=== PATIENT | male | born 1950 | race Caucasian/White ===

== ENCOUNTER → 2018-11-12 | Outpatient (CLI) | payer MEDICARE ==
--- NOTE | 2018-11-12 18:51 | CONS ---
CONSULTATION DATE OF SERVICE: 11/12/2018 This patient is a 68-year-old gentleman who has been evaluated in the sleep center for possible obstructive sleep apnea-hypopnea syndrome. HISTORY OF PRESENT ILLNESS/SLEEP-WAKE EVALUATION: Patient usually goes to bed around 2 a.m. and gets up in the morning around 11:30 a.m. 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 Sometimes he has problem with falling asleep. He has a TV set in the bedroom. He sleeps on his back and side position by himself, with snoring and awakenings from sleep up to 4 times, with sweating and restless legs. In the morning the patient wakes up tired, has difficulties paying attention, has problems with memory, concentration, depression, anxiety, claustrophobia. [place] Sleepiness Scale is 1. PAST MEDICAL HISTORY: Positive for: 1. Hypertension. 2. Diabetes mellitus. 3. Depression. 4. Acid reflux. 5. Peptic ulcer disease. PAST SURGICAL HISTORY: 1. Gastric bypass surgery. 2. Resection of the stomach for peptic ulcer disease. MEDICATIONS: 1. Omeprazole. 2. Strattera. 3. Lotrel. 4. Metformin. 5. Metoprolol. 6. Robaxin. 7. Lopid. 8. Vicodin. 9. Seroquel. 10.Meloxicam. SOCIAL HISTORY: Negative for smoking cigarettes. Occasionally uses marijuana. Alcohol consumption: none at the present time. REVIEW OF SYSTEMS: Multiple awakenings from sleep, sometimes difficulties to initiate sleep, tiredness and sleepiness during the day. PHYSICAL EXAMINATION: GENERAL: A pleasant gentleman without distress. VITAL SIGNS: BP 169/89, HR 78, RR 17, height 5 feet 7-1/2 inches, weight 194.2 pounds, body mass index 29.9, temperature 98.7, oxygen saturation at room air 96%. HEENT: PERRLA, EOMI. Evaluation of oropharynx showed tongue protrudes midline. Moderately low position of soft palate. Mallampati III. NECK: Supple. No JVD. Thyroid is not palpable. Circumference of neck is 16-1/2 inches. LUNGS: Clear to percussion and to auscultation. Good air exchange. No wheezing or rhonchi. HEART: S1, S2 regular. No murmurs, gallops or rubs. ABDOMEN: Soft and nontender. Bowel sounds are present. No organomegaly. EXTREMITIES: No clubbing or cyanosis. Difficulties walking related to some weakness in the left leg. INSTRUCTIONAL TECHNOLOGY DIRECTOR: Awake, alert, and oriented X3. Cranial nerves 2 to 7 intact. There is no fasciculation or atrophy. noted. No focal deficits observed. IMPRESSION: 1. Snoring, multiple awakenings from sleep, low position of soft palate, feeling tiredness in the morning after awakening; obstructive sleep apnea-hypopnea syndrome. 2. Hypertension. 3. History of depression. 4. Diabetes mellitus. 5. History of acid reflux. 6. History of peptic ulcer disease, status post surgical treatment. 7. Status post gastric bypass surgery. 8. Some weakness in left leg after a fall. PLAN: 1. Polysomnography for evaluation of patient's breathing during sleep. 2. CPAP/BiPAP titration if sleep study confirms obstructive sleep apnea-hypopnea syndrome. 3. Preferable position during sleep on the side. 4. No driving if patient feels any sleepiness. 5. I will see patient for follow up visit to explain results of testing and following plan. Thank you very much for referring this patient for consultation. Sincerely, Vetnura Messina MD, PhD, FAASM Diplomat of [employer] [facility] [place] [facility] / KARLYN: [id number] /
== END ==
LOC: SLEEP 13:44
PROVIDERS: ATTEND Internal Medicine
DX: G47.33 Obstructive sleep apnea (adult) (pediatric) (principal); I10 Essential (primary) hypertension; E11.9 Type 2 diabetes mellitus without complications; F32.9 Major depressive disorder, single episode, unspecified; K21.9 Gastro-esophageal reflux disease without esophagitis; K30 Functional dyspepsia; M62.81 Muscle weakness (generalized); Z98.890 Other specified postprocedural states; Z99.89 Dependence on other enabling machines and devices; Z98.84 Bariatric surgery status; Z79.899 Other long term (current) drug therapy; Z79.891 Long term (current) use of opiate analgesic; Z79.1 Long term (current) use of non-steroidal anti-inflammatories (NSAID)
CPT/HCPCS: 99211

== ENCOUNTER → 2018-12-24 | Outpatient (CLI) | payer MEDICARE ==
--- NOTE | 2018-12-24 16:12 | PN ---
PROGRESS NOTE DATE OF SERVICE: 12/24/2018 This patient is a 68-year-old gentleman who has been followed in Sleep Center. He is here to discuss results of his sleep study and following plan. Recently the patient had a sleep study. There were no significant respiratory abnormalities documented during the test. Apnea-hypopnea index was only 1.7, with lowest oxygen level 89.1%, which is within normal range. A significant amount of leg movements was documented: 57.5 times per hour with 2.8 microarousals per hour. [place] Sleepiness Scale today is 0. MEDICATIONS: 1. Omeprazole. 2. Strattera. 3. Lotrel. 4. Metformin. 5. Metoprolol. 6. Robaxin. 7. Lopid. 8. Vicodin. 9. Seroquel. 10.Meloxicam. PHYSICAL EXAMINATION: GENERAL: A pleasant patient in no distress. VITAL SIGNS: BP 176/86, HR 74, RR 16, height 5 feet 7-1/2 inches, weight 198 pounds. Body mass index 30.3, temperature 98.6, oxygen saturation at room air 97%. HEENT: PERRLA, EOMI. Evaluation of oropharynx showed tongue protrudes midline. Moderately low position of soft palate. NECK: Supple. No JVD. Thyroid is not palpable. LUNGS: Clear to percussion and to auscultation. Good air exchange. No wheezing or rhonchi. HEART: S1, S2 regular. No murmurs, gallops or rubs. ABDOMEN: Soft and nontender. Bowel sounds are present. No organomegaly. EXTREMITIES: No clubbing or cyanosis. CUTTER AND PRESSER: Awake, alert, and oriented X3. Cranial nerves 2 to 7 intact. There is no fasciculation or atrophy. noted. No focal deficits observed. IMPRESSION: 1. No significant respiratory abnormalities during the sleep study. 2. Hypertension. 3. Periodic limb movements have been documented during the sleep study in severe range. 4. History of depression. 5. Diabetes mellitus. 6. Acid reflux. 7. History of peptic ulcer disease, status post surgical treatment. 8. Status post gastric bypass surgery. 9. History of weakness of legs. PLAN: 1. Sleep hygiene with regular time bed for at least 8 hours. 2. Please check iron profile, including ferritin level. Low level of iron may be related to the developing of periodic limb movements. 3. Patient could be a candidate for small doses of dopamine antagonists to prevent periodic limb movements, but he does not have significant excessive daytime sleepiness, so probably it is not necessary. 4. No driving if feeling any sleepiness. Thank you very much for allowing me to participate in the management of your patient. Sincerely, Ventura Messina MD, PhD, FAASM Diplomat of [place] [employer] [place] [employer] [facility] [place] [facility] / KARLYN: [id number] /
== END ==
LOC: SLEEP 14:52
PROVIDERS: ATTEND Internal Medicine
DX: G47.61 Periodic limb movement disorder (principal); I10 Essential (primary) hypertension; F32.9 Major depressive disorder, single episode, unspecified; E11.9 Type 2 diabetes mellitus without complications; K21.9 Gastro-esophageal reflux disease without esophagitis; Z87.11 Personal history of peptic ulcer disease; Z98.890 Other specified postprocedural states; Z98.84 Bariatric surgery status; R53.1 Weakness; Z79.899 Other long term (current) drug therapy; Z79.84 Long term (current) use of oral hypoglycemic drugs; Z79.1 Long term (current) use of non-steroidal anti-inflammatories (NSAID)

== ENCOUNTER 2022-04-22 04:46 | Inpatient (IN) | payer MEDICARE ==
[2022-04-22] MEDS ORDERED: ASPIRIN 81 MG PO STA (04:51)
[2022-04-22] MEDS: MORPHINE SULFATE 4 MG/ML SYRINGE IV STA ×2 (04:59→05:07)
[2022-04-22 05:03] LABS: Anisocytosis Moderate; Basophils % (A) 0 %; Eosinophils % (A) 0 %; HCT 27.9 % (39.0-53.0); HGB 8.7 gm/dL (13.0-17.5); Hypochromasia Marked; Lymphocytes % (A) 8 %; MCH 30.4 pg (25.0-35.0); MCHC 31.2 g/dL (31.0-37.0); MCV 97.2 fL (80.0-100.0); Macrocytosis Moderate; Mean Platelet Volume 9.6; Monocytes # (A) 0.7 k/uL (0-1.0); Monocytes % (A) 6 %; Neutrophils # (A) 10.6 k/uL (1.3-7.7); Neutrophils % (A) 85 %; Platelet Count 232 k/uL (150-450); RBC 2.87 m/uL (4.30-5.90); RDW 20.6 % (11.5-15.5); WBC 12.5 k/uL (3.8-10.6)
[2022-04-22 05:12] LABS: ALT 23 U/L (4-49); AST 68 U/L (17-59); African American GFR (CKD) >90 (>60 ml/min/1.73 sqM); Albumin 2.8 g/dL (3.5-5.0); Alkaline Phosphatase 127 U/L (38-126); Anion Gap 4 mmol/L; Blood Urea Nitrogen 19 mg/dL (9-20); Calcium 8.4 mg/dL (8.4-10.2); Carbon Dioxide 21 mmol/L (22-30); Chloride 108 mmol/L (98-107); Glucose 57 mg/dL (74-99); Non-African American GFR(CKD) 89 (>60 ml/min/1.73 sqM); Potassium 3.9 mmol/L (3.5-5.1); Sodium 133 mmol/L (137-145); Total Bilirubin 0.2 mg/dL (0.2-1.3); Total Protein 5.4 g/dL (6.3-8.2)
--- NOTE | 2022-04-22 05:12 | ED ---
Chest Pain HPI - General Chief Complaint: Chest Pain Stated Complaint: Chest Pain Time Seen by Provider: 04/22/22 04:51 Source: EMS Mode of arrival: EMS Limitations: no limitations - History of Present Illness Initial Comments: Patient 72-year-old man with history of gastric cancer, also recent history of DVT (now taking eliquis) who presents with onset of left chest pain proximally 4-5 hours ago. The patient was at rest. MD Complaint: chest pain -: hour(s) Onset: during rest Pain Location: left chest Pain Radiation: LUE Severity: moderate Quality: aching Consistency: constant Improves With: nothing Worsens With: nothing Anginal Symptoms: nausea, dyspnea Treatments Prior to Arrival: none - Related Data Home Medications Medication Instructions Recorded Confirmed Metoprolol Tartrate [Lopressor] 25 mg PO BID 04/22/22 04/22/22 Pantoprazole [Protonix] 40 mg PO BID 04/22/22 04/22/22 QUEtiapine [SEROquel] 150 mg PO HS 04/22/22 04/22/22 amLODIPine BESYLATE/BENAZEPRIL 1 cap PO DAILY 04/22/22 04/22/22 [Lotrel 10-40 mg Capsule] gemfibroziL [Lopid] 600 mg PO BID 04/22/22 04/22/22 glipiZIDE [Glucotrol] 5 mg PO AC-BID 04/22/22 04/22/22 hydrALAZINE HCL [Apresoline] 100 mg PO TID 04/22/22 04/22/22 metFORMIN HCL 1,000 mg PO BID 04/22/22 04/22/22 Allergies Allergy/AdvReac Type Severity Reaction Status Date / Time No Known Allergies Allergy Verified 04/22/22 10:17 Review of Systems ROS Statement: Those systems with pertinent positive or pertinent negative responses have been documented in the HPI. ROS Other: All systems not noted in ROS Statement are negative. Constitutional: Denies: fever, chills Respiratory: Reports: dyspnea. Denies: cough Cardiovascular: Reports: chest pain. Denies: palpitations, orthopnea Gastrointestinal: Reports: nausea. Denies: abdominal pain, vomiting Genitourinary: Denies: dysuria, hematuria Musculoskeletal: Denies: back pain Skin: Denies: rash Neurological: Denies: headache, weakness EKG Findings - EKG Results: EKG: interpreted by STEPH, sinus rhythm, normal axis EKG shows: tachycardia (Rate 114 bpm) - PR, Pacemaker, Normal: Myocardial infarction: anterior PR (acute or recent) Past Medical History Past Medical History: Cancer, Diabetes Mellitus, Deep Vein Thrombosis (DVT), Hypertension, Myocardial Infarction (PR) History of Any Multi-Drug Resistant Organisms: None Reported, MRSA Past Surgical History: No Surgical Hx Reported Past Psychological History: Depression Smoking Status: Never smoker Past Drug Use History: Marijuana - Past Family History Father Family Medical History: Cancer, Diabetes Mellitus, Myocardial Infarction (PR) Additional Family Medical History / Comment(s): lung cancer, from [place] General Exam Limitations: no limitations General appearance: alert, in no apparent distress Head exam: Present: atraumatic, normocephalic Eye exam: Present: normal appearance. Absent: scleral icterus, conjunctival injection Neck exam: Present: normal inspection Respiratory exam: Present: normal lung sounds bilaterally. Absent: respiratory distress, wheezes, rales, rhonchi, stridor Cardiovascular Exam: Present: regular rate, normal rhythm, normal heart sounds. Absent: systolic murmur, diastolic murmur, rubs, gallop GI/Abdominal exam: Present: soft. Absent: distended, tenderness, guarding Extremities exam: Present: normal inspection, normal capillary refill. Absent: pedal edema, calf tenderness Back exam: Present: normal inspection. Absent: CVA tenderness (R), CVA tenderness (L) Neurological exam: Present: alert, oriented X3, CN II-XII intact Skin exam: Present: warm, dry, intact, normal color. Absent: rash Course Vital Signs 04/22/22 04/22/22 04/22/22 04:48 05:00 05:05 Temperature 98.1 F Pulse Rate 114 H 115 H 114 H Respiratory 20 20 20 Rate Blood Pressure 94/60 84/58 89/59 O2 Sat by Pulse 100 98 100 Oximetry 04/22/22 05:10 Temperature Pulse Rate 112 H Respiratory 18 Rate Blood Pressure 90/53 O2 Sat by Pulse 100 Oximetry Chest Pain MDM - [facility] Patient 72-year-old man presenting with chest pain whose ECG has ST elevations anterior laterally. Case is discussed with business analyst consultant and Care Nurse Rn activated. Patient has received aspirin by EMS. The patient states he did take his eliquis and therefore heparin not initially started. Critical Care Time Critical Care Time: Yes (30 minutes) Disposition Clinical Impression: ST elevation myocardial infarction (STEMI) Disposition: ADMITTED IP TO THIS HOSP Condition: Critical Is patient prescribed a controlled substance at d/c from ED?: No
[2022-04-22] MEDS ORDERED: IV FLUID CONTINUATION 1,000 ML IV ONE (05:18)
[2022-04-22] MEDS ORDERED: HEPARIN SODIUM 1,000 UN/ML (10ML VL) ONE (05:24)
[2022-04-22] MEDS ORDERED: VERAPAMIL 2.5 MG/ML 2 ML AMP ONE (05:24)
[2022-04-22] MEDS ORDERED: fentaNYL (PF) 50 MCG/ML 2 ML AMP ONE (05:25)
[2022-04-22] MEDS ORDERED: fentaNYL (PF) 50 MCG/ML 2 ML AMP IV ONE (05:34)
[2022-04-22] MEDS ORDERED: LIDOCAINE 1% INJ 10MG/ML (5 ML VIAL-PF) SQ ONE (05:34)
[2022-04-22] MEDS ORDERED: VERAPAMIL SYRINGE (5 MG/10 ML) INTRAARTER ONE (05:37)
[2022-04-22] MEDS ORDERED: PRASUGREL 10 MG TAB ONE ×2 (05:44)
[2022-04-22] MEDS: HEPARIN SODIUM 1,000 UN/ML (10ML VL) IV ONE ×2 (05:45→06:40)
[2022-04-22] MEDS ORDERED: PRASUGREL 10 MG TAB PO ONE (05:49)
[2022-04-22] MEDS ORDERED: NOREPINEPHRINE 4 MG in SODIUM CHLORIDE 0.9% 250 ML IV ONE (05:54)
[2022-04-22 05:57] LABS: INR 1.2 (<1.2); Partial Thromboplastin Time 25.7 sec (22.0-30.0); Prothrombin Time 12.3 sec (9.0-12.0)
[2022-04-22] MEDS ORDERED: IOPAMIDOL-370 125ML BTL INJ ONE (06:00)
[2022-04-22] MEDS ORDERED: niCARdipine 25 MG/10 ML VIAL ONE (06:07)
[2022-04-22] MEDS ORDERED: niCARdipine Syringe (1,000 mcg/10 mL) INTRACORON ONE (06:08)
[2022-04-22] MEDS ORDERED: MIDAZOLAM 2 MG/2 ML VIAL IV ONE (06:11)
[2022-04-22] MEDS ORDERED: IOPAMIDOL-370 100ML BTL INJ ONE ×2 (06:28→06:40)
[2022-04-22] MEDS ORDERED: ZOLPIDEM 5 MG TAB PO PRN (07:00)
[2022-04-22] MEDS ORDERED: RX INFO: IV CONTRAST WAS GIVEN 1 EACH MISC MISCELLANE PRN (07:00)
[2022-04-22] MEDS ORDERED: SODIUM CHLORIDE 0.9% 1,000 ML in EMPTY BAG 1 BAG IV SCH (07:00)
[2022-04-22] MEDS ORDERED: ATROPINE SULFATE 0.1 MG/ML 10ML SYRINGE IV PRN (07:00)
--- NOTE | 2022-04-22 07:00 | XR ---
EXAMINATION TYPE: XR chest 1V portable DATE OF EXAM: 04/22/2022 5:00 AM COMPARISON: None TECHNIQUE: XR chest 1V portable Portable AP radiograph of the chest.. CLINICAL INDICATION:Male, 72 years old with history of chest pain; FINDINGS: Lungs/Pleura: Low lung volumes are present. There is no evidence of pleural effusion, focal consolida tion, or pneumothorax. Pulmonary vascularity: Pulmonary vascular congestion. Heart/mediastinum: Cardiomediastinal silhouette is enlarged and stable. Musculoskeletal: No acute osseous pathology. IMPRESSION: Cardiomegaly and mild pulmonary vascular congestion. Correlate with BNP for congestive heart failure.
--- NOTE | 2022-04-22 07:16 | P.CRDCN ---
History of Present Illness Consult date: 04/22/22 History of present illness: History of Present Illness: The patient is a 72-year-old male with a history of CAD status post myocardial infarction in 1995 with angioplasty according to him, history of smoking who presented with symptoms of chest discomfort, had ST segment elevation anteriorly was evaluated by the emergency room and seen in the cardiac catheterization l aboratory. According to the patient the symptoms started around midnight and he presented to the emergency room. He denies any dyspnea he denies any dizziness or palpitations. The patient had a history of DVT recently and has been on anticoagulation. He had an episode of GI bleeding, details unclear he had workup at [facility]. Patient denies any syncope. One of his main complaint shoulder discomfort related to a new injury. His troponin was elevated on presentation. He had no nausea or vomiting. He did not mention that he had any recent GI bleeding. After the procedure and after talking to the family wanted arrived apparently the patient 2 days ago was seen [facility] and was told that he had a STEMI but he signed AMA. He had episode of GI bleeding and upper endoscopy prior to that at [facility] and was told that he has gastric cancer. Full detail of his prior workup is not available, the patient and his son are not sure. Medications: He just is not available Review of Systems: Respiratory: No history of asthma, bronchitis or recent cough. GI: No nausea or vomiting . No history of peptic ulcer disease. recent GI bleed according to the son. : No hematuria or dysuria. Nervous System: No stroke or seizure. Physical Examination: 72-year-old male alert and oriented complaining of chest and back discomfort evaluated in the cardiac catheterization laboratory,Blood pressure 85/70, Heart rate on the 5 Head: Normocephalic. Eyes: Sclerae nonicteric. Neck: Good carotid upstroke, no bruit, no jugular venous distention. Lungs: Clear to auscultation anteriorly. Heart: Regular rate and rhythm, S1-S2, no S3, no rub. No murmur. Abdomen: Soft nontender, positive bowel sounds no organomegaly. Extremities: 2-3+ edema, intact distal pulses. Labs: Hemoglobin 8.7, BUN 19, creatinine 0.81, potassium 3.9, troponin 24.9, chest x- ray suggestive of CHF EKG: Sinus mechanism with ST segment elevation anteriorly and QS pattern Impression: 1. Anterior wall myocardial infarction, initially the patient did not mention that he was diagnosed with STEMI 48 hours ago and after the angioplasty the son said that that was the diagnosis but the patient signed the AMA. We will try to obtain the records 2. Anemia and recent gastric cancer diagnosis 3. History of DVT 4. Evidence to suggest severe cardiomyopathy with early cardiogenic shock 5. Prior history of myocardial infarction 6. History of anticoagulation 7. Back discomfort Plan: 1. Patient underwent cardiac catheterization because of his presentation and the fact that history of STEMI was not mentioned by him, he underwent stenting of the LAD was large amount of clots. 2. Obtain an echocardiogram with Doppler 3. Obtain consultation from oncology 4. Probably need to put a filter catheter because of recent DVT and GI bleed 5. Prognosis is guarded. I discussed the findings with the patient and his son. We will try to obtain old records from [facility] and [facility]. 6. Thank you for this consult we will follow with you. Past Medical History Past Medical History: Cancer, Diabetes Mellitus, Deep Vein Thrombosis (DVT), Hypertension, Myocardial Infarction ([place]) History of Any Multi-Drug Resistant Organisms: None Reported, MRSA Past Surgical History: No Surgical Hx Reported Past Psychological History: Depression Smoking Status: Never smoker Past Drug Use History: Marijuana Medications and Allergies Allergies Allergy/AdvReac Type Severity Reaction Status Date / Time No Known Allergies Allergy Verified 04/22/22 04:53 Physical Exam Vitals: Vital Signs Temp Pulse Resp BP Pulse Ox 04/22/22 05:10 112 H 18 90/53 100 04/22/22 05:05 114 H 20 89/59 100 04/22/22 05:00 115 H 20 84/58 98 04/22/22 04:48 98.1 F 114 H 20 94/60 100 Intake and Output 04/21/22 04/22/22 04/22/22 22:59 06:59 14:59 Other: Weight 87.4 kg Results 04/22/22 04:54 04/22/22 04:54 Cardiac Enzymes 04/22/22 04/22/22 Range/Units 04:54 04:54 AST 68 H (17-59) U/L Troponin I 24.900 H* (0.000-0.034) ng/mL Coagulation 04/22/22 Range/Units 04:54 PT 12.3 H (9.0-12.0) sec APTT 25.7 (22.0-30.0) sec CBC 04/22/22 Range/Units 04:54 WBC 12.5 H (3.8-10.6) k/uL RBC 2.87 L (4.30-5.90) m/uL Hgb 8.7 L (13.0-17.5) gm/dL Hct 27.9 L (39.0-53.0) % Plt Count 232 (150-450) k/uL Comprehensive Metabolic Panel 04/22/22 Range/Units 04:54 Sodium 133 L (137-145) mmol/L Potassium 3.9 (3.5-5.1) mmol/L Chloride 108 H (98-107) mmol/L Carbon Dioxide 21 L (22-30) mmol/L BUN 19 (9-20) mg/dL Creatinine 0.81 (0.66-1.25) mg/dL Glucose 57 L (74-99) mg/dL Calcium 8.4 (8.4-10.2) mg/dL AST 68 H (17-59) U/L ALT 23 (4-49) U/L Alkaline Phosphatase 127 H (38-126) U/L Total Protein 5.4 L (6.3-8.2) g/dL Albumin 2.8 L (3.5-5.0) g/dL Current Medications Generic Name Dose Route Start Last Admin Trade Name Freq PRN Reason Stop Dose Admin Al Hydroxide/Mg Hydroxide 30 ml 04/22/22 07:00 Mag Hydrox/Al Hydrox/Simeth 30 Ml Cup PO Q4HR PRN Heartburn Aspirin 81 mg 04/22/22 09:00 Aspirin 81 Mg PO DAILY CEDRIC Atorvastatin Calcium 80 mg 04/22/22 21:00 Atorvastatin 80 Mg Tab PO HS CEDRIC Atropine Sulfate 0.5 mg 04/22/22 07:00 Atropine Sulfate 0.1 Mg/Ml 10ml Syringe IV ONCE PRN Symptomatic Bradycardia Sodium Chloride 1,000 ml/ IV 1,000 mls @ 87.4 mls/hr 04/22/22 07:00 Solution IV 04/22/22 10:01 .[id number] CEDRIC 1 ML/KG/HR Metoprolol Tartrate 12.5 mg 04/22/22 09:00 Metoprolol Tartrate 25 Mg Tab PO BID [facility] Miscellaneous Information 1 each 04/22/22 07:00 Rx Info: Iv Contrast Was Given 1 Each Mis MISCELLANE 04/24/22 07:00 DAILY PRN Per Protocol Nitroglycerin 0.4 mg 04/22/22 07:00 Nitroglycerin Sl Tabs 0.4 Mg Tab SUBLINGUAL Q5M PRN Chest Pain Prasugrel 10 mg 04/23/22 09:00 Prasugrel 10 Mg Tab PO DAILY [facility] Protocol Spironolactone 25 mg 04/22/22 09:00 Spironolactone 25 Mg Tab PO DAILY [facility] Zolpidem Tartrate 5 mg 04/22/22 07:00 Zolpidem 5 Mg Tab PO HS PRN Insomnia Intake and Output 04/21/22 04/22/22 04/22/22 22:59 06:59 14:59 Other: Weight 87.4 kg 04/22/22 04:54 04/22/22 04:54
--- NOTE | 2022-04-22 07:29 | P.CARDCATH ---
Date of Procedure: 04/22/22 Description of Procedure: Cardiac Catheterization: The patient is a 72-year-old male who presented to the emergency room with acute chest discomfort according to him started 5 hours prior to presentation is ST segment elevation anteriorly and QS pattern. The patient was evaluated in the cardiac catheterization laboratory. According to him this is the first time he had that discomfort. Recommendations were made regarding cardiac catheterization, the risks and the complications were discussed with the patient who is in full understanding and agreement. Procedure Description: Patient was brought to labor relations officer in fasting semi-sedated state after receiving Fentanyl and Benadryl achieiving moderate conscious sedated state. Using Xylocaine Anesthesia and Seldinger technique, a 6-Turkish sheath was introduced in the right radial artery . Subsequently, selective coronary angiography was performed using a 6-Turkish CLS 3.5 for the left coronary system and 3.5 bend right Kathi 5-Turkish catheter. Multiple views of the coronary artery including hemiaxial views were obtained. After performing angioplasty and stenting a 5-Turkish pigtail catheter was used to cross the aortic valve and LVEDP was calculated. Following that, catheter and sheath were removed. Hemostasis was obtained with deployment of TR band . There was no immediate complication. Patient was returned to room in stable condition. Of note, the patient received a total of 8000 units of intravenous heparin as well as intra-arterial verapamil. There was no immediate complications. His ACT was monitored, his chest discomfort improved at the end of the procedure. Findings: Fluoroscopy significant calcification of the LAD was noted. Left main: This is a size vessel, bifurcating into LAD and left circumflex, left main has no high-grade stenosis LAD: This is a calcified vessel giving rise to 2 diagonal branch, the proximal LAD has 60% stenosis at the takeoff of the second diagonal branch there was 100% stenosis with large amount of clots involving the diagonal and the LAD. No significant antegrade flow was noted Left circumflex: This is a size vessel, giving rise to 2 obtuse marginal branch and the second obtuse marginal branch as chronically occluded with retrograde flow RCA: This is a size vessel, bifurcating into PDA and PLV the right coronary artery has mild disease in the midsegment of 20-30% Left Ventriculogram: Not performed Hemodynamics: There was no gradient across the aortic valve, LVEDP 25-30 mmHg Angioplasty: Using the CLS 3.5 guiding catheter and after stenting the left main a 0.014 BMW wire was introduced into the LAD and positioned distally subsequently 2.5 x 12 mm Treck balloon was advanced and inflation up to 8 bacilio were done, subsequently a second 0.014 BMW wire was introduced and the diagonal branch and the balloon was advanced and inflations were done at 8 bacilio, an ESTRELLA catheter was advanced in the LAD and one drawn was done without with throwing significant thrombotic material. After removing the catheter a 2.75 x 18 mm Xience julio point stent was advanced in the LAD and deployed at 16 bacilio. A 3.0 x 12 mm NC Treck balloon was advanced and inflation at 12 bacilio were done and the stent. There was slow flow in the distal segment and nicardipine was given. Following that an export cath eter was introduced and 2 runs were done. The 2.5 x 12 mm balloon was introduced to the distal segment with multiple passes, not inflated with some improvement in the flow. Following that a 3.0 x 18 mm Xience julio point was deployed proximal to the first one and dilated at 16 bacilio. Following that the balloon and the wire was withdrawn back in the guiding catheter images were obtained and repeated subsequently images of the right coronary artery and LVEDP were calculated. The patient chest discomfort improved but he persisted having ST segment elevation. He received Effient. He was returned to his room in stable condition and was started on levophed. Conclusion: 1. Calcified LAD 2. Total occlusion of the LAD and diagonal branch were large amount of clots status post stenting with reduction of the stenosis from 100% to 0% with slow flow at the apex 3. Chronic occlusion of OM 2 4. Mild disease in the RCA 5. Elevated LVEDP Recommendations: The findings and recommendations were discussed with the patient and his son. After the procedure the son mentioned that he was diagnosed with STEMI 2 days ago [facility] but the patient signed AMA. The patient did not get that information on presentation. He will be continued on aspirin and Effient for now awaiting further information about the gastric cancer. The prognosis is guarded. The findings were discussed with the son in detail. Duration of sedation is 68 minutes.
[2022-04-22] MEDS ORDERED: PANTOPRAZOLE 40 MG/10 ML VIAL IVP SCH (10:00)
--- NOTE | 2022-04-22 10:23 | P.PN ---
Progress Note - Text Progress Note Date: 04/22/22 Full consult will be completed in morning. Chart reviewed. Pt is not established with us. Unknown treatment and stage at this time. Will need to obtain records from his treating physician. Here for STEMI. Treatment for STEMI as per cardiology team, and will obtain records for further recom mendations. Monitor CBC and recommend supportive transfusion to maintain Hgb >7. Will complete anemia work up to rule out hemolysis or vitamin deficiencies as well.
[2022-04-22] MEDS: METOPROLOL TARTRATE 12.5 MG TAB PO SCH ×2 (10:36→20:39)
[2022-04-22] MEDS: SPIRONOLACTONE 25 MG TAB PO SCH (10:37)
[2022-04-22] MEDS: FUROSEMIDE 10 MG/ML 2 ML VIAL IV SCH ×2 (10:37→20:40)
[2022-04-22 11:15] LABS: Chol/HDL Ratio 1.77 Ratio
--- NOTE | 2022-04-22 11:20 | US ---
EXAMINATION TYPE: US venous doppler duplex LE DATE OF EXAM: 04/22/2022 11:02 AM COMPARISON: NONE CLINICAL HISTORY: history of DVT. Leg swelling SIDE PERFORMED: Bilateral TECHNIQUE: The lower extremity deep venous system is examined utilizing real time linear array sonog chelly with graded compression, doppler sonography and color-flow sonography. VESSELS IMAGED: Common Femoral Vein Deep Femoral Vein Greater Saphenous Vein * Femoral Vein Popliteal Vein Small Saphenous Vein * Proximal Calf Veins (* superficial vessels) Right Leg: Positive for DVT, entire right leg with hypoechoic clot. Left Leg: Positive for DVT, distal popliteal vein and proximal calf veins with hyperechoic clot iden tified. Bilateral Olivas's Cysts Right= 6.0 x 1.8 x 4.1 cm / Left= 5.1 x 2.1 x 2.9 cm There is subcutaneous edema throughout the lower extremities, right greater than left. IMPRESSION: 1. Bilateral deep vein thrombosis. On the right, extending from the common femoral to the posterior t ibial veins. On the left, extending from the popliteal vein into the posterior tibial veins. 2. Bilateral subcutaneous edema, right greater than left. 3. Bilateral popliteal fossa cysts.
[2022-04-22 11:48] LABS: Glucose,Whole Blood 208 mg/dL (70-110)
[2022-04-22 12:18] LABS: Bilirubin, Delta 0.2 mg/dL (0.0-0.2); LDH 1327 U/L (313-618); Total Bilirubin 0.2 mg/dL (0.2-1.3)
[2022-04-22 12:22] LABS: Reticulocyte % 11.9 % (0.5-2.0)
[2022-04-22] MEDS: INSULIN ASPART (NovoLOG) 100 UNIT/ML VIAL SQ SCH ×3 (12:38→20:40)
--- NOTE | 2022-04-22 12:42 | P.CNPUL ---
History of Present Illness Consult date: 04/22/22 Reason for consult: chest pain History of present illness: This is a 72-year-old male patient who came in to the emergency department complaining of chest pain and the patient was diagnosed having an acute ST segment elevation myocardial infarction. In fact the patient seems to have been having the symptoms for more than 48 hours and we came to find out this information at the later stage after the patient completed his cardiac catheteri zation. Noted the patient is known to have coronary artery disease and the patient was admitted taken to the cardiac catheterization left for further investigation. He is a very poor historian and his extremity and unreliable. During cardiac catheterization, the patient was found to have Calcified LAD, Total occlusion of the LAD and diagonal branch were large amount of clots status post stenting with reduction of the stenosis from 100% to 0% with slow flow at the apex, Chronic occlusion of OM 2, Mild disease in the RCA, Elevated LVEDP. Based on that, the patient was given diagnosis of anterior wall myocardial infarction. The patient underwent stenting of a totally occluded LAD and the diagonal branch on both of these arteries were filled with large amount of clots and there was reduction of the stenosis from 100% on 0%. The patient was given stents LAD and the diagonal branch. Following that, the patient was brought into the intensive care unit. I came to find out that the patient is a more complicated history. He was diagnosed having adenocarcinoma of the stomach at [facility]. Following that, the patient got admitted to [facility] where he was found to have a DVT of the right lower extremity. He was given Eliquis. He subsequently had GI bleeding and the recommendation was to insert an IVC filter stop and to coagulation. Nevertheless, the patient apparently signed himself AMA also the hospital and he has not receiving any form of treatment at this point in time. In fact, he has also stopped his Eliquis intake. He is a chronic marijuana smoking. History of marijuana smoking. He is currently on a low-dose norepinephrine infusion which is running at 0.08 Ming respiratory abnormalities on 2 L about 2 by nasal cannula. He is on a normal saline running at the rate of 75 mL an hour. Review of Systems Constitutional: Reports fatigue, Reports weakness Eyes: denies as per HPI, denies blurred vision, denies bulging eye, denies decreased vision, denies diplopia, denies discharge, denies dry eye, denies irritation, denies itching, denies pain, denies photophobia, denies loss of peripheral vision, denies loss of vision, denies tunnel vision/blind spots Ears: deny: decreased hearing, ear discharge, earache, tinnitus Breasts: absent: as per HPI, gynecomastia Cardiovascular: Reports chest pain, Reports decreased exercise tolerance, Reports dyspnea on exertion Respiratory: Reports cough, Reports dyspnea Genitourinary: Reports as per HPI Musculoskeletal: Reports as per HPI Musculoskeletal: absent: ankle pain, ankle stiffness, ankle swelling Integumentary: Reports as per HPI Neurological: Reports as per HPI Psychiatric: Reports as per HPI Endocrine: Reports as per HPI Hematologic/Lymphatic: Reports as per HPI Allergic/Immunologic: Reports as per HPI Past Medical History Past Medical History: Cancer, Diabetes Mellitus, Deep Vein Thrombosis (DVT), Hypertension, Myocardial Infarction ([place]) Additional Past Medical History / Comment(s): daily marijuana smoker, CAD, COPD, DVT of the RLE April 03, 2022, gastric cancer (adenocarcinoma) , DM2, PUD, UGI bleed and the patinet taken off the Eliquis on 04/17/2022 anad the patient was supposed to have an IVC filter History of Any Multi-Drug Resistant Organisms: None Reported, MRSA Past Surgical History: No Surgical Hx Reported, Heart Catheterization, Tonsillectomy Additional Past Surgical History / Comment(s): surgery for PUD Past Psychological History: Depression Smoking Status: Never smoker Past Drug Use History: Marijuana Medications and Allergies Home Medications Medication Instructions Recorded Confirmed Type Metoprolol Tartrate [Lopressor] 25 mg PO BID 04/22/22 04/22/22 History Pantoprazole [Protonix] 40 mg PO BID 04/22/22 04/22/22 History QUEtiapine [SEROquel] 150 mg PO HS 04/22/22 04/22/22 History amLODIPine BESYLATE/BENAZEPRIL 1 cap PO DAILY 04/22/22 04/22/22 History [Lotrel 10-40 mg Capsule] gemfibroziL [Lopid] 600 mg PO BID 04/22/22 04/22/22 History glipiZIDE [Glucotrol] 5 mg PO AC-BID 04/22/22 04/22/22 History hydrALAZINE HCL [Apresoline] 100 mg PO TID 04/22/22 04/22/22 History metFORMIN HCL 1,000 mg PO BID 04/22/22 04/22/22 History Allergies Allergy/AdvReac Type Severity Reaction Status Date / Time No Known Allergies Allergy Verified 04/22/22 10:17 Physical Exam Vitals: Vital Signs Temp Pulse Resp BP Pulse Ox 04/22/22 09:00 128 H 14 96/83 98 04/22/22 08:30 131 H 19 113/70 96 04/22/22 08:00 98.4 F 117 H 16 112/74 98 04/22/22 07:30 113 H 14 113/80 100 04/22/22 07:10 98.4 F 118 H 16 99/66 95 04/22/22 05:10 112 H 18 90/53 100 04/22/22 05:05 114 H 20 89/59 100 04/22/22 05:00 115 H 20 84/58 98 04/22/22 04:48 98.1 F 114 H 20 94/60 100 Intake and Output 04/21/22 04/22/22 04/22/22 22:59 06:59 14:59 Intake Total 390 150 Output Total 0 Balance 390 150 Intake: IV 390 Intake, IV Titration 150 Amount Sodium Chloride 0.9% 1, 150 000 ml In Empty Bag 1 bag @ 1 ML/KG/HR 87.4 mls/hr IV .[id number] [facility] Rx#: [id number] Output: Urine 0 Other: Weight 87.4 kg Gen. appearance, comfortable on 2 L of nasal cannula Head exam was generally normal. There was no scleral icterus or corneal arcus. Mucous membranes were moist. Neck was supple and without jugular venous distension, thyromegaly, or carotid bruits. Carotids were easily palpable bilaterally. There was no adenopathy. Lungs sounds are diminished otherwise clear Cardiac exam revealed the PMI to be normally situated and sized. The rhythm was regular and no extrasystoles were noted during several minutes of auscultation. The first and second heart sounds were normal and physiologic splitting of the second heart sound was noted. There were no murmurs, rubs, clicks, or gallops. Abdominal exam revealed normal bowel sounds. The abdomen was soft, non-tender, and without masses, organomegaly, or appreciable enlargement of the abdominal aorta. Extremities show +1 edema and there is no cyanosis or clubbing Examination of the skin revealed no evidence of significant rashes, suspicious appearing nevi or other concerning lesions. Neurologically, the patient is awake and alert and the patient does not have any focal neurological deficit. Cranial nerves are essentially intact. Results - Laboratory Findings CBC and BMP: 04/22/22 04:54 04/22/22 04:54 PT/INR, D-dimer PT 12.3 sec (9.0-12.0) H 04/22/22 04:54 INR 1.2 (<1.2) H 04/22/22 04:54 Abnormal lab findings: Abnormal Labs 04/22/22 04/22/22 04/22/22 04:54 04:54 04:54 WBC 12.5 H RBC 2.87 L Hgb 8.7 L Hct 27.9 L RDW 20.6 H Neutrophils # 10.6 H PT 12.3 H INR 1.2 H Sodium 133 L Chloride 108 H Carbon Dioxide 21 L Glucose 57 L AST 68 H Alkaline Phosphatase 127 H Troponin I Total Protein 5.4 L Albumin 2.8 L 04/22/22 04/22/22 04:54 07:30 WBC RBC Hgb Hct RDW Neutrophils # PT INR Sodium Chloride Carbon Dioxide Glucose AST Alkaline Phosphatase Troponin I 24.900 H* 27.500 H* Total Protein Albumin - Diagnostic Findings Chest x-ray: image reviewed Assessment and Plan Plan: Acute/subacute anterior wall ST segment elevation myocardial infarction, post cardiac catheterization and the patient was found to have total occlusion of the LAD and diagonal branch with successful stenting and stent deployment in the diagonal and LAD. Currently free of any chest pain Hypotension, likely cardiogenic in nature and the patient is currently on low- dose norepinephrine infusion Chest pain secondary to above, improved History of gastric adenocarcinoma, exact diagnostic and therapeutic circumstances are not known. History of DVT of the right lower extremity, currently off anticoagulants. The patient was taken off and the granulation due to concerns of GI bleed as the patient was hospitalized for GI bleeding and he was supposed to undergo an IVC filter placement of mechanical [facility] which she declined and the patient walked out AMA History of GI bleed Known history of coronary artery disease with chronic occlusion of the OM 2, moderate disease of the RCA Possible congestion heart failure with elevation of the left ventricle end- diastolic pressure Peptic ulcer disease with previous history of gastric surgery many years back History of daily marijuana smoking Plan We'll give the patient intensive care unit. we'll continue the combination of aspirin and Effient for now and watch the patient closely for any form of GI bleeding. We'll put the patient IV Protonix We'll hold Eliquis for now and we'll repeat a Doppler of the lower extremity. If clots are present, the patient may need IVC filter placement Patient will have an echocardiogram Chest x-ray was noted Present medications include low-dose Lasix 20 mg IV every 12 hours. We will gradually wean off the pressors. Without the patient also metoprolol 25 mg by mouth twice a day. Smoking cessation counseling Obtain records from other hospitals regarding his gastric adenocarcinoma and DVT history We'll continue to follow. Is an unreliable historian. We'll continue to follow
[2022-04-22] MEDS: NITROGLYCERIN SL TABS 0.4 MG TAB SUBLINGUAL PRN (14:34)
--- NOTE | 2022-04-22 14:58 | P.HPIM ---
History of Present Illness H&P Date: 04/22/22 Chief Complaint: Dizzy This is a 72-year-old patient who follows with Dr. Ming Naylor. Patient on April 03 was admitted to [facility] and were diagnosed with that clot in the right lower extremity. Patient also had some bloody stools. Patient underwent endoscopy was found to have gastric cancer biopsy showing adenocarcinoma. Following a biopsy. Subsequently patient was discharged on eliquis. Patient with then became hypotensive and was admitted to [facility]. Seen by an oncologist there. It was felt that patient's bleeding from his biopsy site of the gastric cancer. Patient left from the AMA 2 days ago. Came home. Patient now presented to our facility feeling dizzy lightheaded diet. Ultrasound in the ER did confirm blood clots in both lower extremity. Also patient's Axel ST elevation MT. During the cardiac labor relations manager and got 2 stents to the LAD. Patient is due to get a IVC filter. Postprocedure patient ICU. On about 6 g of Levothroid. No chest pain. Tired. Up in a chair. Daughter the bedside. Review of systems: GEN.: Tired EYES: None HEENT: None NECK: None RESPIRATORY: None CARDIOVASCULAR: None GASTROINTESTINAL: None GENITOURINARY: None MUSCULOSKELETAL: Chronic low back pain LYMPHATICS: None HEMATOLOGICAL: None PSYCHIATRY: None NEUROLOGICAL: None Past medical history to include: Diabetes mellitus type 2, acute DVT both lower extremity diagnosed 2 weeks ago, gastric tumor showing adenocarcinoma recently diagnosed. Depression Social history: Does not smoke. Does marijuana occasionally. 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 Lives alone. Family history: Diabetes, MT, lung cancer Physical examination: VITAL SIGNS: 98.4, 110, 19, 130 minutes 70, 96% on 2 L GENERAL: BMI 30.2, declining in a chair awake not in distress. EYES: Pupils equal. Conjunctiva normal. HEENT: External appearance of nose and ears normal, oral cavity grossly normal. NECK: JVD not raised; masses not palpable. HEART: First and second heart sounds are normal; no edema. LUNGS: Respiratory rate normal; decreased breath sounds. ABDOMEN: Soft, nontender, liver spleen not palpable, no masses palpable. PSYCH: Alert and oriented x3; mood and affect normal. MUSCULOSKELETAL:No Clubbing/cyanosis;muscles-grossly intact NEUROLOGICAL: Cranial nerves grossly intact; no facial asymmetry, power and sensation grossly intact. LYMPHATICS: No lymph nodes palpable in the axilla and neck INVESTIGATIONS, reviewed in the clinical context: White count 12.5 hemoglobin 8.7 platelets 232 sodium 133 potassium 3.9 BUN 19 creatinine 0.81 Troponin I 24.9, 27.5, 23.2 LDL 46 EKG tracing personally reviewed by me-ST elevation V2 to V6, but ST segment depression in inferior leads Chest x-ray film personally reviewed by me-jennie/Fanny. Venous polyposis Doppler ultrasound lower extremity: Positive for DVT and tired right leg with hypoechoic clot, DVT in the left leg is still popliteal vein and proximal calf veins. Bilateral Olivas's cyst. Assessment and plan: -Acute ST elevation myocardial infarction of the anterior wall. 2 stents to the LAD. -CAD with intervention to LAD Aspirin 81 mg, Lipitor 80 mg, Lopressor 12.5 mg by mouth twice a day, passive prasugrel 10 mg daily -Adenocarcinoma of gastric cancer. Diagnosed recently with biopsy following EGD for GI bleed. Consult oncology -Diabetes mellitus type 2, oral hypoglycemic Hold Glucotrol. Follow Accu-Cheks with sliding scale. -Essential hypertension. Currently blood pressure running low. Patient on a very small dose of Lopressor. -Hyperlipidemia Lipitor 80 mg daily at bedtime -Depression Continue Seroquel -Acute congestive heart failure from acute MT. EF not known. Lasix -Cardiogenic shock Currently on levo fed at 6 g. -Recreational marijuana use. Patient uses as needed -Acute bilateral DVT on lower extremity diagnosed on April 03. Patient's eliquis was held because of GI bleed. Last dose taken was on April 17. Bilateral Noah wrap Prognosis guarded. Discussed with the patient and daughter the bedside. Of obvious concern is patient being on antiplatelet agents in the setting of ST elevation MT and stenting. Patient's had a very recent bleed that was significant felt to be from gastric tumor biopsy site. Consultation has been made to vascular for IVC filter. Past Medical History Past Medical History: Cancer, Diabetes Mellitus, Deep Vein Thrombosis (DVT), Hypertension, Myocardial Infarction ([place]) Additional Past Medical History / Comment(s): daily marijuana smoker, CAD, COPD, DVT of the RLE April 03, 2022, gastric cancer (adenocarcinoma) , DM2, PUD, UGI bleed and the patinet taken off the Eliquis on 04/17/2022 anad the patient was supposed to have an IVC filter History of Any Multi-Drug Resistant Organisms: None Reported, MRSA Past Surgical History: No Surgical Hx Reported, Heart Catheterization, Tonsillectomy Additional Past Surgical History / Comment(s): surgery for PUD Past Psychological History: Depression Smoking Status: Never smoker Past Drug Use History: Marijuana - Past Family History Father Family Medical History: Cancer, Diabetes Mellitus, Myocardial Infarction ([place]) Additional Family Medical History / Comment(s): lung cancer, from MT Medications and Allergies Home Medications Medication Instructions Recorded Confirmed Type Metoprolol Tartrate [Lopressor] 25 mg PO BID 04/22/22 04/22/22 History Pantoprazole [Protonix] 40 mg PO BID 04/22/22 04/22/22 History QUEtiapine [SEROquel] 150 mg PO HS 04/22/22 04/22/22 History amLODIPine BESYLATE/BENAZEPRIL 1 cap PO DAILY 04/22/22 04/22/22 History [Lotrel 10-40 mg Capsule] gemfibroziL [Lopid] 600 mg PO BID 04/22/22 04/22/22 History glipiZIDE [Glucotrol] 5 mg PO AC-BID 04/22/22 04/22/22 History hydrALAZINE HCL [Apresoline] 100 mg PO TID 04/22/22 04/22/22 History metFORMIN HCL 1,000 mg PO BID 04/22/22 04/22/22 History Allergies Allergy/AdvReac Type Severity Reaction Status Date / Time No Known Allergies Allergy Verified 04/22/22 10:17 Physical Exam Vitals: Vital Signs Temp Pulse Resp BP Pulse Ox 04/22/22 12:00 99.5 F 114 H 16 96/67 99 04/22/22 11:30 118 H 18 112/74 99 04/22/22 11:00 128 H 13 107/71 99 04/22/22 10:30 126 H 16 103/71 99 04/22/22 10:00 125 H 16 114/80 100 04/22/22 09:30 131 H 16 123/75 85 L 04/22/22 09:00 128 H 14 96/83 98 04/22/22 08:30 131 H 19 113/70 96 04/22/22 08:00 98.4 F 117 H 16 112/74 98 04/22/22 07:30 113 H 14 113/80 100 04/22/22 07:10 98.4 F 118 H 16 99/66 95 04/22/22 05:10 112 H 18 90/53 100 04/22/22 05:05 114 H 20 89/59 100 04/22/22 05:00 115 H 20 84/58 98 04/22/22 04:48 98.1 F 114 H 20 94/60 100 Intake and Output 04/21/22 04/22/22 04/22/22 22:59 06:59 14:59 Intake Total 390 150 Output Total 0 Balance 390 150 Intake: IV 390 Intake, IV Titration 150 Amount Sodium Chloride 0.9% 1, 150 000 ml In Empty Bag 1 bag @ 1 ML/KG/HR 87.4 mls/hr IV .[id number] [facility] Rx#: [id number] Output: Urine 0 Other: Weight 87.4 kg Results CBC & Chem 7: 04/22/22 04:54 04/22/22 04:54 Labs: Abnormal Lab Results - Last 24 Hours (Table) 04/22/22 04/22/22 04/22/22 Range/Units 04:54 04:54 04:54 WBC 12.5 H (3.8-10.6) k/uL RBC 2.87 L (4.30-5.90) m/uL Hgb 8.7 L (13.0-17.5) gm/dL Hct 27.9 L (39.0-53.0) % RDW 20.6 H (11.5-15.5) % Neutrophils # 10.6 H (1.3-7.7) k/uL Retic Count (0.5-2.0) % PT 12.3 H (9.0-12.0) sec INR 1.2 H (<1.2) Sodium 133 L (137-145) mmol/L Chloride 108 H (98-107) mmol/L Carbon Dioxide 21 L (22-30) mmol/L Glucose 57 L (74-99) mg/dL POC Glucose (mg/dL) (70-110) mg/dL AST 68 H (17-59) U/L Alkaline Phosphatase 127 H (38-126) U/L Lactate Dehydrogenase (313-618) U/L Troponin I (0.000-0.034) ng/mL Total Protein 5.4 L (6.3-8.2) g/dL Albumin 2.8 L (3.5-5.0) g/dL HDL Cholesterol (40.00-60.00) mg/dL 04/22/22 04/22/22 04/22/22 Range/Units 04:54 07:30 07:30 WBC (3.8-10.6) k/uL RBC (4.30-5.90) m/uL Hgb (13.0-17.5) gm/dL Hct (39.0-53.0) % RDW (11.5-15.5) % Neutrophils # (1.3-7.7) k/uL Retic Count (0.5-2.0) % PT (9.0-12.0) sec INR (<1.2) Sodium (137-145) mmol/L Chloride (98-107) mmol/L Carbon Dioxide (22-30) mmol/L Glucose (74-99) mg/dL POC Glucose (mg/dL) (70-110) mg/dL AST (17-59) U/L Alkaline Phosphatase (38-126) U/L Lactate Dehydrogenase (313-618) U/L Troponin I 24.900 H* 27.500 H* (0.000-0.034) ng/mL Total Protein (6.3-8.2) g/dL Albumin (3.5-5.0) g/dL HDL Cholesterol 86.80 H (40.00-60.00) mg/dL 04/22/22 04/22/22 04/22/22 Range/Units 11:23 11:23 11:46 WBC (3.8-10.6) k/uL RBC (4.30-5.90) m/uL Hgb (13.0-17.5) gm/dL Hct (39.0-53.0) % RDW (11.5-15.5) % Neutrophils # (1.3-7.7) k/uL Retic Count 11.9 H (0.5-2.0) % PT (9.0-12.0) sec INR (<1.2) Sodium (137-145) mmol/L Chloride (98-107) mmol/L Carbon Dioxide (22-30) mmol/L Glucose (74-99) mg/dL POC Glucose (mg/dL) 208 H (70-110) mg/dL AST (17-59) U/L Alkaline Phosphatase (38-126) U/L Lactate Dehydrogenase 1327 H (313-618) U/L Troponin I (0.000-0.034) ng/mL Total Protein (6.3-8.2) g/dL Albumin (3.5-5.0) g/dL HDL Cholesterol (40.00-60.00) mg/dL
[2022-04-22 15:05] LABS: Glucose,Whole Blood 194 mg/dL (70-110)
[2022-04-22] MEDS ORDERED: HYDROmorphone 0.5 MG/0.5 ML SYRINGE IVP PRN (15:57)
[2022-04-22] MEDS ORDERED: HEPARIN SODIUM 1,000 UN/ML (10ML VL) IV PRN (16:05)
[2022-04-22] MEDS ORDERED: HEPARIN SOD,PORK IN 0.45% NACL 25,000 UNIT in 0.45% NACL 1 250ML.BAG IV SCH (16:15)
[2022-04-22] MEDS: NOREPINEPHRINE 4 MG in SODIUM CHLORIDE 0.9% 250 ML IV SCH (16:16)
[2022-04-22 20:22] LABS: Glucose,Whole Blood 181 mg/dL (70-110)
[2022-04-22] MEDS: ATORVASTATIN 80 MG TAB PO SCH (20:39)
[2022-04-22] MEDS: PANTOPRAZOLE 40 MG/10 ML VIAL IVP SCH (20:41)
[2022-04-22 21:52] LABS: % Iron Saturation 6.67 (15.00-50.00); Iron 11 ug/dL (65-175); Total Iron Binding Capacity 169 ug/dL (228-460); Vitamin B12 >2000.0 pg/mL (200.0-944.0)
[2022-04-23 05:31] LABS: Anisocytosis Moderate; Basophils % (A) 0 %; Eosinophils # (A) 0.1 k/uL (0-0.7); Eosinophils % (A) 0 %; HCT 30.8 % (39.0-53.0); HGB 9.6 gm/dL (13.0-17.5); Hypochromasia Marked; Lymphocytes % (A) 8 %; MCH 31.6 pg (25.0-35.0); MCHC 31.1 g/dL (31.0-37.0); MCV 101.4 fL (80.0-100.0); Macrocytosis Marked; Mean Platelet Volume 8.1; Monocytes # (A) 0.6 k/uL (0-1.0); Monocytes % (A) 5 %; Neutrophils # (A) 10.7 k/uL (1.3-7.7); Neutrophils % (A) 85 %; Platelet Count 333 k/uL (150-450); Poikilocytosis Slight; RBC 3.03 m/uL (4.30-5.90); RDW 20.9 % (11.5-15.5); WBC 12.5 k/uL (3.8-10.6)
[2022-04-23 05:40] LABS: INR 1.1 (<1.2); Partial Thromboplastin Time 45.2 sec (22.0-30.0); Prothrombin Time 11.7 sec (9.0-12.0)
[2022-04-23 06:00] LABS: Polychromasia Present
[2022-04-23 06:30] LABS: Glucose,Whole Blood 173 mg/dL (70-110)
[2022-04-23] MEDS: INSULIN ASPART (NovoLOG) 100 UNIT/ML VIAL SQ SCH ×4 (06:48→21:18)
[2022-04-23] MEDS ORDERED: LIDOCAINE 1% INJ 10MG/ML (30 ML VIAL-PF) SQ ONE (08:04)
--- NOTE | 2022-04-23 08:24 | P.OP ---
Date of Procedure: 04/23/22 Description of Procedure: Preoperative diagnosis: Extensive lower extremity DVT, GI bleed, recent DE, inability to anticoagulate Postoperative diagnosis: Same Procedure: #1 ultrasound guided left common femoral vein access #2 left iliofemoral venogram #3 left venacavogram #4 placement of IVC filter Surgeon: Della Carnes D.O. EBL: Less than 5 mL IV fluids: See records Urine output: Not measured Drains: None Complications: None immediately apparent Condition: stable Operative indication and findings: Patient is a 72-year-old male recently diagnosed with GI cancer, extensive DVT and recent DE who was found to have a GI bleed and inability to tolerate anticoagulation therefore was requested to place a IVC filter. Risks and benefits were discussed with the family singly understands and is willing to proceed. Procedure in detail: Patient was taken to the special suite and placed in supine position. Bilateral groins are prepped and draped in usual sterile fashion. Procedure timeout performed, all parties in agreement. Using ultrasound, the left common femoral vein was identified. It was patent and compressible without evidence visualized thrombus The skin overlying was anesthetized with 1% lidocaine plain. Using a multipurpose needle and Seldinger technique, a 6- Macedonian sheath was placed. A left iliofemoral venogram was performed showing no evidence of thrombus. Catheters and wires were used access the inferior vena cava. A venacavogram was performed to identify the location of the renal vessels. There in standard fashion, a Cook tulip filter was placed. Confirmation venogram was performed showing good positioning with minor tilting seemingly going with the flow of venogram. Catheters wires were then removed. The sheath was removed and pressure was held until hemostasis was adequate.
[2022-04-23] MEDS: NOREPINEPHRINE 4 MG in SODIUM CHLORIDE 0.9% 250 ML IV SCH (08:38)
--- NOTE | 2022-04-23 08:58 | P.PN ---
Subjective History of Present Illness: The patient is a 72-year-old male with a history of CAD status post myocardial infarction in 1995 with angioplasty according to him, history of smoking who presented with symptoms of chest discomfort, had ST segment elevation anteriorly was evaluated by the emergency room and seen in the cardiac catheterization laboratory. According to the patient the symptoms started around midnight and he presented to the emergency room. He denies any dyspnea he denies any dizziness or palpitations. The patient had a history of DVT recently and has been on anticoagulation. He had an episode of GI bleeding, details unclear he had workup at [facility]. Patient denies any syncope. One of his main complaint shoulder discomfort related to a new injury. His troponin was elevated on presentation. He had no nausea or vomiting. He did not mention that he had any recent GI bleeding. After the procedure and after talking to the family wanted arrived apparently the patient 2 days ago was seen [facility] and was told that he had a STEMI but he signed AMA. He had episode of GI bleeding and upper endoscopy prior to that at [facility] and was told that he has gastric cancer. Full detail of his prior workup is not available, the patient and his son are not sure. Medications: He just is not available 04/23 Patient seen and examined. Patient appears confused and talking himself continuously. He is answering some questions appropriately however and states he came in because of projectile diarrhea as well as chest pain. Unable to elaborate more on his prior hospitalization at [facility]. Records are pending. Patient was seen previously at [facility] for DVT and prior r ecommendations for IVC filter and therefore IVC filter was placed this morning. Remains on a heparin drip as well as aspirin and Effient. Blood pressure somewhat borderline. He does admit to lower extremity edema over the last few days. Lying flat on his back however without any significant dyspnea. Remains tachycardic with sinus tachycardia heart rates 120s up to 140s. Troponins have been fairly flat in the 20s. Physical Examination: Vital reviewed Head: Normocephalic. Eyes: Sclerae nonicteric. Neck: Good carotid upstroke, no bruit, no jugular venous distention. Lungs: Clear to auscultation anteriorly. Heart: Regular rate and rhythm, S1-S2, no S3, no rub. No murmur. Abdomen: Soft nontender, positive bowel sounds no organomegaly. Extremities: 2+ edema, intact distal pulses. Impression: 1. Anterior wall myocardial infarction, likely late presenting with fairly flat troponins and prior hospitalization with STEMI and left AMA 2. Anemia and recent gastric cancer diagnosis, history GIB 3. History of DVT 4. Acute on chronic systolic heart failure 5. Prior history of myocardial infarction 6. History of anticoagulation 7. Back discomfort 8. Sinus tachycardia Plan: Await 2-D echo. Likely late presenting SC. Monitor response of diuretics with some lower extremity edema however lying fairly comfortably on his back currently. He is having sinus tachycardia which is likely compensatory for likely cardiomyopathy and heart failure. Add low-dose of metoprolol and monitor result. Continue with diuretics however monitor closely. Continue with aspirin and Effient for now and further recommendations from vascular regarding any long-term anticoagulation. Currently hemoglobin appears stable however patient will be at much increased risk on triple therapy. Prognosis guarded. Obtain records from [facility]. Objective - Vital Signs Vital signs: Vital Signs Temp 98.6 F 04/23/22 00:00 Pulse 137 H 04/23/22 07:00 Resp 17 04/23/22 07:00 BP 108/76 04/23/22 07:00 Pulse Ox 96 04/23/22 07:00 FiO2 Intake & Output 04/22/22 04/23/22 04/23/22 18:59 06:59 18:59 Intake Total 917.094 342.032 Output Total 1350 625 0 Balance -432.906 -282.968 0 Weight 87.4 kg 84.1 kg Intake: IV 75 127.45 Heparin Sod,Pork in 0.45% 52.45 NaCl 25,000 unit In 0.45 % NaCl 1 250ml.bag @ 12 UNITS/KG/HR 10.488 mls/hr IV .[id number] [facility] Rx#: [id number] Sodium Chloride 0.9% 1, 75 75 000 ml In Empty Bag 1 bag @ 1 ML/KG/HR 87.4 mls/hr IV .[id number] [facility] Rx#: [id number] Intake, IV Titration 842.094 214.582 Amount Heparin Sod,Pork in 0.45% 83.38 NaCl 25,000 unit In 0.45 % NaCl 1 250ml.bag @ 12 UNITS/KG/HR 10.488 mls/hr IV .[id number] [facility] Rx#: [id number] Norepinephrine 4 mg In 17.094 131.202 Sodium Chloride 0.9% 250 ml @ 0.05 MCG/KG/MIN 16. 65 mls/hr IV .[id number] [facility] Rx#:[id number] Sodium Chloride 0.9% 1, 825 000 ml In Empty Bag 1 bag @ 1 ML/KG/HR 87.4 mls/hr IV .[id number] [facility] Rx#: [id number] Output: Urine 1350 625 0 Other: Voiding Method Urinal Urinal Urinal # Voids 0 1 # Bowel Movements 1 1 - Labs CBC & Chem 7: 04/23/22 05:14 04/22/22 04:54 Labs: Abnormal Lab Results - Last 24 Hours (Table) 04/22/22 04/22/22 04/22/22 Range/Units 07:30 11:23 11:23 WBC (3.8-10.6) k/uL RBC (4.30-5.90) m/uL Hgb (13.0-17.5) gm/dL Hct (39.0-53.0) % MCV (80.0-100.0) fL RDW (11.5-15.5) % Neutrophils # (1.3-7.7) k/uL Macrocytosis Retic Count 11.9 H (0.5-2.0) % Haptoglobin (31.2-198.0) mg/dL APTT (22.0-30.0) sec POC Glucose (mg/dL) (70-110) mg/dL Iron (65-175) ug/dL TIBC (228-460) ug/dL % Saturation (15.00-50.00) Transferrin (204.0-354.0) mg/dL Ferritin (22.0-322.0) ng/mL Lactate Dehydrogenase (313-618) U/L Troponin I 23.200 H* (0.000-0.034) ng/mL HDL Cholesterol 86.80 H (40.00-60.00) mg/dL Vitamin B12 (200.0-944.0) pg/mL 04/22/22 04/22/22 04/22/22 Range/Units 11:23 11:23 11:46 WBC (3.8-10.6) k/uL RBC (4.30-5.90) m/uL Hgb (13.0-17.5) gm/dL Hct (39.0-53.0) % MCV (80.0-100.0) fL RDW (11.5-15.5) % Neutrophils # (1.3-7.7) k/uL Macrocytosis Retic Count (0.5-2.0) % Haptoglobin 323.0 H (31.2-198.0) mg/dL APTT (22.0-30.0) sec POC Glucose (mg/dL) 208 H (70-110) mg/dL Iron 11 L (65-175) ug/dL TIBC 169 L (228-460) ug/dL % Saturation 6.67 L (15.00-50.00) Transferrin 121.0 L (204.0-354.0) mg/dL Ferritin 446.0 H (22.0-322.0) ng/mL Lactate Dehydrogenase 1327 H (313-618) U/L Troponin I (0.000-0.034) ng/mL HDL Cholesterol (40.00-60.00) mg/dL Vitamin B12 >2000.0 H (200.0-944.0) pg/mL 04/22/22 04/22/22 04/23/22 Range/Units 15:04 20:20 05:14 WBC 12.5 H (3.8-10.6) k/uL RBC 3.03 L (4.30-5.90) m/uL Hgb 9.6 L (13.0-17.5) gm/dL Hct 30.8 L (39.0-53.0) % MCV 101.4 H (80.0-100.0) fL RDW 20.9 H (11.5-15.5) % Neutrophils # 10.7 H (1.3-7.7) k/uL Macrocytosis Marked A Retic Count (0.5-2.0) % Haptoglobin (31.2-198.0) mg/dL APTT (22.0-30.0) sec POC Glucose (mg/dL) 194 H 181 H (70-110) mg/dL Iron (65-175) ug/dL TIBC (228-460) ug/dL % Saturation (15.00-50.00) Transferrin (204.0-354.0) mg/dL Ferritin (22.0-322.0) ng/mL Lactate Dehydrogenase (313-618) U/L Troponin I (0.000-0.034) ng/mL HDL Cholesterol (40.00-60.00) mg/dL Vitamin B12 (200.0-944.0) pg/mL 04/23/22 04/23/22 Range/Units 05:14 06:28 WBC (3.8-10.6) k/uL RBC (4.30-5.90) m/uL Hgb (13.0-17.5) gm/dL Hct (39.0-53.0) % MCV (80.0-100.0) fL RDW (11.5-15.5) % Neutrophils # (1.3-7.7) k/uL Macrocytosis Retic Count (0.5-2.0) % Haptoglobin (31.2-198.0) mg/dL APTT 45.2 H (22.0-30.0) sec POC Glucose (mg/dL) 173 H (70-110) mg/dL Iron (65-175) ug/dL TIBC (228-460) ug/dL % Saturation (15.00-50.00) Transferrin (204.0-354.0) mg/dL Ferritin (22.0-322.0) ng/mL Lactate Dehydrogenase (313-618) U/L Troponin I (0.000-0.034) ng/mL HDL Cholesterol (40.00-60.00) mg/dL Vitamin B12 (200.0-944.0) pg/mL
[2022-04-23] MEDS: METOPROLOL TARTRATE 12.5 MG TAB PO SCH ×2 (09:11→21:18)
[2022-04-23] MEDS: ASPIRIN 81 MG PO SCH (09:12)
[2022-04-23] MEDS: SPIRONOLACTONE 25 MG TAB PO SCH (09:12)
[2022-04-23] MEDS: FUROSEMIDE 10 MG/ML 2 ML VIAL IV SCH (09:12)
[2022-04-23] MEDS: PRASUGREL 10 MG TAB PO SCH (09:12)
[2022-04-23] MEDS: PANTOPRAZOLE 40 MG/10 ML VIAL IVP SCH (09:12)
[2022-04-23] MEDS: ENOXAPARIN 60 MG/0.6 ML SYRINGE SQ SCH ×2 (09:53→21:19)
--- NOTE | 2022-04-23 10:11 | P.CON ---
Consult Note - . Consult date: 04/23/22 Assessment/Plan:: This is a 72-year-old gentleman with a recent acute MS and history of chronic lower back pain. The patient was was consulted for back pain control. The patient has been using Dilaudid IV in the ICU 0.5 mg every 4 hours as needed. He used to be on tramadol already at home for his chronic lower back pain. He also used to get interventional pain procedures on his lumbar spine as he stated. The patient at some point was scheduled for back surgery as he states but that never happened. The patient denies any numbness or tingling in his legs however he feels some weakness in the lower extremities. He denies any bowel or bladder dysfunction. By physical exam he is alert oriented 3 in no apparent distress Muscle strength exam in the lower extremities is symmetrical with markedly decreased muscle strength to 4 out of 5 for knee flexion and ankle flexion and extension. There is edema in the left foot. Recommendations: Given the patient's critical condition at this point he is not a good candidate for interventional pain procedures on the spine however we can resume his home analgesic medication; tramadol 50 mg every 4-6 hours when necessary pain. The patient can be seen in the pain clinic after discharge for further management. I thank you for the consultation
--- NOTE | 2022-04-23 10:18 | IR ---
Fluoroscopy HISTORY:. Vena cava filter placement 1.6 minutes fluoroscopy time supplied to the referring clinician. 53 intraoperative C-arm images doc ument the procedure. See dictated report from vascular surgery.
[2022-04-23 12:15] LABS: Glucose,Whole Blood 145 mg/dL (70-110)
--- NOTE | 2022-04-23 12:47 | CA ---
Transthoracic Echo Report Name: Lavon Pa Age: 72 Gender: M : 1950 Exam Date: 04/23/2022 08:59 Exam Location: [facility] Ht (in): 67 Wt (lb): 185 Ordering Physician: Caro Garcia MD ([id number]) Attending/Referring Phys: Desktop Operator Flavia Roberts RDCS Procedure CPT: Indications: CO Cardiac Hx: Technical Quality: Contrast 1: Total Dose (mL): Contrast 2: Total Dose (mL): MEASUREMENTS (Male / Female) Normal Values 2D ECHO LV Diastolic Diameter PLAX 4.7 cm 4.2 - 5.9 / 3.9 - 5.3 cm LV Systolic Diameter PLAX 4.1 cm IVS Diastolic Thickness 1.2 cm 0.6 - 1.0 / 0.6 - 0.9 cm LVPW Diastolic Thickness 1.7 cm 0.6 - 1.0 / 0.6 - 0.9 cm LV Relative Wall Thickness 0.6 RV Internal Dim ED PLAX 3.7 cm LA Systolic Diameter LX 4.8 cm 3.0 - 4.0 / 2.7 - 3.8 cm LA Volume 101.2 cm??? 18 - 58 / 22 - 52 cm??? M-MODE Aortic Root Diameter MM 3.8 cm MV E Point Septal Separation 0.7 cm AV Cusp Separation MM 2.0 cm DOPPLER TR Peak Velocity 325.5 cm/s TR Peak Gradient 42.4 mmHg Right Ventricular Systolic Press 47.4 mmHg FINDINGS Left Ventricle Severely reduced global left ventricular systolic function. Left ventricular ejection fraction is estimated at 20-25%. Right Ventricle Normal right ventricular size and function. Moderate pulmonary hypertension. Right Atrium Normal right atrial size. Left Atrium Moderately increased left atrial diameter. Severely increased left atrial volume. Mildly increased left atrial area. Mitral Valve Structurally normal mitral valve. Mild mitral regurgitation. Aortic Valve Trileaflet aortic valve. Tricuspid Valve Structurally normal tricuspid valve. Mild tricuspid regurgitation. Pulmonic Valve Structurally normal pulmonic valve. Pericardium Normal pericardium. Aorta Normal size aortic root and proximal ascending aorta. CONCLUSIONS Severe LV dysfunction with EF of 20-25%, dilated left ventricle, and anterior, anteroapical, apical, inferoapical hypokinesia No evidence of LV thrombus identified Previewed by: Dr. Prateek Solorzano MD (Electronically Signed) Final Date: 23 April 2022 12:46
--- NOTE | 2022-04-23 12:59 | P.PN ---
Progress Note - Text Progress Note Date: 04/23/22 Chief Complaint: Dizzy This is a 72-year-old patient who follows with Dr. Ming Naylor. Patient on April 03 was admitted to [facility] and were diagnosed with that clot in the right lower extremity. Patient also had some bloody stools. Patient underwent endoscopy was found to have gastric cancer biopsy showing adenocarcinoma. Following a biopsy. Subsequently patient was discharged on eliquis. Patient with then became hypotensive and was admitted to [facility]. Seen by an oncologist there. It was felt that patient's bleeding from his biopsy site of the gastric cancer. Patient left from the [facility] 2 days ago. Came home. Patient now presented to our facility feeling dizzy lightheaded diet. Ultrasound in the ER did confirm blood clots in both lower extremity. Also patient's Axel ST elevation NE. During the cardiac analytical lab technician and got 2 stents to the LAD. Patient is due to get a IVC filter. Postprocedure patient ICU. On about 6 g of Levothroid. No chest pain. Tired. Up in a chair. Daughter the bedside. 04/23/2022: ICU: IVC filter placed this morning by Dr. Carnes. Patient on PPI antiplatelet agents. Sinus tachycardia. Seen by pain management team. Use Ultram when necessary. Eating lunch Active Medications Al Hydroxide/Mg Hydroxide (Mag Hydrox/Al Hydrox/Simeth 30 Ml Cup) 30 ml PO Q4HR PRN PRN Reason: Heartburn Aspirin (Aspirin 81 Mg) 81 mg PO DAILY [facility] Last Admin: 04/23/22 09:12 Dose: 81 mg Atorvastatin Calcium (Atorvastatin 80 Mg Tab) 80 mg PO HS [facility] Last Admin: 04/22/22 20:39 Dose: 80 mg Atropine Sulfate (Atropine Sulfate 0.1 Mg/Ml 10ml Syringe) 0.5 mg IV ONCE PRN PRN Reason: Symptomatic Bradycardia Enoxaparin Sodium (Enoxaparin 60 Mg/0.6 Ml Syringe) 60 mg SQ Q12HR [facility] Last Admin: 04/23/22 09:53 Dose: 60 mg Furosemide (Furosemide 10 Mg/Ml 2 Ml Vial) 20 mg IV DAILY [facility] Last Admin: 04/23/22 09:12 Dose: 20 mg Hydromorphone HCl (Hydromorphone 0.5 Mg/0.5 Ml Syringe) 0.5 mg IVP Q4HR PRN PRN Reason: Pain Last Admin: 04/22/22 16:10 Dose: 0.5 mg Norepinephrine Bitartrate 4 mg (/ Sodium Chloride) 254 mls @ 16.65 mls/hr IV .[id number] [facility]; Protocol Last Admin: 04/23/22 08:38 Dose: Not Given Insulin Aspart (Insulin Aspart (Novolog) 100 Unit/Ml Vial) 0 unit SQ ACHS [facility]; Protocol Last Admin: 04/23/22 11:58 Dose: 1 unit Metoprolol Tartrate (Metoprolol Tartrate 12.5 Mg Tab) 12.5 mg PO BID [facility] Last Admin: 04/23/22 09:11 Dose: 12.5 mg Miscellaneous Information (Rx Info: Iv Contrast Was Given 1 Each Misc) 1 each MISCELLANE DAILY PRN PRN Reason: Per Protocol Stop: 04/24/22 07:00 Nitroglycerin (Nitroglycerin Sl Tabs 0.4 Mg Tab) 0.4 mg SUBLINGUAL Q5M PRN PRN Reason: Chest Pain Last Admin: 04/22/22 14:34 Dose: 0.4 mg Pantoprazole Sodium (Pantoprazole 40 Mg Tablet) 40 mg PO AC-BID [facility] Prasugrel (Prasugrel 10 Mg Tab) 10 mg PO DAILY [facility]; Protocol Last Admin: 04/23/22 09:12 Dose: 10 mg Spironolactone (Spironolactone 25 Mg Tab) 25 mg PO DAILY [facility] Last Admin: 04/23/22 09:12 Dose: 25 mg Tramadol HCl (Tramadol 50 Mg Tab) 50 mg PO Q6H PRN PRN Reason: Pain Zolpidem Tartrate (Zolpidem 5 Mg Tab) 5 mg PO HS PRN PRN Reason: Insomnia Past medical history to include: Diabetes mellitus type 2, acute DVT both lower extremity diagnosed 2 weeks ago, gastric tumor showing adenocarcinoma recently diagnosed. Depression Social history: Does not smoke. Does marijuana occasionally. 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 Lives alone. Family history: Diabetes, NE, lung cancer Physical examination: VITAL SIGNS: At 7.8, 120, 15, 111 was 67, 97% room air GENERAL: Sitting up in bed, eating lunch EYES: Pupils equal. Conjunctiva normal. HEENT: External appearance of nose and ears normal, oral cavity grossly normal. NECK: JVD not raised; masses not palpable. HEART: First and second heart sounds are normal; no edema. LUNGS: Respiratory rate normal; decreased breath sounds. ABDOMEN: Soft, nontender, liver spleen not palpable, no masses palpable. PSYCH: Alert and oriented x3; mood and affect normal. MUSCULOSKELETAL:No Clubbing/cyanosis;muscles-grossly intact INVESTIGATIONS, reviewed in the clinical context: April 23: White count 12.5 hemoglobin 9.6 platelets 333 2-D echocardiogram: EF 20-25%. Moderate pulmonary hypertension. White count 12.5 hemoglobin 8.7 platelets 232 sodium 133 potassium 3.9 BUN 19 creatinine 0.81 Troponin I 24.9, 27.5, 23.2 LDL 46 EKG tracing personally reviewed by me-ST elevation V2 to V6, but ST segment depression in inferior leads Chest x-ray film personally reviewed by me-jennie/Fanny. Venous polyposis Doppler ultrasound lower extremity: Positive for DVT and tired right leg with hypoechoic clot, DVT in the left leg is still popliteal vein and proximal calf veins. Bilateral Olivas's cyst. Assessment and plan: -Acute ST elevation myocardial infarction of the anterior wall. 2 stents to the LAD. -CAD with stent to LAD Aspirin 81 mg, Lipitor 80 mg, Lopressor 12.5 mg by mouth twice a day, passive prasugrel 10 mg daily -Adenocarcinoma of gastric cancer. Diagnosed recently with biopsy following EGD for GI bleed. Consult oncology -Diabetes mellitus type 2, oral hypoglycemic Hold Glucotrol. Follow Accu-Cheks with sliding scale. -Hypotension from low EF: Uncontrolled Follow blood pressure closely -Hyperlipidemia Lipitor 80 mg daily at bedtime -Depression Continue Seroquel - chronic low back pain. Patient seen by pain services. Continue home dose of Ultram. K pad. -Acute congestive heart failure from acute NE. From systolic dysfunction. EF 20-25%. Lasix 20 mg. Aldactone 25 mg. Beta cora. -Cardiogenic shock: Better Received levo fed -Recreational marijuana use. uses as needed -Acute bilateral DVT on lower extremity diagnosed on April 03. Patient's eliquis was held because of GI bleed. Last dose taken was on April 17. Bilateral Noah wrap. IVC filter placement by Dr. Stubbs on April 23 Head IVC filter placed today. On antiplatelet agents. PPI. Follow H&H. Sinus tachycardia. Follow closely. Follow hemodynamics closely. Discussed with patient.
--- NOTE | 2022-04-23 13:25 | P.PN ---
Subjective Progress Note Date: 04/23/22 Principal diagnosis: Acute anterior wall, ST segment elevation myocardial infarction This is a 72-year-old male patient who came in to the emergency department complaining of chest pain and the patient was diagnosed having an acute ST segment elevation myocardial infarction. In fact the patient seems to have been having the symptoms for more than 48 hours and we came to find out this information at the later stage after the patient completed his cardiac catheterization. Noted the patient is known to have coronary artery disease and the patient was admitted taken to the cardiac catheterization left for further investigation. He is a very poor historian and his extremity and unreliable. During cardiac catheterization, the patient was found to have Calcified LAD, Total occlusion of the LAD and diagonal branch were large amount of clots status post stenting with reduction of the stenosis from 100% to 0% with slow flow at the apex, Chronic occlusion of OM 2, Mild disease in the RCA, Elevated LVEDP. Based on that, the patient was given diagnosis of anterior wall myocardial infarction. The patient underwent stenting of a totally occluded LAD and the diagonal branch on both of these arteries were filled with large amount of clots and there was reduction of the stenosis from 100% on 0%. The patient was given stents LAD and the diagonal branch. Following that, the patient was brought into the intensive care unit. I came to find out that the patient is a more complicated history. He was diagnosed having adenocarcinoma of the stomach at [facility]. Following that, the patient got admitted to [place] where he was found to have a DVT of the right lower extremity. He was given Eliquis. He subsequently had GI bleeding and the recommendation was to insert an IVC filter stop and to coagulation. Nevertheless, the patient apparently signed himself AMA also the hospital and he has not receiving any form of treatment at this point in time. In fact, he has also stopped his Eliquis intake. He is a chronic marijuana smoking. History of marijuana smoking. He is currently on a low-dose norepinephrine infusion which is running at 0.08 Ming respiratory abnormalities on 2 L about 2 by nasal cannula. He is on a normal saline running at the rate of 75 mL an hour. Reevaluated today on 04/23/2022, patient remains in the ICU, on 2 L nasal cannula, does not seem to be in any distress. Patient had IVC filter placement today. Patient has been on heparin, and the biggest concern about this patient is the fact that he may develop GI bleeding with heparin and that is the reason he had IVC filter placement today. Today I switched his heparin to Lovenox at 60 mg subcu twice a day patient had stent done to diagonal and the LAD. At present he seems to be comfortable, he is known to have recent history of adenocarcinoma of the stomach which was recently diagnosed according to the patient, and diagnoses was done in [place], I think the patient is at very high risk of clotting and developing DVT and pulmonary embolism, hence in spite of having a filter placement, I believe the patient needs more anticoagulation treatment, but I'm reluctant to give him a high dose of Lovenox at this point. Hemoglobin today is 9.6 WBC count is 12.5 PTT is 45.2 and he had positive Hemoccult stool. Echocardiogram on 04/23 showed severe LV dysfunction and ejection fraction of 20- 25%. Objective - Vital Signs Vital signs: Vital Signs Temp 97.8 F 04/23/22 12:00 Pulse 123 H 04/23/22 12:00 Resp 15 04/23/22 12:00 BP 111/67 04/23/22 12:00 Pulse Ox 97 04/23/22 12:00 FiO2 Intake & Output 04/22/22 04/23/22 04/23/22 18:59 06:59 18:59 Intake Total 917.094 342.032 250 Output Total 1350 625 650 Balance -432.906 -282.968 -400 Weight 87.4 kg 84.1 kg 84.1 kg Intake: IV 75 127.45 Heparin Sod,Pork in 0.45% 52.45 NaCl 25,000 unit In 0.45 % NaCl 1 250ml.bag @ 12 UNITS/KG/HR 10.488 mls/hr IV .[id number] [facility] Rx#: [id number] Sodium Chloride 0.9% 1, 75 75 000 ml In Empty Bag 1 bag @ 1 ML/KG/HR 87.4 mls/hr IV .[id number] [facility] Rx#: [id number] Intake, IV Titration 842.094 214.582 Amount Heparin Sod,Pork in 0.45% 83.38 NaCl 25,000 unit In 0.45 % NaCl 1 250ml.bag @ 12 UNITS/KG/HR 10.488 mls/hr IV .[id number] [facility] Rx#: [id number] Norepinephrine 4 mg In 17.094 131.202 Sodium Chloride 0.9% 250 ml @ 0.05 MCG/KG/MIN 16. 65 mls/hr IV .[id number] [facility] Rx#:[id number] Sodium Chloride 0.9% 1, 825 000 ml In Empty Bag 1 bag @ 1 ML/KG/HR 87.4 mls/hr IV .[id number] [facility] Rx#: [id number] Oral 250 Output: Urine 1350 625 650 Other: Voiding Method Urinal Urinal Urinal # Voids 0 1 # Bowel Movements 1 1 - Exam Physical Exam: Revealed a 72-year-old white male in no distress, on room air. Head: Atraumatic, normocephalic. HEENT:[Neck is supple.] [No neck masses.] [No thyromegaly.] [No JVD.] Chest: [Clear throughout, no crackles, no rhonchi, no wheezes.] Cardiac Exam: [Normal S1 and S2, no S3 gallop, no murmur.] Abdomen: [Soft, nontender, no megaly, no rebound, no guarding, normal bowel sounds.] Extremities: [No clubbing, no edema, no cyanosis.] Neurological Exam: [No focal neurologic deficit.] Alert oriented 3 Psychiatric: Normal mood, affect and normal mental status examination. Skin: No rashes. - Labs CBC & Chem 7: 04/23/22 05:14 04/22/22 04:54 Labs: Abnormal Lab Results - Last 24 Hours (Table) 04/22/22 04/22/22 04/22/22 Range/Units 11:23 11:23 15:04 WBC (3.8-10.6) k/uL RBC (4.30-5.90) m/uL Hgb (13.0-17.5) gm/dL Hct (39.0-53.0) % MCV (80.0-100.0) fL RDW (11.5-15.5) % Neutrophils # (1.3-7.7) k/uL Macrocytosis Haptoglobin 323.0 H (31.2-198.0) mg/dL APTT (22.0-30.0) sec POC Glucose (mg/dL) 194 H (70-110) mg/dL Iron 11 L (65-175) ug/dL TIBC 169 L (228-460) ug/dL % Saturation 6.67 L (15.00-50.00) Transferrin 121.0 L (204.0-354.0) mg/dL Ferritin 446.0 H (22.0-322.0) ng/mL Vitamin B12 >2000.0 H (200.0-944.0) pg/mL 04/22/22 04/23/22 04/23/22 Range/Units 20:20 05:14 05:14 WBC 12.5 H (3.8-10.6) k/uL RBC 3.03 L (4.30-5.90) m/uL Hgb 9.6 L (13.0-17.5) gm/dL Hct 30.8 L (39.0-53.0) % MCV 101.4 H (80.0-100.0) fL RDW 20.9 H (11.5-15.5) % Neutrophils # 10.7 H (1.3-7.7) k/uL Macrocytosis Marked A Haptoglobin (31.2-198.0) mg/dL APTT 45.2 H (22.0-30.0) sec POC Glucose (mg/dL) 181 H (70-110) mg/dL Iron (65-175) ug/dL TIBC (228-460) ug/dL % Saturation (15.00-50.00) Transferrin (204.0-354.0) mg/dL Ferritin (22.0-322.0) ng/mL Vitamin B12 (200.0-944.0) pg/mL 04/23/22 04/23/22 Range/Units 06:28 11:55 WBC (3.8-10.6) k/uL RBC (4.30-5.90) m/uL Hgb (13.0-17.5) gm/dL Hct (39.0-53.0) % MCV (80.0-100.0) fL RDW (11.5-15.5) % Neutrophils # (1.3-7.7) k/uL Macrocytosis Haptoglobin (31.2-198.0) mg/dL APTT (22.0-30.0) sec POC Glucose (mg/dL) 173 H 145 H (70-110) mg/dL Iron (65-175) ug/dL TIBC (228-460) ug/dL % Saturation (15.00-50.00) Transferrin (204.0-354.0) mg/dL Ferritin (22.0-322.0) ng/mL Vitamin B12 (200.0-944.0) pg/mL Assessment and Plan Assessment: Impression: Acute ST elevation myocardial infarction, status post stenting. Patient is on aspirin Lipitor Lopressor and prasugrel Adenocarcinoma of the stomach/gastric cancer. And GI bleeding, patient is yet to be seen by oncology on consultation Acute DVT most likely provoked by his underlying adenocarcinoma of the stomach. Upper GI bleeding, patient had IVC filter placement today because of fear of bleeding again from his GI tract however I will go ahead and recommend Lovenox at 60 mg subcu twice a day. And monitor the patient closely for any worsening GI bleeding Type 2 diabetes. Dyslipidemia. History of depression. Chronic low back pain. Ischemic cardiomyopathy and LV dysfunction Acute systolic congestive heart failure secondary to ischemic cardiomyopathy Recommendation: Continue to monitor in the ICU for the next 24 hours Continue IV Protonix Start patient on modified dose of Lovenox Continue cardiac meds as per cardiology. Continue Lasix/diuretics. Counseled regarding smoking cessation. Oncology to see on consultation for his gastric adenocarcinoma and We will continue to follow. Long-term prognosis is poor and guarded Time with Patient: Less than 30
[2022-04-23 17:36] LABS: Glucose,Whole Blood 208 mg/dL (70-110)
[2022-04-23] MEDS: PANTOPRAZOLE 40 MG TABLET PO SCH (17:37)
[2022-04-23] MEDS ORDERED: IOPAMIDOL CONTRAST (ORAL USE) VIAL PO PRN (19:22)
--- NOTE | 2022-04-23 19:30 | P.CONS ---
History of Present Illness - Reason for Consult Consult date: 04/23/22 Stomach ca Requesting physician: Caro Garcia - History of Present Illness Patient is a poor historian, seen in ICU. He was apparently admitted on April 03 to [facility] and were diagnosed with that clot in the right lower extremity. Patient also had some bloody stools. SO was apparently transferred to [facility] where a scope was performed . Per the record diagnosed with gastric cancer, however when reviewing records from outside hospital I only found a lymph node biopsy from 04/11/22 that was positive for adenocarconoma, unclear where this was taken. After [place] he was seen at [facility] and admitted for hypotension. He per record left their AMA, now presenting to [facility] with dizzyness and weakness. Ultrasound in the ER did confirm blood clots in both lower extremity. ST elevation [place] also was identified on admission. He underwent a cardiac cath and status post 2 stents to the LAD. He is status post IVC filter today. No family at bedside, patient and famiily member "Tasha" unsure what hospitals they were at and what they had performed. Review of Systems All systems: negative Constitutional: Reports as per HPI Past Medical History Past Medical History: Cancer, Diabetes Mellitus, Deep Vein Thrombosis (DVT), Hypertension, Myocardial Infarction ([place]) Additional Past Medical History / Comment(s): daily marijuana smoker, CAD, COPD, DVT of the RLE April 03, 2022, gastric cancer (adenocarcinoma) , DM2, PUD, UGI bleed and the patinet taken off the Eliquis on 04/17/2022 anad the patient was supposed to have an IVC filter Last Myocardial Infarction Date:: 04/22/22 History of Any Multi-Drug Resistant Organisms: None Reported, MRSA Past Surgical History: No Surgical Hx Reported Additional Past Surgical History / Comment(s): surgery for PUD Past Anesthesia/Blood Transfusion Reactions: No Reported Reaction Past Psychological History: Depression Smoking Status: Never smoker Past Drug Use History: Marijuana - Past Family History Father Family Medical History: Cancer, Diabetes Mellitus, Myocardial Infarction ([place]) Additional Family Medical History / Comment(s): lung cancer, from [place] Medications and Allergies Home Medications Medication Instructions Recorded Confirmed Type Metoprolol Tartrate [Lopressor] 25 mg PO BID 04/22/22 04/22/22 History Pantoprazole [Protonix] 40 mg PO BID 04/22/22 04/22/22 History QUEtiapine [SEROquel] 150 mg PO HS 04/22/22 04/22/22 History amLODIPine BESYLATE/BENAZEPRIL 1 cap PO DAILY 04/22/22 04/22/22 History [Lotrel 10-40 mg Capsule] gemfibroziL [Lopid] 600 mg PO BID 04/22/22 04/22/22 History glipiZIDE [Glucotrol] 5 mg PO AC-BID 04/22/22 04/22/22 History hydrALAZINE HCL [Apresoline] 100 mg PO TID 04/22/22 04/22/22 History metFORMIN HCL 1,000 mg PO BID 04/22/22 04/22/22 History Allergies Allergy/AdvReac Type Severity Reaction Status Date / Time No Known Allergies Allergy Verified 04/22/22 10:17 Physical Exam Vitals: Vital Signs Temp Pulse Resp BP Pulse Ox 04/23/22 09:00 98.2 F 129 H 25 H 99/76 97 04/23/22 08:30 108/73 04/23/22 07:00 137 H 17 108/76 96 04/23/22 06:30 144 H 17 110/78 95 04/23/22 06:00 147 H 22 108/75 94 L 04/23/22 05:30 144 H 9 L 109/78 96 04/23/22 05:00 138 H 21 94/65 91 L 04/23/22 04:30 133 H 15 99/71 95 04/23/22 04:00 131 H 19 102/50 97 04/23/22 03:30 123 H 8 L 83/63 74 L 04/23/22 03:00 128 H 20 100/67 98 04/23/22 02:30 128 H 17 104/73 97 04/23/22 02:00 129 H 12 107/74 95 04/23/22 01:30 131 H 14 100/64 97 04/23/22 01:00 129 H 10 L 117/81 04/23/22 00:30 140 H 21 118/84 97 04/23/22 00:00 98.6 F 138 H 10 L 111/77 96 04/22/22 23:30 133 H 19 108/75 96 04/22/22 23:09 128 H 7 L 108/75 97 04/22/22 23:00 126 H 16 100/72 98 04/22/22 22:30 122 H 24 107/70 96 04/22/22 22:00 125 H 10 L 117/94 96 04/22/22 21:30 152 H 20 114/81 04/22/22 21:00 134 H 11 L 104/71 99 04/22/22 20:30 135 H 9 L 116/73 99 04/22/22 20:00 98.2 F 137 H 10 L 117/81 97 04/22/22 19:30 133 H 9 L 121/79 99 04/22/22 19:00 135 H 12 115/84 98 04/22/22 18:30 131 H 10 L 117/83 99 04/22/22 18:00 133 H 10 L 116/79 98 04/22/22 17:30 131 H 18 110/72 97 04/22/22 17:00 126 H 20 107/76 97 04/22/22 16:30 130 H 17 102/74 97 04/22/22 16:00 120 H 16 97/67 98 04/22/22 15:30 121 H 16 97/63 99 04/22/22 15:00 120 H 19 95/68 98 04/22/22 14:30 121 H 16 92/72 99 04/22/22 14:00 124 H 18 101/72 98 04/22/22 13:30 129 H 16 100/64 98 04/22/22 13:00 118 H 13 105/73 99 04/22/22 12:30 113 H 16 101/76 04/22/22 12:00 99.5 F 114 H 16 96/67 99 04/22/22 11:30 118 H 18 112/74 99 04/22/22 11:00 128 H 13 107/71 99 04/22/22 10:30 126 H 16 103/71 99 Intake and Output 04/22/22 04/23/22 04/23/22 22:59 06:59 14:59 Intake Total 474.513 184.613 Output Total 775 0 0 Balance -300.487 184.613 0 Intake: IV 181.47 20.98 Heparin Sod,Pork in 0.45% 31.47 20.98 NaCl 25,000 unit In 0.45 % NaCl 1 250ml.bag @ 12 UNITS/KG/HR 10.488 mls/hr IV .[id number] [facility] Rx#: [id number] Sodium Chloride 0.9% 1, 150 000 ml In Empty Bag 1 bag @ 1 ML/KG/HR 87.4 mls/hr IV .[id number] [facility] Rx#: [id number] Intake, IV Titration 293.043 163.633 Amount Heparin Sod,Pork in 0.45% 83.38 NaCl 25,000 unit In 0.45 % NaCl 1 250ml.bag @ 12 UNITS/KG/HR 10.488 mls/hr IV .[id number] [facility] Rx#: [id number] Norepinephrine 4 mg In 68.043 80.253 Sodium Chloride 0.9% 250 ml @ 0.05 MCG/KG/MIN 16. 65 mls/hr IV .[id number] [facility] Rx#:[id number] Sodium Chloride 0.9% 1, 225 000 ml In Empty Bag 1 bag @ 1 ML/KG/HR 87.4 mls/hr IV .[id number] [facility] Rx#: [id number] Output: Urine 775 0 0 Other: Voiding Method Urinal Urinal Urinal # Voids 1 1 # Bowel Movements 1 1 Weight 87.4 kg 84.1 kg Poor Historian NAD Irr Lungs; Diminished BLE Edema - Constitutional General appearance: cooperative Results CBC & Chem 7: 04/23/22 05:14 04/22/22 04:54 Labs: Abnormal Lab Results - Last 24 Hours (Table) 04/22/22 04/22/22 04/22/22 Range/Units 07:30 11:23 11:23 WBC (3.8-10.6) k/uL RBC (4.30-5.90) m/uL Hgb (13.0-17.5) gm/dL Hct (39.0-53.0) % MCV (80.0-100.0) fL RDW (11.5-15.5) % Neutrophils # (1.3-7.7) k/uL Macrocytosis Retic Count 11.9 H (0.5-2.0) % Haptoglobin (31.2-198.0) mg/dL APTT (22.0-30.0) sec POC Glucose (mg/dL) (70-110) mg/dL Iron (65-175) ug/dL TIBC (228-460) ug/dL % Saturation (15.00-50.00) Transferrin (204.0-354.0) mg/dL Ferritin (22.0-322.0) ng/mL Lactate Dehydrogenase (313-618) U/L Troponin I 23.200 H* (0.000-0.034) ng/mL HDL Cholesterol 86.80 H (40.00-60.00) mg/dL Vitamin B12 (200.0-944.0) pg/mL 04/22/22 04/22/22 04/22/22 Range/Units 11:23 11:23 11:46 WBC (3.8-10.6) k/uL RBC (4.30-5.90) m/uL Hgb (13.0-17.5) gm/dL Hct (39.0-53.0) % MCV (80.0-100.0) fL RDW (11.5-15.5) % Neutrophils # (1.3-7.7) k/uL Macrocytosis Retic Count (0.5-2.0) % Haptoglobin 323.0 H (31.2-198.0) mg/dL APTT (22.0-30.0) sec POC Glucose (mg/dL) 208 H (70-110) mg/dL Iron 11 L (65-175) ug/dL TIBC 169 L (228-460) ug/dL % Saturation 6.67 L (15.00-50.00) Transferrin 121.0 L (204.0-354.0) mg/dL Ferritin 446.0 H (22.0-322.0) ng/mL Lactate Dehydrogenase 1327 H (313-618) U/L Troponin I (0.000-0.034) ng/mL HDL Cholesterol (40.00-60.00) mg/dL Vitamin B12 >2000.0 H (200.0-944.0) pg/mL 04/22/22 04/22/22 04/23/22 Range/Units 15:04 20:20 05:14 WBC 12.5 H (3.8-10.6) k/uL RBC 3.03 L (4.30-5.90) m/uL Hgb 9.6 L (13.0-17.5) gm/dL Hct 30.8 L (39.0-53.0) % MCV 101.4 H (80.0-100.0) fL RDW 20.9 H (11.5-15.5) % Neutrophils # 10.7 H (1.3-7.7) k/uL Macrocytosis Marked A Retic Count (0.5-2.0) % Haptoglobin (31.2-198.0) mg/dL APTT (22.0-30.0) sec POC Glucose (mg/dL) 194 H 181 H (70-110) mg/dL Iron (65-175) ug/dL TIBC (228-460) ug/dL % Saturation (15.00-50.00) Transferrin (204.0-354.0) mg/dL Ferritin (22.0-322.0) ng/mL Lactate Dehydrogenase (313-618) U/L Troponin I (0.000-0.034) ng/mL HDL Cholesterol (40.00-60.00) mg/dL Vitamin B12 (200.0-944.0) pg/mL 04/23/22 04/23/22 Range/Units 05:14 06:28 WBC (3.8-10.6) k/uL RBC (4.30-5.90) m/uL Hgb (13.0-17.5) gm/dL Hct (39.0-53.0) % MCV (80.0-100.0) fL RDW (11.5-15.5) % Neutrophils # (1.3-7.7) k/uL Macrocytosis Retic Count (0.5-2.0) % Haptoglobin (31.2-198.0) mg/dL APTT 45.2 H (22.0-30.0) sec POC Glucose (mg/dL) 173 H (70-110) mg/dL Iron (65-175) ug/dL TIBC (228-460) ug/dL % Saturation (15.00-50.00) Transferrin (204.0-354.0) mg/dL Ferritin (22.0-322.0) ng/mL Lactate Dehydrogenase (313-618) U/L Troponin I (0.000-0.034) ng/mL HDL Cholesterol (40.00-60.00) mg/dL Vitamin B12 (200.0-944.0) pg/mL Assessment and Plan (1) Adenocarcinoma Narrative/Plan: Lymph Node Biopsy for Adenocarcinoma was found in [facility] records, I have spoken to nursing as well and have not seen the "gastric identifying" pathology yet, I will continue to search and if not available we will requiest further records. In the interim it does not appear he has had staging performed. He is not fully engaged in conversation and his responses do not make sense so an MRI of the brain was also ordered (possible psychiatric history but with a picture of malignancy, likely metastatic should rule out involvement in brain) Will review outside records further in am and staging exams int he interim anemia work-up. Discussed with patient;s advocate, and RN Current Visit: Yes Status: Acute Code(s): C80.1 - MALIGNANT (PRIMARY) NEOPLASM, UNSPECIFIED SNOMED Code(s): 956890143
[2022-04-23 20:21] LABS: Glucose,Whole Blood 216 mg/dL (70-110)
[2022-04-23 21:05] LABS: Glucose,Whole Blood 223 mg/dL (70-110)
[2022-04-23] MEDS: ATORVASTATIN 80 MG TAB PO SCH (21:18)
[2022-04-23] MEDS ORDERED: LORazepam 2 MG/ML INJ IV PRN ×2 (22:02→22:06)
[2022-04-23] MEDS: LORazepam 1 MG/0.5 ML VIAL IV PRN ×2 (22:28→22:59)
[2022-04-24] MEDS ORDERED: LORazepam 1 MG/0.5 ML VIAL IV PRN (02:57)
[2022-04-24] MEDS ORDERED: HALOPERIDOL LACTATE 5 MG/ML 1 ML VIAL IVP PRN (02:57)
[2022-04-24] MEDS: NOREPINEPHRINE 4 MG in SODIUM CHLORIDE 0.9% 250 ML IV SCH ×2 (03:00→13:11)
[2022-04-24 06:08] LABS: Glucose,Whole Blood 173 mg/dL (70-110)
--- NOTE | 2022-04-24 06:59 | P.PN ---
Subjective History of Present Illness: The patient is a 72-year-old male with a history of CAD status post myocardial infarction in 1995 with angioplasty according to him, history of smoking who presented with symptoms of chest discomfort, had ST segment elevation anteriorly was evaluated by the emergency room and seen in the cardiac catheterization laboratory. According to the patient the symptoms started around midnight and he presented to the emergency room. He denies any dyspnea he denies any dizziness or palpitations. The patient had a history of DVT recently and has been on anticoagulation. He had an episode of GI bleeding, details unclear he had workup at [facility]. Patient denies any syncope. One of his main complaint shoulder discomfort related to a new injury. His troponin was elevated on presentation. He had no nausea or vomiting. He did not mention that he had any recent GI bleeding. After the procedure and after talking to the family wanted arrived apparently the patient 2 days ago was seen [facility] and was told that he had a STEMI but he signed AMA. He had episode of GI bleeding and upper endoscopy prior to that at [facility] and was told that he has gastric cancer. Full detail of his prior workup is not available, the patient and his son are not sure. Medications: He just is not available 04/23 Patient seen and examined. Patient appears confused and talking himself continuously. He is answering some questions appropriately however and states he came in because of projectile diarrhea as well as chest pain. Unable to elaborate more on his prior hospitalization at [facility]. Records are pending. Patient was seen previously at [facility] for DVT and prior r ecommendations for IVC filter and therefore IVC filter was placed this morning. Remains on a heparin drip as well as aspirin and Effient. Blood pressure somewhat borderline. He does admit to lower extremity edema over the last few days. Lying flat on his back however without any significant dyspnea. Remains tachycardic with sinus tachycardia heart rates 120s up to 140s. Troponins have been fairly flat in the 20s. 04/24 Patient seen and examined. Echocardiogram reviewed with ejection fraction 20- 25%. Remains mildly tachycardic heart rates 110s to 120s, sinus rhythm. Borderline low blood pressures however able to tolerate low-dose metoprolol. Has been receiving IV Lasix however incontinent in bed and and affect. Ins and outs. He did undergo IVC filter placement yesterday. No hematochezia or melena per nursing. Hemoglobin appears stable. Apparently patient refusing to eat medications and more psychiatric issues requiring Haldol. Recommendations by oncology for CT to further assess and stage possible gastric cancer. Physical Examination: Vital reviewed Head: Normocephalic. Eyes: Sclerae nonicteric. Neck: Good carotid upstroke, no bruit, no jugular venous distention. Lungs: Clear to auscultation anteriorly. Heart: Regular rate and rhythm, S1-S2, no S3, no rub. No murmur. Abdomen: Soft nontender, positive bowel sounds no organomegaly. Extremities: 1+ edema, R>L, intact distal pulses. Impression: 1. Anterior wall myocardial infarction, likely late presenting with fairly flat troponins and prior hospitalization with STEMI and left AMA 2. Anemia and recent questionable gastric cancer diagnosis, history GIB 3. History of DVT 4. Acute on chronic systolic heart failure 5. Prior history of myocardial infarction/ CAD 6. History of anticoagulation 7. Back discomfort 8. Sinus tachycardia 9. Ischemic cardiomyopathy EF 20-25% Plan: Echo reviewed with ejection fraction 20-25%. He appears to be somewhat stable however blood pressure is borderline low. We will increase metoprolol to 25 twice a day and monitor response. Continue with current dose of Lasix however monitor given patient apparently refusing to eat or drink. Further monitoring of psychiatric status. Monitor QTC with Haldol. Continue supportive care. Prognosis guarded. Ideally KARYNA inhibitor/ Aldactone however unclear if patient will be able to tolerate given low blood pressures. Objective - Vital Signs Vital signs: Vital Signs Temp 98.0 F 04/24/22 04:00 Pulse 115 H 04/24/22 06:00 Resp 16 04/24/22 06:00 BP 92/65 04/24/22 06:00 Pulse Ox 90 L 04/24/22 06:00 FiO2 Intake & Output 04/23/22 04/23/22 04/24/22 06:59 18:59 06:59 Intake Total 342.032 400 Output Total 625 1050 0 Balance -282.968 -650 0 Weight 84.1 kg 84.1 kg 84 kg Intake: IV 127.45 Heparin Sod,Pork in 0.45% 52.45 NaCl 25,000 unit In 0.45 % NaCl 1 250ml.bag @ 12 UNITS/KG/HR 10.488 mls/hr IV .[id number] [facility] Rx#: [id number] Sodium Chloride 0.9% 1, 75 000 ml In Empty Bag 1 bag @ 1 ML/KG/HR 87.4 mls/hr IV .[id number] [facility] Rx#: [id number] Intake, IV Titration 214.582 Amount Heparin Sod,Pork in 0.45% 83.38 NaCl 25,000 unit In 0.45 % NaCl 1 250ml.bag @ 12 UNITS/KG/HR 10.488 mls/hr IV .[id number] [facility] Rx#: [id number] Norepinephrine 4 mg In 131.202 Sodium Chloride 0.9% 250 ml @ 0.05 MCG/KG/MIN 16. 65 mls/hr IV .[id number] [facility] Rx#:[id number] Oral 400 Output: Urine 625 1050 0 Other: Voiding Method Urinal Urinal Urinal # Voids 1 1 # Bowel Movements 1 1 - Labs CBC & Chem 7: 04/23/22 05:14 04/22/22 04:54 Labs: Abnormal Lab Results - Last 24 Hours (Table) 04/23/22 04/23/22 04/23/22 Range/Units 11:55 17:24 20:19 POC Glucose (mg/dL) 145 H 208 H 216 H (70-110) mg/dL 04/23/22 04/24/22 Range/Units 21:04 06:05 POC Glucose (mg/dL) 223 H 173 H (70-110) mg/dL
[2022-04-24 07:00] LABS: Glucose,Whole Blood 170 mg/dL (70-110)
[2022-04-24] MEDS: INSULIN ASPART (NovoLOG) 100 UNIT/ML VIAL SQ SCH ×4 (07:05→20:46)
[2022-04-24] MEDS: PANTOPRAZOLE 40 MG TABLET PO SCH ×2 (07:06→16:43)
[2022-04-24] MEDS: traMADol 50 MG TAB PO PRN (08:01)
[2022-04-24] MEDS: ASPIRIN 81 MG PO SCH (08:01)
[2022-04-24] MEDS: SPIRONOLACTONE 25 MG TAB PO SCH (08:01)
[2022-04-24] MEDS: PRASUGREL 10 MG TAB PO SCH (08:01)
[2022-04-24] MEDS: FUROSEMIDE 10 MG/ML 2 ML VIAL IV SCH (08:02)
[2022-04-24] MEDS: ENOXAPARIN 60 MG/0.6 ML SYRINGE SQ SCH ×2 (08:04→20:46)
[2022-04-24] MEDS: METOPROLOL TARTRATE 25 MG TAB PO SCH ×2 (08:04→20:47)
[2022-04-24] MEDS ORDERED: LORazepam 1 MG TAB PO PRN (08:30)
[2022-04-24 08:54] LABS: Anisocytosis Moderate; HCT 26.6 % (39.0-53.0); HGB 8.2 gm/dL (13.0-17.5); Hypochromasia Marked; MCH 30.6 pg (25.0-35.0); MCHC 30.8 g/dL (31.0-37.0); MCV 99.5 fL (80.0-100.0); Macrocytosis Moderate; Mean Platelet Volume 8.2; Platelet Count 397 k/uL (150-450); Poikilocytosis Slight; RBC 2.67 m/uL (4.30-5.90); RDW 20.5 % (11.5-15.5); WBC 8.9 k/uL (3.8-10.6)
[2022-04-24 09:09] LABS: African American GFR (CKD) >90 (>60 ml/min/1.73 sqM); Anion Gap 10 mmol/L; Blood Urea Nitrogen 16 mg/dL (9-20); Calcium 8.3 mg/dL (8.4-10.2); Carbon Dioxide 20 mmol/L (22-30); Chloride 108 mmol/L (98-107); Glucose 152 mg/dL (74-99); Non-African American GFR(CKD) >90 (>60 ml/min/1.73 sqM); Potassium 4.1 mmol/L (3.5-5.1); Sodium 138 mmol/L (137-145)
[2022-04-24] MEDS ORDERED: QUEtiapine 50 MG TAB PO SCH (09:30)
[2022-04-24 12:08] LABS: Glucose,Whole Blood 329 mg/dL (70-110)
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
--- NOTE | 2022-04-24 12:41 | P.PN ---
Progress Note - Text Progress Note Date: 04/24/22 Chief Complaint: Dizzy This is a 72-year-old patient who follows with Dr. Ming Naylor. Patient on April 03 was admitted to [facility] and were diagnosed with that clot in the right lower extremity. Patient also had some bloody stools. Patient underwent endoscopy was found to have gastric cancer biopsy showing adenocarcinoma. Following a biopsy. Subsequently patient was discharged on eliquis. Patient with then became hypotensive and was admitted to [facility]. Seen by an oncologist there. It was felt that patient's bleeding from his biopsy site of the gastric cancer. Patient left from the AMA 2 days ago. Came home. Patient now presented to our facility feeling dizzy lightheaded diet. Ultrasound in the ER did confirm blood clots in both lower extremity. Also patient's Axel ST elevation SD. During the cardiac bottle label inspector and got 2 stents to the LAD. Patient is due to get a IVC filter. Postprocedure patient ICU. On about 6 g of Levothroid. No chest pain. Tired. Up in a chair. Daughter the bedside. 04/23/2022: ICU: IVC filter placed this morning by Dr. Carnes. Patient on PPI antiplatelet agents. Sinus tachycardia. Seen by pain management team. Use Ultram when necessary. Eating lunch 04/24/2022: ICU: Tolerating diet. Sinus tachycardia. Reported by nurse to be suspicious of people. Psychiatry consulted. Seroquel was added yesterday. Did sleep some. Will DC Dilaudid. Active Medications Al Hydroxide/Mg Hydroxide (Mag Hydrox/Al Hydrox/Simeth 30 Ml Cup) 30 ml PO Q4HR PRN PRN Reason: Heartburn Aspirin (Aspirin 81 Mg) 81 mg PO DAILY [facility] Last Admin: 04/24/22 08:01 Dose: 81 mg Atorvastatin Calcium (Atorvastatin 80 Mg Tab) 80 mg PO HS [facility] Last Admin: 04/23/22 21:18 Dose: 80 mg Atropine Sulfate (Atropine Sulfate 0.1 Mg/Ml 10ml Syringe) 0.5 mg IV ONCE PRN PRN Reason: Symptomatic Bradycardia Enoxaparin Sodium (Enoxaparin 60 Mg/0.6 Ml Syringe) 60 mg SQ Q12HR [facility] Last Admin: 04/24/22 08:04 Dose: 60 mg Furosemide (Furosemide 10 Mg/Ml 2 Ml Vial) 20 mg IV DAILY [facility] Last Admin: 04/24/22 08:02 Dose: 20 mg Haloperidol Lactate (Haloperidol Lactate 5 Mg/Ml 1 Ml Vial) 4 mg IVP Q4H PRN PRN Reason: Agitation or Acute Psychosis Last Admin: 04/24/22 03:56 Dose: 4 mg Norepinephrine Bitartrate 4 mg (/ Sodium Chloride) 254 mls @ 16.65 mls/hr IV .[id number] [facility]; Protocol Last Admin: 04/24/22 03:00 Dose: Not Given Insulin Aspart (Insulin Aspart (Novolog) 100 Unit/Ml Vial) 0 unit SQ ACHS [facility]; Protocol Last Admin: 04/24/22 12:12 Dose: 6 unit Iopamidol (Iopamidol Contrast (Oral Use) Vial) 30 ml PO Q60M PRN PRN Reason: CT Scan Stop: 04/24/22 19:24 Last Admin: 04/23/22 21:32 Dose: 30 ml Lorazepam (Lorazepam 1 Mg/0.5 Ml Vial) 1 mg IV Q4HR PRN PRN Reason: Anxiety Lorazepam (Lorazepam 1 Mg Tab) 1 mg PO Q4HR PRN PRN Reason: Anxiety Metoprolol Tartrate (Metoprolol Tartrate 25 Mg Tab) 25 mg PO BID [facility] Last Admin: 04/24/22 08:04 Dose: 25 mg Nitroglycerin (Nitroglycerin Sl Tabs 0.4 Mg Tab) 0.4 mg SUBLINGUAL Q5M PRN PRN Reason: Chest Pain Last Admin: 04/22/22 14:34 Dose: 0.4 mg Pantoprazole Sodium (Pantoprazole 40 Mg Tablet) 40 mg PO AC-BID [facility] Last Admin: 04/24/22 07:06 Dose: Not Given Prasugrel (Prasugrel 10 Mg Tab) 10 mg PO DAILY [facility]; Protocol Last Admin: 04/24/22 08:01 Dose: 10 mg Quetiapine Fumarate (Quetiapine 50 Mg Tab) 50 mg PO BID [facility] Spironolactone (Spironolactone 25 Mg Tab) 25 mg PO DAILY [facility] Last Admin: 04/24/22 08:01 Dose: 25 mg Tramadol HCl (Tramadol 50 Mg Tab) 50 mg PO Q6H PRN PRN Reason: Pain Last Admin: 04/24/22 08:01 Dose: 50 mg Zolpidem Tartrate (Zolpidem 5 Mg Tab) 5 mg PO HS PRN PRN Reason: Insomnia Last Admin: 04/24/22 02:15 Dose: 5 mg Past medical history to include: Diabetes mellitus type 2, acute DVT both lower extremity diagnosed 2 weeks ago, gastric tumor showing adenocarcinoma recently diagnosed. Depression Social history: Does not smoke. Does marijuana occasionally. 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 Lives alone. Family history: Diabetes, SD, lung cancer Physical examination: VITAL SIGNS: 98.2, 113, 20, 87 with 59, 97% room air GENERAL: Sitting up in bed, eating EYES: Pupils equal. Conjunctiva normal. HEENT: External appearance of nose and ears normal, oral cavity grossly normal. NECK: JVD not raised; masses not palpable. HEART: First and second heart sounds are normal; no edema. LUNGS: Respiratory rate normal; decreased breath sounds. ABDOMEN: Soft, nontender, liver spleen not palpable, no masses palpable. PSYCH: Answering questions. See above. MUSCULOSKELETAL:No Clubbing/cyanosis;muscles-grossly intact INVESTIGATIONS, reviewed in the clinical context: April 24: White count 8.9 hemoglobin 8.2 potassium 4.1 creatinine 0.69 April 23: White count 12.5 hemoglobin 9.6 platelets 333 2-D echocardiogram: EF 20-25%. Moderate pulmonary hypertension. White count 12.5 hemoglobin 8.7 platelets 232 sodium 133 potassium 3.9 BUN 19 creatinine 0.81 Troponin I 24.9, 27.5, 23.2 LDL 46 EKG tracing personally reviewed by me-ST elevation V2 to V6, but ST segment depression in inferior leads Chest x-ray film personally reviewed by me-jennie/Fanny. Venous polyposis Doppler ultrasound lower extremity: Positive for DVT and tired right leg with hypoechoic clot, DVT in the left leg is still popliteal vein and proximal calf veins. Bilateral Olivas's cyst. Assessment and plan: -Acute ST elevation myocardial infarction of the anterior wall. 2 stents to the LAD. -CAD with stent to LAD Aspirin 81 mg, Lipitor 80 mg, Lopressor 12.5 mg by mouth twice a day, prasugrel 10 mg daily -Adenocarcinoma of gastric cancer. Diagnosed recently with biopsy following EGD for GI bleed. Being followed by oncology -Diabetes mellitus type 2, oral hypoglycemic Resume Glucotrol. Follow Accu-Cheks with sliding scale -Possible psychotic symptoms:new Diagnosis. Consults psychiatry. -Hypotension from low EF: Uncontrolled Follow blood pressure closely -Hyperlipidemia Lipitor 80 mg daily at bedtime -Depression Continue Seroquel - chronic low back pain. Patient seen by pain services. Continue home dose of Ultram. K pad. -Acute congestive heart failure from acute SD. From systolic dysfunction. EF 20-25%. Lasix 20 mg. Aldactone 25 mg. Beta cora. -Cardiogenic shock: Better Received levo fed -Recreational marijuana use. uses as needed -Acute bilateral DVT on lower extremity diagnosed on April 03. Patient's eliquis was held because of GI bleed. Last dose taken was on April 17. Bilateral MARLENE stockings. IVC filter placement by Dr. Stubbs on April 23 Accu-Cheks running high. Resume Glucotrol. SIMÓN Dilaudid. Consult psychiatry. Subcu Lovenox started by pulmonary yesterday
[2022-04-24] MEDS: glipiZIDE 5 MG TAB PO SCH ×2 (13:11→16:42)
[2022-04-24] MEDS: QUEtiapine 25 MG TAB PO SCH ×2 (14:42→20:48)
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
[2022-04-24 16:41] LABS: Glucose,Whole Blood 217 mg/dL (70-110)
--- NOTE | 2022-04-24 19:01 | P.PN ---
Subjective Progress Note Date: 04/24/22 Principal diagnosis: New adenocarcinoma diagnosis at outside hospital Patient was set for staging scans, he was premedicated and despite this was unable to perform CTs or MRI. DIscussed with RN last night and psych consult also placed. 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 Objective - Vital Signs Vital signs: Vital Signs Temp 98.2 F 04/24/22 08:00 Pulse 113 H 04/24/22 10:00 Resp 19 04/24/22 10:00 BP 87/58 04/24/22 10:00 Pulse Ox 97 04/24/22 08:00 FiO2 Intake & Output 04/23/22 04/24/22 04/24/22 18:59 06:59 18:59 Intake Total 400 Output Total 1050 0 0 Balance -650 0 0 Weight 84.1 kg 84 kg Intake: Oral 400 Output: Urine 1050 0 0 Other: Voiding Method Urinal Urinal # Voids 1 # Bowel Movements 1 - Exam Poor Historian NAD Irr Lungs; Diminished BLE Edema No rash Psych: inapprpropriate - Labs CBC & Chem 7: 04/24/22 07:59 04/24/22 07:59 Labs: Abnormal Lab Results - Last 24 Hours (Table) 04/23/22 04/23/22 04/23/22 Range/Units 11:55 17:24 20:19 RBC (4.30-5.90) m/uL Hgb (13.0-17.5) gm/dL Hct (39.0-53.0) % MCHC (31.0-37.0) g/dL RDW (11.5-15.5) % Chloride (98-107) mmol/L Carbon Dioxide (22-30) mmol/L Glucose (74-99) mg/dL POC Glucose (mg/dL) 145 H 208 H 216 H (70-110) mg/dL Calcium (8.4-10.2) mg/dL 04/23/22 04/24/22 04/24/22 Range/Units 21:04 06:05 06:58 RBC (4.30-5.90) m/uL Hgb (13.0-17.5) gm/dL Hct (39.0-53.0) % MCHC (31.0-37.0) g/dL RDW (11.5-15.5) % Chloride (98-107) mmol/L Carbon Dioxide (22-30) mmol/L Glucose (74-99) mg/dL POC Glucose (mg/dL) 223 H 173 H 170 H (70-110) mg/dL Calcium (8.4-10.2) mg/dL 04/24/22 04/24/22 Range/Units 07:59 07:59 RBC 2.67 L (4.30-5.90) m/uL Hgb 8.2 L (13.0-17.5) gm/dL Hct 26.6 L (39.0-53.0) % MCHC 30.8 L (31.0-37.0) g/dL RDW 20.5 H (11.5-15.5) % Chloride 108 H (98-107) mmol/L Carbon Dioxide 20 L (22-30) mmol/L Glucose 152 H (74-99) mg/dL POC Glucose (mg/dL) (70-110) mg/dL Calcium 8.3 L (8.4-10.2) mg/dL Assessment and Plan (1) 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 Baseline CEA Current Visit: Yes Status: Acute Code(s): C18.9 - MALIGNANT NEOPLASM OF COLON, UNSPECIFIED; C77.2 - SECONDARY AND UNSP MALIGNANT NEOPLASM OF INTRA-ABD NODES SNOMED Code(s): 850251635 (2) Adenocarcinoma Narrative/Plan: Lymph Node Biopsy for Adenocarcinoma was found in [facility] records, I have spoken to nursing as well and have not seen the "gastric identifying" pathology yet, I will continue to search and if not available we will requiest further records. In the interim it does not appear he has had staging performed. He is not fully engaged in conversation and his responses do not make sense so an MRI of the brain was also ordered (possible psychiatric history but with a picture of malignancy, likely metastatic should rule out involvement in brain) Will review outside records further in am and staging exams int he interim anemia work-up. Discussed with patient;s advocate, and RN CTs and MRI have been attempted and patient has not been compliant, despite premedication with lorazepam. will attempt again. Current Visit: Yes Status: Acute Code(s): C80.1 - MALIGNANT (PRIMARY) NEOPLASM, UNSPECIFIED SNOMED Code(s): 590216187 Plan: Mental health barriers have been interfering with care, evidenced with multiple hospitals, poor historian without knowing where records reside, leave of AMA, unable to perform needed work-up to treat. Psych has been consulted to assist
[2022-04-24 20:23] LABS: Glucose,Whole Blood 142 mg/dL (70-110)
[2022-04-24] MEDS: ATORVASTATIN 80 MG TAB PO SCH (20:46)
[2022-04-25] MEDS: traMADol 50 MG TAB PO PRN (00:32)
[2022-04-25] MEDS: QUEtiapine 25 MG TAB PO PRN ×2 (02:52→23:37)
[2022-04-25] MEDS: NOREPINEPHRINE 4 MG in SODIUM CHLORIDE 0.9% 250 ML IV SCH (05:10)
[2022-04-25] MEDS: OLANZapine 10 MG VIAL IM PRN (06:59)
[2022-04-25 07:30] LABS: Glucose,Whole Blood 183 mg/dL (70-110)
--- NOTE | 2022-04-25 08:08 | P.PN ---
Subjective History of Present Illness: The patient is a 72-year-old male with a history of CAD status post myocardial infarction in 1995 with angioplasty according to him, history of smoking who presented with symptoms of chest discomfort, had ST segment elevation anteriorly was evaluated by the emergency room and seen in the cardiac catheterization laboratory. According to the patient the symptoms started around midnight and he presented to the emergency room. He denies any dyspnea he denies any dizziness or palpitations. The patient had a history of DVT recently and has been on anticoagulation. He had an episode of GI bleeding, details unclear he had workup at [facility]. Patient denies any syncope. One of his main complaint shoulder discomfort related to a new injury. His troponin was elevated on presentation. He had no nausea or vomiting. He did not mention that he had any recent GI bleeding. After the procedure and after talking to the family wanted arrived apparently the patient 2 days ago was seen [facility] and was told that he had a STEMI but he signed AMA. He had episode of GI bleeding and upper endoscopy prior to that at [facility] and was told that he has gastric cancer. Full detail of his prior workup is not available, the patient and his son are not sure. Medications: He just is not available 04/23 Patient seen and examined. Patient appears confused and talking himself continuously. He is answering some questions appropriately however and states he came in because of projectile diarrhea as well as chest pain. Unable to elaborate more on his prior hospitalization at [facility]. Records are pending. Patient was seen previously at [facility] for DVT and prior r ecommendations for IVC filter and therefore IVC filter was placed this morning. Remains on a heparin drip as well as aspirin and Effient. Blood pressure somewhat borderline. He does admit to lower extremity edema over the last few days. Lying flat on his back however without any significant dyspnea. Remains tachycardic with sinus tachycardia heart rates 120s up to 140s. Troponins have been fairly flat in the 20s. 04/24 Patient seen and examined. Echocardiogram reviewed with ejection fraction 20- 25%. Remains mildly tachycardic heart rates 110s to 120s, sinus rhythm. Borderline low blood pressures however able to tolerate low-dose metoprolol. Has been receiving IV Lasix however incontinent in bed and and affect. Ins and outs. He did undergo IVC filter placement yesterday. No hematochezia or melena per nursing. Hemoglobin appears stable. Apparently patient refusing to eat medications and more psychiatric issues requiring Haldol. Recommendations by oncology for CT to further assess and stage possible gastric cancer. 04/25 Patient seen and examined. Patient states he has not been eating because we have been taking advantage of him and sedating him without his consent. Patient remains very confused and not able to answer questions appropriately. States he is having chest pain however unable to elaborate. Denies any shortness breath. Asking for his daughter. Continues to have 1+ right greater than left lower extremity edema however able lay flat on his back. He is not on any pressors, blood pressures in the 90s over 60s. Remains sinus tachycardia likely exace rbated by his anxiety. He was seen by psychiatry and currently in wrist restraints. Physical Examination: Vital reviewed Head: Normocephalic. Eyes: Sclerae nonicteric. Neck: Good carotid upstroke, no bruit, no jugular venous distention. Lungs: Clear to auscultation anteriorly. Heart: Regular rate and rhythm, S1-S2, no S3, no rub. No murmur. Abdomen: Soft nontender, positive bowel sounds no organomegaly. Extremities: 1+ edema, R>L, intact distal pulses. Impression: 1. Anterior wall myocardial infarction, likely late presenting with fairly flat troponins and prior hospitalization with STEMI and left AMA 2. Anemia and recent questionable gastric cancer diagnosis, history GIB 3. History of DVT s/p DVT filter 4. Acute on chronic systolic heart failure 5. Prior history of myocardial infarction/ CAD 6. History of anticoagulation 7. Back discomfort 8. Sinus tachycardia 9. Ischemic cardiomyopathy EF 20-25% Plan: Patient appears somewhat stable currently and able tolerate low-dose of metoprolol as well as Aldactone. He is off of vasopressors currently. High risk for heart failure decompensation however currently appears stable on the Lasix. We will change to oral Lasix. Monitor ins and outs however not eating much currently. Continue with total antiplatelets. Care is complicated by his psychiatric issues. Prognosis guarded. Objective - Vital Signs Vital signs: Vital Signs Temp 98.3 F 04/25/22 04:00 Pulse 124 H 04/25/22 07:00 Resp 21 04/25/22 07:00 BP 95/69 04/25/22 07:00 Pulse Ox 95 04/25/22 07:00 FiO2 Intake & Output 04/24/22 04/25/22 04/25/22 18:59 06:59 18:59 Intake Total 325 250 Output Total 650 500 Balance -325 -250 Weight 89.6 kg Intake: Oral 325 250 Output: Urine 650 500 Straight 250 Other: # Voids 0 0 - Labs CBC & Chem 7: 04/24/22 07:59 04/24/22 07:59 Labs: Abnormal Lab Results - Last 24 Hours (Table) 04/24/22 04/24/22 04/24/22 Range/Units 07:59 07:59 12:07 RBC 2.67 L (4.30-5.90) m/uL Hgb 8.2 L (13.0-17.5) gm/dL Hct 26.6 L (39.0-53.0) % MCHC 30.8 L (31.0-37.0) g/dL RDW 20.5 H (11.5-15.5) % Chloride 108 H (98-107) mmol/L Carbon Dioxide 20 L (22-30) mmol/L Glucose 152 H (74-99) mg/dL POC Glucose (mg/dL) 329 H (70-110) mg/dL Calcium 8.3 L (8.4-10.2) mg/dL 04/24/22 04/24/22 04/25/22 Range/Units 16:40 20:22 07:28 RBC (4.30-5.90) m/uL Hgb (13.0-17.5) gm/dL Hct (39.0-53.0) % MCHC (31.0-37.0) g/dL RDW (11.5-15.5) % Chloride (98-107) mmol/L Carbon Dioxide (22-30) mmol/L Glucose (74-99) mg/dL POC Glucose (mg/dL) 217 H 142 H 183 H (70-110) mg/dL Calcium (8.4-10.2) mg/dL
[2022-04-25 09:21] LABS: ALT 21 U/L (4-49); AST 33 U/L (17-59); African American GFR (CKD) >90 (>60 ml/min/1.73 sqM); Albumin 2.5 g/dL (3.5-5.0); Alkaline Phosphatase 134 U/L (38-126); Anion Gap 4 mmol/L; Blood Urea Nitrogen 17 mg/dL (9-20); Calcium 8.1 mg/dL (8.4-10.2); Carbon Dioxide 22 mmol/L (22-30); Chloride 108 mmol/L (98-107); Glucose 166 mg/dL (74-99); Magnesium 1.4 mg/dL (1.6-2.3); Non-African American GFR(CKD) >90 (>60 ml/min/1.73 sqM); Potassium 4.3 mmol/L (3.5-5.1); Sodium 134 mmol/L (137-145); Total Bilirubin 0.1 mg/dL (0.2-1.3); Total Protein 4.9 g/dL (6.3-8.2)
[2022-04-25 09:51] LABS: Anisocytosis Slight; Basophils % (A) 0 %; Eosinophils % (A) 0 %; HCT 23.9 % (39.0-53.0); HGB 7.5 gm/dL (13.0-17.5); Hypochromasia Marked; Lymphocytes # (A) 0.8 k/uL (1.0-4.8); Lymphocytes % (A) 10 %; MCH 30.8 pg (25.0-35.0); MCHC 31.3 g/dL (31.0-37.0); MCV 98.5 fL (80.0-100.0); Macrocytosis Moderate; Mean Platelet Volume 8.3; Monocytes # (A) 0.5 k/uL (0-1.0); Monocytes % (A) 6 %; Neutrophils # (A) 6.5 k/uL (1.3-7.7); Neutrophils % (A) 82 %; Platelet Count 368 k/uL (150-450); RBC 2.43 m/uL (4.30-5.90); RDW 19.9 % (11.5-15.5); WBC 7.9 k/uL (3.8-10.6)
--- NOTE | 2022-04-25 10:55 | P.GSCN ---
History of Present Illness Consult date: 04/25/22 History of present illness: CHIEF COMPLAINT: Dizziness HISTORY OF PRESENT ILLNESS: This is a 72-year-old male who presented to the hospital with complaints of dizziness. He was found to have an ST elevated [place]. He is status post stent to the LAD. He also has a DVT in the right lower extremity. Required IVC filter placement. He is currently in the ICU. Patient remains confused. He is a poor historian. Patient is followed by oncology. He has a new diagnosis of colon cancer and concerns of metastatic disease. 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 Surgical consult requested for MediPort placement. PAST MEDICAL HISTORY: See list. PAST SURGICAL HISTORY: See list. MEDICATIONS: See list. ALLERGIES: See list. SOCIAL HISTORY: No illicit drug use. REVIEW OF SYSTEMS: CONSTITUTIONAL: Denies fever or chills. HEENT: Denies blurred vision, vision changes, or eye pain. Denies hemoptysis CARDIOVASCULAR: Denies chest pain or pressure. RESPIRATORY: No shortness of breath. GASTROINTESTINAL: See HPI for pertinent findings HEMATOLOGIC: Denies bleeding disorders. GENITOURINARY: Denies any blood in urine or increased urinary frequency. SKIN: Denies pruitis. Denies rash. PHYSICAL EXAM: VITAL SIGNS: Reviewed GENERAL: Well-developed in no acute distress. HEENT: No sclera icterus. Extraocular movements grossly intact. Moist buccal mucosa. Head is atraumatic, normocephalic. No nasal drainage. ABDOMEN: Soft. Nondistended. Nondistended NEUROLOGIC: confused LABORATORY DATA: WBC 12.5 down to 7.9 Hgb 7.5 platelets 368 Sodium 134 potassium 4.3 creatinine 0.72 Magnesium 1.4 IMAGING: ASSESSMENT: 1. Colon cancer 2. Hypomagnesemia PLAN: -Patient scheduled for MediPort placement today with Dr. mcclelland -Keep patient nothing by mouth -Replace magnesium Thank you for this consultation Physician Golf Superintendent note has been reviewed by physician. Signing provider agrees with the documented findings, assessment, and plan of care. Past Medical History Past Medical History: Cancer, Diabetes Mellitus, Deep Vein Thrombosis (DVT), Hypertension, Myocardial Infarction ([place]) Additional Past Medical History / Comment(s): daily marijuana smoker, CAD, COPD, DVT of the RLE April 03, 2022, gastric cancer (adenocarcinoma) , DM2, PUD, UGI bleed and the patinet taken off the Eliquis on 04/17/2022 anad the patient was supposed to have an IVC filter Last Myocardial Infarction Date:: 04/22/22 History of Any Multi-Drug Resistant Organisms: None Reported, MRSA Past Surgical History: No Surgical Hx Reported Additional Past Surgical History / Comment(s): surgery for PUD Past Anesthesia/Blood Transfusion Reactions: No Reported Reaction Past Psychological History: Depression Smoking Status: Never smoker Past Drug Use History: Marijuana - Past Family History Father Family Medical History: Cancer, Diabetes Mellitus, Myocardial Infarction ([place]) Additional Family Medical History / Comment(s): lung cancer, from [place] Medications and Allergies Home Medications Medication Instructions Recorded Confirmed Type Metoprolol Tartrate [Lopressor] 25 mg PO BID 04/22/22 04/22/22 History Pantoprazole [Protonix] 40 mg PO BID 04/22/22 04/22/22 History QUEtiapine [SEROquel] 150 mg PO HS 04/22/22 04/22/22 History amLODIPine BESYLATE/BENAZEPRIL 1 cap PO DAILY 04/22/22 04/22/22 History [Lotrel 10-40 mg Capsule] gemfibroziL [Lopid] 600 mg PO BID 04/22/22 04/22/22 History glipiZIDE [Glucotrol] 5 mg PO AC-BID 04/22/22 04/22/22 History hydrALAZINE HCL [Apresoline] 100 mg PO TID 04/22/22 04/22/22 History metFORMIN HCL 1,000 mg PO BID 04/22/22 04/22/22 History Allergies Allergy/AdvReac Type Severity Reaction Status Date / Time No Known Allergies Allergy Verified 04/22/22 10:17 Surgical - Exam Vital Signs Temp Pulse Resp BP Pulse Ox 98.1 F 114 H 20 94/60 100 04/22/22 04:48 04/22/22 04:48 04/22/22 04:48 04/22/22 04:48 04/22/22 04:48 Results - Labs 04/25/22 08:42 04/25/22 08:42 Abnormal Lab Results - Last 24 Hours (Table) 04/24/22 04/24/22 04/24/22 Range/Units 12:07 16:40 20:22 Sodium (137-145) mmol/L Chloride (98-107) mmol/L Glucose (74-99) mg/dL POC Glucose (mg/dL) 329 H 217 H 142 H (70-110) mg/dL Calcium (8.4-10.2) mg/dL Magnesium (1.6-2.3) mg/dL Total Bilirubin (0.2-1.3) mg/dL Alkaline Phosphatase (38-126) U/L Total Protein (6.3-8.2) g/dL Albumin (3.5-5.0) g/dL 04/25/22 04/25/22 Range/Units 07:28 08:42 Sodium 134 L (137-145) mmol/L Chloride 108 H (98-107) mmol/L Glucose 166 H (74-99) mg/dL POC Glucose (mg/dL) 183 H (70-110) mg/dL Calcium 8.1 L (8.4-10.2) mg/dL Magnesium 1.4 L (1.6-2.3) mg/dL Total Bilirubin 0.1 L (0.2-1.3) mg/dL Alkaline Phosphatase 134 H (38-126) U/L Total Protein 4.9 L (6.3-8.2) g/dL Albumin 2.5 L (3.5-5.0) g/dL Diabetes panel 04/25/22 Range/Units 08:42 Sodium 134 L (137-145) mmol/L Potassium 4.3 (3.5-5.1) mmol/L Chloride 108 H (98-107) mmol/L Carbon Dioxide 22 (22-30) mmol/L BUN 17 (9-20) mg/dL Creatinine 0.72 (0.66-1.25) mg/dL Glucose 166 H (74-99) mg/dL Calcium 8.1 L (8.4-10.2) mg/dL AST 33 (17-59) U/L ALT 21 (4-49) U/L Alkaline Phosphatase 134 H (38-126) U/L Total Protein 4.9 L (6.3-8.2) g/dL Albumin 2.5 L (3.5-5.0) g/dL Calcium panel 04/25/22 Range/Units 08:42 Calcium 8.1 L (8.4-10.2) mg/dL Albumin 2.5 L (3.5-5.0) g/dL Pituitary panel 04/25/22 Range/Units 08:42 Sodium 134 L (137-145) mmol/L Potassium 4.3 (3.5-5.1) mmol/L Chloride 108 H (98-107) mmol/L Carbon Dioxide 22 (22-30) mmol/L BUN 17 (9-20) mg/dL Creatinine 0.72 (0.66-1.25) mg/dL Glucose 166 H (74-99) mg/dL Calcium 8.1 L (8.4-10.2) mg/dL Adrenal panel 04/25/22 Range/Units 08:42 Sodium 134 L (137-145) mmol/L Potassium 4.3 (3.5-5.1) mmol/L Chloride 108 H (98-107) mmol/L Carbon Dioxide 22 (22-30) mmol/L BUN 17 (9-20) mg/dL Creatinine 0.72 (0.66-1.25) mg/dL Glucose 166 H (74-99) mg/dL Calcium 8.1 L (8.4-10.2) mg/dL Total Bilirubin 0.1 L (0.2-1.3) mg/dL AST 33 (17-59) U/L ALT 21 (4-49) U/L Alkaline Phosphatase 134 H (38-126) U/L Total Protein 4.9 L (6.3-8.2) g/dL Albumin 2.5 L (3.5-5.0) g/dL
[2022-04-25] MEDS: INSULIN ASPART (NovoLOG) 100 UNIT/ML VIAL SQ SCH ×4 (11:00→20:59)
[2022-04-25] MEDS: ASPIRIN 81 MG PO SCH (11:01)
[2022-04-25] MEDS: ENOXAPARIN 60 MG/0.6 ML SYRINGE SQ SCH ×2 (11:01→20:59)
[2022-04-25] MEDS: glipiZIDE 5 MG TAB PO SCH ×2 (11:01→18:36)
[2022-04-25] MEDS: PRASUGREL 10 MG TAB PO SCH (11:01)
[2022-04-25] MEDS: PANTOPRAZOLE 40 MG TABLET PO SCH ×2 (11:01→18:36)
[2022-04-25 11:26] LABS: Glucose,Whole Blood 216 mg/dL (70-110)
--- NOTE | 2022-04-25 11:47 | P.PN ---
Subjective Progress Note Date: 04/25/22 Principal diagnosis: Acute anterior wall, ST segment elevation myocardial infarction This is a 72-year-old male patient who came in to the emergency department complaining of chest pain and the patient was diagnosed having an acute ST segment elevation myocardial infarction. In fact the patient seems to have been having the symptoms for more than 48 hours and we came to find out this information at the later stage after the patient completed his cardiac catheterization. Noted the patient is known to have coronary artery disease and the patient was admitted taken to the cardiac catheterization left for further investigation. He is a very poor historian and his extremity and unreliable. During cardiac catheterization, the patient was found to have Calcified LAD, Total occlusion of the LAD and diagonal branch were large amount of clots status post stenting with reduction of the stenosis from 100% to 0% with slow flow at the apex, Chronic occlusion of OM 2, Mild disease in the RCA, Elevated LVEDP. Based on that, the patient was given diagnosis of anterior wall myocardial infarction. The patient underwent stenting of a totally occluded LAD and the diagonal branch on both of these arteries were filled with large amount of clots and there was reduction of the stenosis from 100% on 0%. The patient was given stents LAD and the diagonal branch. Following that, the patient was brought into the intensive care unit. I came to find out that the patient is a more complicated history. He was diagnosed having adenocarcinoma of the stomach at [facility]. Following that, the patient got admitted to [place] where he was found to have a DVT of the right lower extremity. He was given Eliquis. He subsequently had GI bleeding and the recommendation was to insert an IVC filter stop and to coagulation. Nevertheless, the patient apparently signed himself AMA also the hospital and he has not receiving any form of treatment at this point in time. In fact, he has also stopped his Eliquis intake. He is a chronic marijuana smoking. History of marijuana smoking. He is currently on a low-dose norepinephrine infusion which is running at 0.08 Ming respiratory abnormalities on 2 L about 2 by nasal cannula. He is on a normal saline running at the rate of 75 mL an hour. Reevaluated today on 04/23/2022, patient remains in the ICU, on 2 L nasal cannula, does not seem to be in any distress. Patient had IVC filter placement today. Patient has been on heparin, and the biggest concern about this patient is the fact that he may develop GI bleeding with heparin and that is the reason he had IVC filter placement today. Today I switched his heparin to Lovenox at 60 mg subcu twice a day patient had stent done to diagonal and the LAD. At present he seems to be comfortable, he is known to have recent history of adenocarcinoma of the stomach which was recently diagnosed according to the patient, and diagnoses was done in [place], I think the patient is at very high risk of clotting and developing DVT and pulmonary embolism, hence in spite of having a filter placement, I believe the patient needs more anticoagulation treatment, but I'm reluctant to give him a high dose of Lovenox at this point. Hemoglobin today is 9.6 WBC count is 12.5 PTT is 45.2 and he had positive Hemoccult stool. Echocardiogram on 04/23 showed severe LV dysfunction and ejection fraction of 20- 25%. Reevaluated today on 04/24/2022, patient is doing well this morning, however last night he was extremely agitated and physically abusive to the staff, patient received Ativan and received Haldol that seemed to calm him down. Echocardiogram did show evidence of severe LV dysfunction with ejection fraction of 20-25%. Patient is tachycardic, and his blood pressure is marginal nonetheless, his metoprolol was increased by cardiology. Remains on diuretics/Lasix. Tolerating Lovenox while for his deep vein thrombosis patient had uneventful placement of IVC filter. This was done yesterday. Patient was seen by oncology on consultation, awaiting outside records regarding his adenocarcinoma/stomach adenocarcinoma. Labs today showed WBC of 8.9 hemoglobin 8.2 electrolytes are normal renal profile is normal Patient was reevaluated today on 04/25/2022, he is basically about the same, continues to have intermittent episodes of vegetations requiring sedation and sometimes restraints. He does improve with Ativan and with Haldol. And during my evaluation the patient was extremely calm, and not in any distress. Patient is being considered for Mediport placement because of his recent diagnosis of duodenal adenocarcinoma. Name patient will require chemotherapy. Labs today showed hemoglobin of 7.5 WBC 7.9. Electrodes are normal renal profile is normal. Bicarb is 22 Objective - Vital Signs Vital signs: Vital Signs Temp 98.3 F 04/25/22 04:00 Pulse 113 H 04/25/22 11:00 Resp 17 04/25/22 11:00 BP 95/71 04/25/22 10:00 Pulse Ox 94 L 04/25/22 11:00 FiO2 Intake & Output 04/24/22 04/25/22 04/25/22 18:59 06:59 18:59 Intake Total 325 250 Output Total 650 500 0 Balance -325 -250 0 Weight 89.6 kg Intake: Oral 325 250 Output: Urine 650 500 0 Straight 250 Other: # Voids 0 0 - Exam Physical Exam: Revealed a 72-year-old white male in no distress, on room air. Head: Atraumatic, normocephalic. HEENT:[Neck is supple.] [No neck masses.] [No thyromegaly.] [No JVD.] Chest: [Clear throughout, no crackles, no rhonchi, no wheezes.] Cardiac Exam: [Normal S1 and S2, no S3 gallop, no murmur.] Abdomen: [Soft, nontender, no megaly, no rebound, no guarding, normal bowel sounds.] Extremities: [No clubbing, no edema, no cyanosis.] Neurological Exam: [No focal neurologic deficit.] Alert oriented 3 Psychiatric: Normal mood, affect and normal mental status examination. Skin: No rashes. - Labs CBC & Chem 7: 04/25/22 08:42 04/25/22 08:42 Labs: Abnormal Lab Results - Last 24 Hours (Table) 04/24/22 04/24/22 04/24/22 Range/Units 12:07 16:40 20:22 RBC (4.30-5.90) m/uL Hgb (13.0-17.5) gm/dL Hct (39.0-53.0) % RDW (11.5-15.5) % Lymphocytes # (1.0-4.8) k/uL Sodium (137-145) mmol/L Chloride (98-107) mmol/L Glucose (74-99) mg/dL POC Glucose (mg/dL) 329 H 217 H 142 H (70-110) mg/dL Calcium (8.4-10.2) mg/dL Magnesium (1.6-2.3) mg/dL Total Bilirubin (0.2-1.3) mg/dL Alkaline Phosphatase (38-126) U/L Total Protein (6.3-8.2) g/dL Albumin (3.5-5.0) g/dL 04/25/22 04/25/22 04/25/22 Range/Units 07:28 08:42 08:42 RBC 2.43 L (4.30-5.90) m/uL Hgb 7.5 L (13.0-17.5) gm/dL Hct 23.9 L (39.0-53.0) % RDW 19.9 H (11.5-15.5) % Lymphocytes # 0.8 L (1.0-4.8) k/uL Sodium 134 L (137-145) mmol/L Chloride 108 H (98-107) mmol/L Glucose 166 H (74-99) mg/dL POC Glucose (mg/dL) 183 H (70-110) mg/dL Calcium 8.1 L (8.4-10.2) mg/dL Magnesium 1.4 L (1.6-2.3) mg/dL Total Bilirubin 0.1 L (0.2-1.3) mg/dL Alkaline Phosphatase 134 H (38-126) U/L Total Protein 4.9 L (6.3-8.2) g/dL Albumin 2.5 L (3.5-5.0) g/dL 04/25/22 Range/Units 11:25 RBC (4.30-5.90) m/uL Hgb (13.0-17.5) gm/dL Hct (39.0-53.0) % RDW (11.5-15.5) % Lymphocytes # (1.0-4.8) k/uL Sodium (137-145) mmol/L Chloride (98-107) mmol/L Glucose (74-99) mg/dL POC Glucose (mg/dL) 216 H (70-110) mg/dL Calcium (8.4-10.2) mg/dL Magnesium (1.6-2.3) mg/dL Total Bilirubin (0.2-1.3) mg/dL Alkaline Phosphatase (38-126) U/L Total Protein (6.3-8.2) g/dL Albumin (3.5-5.0) g/dL Assessment and Plan Assessment: Impression: Acute ST elevation myocardial infarction, status post stenting. 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 Acute DVT most likely provoked by his underlying adenocarcinoma Upper GI bleeding, patient had IVC filter placement yesterday, nonetheless the patient will need at least a modified dose of anticoagulation therapy, and a r ecommending Lovenox 60 mg subcu twice a day Type 2 diabetes. Dyslipidemia. History of depression. Chronic low back pain. Ischemic cardiomyopathy and LV dysfunction Acute systolic congestive heart failure secondary to ischemic cardiomyopathy Recommendation: Consider transferring the patient out of the ICU to a cardiac floor Patient will definitely need a sitter at bedside. Continue IV Protonix Continue Haldol and Ativan for extreme agitation Continue Lovenox Continue metoprolol Continue Lasix We'll continue to follow. Surgeons to proceed with Mediport placement Long-term prognosis is relatively poor and guarded Time with Patient: Less than 30
[2022-04-25] MEDS: QUEtiapine 25 MG TAB PO SCH ×2 (11:48→20:58)
[2022-04-25] MEDS: METOPROLOL TARTRATE 25 MG TAB PO SCH ×2 (11:48→20:59)
[2022-04-25] MEDS: MAGNESIUM SULFATE-D5W PMX 1 GM in DEXTROSE/WATER 1 100ML.BAG IVPB SCH ×2 (11:48→14:02)
[2022-04-25] MEDS: FUROSEMIDE 20 MG TAB PO SCH (11:48)
[2022-04-25] MEDS: SPIRONOLACTONE 25 MG TAB PO SCH (12:05)
--- NOTE | 2022-04-25 12:11 | P.PN ---
Progress Note - Text Progress Note Date: 04/25/22 Chief Complaint: Dizzy This is a 72-year-old patient who follows with Dr. Ming Naylor. Patient on April 03 was admitted to [facility] and were diagnosed with that clot in the right lower extremity. Patient also had some bloody stools. Patient underwent endoscopy was found to have gastric cancer biopsy showing adenocarcinoma. Following a biopsy. Subsequently patient was discharged on eliquis. Patient with then became hypotensive and was admitted to [facility]. Seen by an oncologist there. It was felt that patient's bleeding from his biopsy site of the gastric cancer. Patient left from the AMA 2 days ago. Came home. Patient now presented to our facility feeling dizzy lightheaded diet. Ultrasound in the ER did confirm blood clots in both lower extremity. Also patient's Axel ST elevation [place]. During the cardiac biological lab technician and got 2 stents to the LAD. Patient is due to get a IVC filter. Postprocedure patient ICU. On about 6 g of Levothroid. No chest pain. Tired. Up in a chair. Daughter the bedside. 04/23/2022: ICU: IVC filter placed this morning by Dr. Carnes. Patient on PPI antiplatelet agents. Sinus tachycardia. Seen by pain management team. Use Ultram when necessary. Eating lunch 04/24/2022: ICU: Tolerating diet. Sinus tachycardia. Reported by nurse to be suspicious of people. Psychiatry consulted. Seroquel was added yesterday. Did sleep some. Will DC Dilaudid. 04/25/2022: ICU: ENGLISH INSTRUCTOR today for a MediPort placement. Daughter the bedside. Seen by psychiatry. Put on Seroquel. Was rather combative confused last night. Answering questions better today. Active Medications Al Hydroxide/Mg Hydroxide (Mag Hydrox/Al Hydrox/Simeth 30 Ml Cup) 30 ml PO Q4HR PRN PRN Reason: Heartburn Aspirin (Aspirin 81 Mg) 81 mg PO DAILY [facility] Last Admin: 04/25/22 11:01 Dose: Not Given Atorvastatin Calcium (Atorvastatin 80 Mg Tab) 80 mg PO HS [facility] Last Admin: 04/24/22 20:46 Dose: 80 mg Enoxaparin Sodium (Enoxaparin 60 Mg/0.6 Ml Syringe) 60 mg SQ Q12HR [facility] Last Admin: 04/25/22 11:01 Dose: Not Given Furosemide (Furosemide 20 Mg Tab) 20 mg PO DAILY [facility] Last Admin: 04/25/22 11:48 Dose: 20 mg Glipizide (Glipizide 5 Mg Tab) 5 mg PO AC-BID [facility] Last Admin: 04/25/22 11:01 Dose: Not Given Magnesium Sulfate/Dextrose 1 (gm/ IV Solution) 100 mls @ 100 mls/hr IVPB Q1H [facility] Stop: 04/25/22 12:59 Last Admin: 04/25/22 11:48 Dose: 100 mls/hr Insulin Aspart (Insulin Aspart (Novolog) 100 Unit/Ml Vial) 0 unit SQ ACHS [facility]; Protocol Last Admin: 04/25/22 11:48 Dose: 3 unit Metoprolol Tartrate (Metoprolol Tartrate 25 Mg Tab) 25 mg PO BID [facility] Last Admin: 04/25/22 11:48 Dose: 25 mg Nitroglycerin (Nitroglycerin Sl Tabs 0.4 Mg Tab) 0.4 mg SUBLINGUAL Q5M PRN PRN Reason: Chest Pain Last Admin: 04/22/22 14:34 Dose: 0.4 mg Olanzapine (Olanzapine 10 Mg Vial) 5 mg IM TID PRN PRN Reason: Severe Agitation Last Admin: 04/25/22 06:59 Dose: 5 mg Pantoprazole Sodium (Pantoprazole 40 Mg Tablet) 40 mg PO AC-BID [facility] Last Admin: 04/25/22 11:01 Dose: Not Given Prasugrel (Prasugrel 10 Mg Tab) 10 mg PO DAILY [facility]; Protocol Last Admin: 04/25/22 11:01 Dose: Not Given Quetiapine Fumarate (Quetiapine 25 Mg Tab) 25 mg PO DAILY [facility] Last Admin: 04/25/22 11:48 Dose: 25 mg Quetiapine Fumarate (Quetiapine 25 Mg Tab) 75 mg PO HS [facility] Last Admin: 04/24/22 20:48 Dose: 75 mg Quetiapine Fumarate (Quetiapine 25 Mg Tab) 25 mg PO TID PRN PRN Reason: Agitation Last Admin: 04/25/22 02:52 Dose: 25 mg Spironolactone (Spironolactone 25 Mg Tab) 25 mg PO DAILY [facility] Last Admin: 04/25/22 12:05 Dose: Not Given Tramadol HCl (Tramadol 50 Mg Tab) 50 mg PO Q6H PRN PRN Reason: Pain Last Admin: 04/25/22 00:32 Dose: 50 mg Past medical history to include: Diabetes mellitus type 2, acute DVT both lower extremity diagnosed 2 weeks ago, gastric tumor showing adenocarcinoma recently diagnosed. Depression Social history: Does not smoke. Does marijuana occasionally. 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 Lives alone. Family history: Diabetes, [place], lung cancer Physical examination: VITAL SIGNS: 98.3, 124, 21, 95-69, 95% room air GENERAL: Laying in bed, awake, tired EYES: Pupils equal. Conjunctiva normal. HEENT: External appearance of nose and ears normal, oral cavity grossly normal. NECK: JVD not raised; masses not palpable. HEART: First and second heart sounds are normal; no edema. LUNGS: Respiratory rate normal; decreased breath sounds. ABDOMEN: Soft, nontender, liver spleen not palpable, no masses palpable. PSYCH: Answering some questions, some delirium MUSCULOSKELETAL:No Clubbing/cyanosis;muscles-grossly intact INVESTIGATIONS, reviewed in the clinical context: April 25: WBC 7.9 hemoglobin 7.5 platelets 368 potassium 4.3 creatinine 0.7 to April 24: White count 8.9 hemoglobin 8.2 potassium 4.1 creatinine 0.69 April 23: White count 12.5 hemoglobin 9.6 platelets 333 echocardiogram: EF 20-25%. Moderate pulmonary hypertension. White count 12.5 hemoglobin 8.7 platelets 232 sodium 133 potassium 3.9 BUN 19 creatinine 0.81 Troponin I 24.9, 27.5, 23.2 LDL 46 EKG tracing personally reviewed by mi-ST elevation V2 to V6, but ST segment depression in inferior leads Chest x-ray film personally reviewed by mi-jennie/Fanny. Venous polyposis Doppler ultrasound lower extremity: Positive for DVT and tired right leg with hypoechoic clot, DVT in the left leg is still popliteal vein and proximal calf veins. Bilateral Olivas's cyst. Assessment and plan: -Acute ST elevation myocardial infarction of the anterior wall. 2 stents to the LAD. -CAD with stent to LAD Aspirin 81 mg, Lipitor 80 mg, Lopressor 12.5 mg by mouth twice a day, prasugrel 10 mg daily -Adenocarcinoma of gastric cancer. Diagnosed recently with biopsy following EGD for GI bleed. Being followed by oncology -Diabetes mellitus type 2, oral hypoglycemic Resume Glucotrol. Follow Accu-Cheks with sliding scale -Psychosis unspecified, with delirium: Slow to respond Seroquel 25 at the morning and 75 mg at night. Zyprexa when necessary -Hypotension from low EF: Uncontrolled Follow blood pressure closely -Hyperlipidemia Lipitor 80 mg daily at bedtime -Depression Continue Seroquel - chronic low back pain. Patient seen by pain services. Continue home dose of Ultram. K pad. -Acute congestive heart failure from acute [place]. From systolic dysfunction. EF 20-25%. Lasix 20 mg. Aldactone 25 mg. Beta cora. -Cardiogenic shock: Better Received levo fed -Recreational marijuana use. uses as needed -Acute bilateral DVT on lower extremity diagnosed on April 03. Patient's eliquis was held because of GI bleed. Last dose taken was on April 17. Bilateral MARLENE stockings. IVC filter placement by Dr. Carnes on April 23 Care was discussed with the daughter the bedside. Patient nothing by mouth for MediPort placement. Other medications to continue. Seroquel and Zyprexa when necessary.
--- NOTE | 2022-04-25 13:56 | CT ---
EXAMINATION TYPE: CT ChestAbdPelvis w con DATE OF EXAM: 04/25/2022 INDICATION: ca staging COMPARISON: None CT DLP: 1360.6 mGycm CONTRAST: Performed without Oral Contrast and with IV Contrast, patient injected with 65cc mL of Isovue 300. TECHNIQUE: Axial images at 5 mm thick sections. Reconstructed images in the coronal plane. Delayed images through the kidneys. FINDINGS: CT CHEST: Portion of the thyroid visualized is normal. Small bilateral pleural effusions are present. No enlarged mediastinal or hilar adenopathy is evident. The ascending aorta diameter at the level of the main pulmonary artery is 4.3 cm. The main pulmonary artery diameter at the bifurcation is 3.9 cm. Coronary artery calcification is present. CT ABDOMEN: Small amount of ascites is present. Liver: Biliary air is present. Spleen: Normal Pancreas: The pancreas is poorly visualized. Body and tail of the pancreas appears somewhat atrophic. Adrenal glands: The adrenal glands are normal. Gallbladder: Decompressed with some pericholecystic fluid Kidneys: There is patchy opacification of the bilateral kidneys. Correlate with renal function. Pyelo nephritis is not excluded. No masses are evident. No hydronephrosis is present. No cysts are presen t. Aorta: Vascular calcification is within the aorta. Inferior vena cava: Altered is within the inferior vena cava. CT PELVIS: Some mild wall thickening of the distal sigmoid and rectum may be present previously related to nondi stention. There are loops of bowel which are incompletely distended or lack oral contrast limiting th eir evaluation. Appendix: Not Identified. No dilated tumor structure or inflammatory change is evident. Urinary bladder: Normal. Genitourinary structures: Prostate appears slightly prominent. Osseous structures: No suspicious lytic or sclerotic lesions. Lymphadenopathy: No enlarged mediastinal or hilar adenopathy is evident. No axillary adenopathy is ev ident. IMPRESSIONS: 1. Biliary air. 2. Abnormal perfusion through the bilateral kidneys. Correlate with the patient's renal function. 3. Mild ascites. 4. Small bilateral pleural effusions.
[2022-04-25 16:21] LABS: Glucose,Whole Blood 139 mg/dL (70-110)
[2022-04-25] MEDS ORDERED: HEPARIN SODIUM,PORCINE 100 UNIT/ML 5 ML VIAL IV ONE ×2 (16:23)
[2022-04-25] MEDS ORDERED: IOPAMIDOL-370 50ML BTL IRRIGATION ONE (16:24)
[2022-04-25] MEDS ORDERED: LIDOCAINE 1%-EPI 1:100,000 20 ML VIAL SQ ONE (16:30)
[2022-04-25] MEDS ORDERED: PROPOFOL 10 MG/ML 20 ML VIAL IV ONE (17:13)
[2022-04-25] MEDS ORDERED: ONDANSETRON 4 MG/2 ML VIAL ONE (17:13)
[2022-04-25] MEDS ORDERED: KETAMINE 10 MG/ML 20 ML VIAL ONE (17:13)
[2022-04-25] MEDS ORDERED: LACTATED RINGERS 1,000 ML IV ONE (17:13)
[2022-04-25] MEDS ORDERED: MIDAZOLAM 2 MG/2 ML VIAL ONE (17:13)
[2022-04-25] MEDS ORDERED: PHENYLEPHRINE-0.9% NACL SYG 1,000 MCG/10 ML SYRINGE ONE (17:13)
[2022-04-25] MEDS ORDERED: SODIUM CHLORIDE 0.9% 100 ML with ceFAZolin 2,000 MG IV ONE ×2 (17:35)
--- NOTE | 2022-04-25 18:50 | XR ---
EXAMINATION TYPE: XR chest 1V portable DATE OF EXAM: 04/25/2022 HISTORY: Shortness of breath. COMPARISON: None. TECHNIQUE: Single view of the chest is submitted. FINDINGS: Demonstrated are scattered senescent parenchymal change. There is no evidence for focal infiltrate. The heart is stable. Right subclavian central venous line with its distal tip overlying the SVC. No e vidence for pneumothorax. Hilar and mediastinal structures are within normal limits. Degenerative changes are seen of the dorsal spine. IMPRESSION: 1. Chronic changes without evidence for acute pulmonary disease.
[2022-04-25 20:55] LABS: Glucose,Whole Blood 182 mg/dL (70-110)
[2022-04-25] MEDS: ATORVASTATIN 80 MG TAB PO SCH (20:58)
--- NOTE | 2022-04-25 22:31 | FL ---
EXAMINATION TYPE: FL guided central line placemt DATE OF EXAM: 04/25/2022 CLINICAL HISTORY: Newly diagnosed cancer. TECHNIQUE: Fluoroscopy. COMPARISON: None. FINDINGS: Fluoroscopic guidance was provided during Mediport catheter insertion procedure performed by surgeon. A total of 32 seconds of fluoroscopic time was utilized during the procedure and 2 spot images was acquired. Images acquired right subclavian Mediport catheter terminating in SVC. IMPRESSION: As Above.
[2022-04-26 06:23] LABS: Glucose,Whole Blood 163 mg/dL (70-110)
[2022-04-26] MEDS: glipiZIDE 5 MG TAB PO SCH ×2 (06:40→17:46)
[2022-04-26] MEDS: traMADol 50 MG TAB PO PRN ×2 (06:40→13:28)
[2022-04-26] MEDS: PANTOPRAZOLE 40 MG TABLET PO SCH ×2 (06:41→17:46)
[2022-04-26] MEDS: INSULIN ASPART (NovoLOG) 100 UNIT/ML VIAL SQ SCH ×4 (06:41→20:44)
[2022-04-26] MEDS: PRASUGREL 10 MG TAB PO SCH (08:56)
[2022-04-26] MEDS: SPIRONOLACTONE 25 MG TAB PO SCH (08:56)
[2022-04-26] MEDS: FUROSEMIDE 20 MG TAB PO SCH (08:56)
[2022-04-26] MEDS: ENOXAPARIN 60 MG/0.6 ML SYRINGE SQ SCH ×2 (08:56→20:57)
[2022-04-26] MEDS: METOPROLOL TARTRATE 25 MG TAB PO SCH ×2 (08:56→20:43)
[2022-04-26] MEDS: ASPIRIN 81 MG PO SCH (08:56)
[2022-04-26] MEDS: QUEtiapine 25 MG TAB PO SCH (08:56)
[2022-04-26] MEDS: OLANZapine 10 MG VIAL IM PRN (09:10)
--- NOTE | 2022-04-26 09:39 | P.OP ---
Date of Procedure: 04/25/22 Preoperative Diagnosis: Colon cancer Postoperative Diagnosis: Colon cancer Procedure(s) Performed: Right subclavian Port-A-Cath Anesthesia: MAC Surgeon: Ramu Acosta Pathology: none sent Condition: stable Disposition: PACU Description of Procedure: MThe patient was placed on the operating table in the supine position. The patient received IV sedation. The patient's chest was prepped and draped in the usual sterile fashion. A roll had been placed between the shoulder blades in a longitudinal fashion. After prepping and draping the skin was anesthetized 1% local Xylocaine. And then using the Seldinger technique the subclavian vein was cannulated. A wire was placed into the vein and fluoroscopy position the wire at the atrial caval junction. Next the dilator sheath was placed over top the wire and the wire was withdrawn. The catheter was positioned at the atriocaval position. The catheter was placed through the sheath after the dilator was withdrawn. The sheath was then withdrawn. Position of the catheter was confirmed with fluoroscopy. The Port-A-Cath was connected to the catheter. The Port-A-Cath was flushed with saline and then heparinized saline. The skin was closed interrupted 3-0 Monocryl suture. Dermabond was applied. Patient tolerated procedure well and was sent to recovery room stable condition.
--- NOTE | 2022-04-26 11:38 | P.PN ---
Subjective Progress Note Date: 04/25/22 Principal diagnosis: New adeno of colon Plan for Mediport today, continue to await for staging scans Objective - Vital Signs Vital signs: Vital Signs Temp 98.3 F 04/25/22 04:00 Pulse 113 H 04/25/22 11:00 Resp 17 04/25/22 11:00 BP 95/71 04/25/22 10:00 Pulse Ox 94 L 04/25/22 11:00 FiO2 Intake & Output 04/24/22 04/25/22 04/25/22 18:59 06:59 18:59 Intake Total 325 250 Output Total 650 500 0 Balance -325 -250 0 Weight 89.6 kg Intake: Oral 325 250 Output: Urine 650 500 0 Straight 250 Other: # Voids 0 0 - Exam Poor Historian NAD Irr Lungs; Diminished BLE Edema No rash Psych: inapprpropriate - Labs CBC & Chem 7: 04/25/22 08:42 04/25/22 08:42 Labs: Abnormal Lab Results - Last 24 Hours (Table) 04/24/22 04/24/22 04/25/22 Range/Units 16:40 20:22 07:28 RBC (4.30-5.90) m/uL Hgb (13.0-17.5) gm/dL Hct (39.0-53.0) % RDW (11.5-15.5) % Lymphocytes # (1.0-4.8) k/uL Sodium (137-145) mmol/L Chloride (98-107) mmol/L Glucose (74-99) mg/dL POC Glucose (mg/dL) 217 H 142 H 183 H (70-110) mg/dL Calcium (8.4-10.2) mg/dL Magnesium (1.6-2.3) mg/dL Total Bilirubin (0.2-1.3) mg/dL Alkaline Phosphatase (38-126) U/L Total Protein (6.3-8.2) g/dL Albumin (3.5-5.0) g/dL 04/25/22 04/25/22 04/25/22 Range/Units 08:42 08:42 11:25 RBC 2.43 L (4.30-5.90) m/uL Hgb 7.5 L (13.0-17.5) gm/dL Hct 23.9 L (39.0-53.0) % RDW 19.9 H (11.5-15.5) % Lymphocytes # 0.8 L (1.0-4.8) k/uL Sodium 134 L (137-145) mmol/L Chloride 108 H (98-107) mmol/L Glucose 166 H (74-99) mg/dL POC Glucose (mg/dL) 216 H (70-110) mg/dL Calcium 8.1 L (8.4-10.2) mg/dL Magnesium 1.4 L (1.6-2.3) mg/dL Total Bilirubin 0.1 L (0.2-1.3) mg/dL Alkaline Phosphatase 134 H (38-126) U/L Total Protein 4.9 L (6.3-8.2) g/dL Albumin 2.5 L (3.5-5.0) g/dL Assessment and Plan (1) 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 Baseline CEA Current Visit: Yes Status: Acute Code(s): C18.9 - MALIGNANT NEOPLASM OF COLON, UNSPECIFIED; C77.2 - SECONDARY AND UNSP MALIGNANT NEOPLASM OF INTRA-ABD NODES SNOMED Code(s): 900988800 (2) Adenocarcinoma Narrative/Plan: Lymph Node Biopsy for Adenocarcinoma was found in papaer records, I have spoken to nursing as well and have not seen the "gastric identifying" pathology yet, I will continue to search and if not available we will requiest further records. In the interim it does not appear he has had staging performed. He is not fully engaged in conversation and his responses do not make sense so an MRI of the brain was also ordered (possible psychiatric history but with a picture of malignancy, likely metastatic should rule out involvement in brain) Will review outside records further in am and staging exams int he interim anemia work-up. Discussed with patient;s advocate, and RN CTs and MRI have been attempted and patient has not been compliant, despite premedication with lorazepam. will attempt again. Current Visit: Yes Status: Acute Code(s): C80.1 - MALIGNANT (PRIMARY) NEOPLASM, UNSPECIFIED SNOMED Code(s): 825524036 Plan: Mental health barriers have been interfering with care, evidenced with multiple hospitals, poor historian without knowing where records reside, leave of AMA, unable to perform needed work-up to treat. Psych has been consulted to assist Await staging , stabilization, and mediport Will order NGS through office
[2022-04-26 11:58] LABS: Anisocytosis Slight; Basophils % (A) 0 %; Eosinophils % (A) 0 %; HCT 23.3 % (39.0-53.0); HGB 7.3 gm/dL (13.0-17.5); Hypochromasia Marked; Lymphocytes # (A) 0.8 k/uL (1.0-4.8); Lymphocytes % (A) 8 %; MCH 30.4 pg (25.0-35.0); MCHC 31.1 g/dL (31.0-37.0); MCV 97.8 fL (80.0-100.0); Macrocytosis Moderate; Mean Platelet Volume 8.2; Monocytes # (A) 0.7 k/uL (0-1.0); Monocytes % (A) 8 %; Neutrophils % (A) 83 %; Platelet Count 364 k/uL (150-450); RBC 2.38 m/uL (4.30-5.90); RDW 19.4 % (11.5-15.5); WBC 9.7 k/uL (3.8-10.6)
[2022-04-26 12:03] LABS: Glucose,Whole Blood 150 mg/dL (70-110)
[2022-04-26 12:15] LABS: African American GFR (CKD) >90 (>60 ml/min/1.73 sqM); Anion Gap 6 mmol/L; Blood Urea Nitrogen 16 mg/dL (9-20); Carbon Dioxide 21 mmol/L (22-30); Chloride 108 mmol/L (98-107); Glucose 136 mg/dL (74-99); Magnesium 1.7 mg/dL (1.6-2.3); Non-African American GFR(CKD) >90 (>60 ml/min/1.73 sqM); Potassium 4.6 mmol/L (3.5-5.1); Sodium 135 mmol/L (137-145)
--- NOTE | 2022-04-26 12:59 | P.PN ---
Subjective Progress Note Date: 04/26/22 CHIEF COMPLAINT: Cancer of the duodenum HISTORY OF PRESENT ILLNESS: Patient is status post Mediport placement. Pain controlled. Denies any nausea or vomiting. Afebrile. Tachycardic. Patient seen and examined with Dr. mcclelland PHYSICAL EXAM: VITAL SIGNS: Reviewed. GENERAL: Well-developed in no acute distress. HEENT: No sclera icterus. Extraocular movements grossly intact. Moist buccal mucosa. Head is atraumatic, normocephalic. Chest: MediPort placed on the right side. Incision site clean dry and intact ABDOMEN: Soft. Nondistended. Nontender. NEUROLOGIC: Alert and oriented. Cranial nerves II through XII grossly intact. ASSESSMENT: 1. Cancer of the duodenum status post Mediport placement PLAN: -Continue supportive care -Continue oncology workup Physician Banquet Manager note has been reviewed by physician. Signing provider agrees with the documented findings, assessment, and plan of care. Objective - Vital Signs Vital signs: Vital Signs Temp 99.4 F 04/26/22 08:55 Pulse 118 H 04/26/22 08:55 Resp 16 04/26/22 08:55 BP 96/63 04/26/22 08:55 Pulse Ox 94 L 04/26/22 08:55 FiO2 Intake & Output 04/25/22 04/26/22 04/26/22 18:59 06:59 18:59 Intake Total 900 200 240 Output Total 255 360 Balance 645 -160 240 Weight 89.6 kg 86.5 kg Intake: IV 900 Magnesium Sulfate-D5w Pmx 200 1 gm In Dextrose/Water 1 100ml.bag @ 100 mls/hr IVPB Q1H [facility] Rx#: [id number] Oral 200 240 Output: Urine 250 360 Estimated Blood Loss 5 Other: Voiding Method Urinal Urinal Urinal # Voids 0 - Labs CBC & Chem 7: 04/26/22 11:47 04/26/22 11:47 Labs: Abnormal Lab Results - Last 24 Hours (Table) 04/25/22 04/25/22 04/25/22 Range/Units 08:42 16:19 20:53 RBC (4.30-5.90) m/uL Hgb (13.0-17.5) gm/dL Hct (39.0-53.0) % RDW (11.5-15.5) % Neutrophils # (1.3-7.7) k/uL Lymphocytes # (1.0-4.8) k/uL Sodium (137-145) mmol/L Chloride (98-107) mmol/L Carbon Dioxide (22-30) mmol/L Glucose (74-99) mg/dL POC Glucose (mg/dL) 139 H 182 H (70-110) mg/dL Calcium (8.4-10.2) mg/dL Carcinoembryonic Ag 44.6 H (0.0-4.9) ng/mL 04/26/22 04/26/22 04/26/22 Range/Units 06:22 11:47 11:47 RBC 2.38 L (4.30-5.90) m/uL Hgb 7.3 L (13.0-17.5) gm/dL Hct 23.3 L (39.0-53.0) % RDW 19.4 H (11.5-15.5) % Neutrophils # 8.0 H (1.3-7.7) k/uL Lymphocytes # 0.8 L (1.0-4.8) k/uL Sodium 135 L (137-145) mmol/L Chloride 108 H (98-107) mmol/L Carbon Dioxide 21 L (22-30) mmol/L Glucose 136 H (74-99) mg/dL POC Glucose (mg/dL) 163 H (70-110) mg/dL Calcium 8.0 L (8.4-10.2) mg/dL Carcinoembryonic Ag (0.0-4.9) ng/mL 04/26/22 Range/Units 12:01 RBC (4.30-5.90) m/uL Hgb (13.0-17.5) gm/dL Hct (39.0-53.0) % RDW (11.5-15.5) % Neutrophils # (1.3-7.7) k/uL Lymphocytes # (1.0-4.8) k/uL Sodium (137-145) mmol/L Chloride (98-107) mmol/L Carbon Dioxide (22-30) mmol/L Glucose (74-99) mg/dL POC Glucose (mg/dL) 150 H (70-110) mg/dL Calcium (8.4-10.2) mg/dL Carcinoembryonic Ag (0.0-4.9) ng/mL
--- NOTE | 2022-04-26 13:40 | P.PN ---
Subjective The patient is a 72-year-old male with a history of Coronary artery disease status post myocardial infarction in 1995 with angioplasty according to him, history of smoking who presented with symptoms of chest discomfort, had ST segment elevation anteriorly was evaluated by the emergency room and seen in the cardiac catheterization laboratory. According to the patient the symptoms started around midnight and he presented to the emergency room. He denies any dyspnea he denies any dizziness or palpitations. The patient had a history of DVT recently and has been on anticoagulation. He had an episode of GI bleeding, details unclear he had workup at [facility]. Patient denies any syncope. One of his main complaint shoulder discomfort related to a new injury. His troponin was elevated on presentation. He had no nausea or vomiting. He did not mention that he had any recent GI bleeding. After the procedure and after talking to the family wanted arrived apparently the patient 2 days ago was seen [facility] and was told that he had a STEMI but he signed AMA. He had episode of GI bleeding and upper endoscopy prior to that at [facility] and was told that he has gastric cancer. Full detail of his sandra or workup is not available, the patient and his son are not sure. 04/23 Patient appears confused and talking himself continuously. He is answering some questions appropriately however and states he came in because of projectile diarrhea as well as chest pain. Unable to elaborate more on his prior h ospitalization at [facility]. Patient was seen previously at [facility] for DVT and prior recommendations for IVC filter and therefore IVC filter was placed this morning. Remains on a heparin drip as well as aspirin and Effient. Blood pressure somewhat borderline. He does admit to lower extremity edema over the last few days. Lying flat on his back however without any significant dyspnea. Remains tachycardic with sinus tachycardia heart rates 120s up to 140s. Troponins have been fairly flat in the 20s. 04/24 Echocardiogram reviewed with ejection fraction 20-25%. Remains mildly tachycardic heart rates 110s to 120s, sinus rhythm. Borderline low blood pressures however able to tolerate low-dose metoprolol. Has been receiving IV Lasix however incontinent in bed and and affect. Ins and outs. He did undergo IVC filter placement on 04/23/2022. No hematochezia or melena per nursing. Hemoglobin appears stable. Apparently patient refusing to eat medications and more psychiatric issues requiring Haldol. Recommendations by oncology for CT to further assess and stage possible gastric cancer. 04/25 Patient states he has not been eating because we have been taking advantage of him and sedating him without his consent. Patient remains very confused and not able to answer questions appropriately. States he is having chest pain however unable to elaborate. Denies any shortness breath. Asking for his daughter. Continues to have 1+ right greater than left lower extremity edema however able lay flat on his back. He is not on any pressors, blood pressures in the 90s o griffin 60s. Remains sinus tachycardia likely exacerbated by his anxiety. He was seen by psychiatry and currently in wrist restraints. 04/26 Patient seen and examined at bedside, mentation has improved. He denies any complaints. His heart rates have slightly improved continues to be sinus tachycardia. Blood pressure 96/63. Denies any chest pain or shortness of breath. PHYSICAL EXAMINATION Vital reviewed Head: Normocephalic. Eyes: Sclerae nonicteric. Neck: Good carotid upstroke, no bruit, no jugular venous distention. Lungs: Clear to auscultation anteriorly. Heart: Regular rate and rhythm, S1-S2, no S3, no rub. No murmur. Abdomen: Soft nontender, positive bowel sounds no organomegaly. Extremities: 1+ edema, R>L, intact distal pulses. ASSESSMENT 1. Anterior wall myocardial infarction, likely late presenting with fairly flat troponins and prior hospitalization with STEMI and left AMA 2. Anemia and recent questionable gastric cancer diagnosis, history GIB 3. History of DVT s/p DVT filter 4. Acute on chronic systolic heart failure 5. Prior history of myocardial infarction/ CAD 6. History of anticoagulation 7. Back discomfort 8. Sinus tachycardia 9. Ischemic cardiomyopathy EF 20-25% PLAN: Recommend continuing current medical therapy. Currently appears stable. Patient appears somewhat stable currently and able tolerate low-dose of metoprolol as well as Aldactone. Monitor I/Ox Continue with aspirin, statin, Effient Care is complicated by his psychiatric issues Prognosis guarded. Further recommendations based on clinical course Nurse practitioner note has been reviewed by physician. Signing provider agrees with the documented findings, assessment, and plan of care. Objective - Vital Signs Vital signs: Vital Signs Temp 99.4 F 04/26/22 08:55 Pulse 118 H 04/26/22 08:55 Resp 16 04/26/22 08:55 BP 96/63 04/26/22 08:55 Pulse Ox 94 L 04/26/22 08:55 FiO2 Intake & Output 04/25/22 04/26/22 04/26/22 18:59 06:59 18:59 Intake Total 900 200 240 Output Total 255 360 Balance 645 -160 240 Weight 89.6 kg 86.5 kg Intake: IV 900 Magnesium Sulfate-D5w Pmx 200 1 gm In Dextrose/Water 1 100ml.bag @ 100 mls/hr IVPB Q1H [facility] Rx#: [id number] Oral 200 240 Output: Urine 250 360 Estimated Blood Loss 5 Other: Voiding Method Urinal Urinal Urinal # Voids 0 - Labs CBC & Chem 7: 04/26/22 11:47 04/26/22 11:47 Labs: Abnormal Lab Results - Last 24 Hours (Table) 04/25/22 04/25/22 04/25/22 Range/Units 08:42 16:19 20:53 RBC (4.30-5.90) m/uL Hgb (13.0-17.5) gm/dL Hct (39.0-53.0) % RDW (11.5-15.5) % Neutrophils # (1.3-7.7) k/uL Lymphocytes # (1.0-4.8) k/uL Sodium (137-145) mmol/L Chloride (98-107) mmol/L Carbon Dioxide (22-30) mmol/L Glucose (74-99) mg/dL POC Glucose (mg/dL) 139 H 182 H (70-110) mg/dL Calcium (8.4-10.2) mg/dL Carcinoembryonic Ag 44.6 H (0.0-4.9) ng/mL 04/26/22 04/26/22 04/26/22 Range/Units 06:22 11:47 11:47 RBC 2.38 L (4.30-5.90) m/uL Hgb 7.3 L (13.0-17.5) gm/dL Hct 23.3 L (39.0-53.0) % RDW 19.4 H (11.5-15.5) % Neutrophils # 8.0 H (1.3-7.7) k/uL Lymphocytes # 0.8 L (1.0-4.8) k/uL Sodium 135 L (137-145) mmol/L Chloride 108 H (98-107) mmol/L Carbon Dioxide 21 L (22-30) mmol/L Glucose 136 H (74-99) mg/dL POC Glucose (mg/dL) 163 H (70-110) mg/dL Calcium 8.0 L (8.4-10.2) mg/dL Carcinoembryonic Ag (0.0-4.9) ng/mL 04/26/22 Range/Units 12:01 RBC (4.30-5.90) m/uL Hgb (13.0-17.5) gm/dL Hct (39.0-53.0) % RDW (11.5-15.5) % Neutrophils # (1.3-7.7) k/uL Lymphocytes # (1.0-4.8) k/uL Sodium (137-145) mmol/L Chloride (98-107) mmol/L Carbon Dioxide (22-30) mmol/L Glucose (74-99) mg/dL POC Glucose (mg/dL) 150 H (70-110) mg/dL Calcium (8.4-10.2) mg/dL Carcinoembryonic Ag (0.0-4.9) ng/mL
--- NOTE | 2022-04-26 14:50 | MR ---
EXAMINATION TYPE: MR brain wo/w con DATE OF EXAM: 04/26/2022 COMPARISON: NONE HISTORY: Acute coronary syndrome. Abnormal CT. Staging study. TECHNIQUE: Multiplanar, multisequence images of the brain and brainstem is performed without and with IV contras t, utilizing 8.5 mL intravenous Gadavist . FINDINGS: Suboptimal as patient is confused, fast protocol performed. Diffusion weighted images demon strate wedge-shaped area of increased signal on diffusion-weighted images with diminished signal on A DC mapping showing T1 hypointensity and T2 hyperintensity with sulcal effacement and heterogeneous po stcontrast enhancement measuring proximally 6.5 cm craniocaudal dimension. Findings are consistent wi th large evolving acute infarct in the posterior watershed region greatest component in the right par ietal lobe with some occipital lobe extension. Additional punctate areas of increased signal on diffusion-weighted imaging and diminished signal on ADC mapping scattered throughout the bilateral brain parenchyma is present worrisome for evolving acu te lacunar infarcts. There is background mild ventricular and sulcal prominence. There are multifocal areas of T2 hyperint ensity throughout the white matter bilaterally. Approximately 40-50 scattered lesions are seen. Midline structures demonstrate normal morphology. Horizontal area of diminished T1 and increased T2 s ignal could reflect old infarct involving the dorsal aspect of the midbrain axial image 11. No abnorm al enhancement noted. The craniocervical junction appears within normal limits. Post contrast images demonstrate no abnormal enhancement. The dural venous sinuses appear patent. The visualized sinuses are clear and the globes are intact. IMPRESSION: 1. Suspect evolving moderate to large size acute/subacute infarct posterior watershed region centered right parietal lobe as detailed above. Additional bilateral evolving acute lacunar infarcts are felt present. Correlate clinically. 2. Background mild diffuse cerebral atrophy and moderate chronic small vessel ischemic change. Old br ainstem infarct in the david is suspected. Correlation with old outside CT and/or MRI would be beneficial. A Yellow level critical message alert has been initiated for Jony Wen MD via the [facility] Critical Results System on 04/26/2022 2:47 PM. This message alert has been sent to Jony Wen MD via the preferences provided by the clinician for the receipt of Radiology Critical Findings. Mess age ID [id number].
--- NOTE | 2022-04-26 15:17 | P.PN ---
Progress Note - Text Progress Note Date: 04/26/22 Interval History: Patient was seen today for psychiatric follow-up regarding patient's psychosis. Patient has been receiving Zyprexa IM and also Seroquel when necessary's for agitation and combativeness. Patient was seen at bedside today with his daughter and son at the bedside. Patient was agreeable to speak to functional tester typewriters and appeared to be more directable today. Patient continues to ramble at times appears to be mildly more logical in his answers. He is more directable. He is denying any paranoia or any agitation towards staff. He continues to have superficial insight into his illness and need for treatment. He was asking about going home. He was alert and oriented 3 today. He claims that he is sleeping fairly at night. Speech And Drama Teacher spoke with patient's daughter outside the room who states that patient is a bit better today and yesterday he claims that the Seroquel has been helping. She states that she was called into the [facility] patient to help calm him down to do the imaging studies which were completed today. At this time patient denies any suicidal or homical ideations, intent or plan. Patient denies any auditory, visual hallucinations and denies any paranoia or delusions. Patient denies any side effects from the medications and has been compliant with meds. Mental Status Exam: General Appearance: Patient appears to have long hair, stated age is alert, less guarded. Patient appears to have improving hygiene and grooming wearing hospital gown with improving eye contact. Behavior: Suspicious. Not paranoid today. No agitation. Speech: Patient's speech is fluent and nonpressured. Rambles. Mood/Affect: Patient reports their mood is "fine", affect is congruent Suicidality/Homicidality: Patient denies having any suicidal or homicidal ideation intent or plan. Perceptions: Patient denies any visual hallucinations and denies any auditory hallucinations Though content/process: Tangential/circumstantial. Loose associations, improving mildly. Not endorsing paranoia. Memory and concentration: AOX3, attention span improving. Judgment and insight: poor, improving mildly IMPRESSIONS: Psychosis unspecified PLAN: -At this time patient DOES NOT meet criteria for inpatient psychiatric admission. -Delirium precautions recommended with patient including - avoiding use of narcotics and PARACHUTE SUPERVISOR sedatives, limit anticholinergic medications when possible, frequent re-orientation, minimize use of restraints, open window shades during the day and close them at night -Would recommend the following medication changes/additions: Discontinued benzodiazepines, these will make patient likely delirious and more confused or aggressive. Increase Seroquel 100 mg daily at bedtime +25 mg daily for psychosis/mood stabilization. Seroquel when necessary twice a day. Zyprexa IM when necessary for agitation severe. -bottom worker to provide patient with outpatient mental health/psychiatry resources for appropriate follow up upon discharge -Communicated plan to patient's nurse -Will continue to follow along if needed/prn otherwise will sign off. -Please contact with any questions.
--- NOTE | 2022-04-26 16:23 | P.CNNES ---
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 neurology is consulted for recent stroke on MRI. Some of the history is obtained from medical record. His MRI of the brain with and without contrast was ordered by oncology team and is reported as suspected evolving moderate to large sized acute/subacute infarct in the posterior watershed region central right parietal lobe. Additional bilateral evolving acute lacunar infarct are felt present. Correlate clinically. Old brainstem infarct in the david suspected. Patient was performed for staging for his cancer. Patient two children were at bedside. And it seems patient does not have history of stroke in past. Currently patient is on aspirin 81 mg daily, Effient 10mg daily. Lipitor 80 mg daily at bedtime. It seems that the patient had anterior wall myocardial infarction and had a recent hospitalization was STEMI and left AMA. Our facility the patient underwent cardiac cath on 04/22/2022 and the seems that he had total occlusion of LAD diagonal branch with were large amount of clot status post stenting with reduction of stenosis from 100% to 0%. He had calcified LAD, chronic occlusion of om2. He had IVC filter placed in our facility for DVT (right lower extremity DVT). It seems that the patient was found to have a DVT over the right lower extremity and had IVC filter placed in our facility. Of note is seems the patient has [facility] was found to have DVT of right lower extremity and [facility] and was given Eliquis but he then had GI bleed and recommended insert of IVC are stop anticoagulation nevertheless the patient apparently signed himself AMA. He also stopped Eliquis and did not receive IVC. I personally reviewed the MRI and I felt the patient has right temporal parietal and close to the borderline up occipital blood predominantly is a acute to subacute right temporal parietal ischemic stroke as well as small foci over the bilateral frontal parietal region left more than right. There is some enhancement over the posterior region. I do suspect this is a acute to subacute ischemic stroke. Patient did not get IV TPA since unknown last normal and the risk outweighed the benefit. Some of other work-up in our facility: Patient's hemoglobin most recent is 7.3 slightly trending down from the day prior Lipid panel is triglyceride 106, cholesterol 154, LDLs 46 and HDL of 86. Vitamin B12 is Stewart 2000 Serum folate is 8.60 Stool occult blood is positive. Troponin in our facility was as high as 27 most current one is 23.20 Review of Systems Review of system: The 12 point system was reviewed and apparent positive and negative per HPI. Past Medical History Past Medical History: Cancer, Diabetes Mellitus, Deep Vein Thrombosis (DVT), Hypertension, Myocardial Infarction ([place]) Additional Past Medical History / Comment(s): daily marijuana smoker, CAD, COPD, DVT of the RLE April 03, 2022, gastric cancer (adenocarcinoma) , DM2, PUD, UGI bleed and the patinet taken off the Eliquis on 04/17/2022 anad the patient was supposed to have an IVC filter Last Myocardial Infarction Date:: 04/22/22 History of Any Multi-Drug Resistant Organisms: None Reported, MRSA Past Surgical History: No Surgical Hx Reported Additional Past Surgical History / Comment(s): surgery for PUD Past Anesthesia/Blood Transfusion Reactions: No Reported Reaction Past Psychological History: Depression Smoking Status: Never smoker Past Drug Use History: Marijuana - Past Family History Father Family Medical History: Cancer, Diabetes Mellitus, Myocardial Infarction ([place]) Additional Family Medical History / Comment(s): lung cancer, from [place] Medications and Allergies Home Medications Medication Instructions Recorded Confirmed Type Metoprolol Tartrate [Lopressor] 25 mg PO BID 04/22/22 04/22/22 History Pantoprazole [Protonix] 40 mg PO BID 04/22/22 04/22/22 History QUEtiapine [SEROquel] 150 mg PO HS 04/22/22 04/22/22 History amLODIPine BESYLATE/BENAZEPRIL 1 cap PO DAILY 04/22/22 04/22/22 History [Lotrel 10-40 mg Capsule] gemfibroziL [Lopid] 600 mg PO BID 04/22/22 04/22/22 History glipiZIDE [Glucotrol] 5 mg PO AC-BID 04/22/22 04/22/22 History hydrALAZINE HCL [Apresoline] 100 mg PO TID 04/22/22 04/22/22 History metFORMIN HCL 1,000 mg PO BID 04/22/22 04/22/22 History Allergies Allergy/AdvReac Type Severity Reaction Status Date / Time No Known Allergies Allergy Verified 04/22/22 10:17 Physical Examination - Vital Signs Vital Signs: Vital Signs Temp Pulse Resp BP Pulse Ox 04/26/22 13:25 98.2 F 118 H 16 102/67 98 04/26/22 08:55 99.4 F 118 H 16 96/63 94 L 04/26/22 04:00 98.6 F 122 H 18 127/79 95 04/26/22 02:10 98.7 F 122 H 17 127/79 95 04/25/22 23:51 98.4 F 112 H 17 98/70 95 04/25/22 20:00 97.5 F L 113 H 17 97/68 96 04/25/22 16:00 98.3 F 112 H 17 107/73 98 Intake and Output 04/26/22 04/26/22 04/26/22 06:59 14:59 22:59 Intake Total 240 Output Total 100 Balance -100 240 Intake: Oral 240 Output: Urine 100 Other: Voiding Method Urinal Urinal Weight 86.5 kg GENERAL: The patient is lying in bed and is not acute distress. CHEST: The heart rate is regular rate rhythm. No murmurs to auscultation. LUNG: Clear to auscultation bilaterally no wheezing noted throughout. Not labored breathing. ABDOMEN/GI: Bowel sounds present in all 4 quadrants. No tenderness to palpation throughout. NEUROLOGICAL: Higher mental function: The patient is drowsy but is awakeable to voice. Is oriented to self, place and time. Patient is following commands. No aphasia and no neglect. Cranial nerves: The pupils are round, equal and reactive to light and acco mmodation. Visual pastrana: [place] left hemonomymous hemianposia but at times difficult to assess because of cooperation. Extraocular movement is intact no nystagmus is noted. Facial sensation is normal to touch throughout. The facial strength is normal throughout. Hearing is normal bilaterally to hand rub. Tongue is midline and moved [id number] without any difficulty. No dysarthria is noted. Shoulder shrug is normal bilaterally. Motor: The strength is right forearm extension is 4+. Otherwise uppers are 5/5. Right lower is limited because of DVT. Is lifting left lower above gravity without difficulty. Normal tone and bulk. Cerebellum: Normal finger to nose bilaterally. Sensation: Sensation is normal to touch throughout. Reflexes (right/left):1+ throughout. Plantars are mute bilaterally. Results - Laboratory Findings CBC and BMP: 04/26/22 11:47 04/26/22 11:47 Abnormal Lab Findings: Abnormal Labs 04/22/22 04/22/22 04/22/22 04:54 04:54 04:54 WBC 12.5 H RBC 2.87 L Hgb 8.7 L Hct 27.9 L MCV MCHC RDW 20.6 H Neutrophils # 10.6 H Lymphocytes # Macrocytosis Retic Count Haptoglobin PT 12.3 H INR 1.2 H APTT Sodium 133 L Chloride 108 H Carbon Dioxide 21 L Glucose 57 L POC Glucose (mg/dL) Calcium Magnesium Iron TIBC % Saturation Transferrin Ferritin Total Bilirubin AST 68 H Alkaline Phosphatase 127 H Lactate Dehydrogenase Troponin I Total Protein 5.4 L Albumin 2.8 L HDL Cholesterol Carcinoembryonic Ag Vitamin B12 04/22/22 04/22/22 04/22/22 04:54 07:30 07:30 WBC RBC Hgb Hct MCV MCHC RDW Neutrophils # Lymphocytes # Macrocytosis Retic Count Haptoglobin PT INR APTT Sodium Chloride Carbon Dioxide Glucose POC Glucose (mg/dL) Calcium Magnesium Iron TIBC % Saturation Transferrin Ferritin Total Bilirubin AST Alkaline Phosphatase Lactate Dehydrogenase Troponin I 24.900 H* 27.500 H* Total Protein Albumin HDL Cholesterol 86.80 H Carcinoembryonic Ag Vitamin B12 04/22/22 04/22/22 04/22/22 11:23 11:23 11:23 WBC RBC Hgb Hct MCV MCHC RDW Neutrophils # Lymphocytes # Macrocytosis Retic Count 11.9 H Haptoglobin PT INR APTT Sodium Chloride Carbon Dioxide Glucose POC Glucose (mg/dL) Calcium Magnesium Iron 11 L TIBC 169 L % Saturation 6.67 L Transferrin 121.0 L Ferritin 446.0 H Total Bilirubin AST Alkaline Phosphatase Lactate Dehydrogenase 1327 H Troponin I 23.200 H* Total Protein Albumin HDL Cholesterol Carcinoembryonic Ag Vitamin B12 >2000.0 H 04/22/22 04/22/22 04/22/22 11:23 11:46 15:04 WBC RBC Hgb Hct MCV MCHC RDW Neutrophils # Lymphocytes # Macrocytosis Retic Count Haptoglobin 323.0 H PT INR APTT Sodium Chloride Carbon Dioxide Glucose POC Glucose (mg/dL) 208 H 194 H Calcium Magnesium Iron TIBC % Saturation Transferrin Ferritin Total Bilirubin AST Alkaline Phosphatase Lactate Dehydrogenase Troponin I Total Protein Albumin HDL Cholesterol Carcinoembryonic Ag Vitamin B12 04/22/22 04/23/22 04/23/22 20:20 05:14 05:14 WBC 12.5 H RBC 3.03 L Hgb 9.6 L Hct 30.8 L MCV 101.4 H MCHC RDW 20.9 H Neutrophils # 10.7 H Lymphocytes # Macrocytosis Marked A Retic Count Haptoglobin PT INR APTT 45.2 H Sodium Chloride Carbon Dioxide Glucose POC Glucose (mg/dL) 181 H Calcium Magnesium Iron TIBC % Saturation Transferrin Ferritin Total Bilirubin AST Alkaline Phosphatase Lactate Dehydrogenase Troponin I Total Protein Albumin HDL Cholesterol Carcinoembryonic Ag Vitamin B12 04/23/22 04/23/22 04/23/22 06:28 11:55 17:24 WBC RBC Hgb Hct MCV MCHC RDW Neutrophils # Lymphocytes # Macrocytosis Retic Count Haptoglobin PT INR APTT Sodium Chloride Carbon Dioxide Glucose POC Glucose (mg/dL) 173 H 145 H 208 H Calcium Magnesium Iron TIBC % Saturation Transferrin Ferritin Total Bilirubin AST Alkaline Phosphatase Lactate Dehydrogenase Troponin I Total Protein Albumin HDL Cholesterol Carcinoembryonic Ag Vitamin B12 04/23/22 04/23/22 04/24/22 20:19 21:04 06:05 WBC RBC Hgb Hct MCV MCHC RDW Neutrophils # Lymphocytes # Macrocytosis Retic Count Haptoglobin PT INR APTT Sodium Chloride Carbon Dioxide Glucose POC Glucose (mg/dL) 216 H 223 H 173 H Calcium Magnesium Iron TIBC % Saturation Transferrin Ferritin Total Bilirubin AST Alkaline Phosphatase Lactate Dehydrogenase Troponin I Total Protein Albumin HDL Cholesterol Carcinoembryonic Ag Vitamin B12 04/24/22 04/24/22 04/24/22 06:58 07:59 07:59 WBC RBC 2.67 L Hgb 8.2 L Hct 26.6 L MCV MCHC 30.8 L RDW 20.5 H Neutrophils # Lymphocytes # Macrocytosis Retic Count Haptoglobin PT INR APTT Sodium Chloride 108 H Carbon Dioxide 20 L Glucose 152 H POC Glucose (mg/dL) 170 H Calcium 8.3 L Magnesium Iron TIBC % Saturation Transferrin Ferritin Total Bilirubin AST Alkaline Phosphatase Lactate Dehydrogenase Troponin I Total Protein Albumin HDL Cholesterol Carcinoembryonic Ag Vitamin B12 04/24/22 04/24/22 04/24/22 12:07 16:40 20:22 WBC RBC Hgb Hct MCV MCHC RDW Neutrophils # Lymphocytes # Macrocytosis Retic Count Haptoglobin PT INR APTT Sodium Chloride Carbon Dioxide Glucose POC Glucose (mg/dL) 329 H 217 H 142 H Calcium Magnesium Iron TIBC % Saturation Transferrin Ferritin Total Bilirubin AST Alkaline Phosphatase Lactate Dehydrogenase Troponin I Total Protein Albumin HDL Cholesterol Carcinoembryonic Ag Vitamin B12 04/25/22 04/25/22 04/25/22 07:28 08:42 08:42 WBC RBC 2.43 L Hgb 7.5 L Hct 23.9 L MCV MCHC RDW 19.9 H Neutrophils # Lymphocytes # 0.8 L Macrocytosis Retic Count Haptoglobin PT INR APTT Sodium Chloride Carbon Dioxide Glucose POC Glucose (mg/dL) 183 H Calcium Magnesium Iron TIBC % Saturation Transferrin Ferritin Total Bilirubin AST Alkaline Phosphatase Lactate Dehydrogenase Troponin I Total Protein Albumin HDL Cholesterol Carcinoembryonic Ag 44.6 H Vitamin B12 04/25/22 04/25/22 04/25/22 08:42 11:25 16:19 WBC RBC Hgb Hct MCV MCHC RDW Neutrophils # Lymphocytes # Macrocytosis Retic Count Haptoglobin PT INR APTT Sodium 134 L Chloride 108 H Carbon Dioxide Glucose 166 H POC Glucose (mg/dL) 216 H 139 H Calcium 8.1 L Magnesium 1.4 L Iron TIBC % Saturation Transferrin Ferritin Total Bilirubin 0.1 L AST Alkaline Phosphatase 134 H Lactate Dehydrogenase Troponin I Total Protein 4.9 L Albumin 2.5 L HDL Cholesterol Carcinoembryonic Ag Vitamin B12 04/25/22 04/26/22 04/26/22 20:53 06:22 11:47 WBC RBC 2.38 L Hgb 7.3 L Hct 23.3 L MCV MCHC RDW 19.4 H Neutrophils # 8.0 H Lymphocytes # 0.8 L Macrocytosis Retic Count Haptoglobin PT INR APTT Sodium Chloride Carbon Dioxide Glucose POC Glucose (mg/dL) 182 H 163 H Calcium Magnesium Iron TIBC % Saturation Transferrin Ferritin Total Bilirubin AST Alkaline Phosphatase Lactate Dehydrogenase Troponin I Total Protein Albumin HDL Cholesterol Carcinoembryonic Ag Vitamin B12 04/26/22 04/26/22 11:47 12:01 WBC RBC Hgb Hct MCV MCHC RDW Neutrophils # Lymphocytes # Macrocytosis Retic Count Haptoglobin PT INR APTT Sodium 135 L Chloride 108 H Carbon Dioxide 21 L Glucose 136 H POC Glucose (mg/dL) 150 H Calcium 8.0 L Magnesium Iron TIBC % Saturation Transferrin Ferritin Total Bilirubin AST Alkaline Phosphatase Lactate Dehydrogenase Troponin I Total Protein Albumin HDL Cholesterol Carcinoembryonic Ag Vitamin B12 Assessment and Plan Assessment: Acute to subacute ischemic stroke (on MRI felt more right parietal and temporal/occipital region. Also had small foci over bilateral fronto/parietal): Seems embolic in nature. 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 Continue Lipitor 80 mg daily at bedtime for secondary stroke prophylaxis Re: Transesophageal echocardiogram, the primary had a discussion with sausage cooker (Christ), and it was felt to hold off for now since the patient cannot use anticoagulation even if the thrombus is found on the CANDELARIA because of his recent bleed and hx of cancer which can increase risk of bleed. Consider CANDELARIA as outpatient. Every 4 hours neuro checks Continue cardiac monitoring PT OT are consulted Cardiology is on board Psychiatry is on board Oncology team is on board We'll defer the rest of the medical management to the primary team For DVT prophylaxis currently the patient is on Enoxaparin 60 mg every 12 hours The plan is discussed with the patient, his children who are at beside and primary team. Thank you for the consultation. Alphonso Boggs M.D. Neuro-hospitalist Time with Patient: Greater than 30
[2022-04-26 16:48] LABS: Glucose,Whole Blood 148 mg/dL (70-110)
--- NOTE | 2022-04-26 16:57 | P.PN ---
Subjective Progress Note Date: 04/26/22 Principal diagnosis: New adeno of colon Awaiting CBC today Objective - Vital Signs Vital signs: Vital Signs Temp 99.4 F 04/26/22 08:55 Pulse 118 H 04/26/22 08:55 Resp 16 04/26/22 08:55 BP 96/63 04/26/22 08:55 Pulse Ox 94 L 04/26/22 08:55 FiO2 Intake & Output 04/25/22 04/26/22 04/26/22 18:59 06:59 18:59 Intake Total 900 200 240 Output Total 255 360 Balance 645 -160 240 Weight 89.6 kg 86.5 kg Intake: IV 900 Magnesium Sulfate-D5w Pmx 200 1 gm In Dextrose/Water 1 100ml.bag @ 100 mls/hr IVPB Q1H CEDRIC Rx#: [id number] Oral 200 240 Output: Urine 250 360 Estimated Blood Loss 5 Other: Voiding Method Urinal Urinal Urinal # Voids 0 - Exam Poor Historian NAD Irr Lungs; Diminished BLE Edema No rash Psych: inapprpropriate - Labs CBC & Chem 7: 04/25/22 08:42 04/25/22 08:42 Labs: Abnormal Lab Results - Last 24 Hours (Table) 04/25/22 04/25/22 04/25/22 Range/Units 08:42 16:19 20:53 POC Glucose (mg/dL) 139 H 182 H (70-110) mg/dL Carcinoembryonic Ag 44.6 H (0.0-4.9) ng/mL 04/26/22 Range/Units 06:22 POC Glucose (mg/dL) 163 H (70-110) mg/dL Carcinoembryonic Ag (0.0-4.9) ng/mL Assessment and Plan (1) 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 Baseline CEA Current Visit: Yes Status: Acute Code(s): C18.9 - MALIGNANT NEOPLASM OF COLON, UNSPECIFIED; C77.2 - SECONDARY AND UNSP MALIGNANT NEOPLASM OF INTRA-ABD NODES SNOMED Code(s): 055507320 (2) Adenocarcinoma Narrative/Plan: Lymph Node Biopsy for Adenocarcinoma was found in [facility] records, I have spoken to nursing as well and have not seen the "gastric identifying" pathology yet, I will continue to search and if not available we will requiest further records. In the interim it does not appear he has had staging performed. He is not fully engaged in conversation and his responses do not make sense so an MRI of the brain was also ordered (possible psychiatric history but with a picture of malignancy, likely metastatic should rule out involvement in brain) Will review outside records further in am and staging exams int he interim anemia work-up. Discussed with patient;s advocate, and RN CTs and MRI have been attempted and patient has not been compliant, despite anthony edication with lorazepam. will attempt again. Current Visit: Yes Status: Acute Code(s): C80.1 - MALIGNANT (PRIMARY) NEOP LASM, UNSPECIFIED SNOMED Code(s): 289241483 Plan: CT scans do not reveal metastatic adenopathy or distant mets as in outside hospital labs. Will ask for re-evaluation from surgery for colectomy and removal off duodenal tumor.
--- NOTE | 2022-04-26 17:34 | P.PN ---
Progress Note - Text Progress Note Date: 04/26/22 Chief Complaint: Dizzy This is a 72-year-old patient who follows with Dr. Ming Naylor. Patient on April 03 was admitted to [facility] and were diagnosed with that clot in the right lower extremity. Patient also had some bloody stools. Patient underwent endoscopy was found to have gastric cancer biopsy showing adenocarcinoma. Following a biopsy. Subsequently patient was discharged on eliquis. Patient with then became hypotensive and was admitted to [facility]. Seen by an oncologist there. It was felt that patient's bleeding from his biopsy site of the gastric cancer. Patient left from the AMA 2 days ago. Came home. Patient now presented to our facility feeling dizzy lightheaded diet. Ultrasound in the ER did confirm blood clots in both lower extremity. Also patient's Axel ST elevation PR. 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 Patient is due to get a IVC filter. Postprocedure patient ICU. On about 6 g of Levothroid. No chest pain. Tired. Up in a chair. Daughter the bedside. 04/23/2022: ICU: IVC filter placed this morning by Dr. Carnes. Patient on PPI antiplatelet agents. Sinus tachycardia. Seen by pain management team. Use Ultram when necessary. Eating lunch 04/24/2022: ICU: Tolerating diet. Sinus tachycardia. Reported by nurse to be suspicious of people. Psychiatry consulted. Seroquel was added yesterday. Did sleep some. Will DC Dilaudid. 04/25/2022: ICU: [employer] today for a MediPort placement. Daughter the bedside. Seen by psychiatry. Put on Seroquel. Was rather combative confused last night. Answering questions better today. 04/26/2022: Wound to the medical floor. Patient doing better. Answering questions more appropriately. No focal weakness. MRA of the brain revealed fair size involving right parietal temporal infarct with other areas of infarct. [place] to be embolic. Care was discussed with Dr. Boggs from neurology and Dr. Polo from cardiology. Given that patient is a very high risk of bleeding and is already on dual antiplatelet because of coronary stents, doing a CANDELARIA, but has not had any further benefit. Patient will be followed clinically over the weekend. This was discussed with that is patient's daughter at length with the presence of nurse Farley. Oral prognosis guarded. Also discussed that we'll wait 6 weeks from the time of coronary stent for the localize GI tumor surgery to be done. Active Medications Al Hydroxide/Mg Hydroxide (Mag Hydrox/Al Hydrox/Simeth 30 Ml Cup) 30 ml PO Q4HR PRN PRN Reason: Heartburn Aspirin (Aspirin 81 Mg) 81 mg PO DAILY [facility] Last Admin: 04/26/22 08:56 Dose: 81 mg Atorvastatin Calcium (Atorvastatin 80 Mg Tab) 80 mg PO HS [facility] Last Admin: 04/25/22 20:58 Dose: 80 mg Enoxaparin Sodium (Enoxaparin 60 Mg/0.6 Ml Syringe) 60 mg SQ Q12HR [facility] Last Admin: 04/26/22 08:56 Dose: 60 mg Furosemide (Furosemide 20 Mg Tab) 20 mg PO DAILY [facility] Last Admin: 04/26/22 08:56 Dose: 20 mg Glipizide (Glipizide 5 Mg Tab) 5 mg PO AC-BID [facility] Last Admin: 04/26/22 06:40 Dose: 5 mg Insulin Aspart (Insulin Aspart (Novolog) 100 Unit/Ml Vial) 0 unit SQ ACHS [facility]; Protocol Last Admin: 04/26/22 13:36 Dose: Not Given Melatonin (Melatonin 1 Mg Tab) 2 mg PO [facility] Metoprolol Tartrate (Metoprolol Tartrate 25 Mg Tab) 25 mg PO BID [facility] Last Admin: 04/26/22 08:56 Dose: 25 mg Nitroglycerin (Nitroglycerin Sl Tabs 0.4 Mg Tab) 0.4 mg SUBLINGUAL Q5M PRN PRN Reason: Chest Pain Last Admin: 04/22/22 14:34 Dose: 0.4 mg Olanzapine (Olanzapine 10 Mg Vial) 5 mg IM TID PRN PRN Reason: Severe Agitation Last Admin: 04/26/22 09:10 Dose: 5 mg Pantoprazole Sodium (Pantoprazole 40 Mg Tablet) 40 mg PO AC-BID [facility] Last Admin: 04/26/22 06:41 Dose: 40 mg Prasugrel (Prasugrel 10 Mg Tab) 10 mg PO DAILY [facility]; Protocol Last Admin: 04/26/22 08:56 Dose: 10 mg Quetiapine Fumarate (Quetiapine 25 Mg Tab) 25 mg PO DAILY [facility] Last Admin: 04/26/22 08:56 Dose: 25 mg Quetiapine Fumarate (Quetiapine 25 Mg Tab) 25 mg PO TID PRN PRN Reason: Agitation Last Admin: 04/25/22 23:37 Dose: 25 mg Quetiapine Fumarate (Quetiapine 50 Mg Tab) 100 mg PO HS [facility] Spironolactone (Spironolactone 25 Mg Tab) 25 mg PO DAILY [facility] Last Admin: 04/26/22 08:56 Dose: 25 mg Tramadol HCl (Tramadol 50 Mg Tab) 50 mg PO Q6H PRN PRN Reason: Pain Last Admin: 04/26/22 13:28 Dose: 50 mg Past medical history to include: Diabetes mellitus type 2, acute DVT both lower extremity diagnosed 2 weeks ago, gastric tumor showing adenocarcinoma recently diagnosed. Depression Social history: Does not smoke. Does marijuana occasionally. 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 Lives alone. Family history: Diabetes, PR, lung cancer Physical examination: VITAL SIGNS: At 8.2, 118, 16, 102/67, 98% room air GENERAL: Laying in bed, awake, tired EYES: Pupils equal. Conjunctiva normal. HEENT: External appearance of nose and ears normal, oral cavity grossly normal. NECK: JVD not raised; masses not palpable. HEART: First and second heart sounds are normal; no edema. LUNGS: Respiratory rate normal; decreased breath sounds. ABDOMEN: Soft, nontender, liver spleen not palpable, no masses palpable. PSYCH: Answering simple questions. MUSCULOSKELETAL:No Clubbing/cyanosis;muscles-grossly intact Neurological: No focal weakness INVESTIGATIONS, reviewed in the clinical context: MRI brain: Moderate to large size acute/subacute infarct posterior watershed region. Additional bilateral involving acute infarcts the corner felt to be present. April 26: WBC 9.7 hemoglobin 7.3 potassium 4.6 creatinine 0.73 April 25: WBC 7.9 hemoglobin 7.5 platelets 368 potassium 4.3 creatinine 0.7 to April 24: White count 8.9 hemoglobin 8.2 potassium 4.1 creatinine 0.69 April 23: White count 12.5 hemoglobin 9.6 platelets 333 echocardiogram: EF 20-25%. Moderate pulmonary hypertension. White count 12.5 hemoglobin 8.7 platelets 232 sodium 133 potassium 3.9 BUN 19 creatinine 0.81 Troponin I 24.9, 27.5, 23.2 LDL 46 EKG tracing personally reviewed by me-ST elevation V2 to V6, but ST segment depression in inferior leads Chest x-ray film personally reviewed by me[facility]. Venous polyposis Doppler ultrasound lower extremity: Positive for DVT and tired right leg with hypoechoic clot, DVT in the left leg is still popliteal vein and proximal calf veins. Bilateral Olivas's cyst. Assessment and plan: -Acute ST elevation myocardial infarction of the anterior wall. 2 stents to the LAD. -Acute/subacute infarct posterior watershed region, with other areas of infarct felt to be embolic. Patient is already high risk of bleeding because of his GI tumor with recent bleeding. Hence CANDELARIA will not be done at this point. -CAD with stent to LAD Aspirin 81 mg, Lipitor 80 mg, Lopressor 12.5 mg by mouth twice a day, prasugrel 10 mg daily -Adenocarcinoma of gastric cancer. Diagnosed recently with biopsy following EGD for GI bleed. Being followed by oncology -Diabetes mellitus type 2, oral hypoglycemic Resume Glucotrol. Follow Accu-Cheks with sliding scale -Psychosis unspecified, with delirium: Slow to respond Seroquel 25 at the morning and 75 mg at night. Zyprexa when necessary -Hypotension from low EF: Uncontrolled Follow blood pressure closely -Hyperlipidemia Lipitor 80 mg daily at bedtime -Depression Continue Seroquel - chronic low back pain. Patient seen by pain services. Continue home dose of Ultram. K pad. -Acute congestive heart failure from acute PR. From systolic dysfunction. EF 20-25%. Lasix 20 mg. Aldactone 25 mg. Beta cora. -Cardiogenic shock: Better Received levo fed -Recreational marijuana use. uses as needed -Acute bilateral DVT on lower extremity diagnosed on April 03. Patient's eliquis was held because of GI bleed. Last dose taken was on April 17. Bilateral MARLENE stockings. IVC filter placement by Dr. Carnes on April 23 Continue current medication treatment plan. Care discussed with cardiology, neurology, patient daughter. Repeat computed tomography scan on Friday depending on clinical course. Go to rehab on Friday. Also spoke to the daughter she will contact the oncologist at [facility] and will follow-up accordingly. Total time spent today 1 hour with over the over 40 minutes of discussion.
[2022-04-26 19:56] LABS: Glucose,Whole Blood 167 mg/dL (70-110)
--- NOTE | 2022-04-26 20:35 | US ---
EXAMINATION TYPE: US carotid duplex BILAT DATE OF EXAM: 04/26/2022 COMPARISON: NONE CLINICAL HISTORY: stroke. stroke, confused EXAM MEASUREMENTS: RIGHT: Peak Systolic Velocity (PSV) cm/sec ----- Right CCA: 72.1 ----- Right ICA: 155.0 ----- Right ECA: 75.0 ICA/CCA ratio: 2.1 RIGHT: End Diastole cm/sec ----- Right CCA: 23.0 ----- Right ICA: 52.5 ----- Right ECA: 13.4 LEFT: Peak Systolic Velocity (PSV) cm/sec ----- Left CCA: 105.0 ----- Left ICA: 145.0 ----- Left ECA: 98.2 ICA/CCA ratio: 1.4 LEFT: End Diastole cm/sec ----- Left CCA: 33.0 ----- Left ICA: 57.4 ----- Left ECA: 7.1 VERTEBRALS (direction of flow): Right Vertebral: Antegrade Left Vertebral: Antegrade Rhythm: Normal Heterogeneous plaque seen with tortuous ICA's bilaterally IMPRESSION: Bilateral plaque formation and elevated velocity and estimated 50-70% stenosis in both internal carot id arteries. Tortuous internal carotid arteries. There is antegrade flow in the vertebral arteries. Criteria for Assigning % of Stenosis / Diameter reduction (Estimation based on the indirect measurements of the internal carotid artery velocities (ICA PSV). 1. Normal (no stenosis)=ICA PSV < 125 cm/s: ratio < 2.0: ICA EDV<40 cm/s. 2. Less than 50% stenosis=ICA PSV < 125 cm/s: ratio < 2.0: ICA EDV<40 cm/s. 3. 50 to 69% stenosis=ICA PSV of 125 to 230 cm/s: ration 2.0 ? 4.0: ICA EDV 40-100 cm/s. 4. Greater than 70% stenosis to near occlusion= ICA PSV > 230 cm/s: ratio > 4.0: ICA EDV > 100 cm/s. 5. Near occlusion= ICA PSV velocities may be low or undetectable: variable ratio and ICA EDV. 6. Total occlusion=unable to detect flow.
[2022-04-26] MEDS: QUEtiapine 50 MG TAB PO SCH (20:43)
[2022-04-26] MEDS: ATORVASTATIN 80 MG TAB PO SCH (20:43)
[2022-04-26] MEDS: MELATONIN 1 MG TAB PO SCH (20:44)
--- NOTE | 2022-04-27 05:15 | P.PN ---
Subjective The patient is a 72-year-old male with a history of Coronary artery disease status post myocardial infarction in 1995 with angioplasty according to him, history of smoking who presented with symptoms of chest discomfort, had ST segment elevation anteriorly was evaluated by the emergency room and seen in the cardiac catheterization laboratory. According to the patient the symptoms started around midnight and he presented to the emergency room. He denies any dyspnea he denies any dizziness or palpitations. The patient had a history of DVT recently and has been on anticoagulation. He had an episode of GI bleeding, details unclear he had workup at [facility]. Patient denies any syncope. One of his main complaint shoulder discomfort related to a new injury. His troponin was elevated on presentation. He had no nausea or vomiting. He did not mention that he had any recent GI bleeding. After the procedure and after talking to the family wanted arrived apparently the patient 2 days ago was seen [facility] and was told that he had a STEMI but he signed AMA. He had episode of GI bleeding and upper endoscopy prior to that at [facility] and was told that he has gastric cancer. Full detail of his pr ior workup is not available, the patient and his son are not sure. 04/23 Patient appears confused and talking himself continuously. He is answering some questions appropriately however and states he came in because of projectile diarrhea as well as chest pain. Unable to elaborate more on his prior hospitalization at [facility]. Patient was seen previously at [facility] for DVT and prior recommendations for IVC filter and therefore IVC filter was placed this morning. Remains on a heparin drip as well as aspirin and Effient. Blood pressure somewhat borderline. He does admit to lower extremity edema over the last few days. Lying flat on his back however without any significant dyspnea. Remains tachycardic with sinus tachycardia heart rates 120s up to 140s. Troponins have been fairly flat in the 20s. 04/24 Echocardiogram reviewed with ejection fraction 20-25%. Remains mildly tachycardic heart rates 110s to 120s, sinus rhythm. Borderline low blood pressures however able to tolerate low-dose metoprolol. Has been receiving IV Lasix however incontinent in bed and and affect. Ins and outs. He did undergo IVC filter placement on 04/23/2022. No hematochezia or melena per nursing. Hemoglobin appears stable. Apparently patient refusing to eat medications and more psychiatric issues requiring Haldol. Recommendations by oncology for CT to further assess and stage possible gastric cancer. 04/25 Patient states he has not been eating because we have been taking advantage of him and sedating him without his consent. Patient remains very confused and not able to answer questions appropriately. States he is having chest pain however unable to elaborate. Denies any shortness breath. Asking for his daughter. Continues to have 1+ right greater than left lower extremity edema however able lay flat on his back. He is not on any pressors, blood pressures in the 90s over 60s. Remains sinus tachycardia likely exacerbated by his anxiety. He was seen by psychiatry and currently in wrist restraints. 04/26 Patient seen and examined at bedside, mentation has improved. He denies any complaints. His heart rates have slightly improved continues to be sinus tachycardia. Blood pressure 96/63. Denies any chest pain or shortness of breath. 04/27 Patient seen and examined. MRI performed yesterday shows concern of Moderate to large acute/subacute infarct of the right parietal lobe as well as bilateral acute lacunar infarcts. Previous discussion with internal medicine regarding possible PE however at this point patient has not been felt to be a good anticoagulation candidate and at high risk of bleed with addition of gastric cancer with need for surgery in the near future. He is having some gas and asking for a suppository. Continues to have right lower extremity swelling which discussed is worsened with keeping legs dependent. Carotid ultrasound shows 50-70% stenosis bilaterally of the carotid arteries. PHYSICAL EXAMINATION Vital reviewed Head: Normocephalic. Eyes: Sclerae nonicteric. Neck: Good carotid upstroke, no bruit, no jugular venous distention. Lungs: Clear to auscultation anteriorly. Heart: Regular rate and rhythm, S1-S2, no S3, no rub. No murmur. Abdomen: Soft nontender, positive bowel sounds no organomegaly. Extremities: 3+ edema, R>L, intact distal pulses. ASSESSMENT 1. Anterior wall myocardial infarction, likely late presenting with fairly flat troponins and prior hospitalization with STEMI and left AMA 2. Anemia and recent questionable gastric cancer diagnosis, history GIB 3. History of DVT s/p DVT filter 4. Acute on chronic systolic heart failure 5. Prior history of myocardial infarction/ CAD 6. History of anticoagulation 7. Back discomfort 8. Sinus tachycardia 9. Ischemic cardiomyopathy EF 20-25% 10. Bilateral carotid artery stenosis 11. Acute/subacute stroke by MRI 12. Altered mental status appears improving possibly related to stroke PLAN: Continue until antiplatelets with aspirin and Effient. His psychiatric and altered mental status issues appear to be improving Concern of acute/subacute stroke. Patient does have bilateral carotid artery stenosis which may be culprit however MRI showing bilateral watershed distribution concerning for embolic etiology. Unclear if patient is good anticoagulation candidate with prior GI bleed and need for at least some degree of antiplatelets. Additionally will need surgical intervention for his gastric cancer. Continue supportive care. Also appear to have increased right greater than left lower extremity edema and therefore will give another days worth of IV Lasix. Monitor response. Prognosis guarded. Objective - Vital Signs Vital signs: Vital Signs Temp 98.9 F 04/27/22 04:00 Pulse 104 H 04/27/22 04:00 Resp 18 04/27/22 04:00 BP 105/68 04/27/22 04:00 Pulse Ox 99 04/27/22 04:00 FiO2 Intake & Output 04/26/22 04/26/22 04/27/22 06:59 18:59 06:59 Intake Total 200 720 Output Total 360 400 Balance -160 720 -400 Weight 86.5 kg Intake: Oral 200 720 Output: Urine 360 400 Other: Voiding Method Urinal Urinal - Labs CBC & Chem 7: 04/26/22 11:47 04/26/22 11:47 Labs: Abnormal Lab Results - Last 24 Hours (Table) 04/26/22 04/26/22 04/26/22 Range/Units 06:22 11:47 11:47 RBC 2.38 L (4.30-5.90) m/uL Hgb 7.3 L (13.0-17.5) gm/dL Hct 23.3 L (39.0-53.0) % RDW 19.4 H (11.5-15.5) % Neutrophils # 8.0 H (1.3-7.7) k/uL Lymphocytes # 0.8 L (1.0-4.8) k/uL Sodium 135 L (137-145) mmol/L Chloride 108 H (98-107) mmol/L Carbon Dioxide 21 L (22-30) mmol/L Glucose 136 H (74-99) mg/dL POC Glucose (mg/dL) 163 H (70-110) mg/dL Calcium 8.0 L (8.4-10.2) mg/dL 04/26/22 04/26/22 04/26/22 Range/Units 12:01 16:46 19:53 RBC (4.30-5.90) m/uL Hgb (13.0-17.5) gm/dL Hct (39.0-53.0) % RDW (11.5-15.5) % Neutrophils # (1.3-7.7) k/uL Lymphocytes # (1.0-4.8) k/uL Sodium (137-145) mmol/L Chloride (98-107) mmol/L Carbon Dioxide (22-30) mmol/L Glucose (74-99) mg/dL POC Glucose (mg/dL) 150 H 148 H 167 H (70-110) mg/dL Calcium (8.4-10.2) mg/dL
[2022-04-27 06:11] LABS: Glucose,Whole Blood 158 mg/dL (70-110)
[2022-04-27] MEDS: PANTOPRAZOLE 40 MG TABLET PO SCH ×2 (06:24→17:17)
[2022-04-27] MEDS: glipiZIDE 5 MG TAB PO SCH ×2 (06:24→17:17)
[2022-04-27] MEDS: INSULIN ASPART (NovoLOG) 100 UNIT/ML VIAL SQ SCH ×4 (06:24→21:45)
[2022-04-27 08:07] LABS: Anisocytosis Slight; Basophils % (A) 0 %; Eosinophils # (A) 0.1 k/uL (0-0.7); Eosinophils % (A) 0 %; HCT 25.6 % (39.0-53.0); HGB 7.9 gm/dL (13.0-17.5); Hypochromasia Marked; Lymphocytes # (A) 1.2 k/uL (1.0-4.8); Lymphocytes % (A) 9 %; MCH 30.6 pg (25.0-35.0); MCV 98.6 fL (80.0-100.0); Macrocytosis Moderate; Mean Platelet Volume 8.2; Monocytes # (A) 0.8 k/uL (0-1.0); Monocytes % (A) 6 %; Neutrophils # (A) 11.4 k/uL (1.3-7.7); Neutrophils % (A) 84 %; Platelet Count 466 k/uL (150-450); RBC 2.59 m/uL (4.30-5.90); RDW 19.4 % (11.5-15.5); WBC 13.6 k/uL (3.8-10.6)
[2022-04-27 08:37] LABS: African American GFR (CKD) >90 (>60 ml/min/1.73 sqM); Anion Gap 7 mmol/L; Blood Urea Nitrogen 17 mg/dL (9-20); Calcium 8.5 mg/dL (8.4-10.2); Carbon Dioxide 19 mmol/L (22-30); Chloride 108 mmol/L (98-107); Glucose 135 mg/dL (74-99); Magnesium 1.7 mg/dL (1.6-2.3); Non-African American GFR(CKD) >90 (>60 ml/min/1.73 sqM); Sodium 134 mmol/L (137-145)
--- NOTE | 2022-04-27 08:59 | P.PN ---
Subjective Progress Note Date: 04/27/22 Principal diagnosis: Duodenal cancer Patient doing well today. No pain. No nausea or vomiting. No issues with the port site. Objective - Vital Signs Vital signs: Vital Signs Temp 98.9 F 04/27/22 04:00 Pulse 104 H 04/27/22 04:00 Resp 18 04/27/22 04:00 BP 105/68 04/27/22 04:00 Pulse Ox 99 04/27/22 04:00 FiO2 Intake & Output 04/26/22 04/27/22 04/27/22 18:59 06:59 18:59 Intake Total 720 Output Total 400 Balance 720 -400 Intake: Oral 720 Output: Urine 400 Other: Voiding Method Urinal - Exam Right chest wall Port-A-Cath intact, no erythema, nontender - Labs CBC & Chem 7: 04/27/22 07:49 04/27/22 07:49 Labs: Abnormal Lab Results - Last 24 Hours (Table) 04/26/22 04/26/22 04/26/22 Range/Units 11:47 11:47 12:01 WBC (3.8-10.6) k/uL RBC 2.38 L (4.30-5.90) m/uL Hgb 7.3 L (13.0-17.5) gm/dL Hct 23.3 L (39.0-53.0) % RDW 19.4 H (11.5-15.5) % Plt Count (150-450) k/uL Neutrophils # 8.0 H (1.3-7.7) k/uL Lymphocytes # 0.8 L (1.0-4.8) k/uL Sodium 135 L (137-145) mmol/L Chloride 108 H (98-107) mmol/L Carbon Dioxide 21 L (22-30) mmol/L Glucose 136 H (74-99) mg/dL POC Glucose (mg/dL) 150 H (70-110) mg/dL Calcium 8.0 L (8.4-10.2) mg/dL 04/26/22 04/26/22 04/27/22 Range/Units 16:46 19:53 06:10 WBC (3.8-10.6) k/uL RBC (4.30-5.90) m/uL Hgb (13.0-17.5) gm/dL Hct (39.0-53.0) % RDW (11.5-15.5) % Plt Count (150-450) k/uL Neutrophils # (1.3-7.7) k/uL Lymphocytes # (1.0-4.8) k/uL Sodium (137-145) mmol/L Chloride (98-107) mmol/L Carbon Dioxide (22-30) mmol/L Glucose (74-99) mg/dL POC Glucose (mg/dL) 148 H 167 H 158 H (70-110) mg/dL Calcium (8.4-10.2) mg/dL 04/27/22 04/27/22 Range/Units 07:49 07:49 WBC 13.6 H (3.8-10.6) k/uL RBC 2.59 L (4.30-5.90) m/uL Hgb 7.9 L (13.0-17.5) gm/dL Hct 25.6 L (39.0-53.0) % RDW 19.4 H (11.5-15.5) % Plt Count 466 H (150-450) k/uL Neutrophils # 11.4 H (1.3-7.7) k/uL Lymphocytes # (1.0-4.8) k/uL Sodium 134 L (137-145) mmol/L Chloride 108 H (98-107) mmol/L Carbon Dioxide 19 L (22-30) mmol/L Glucose 135 H (74-99) mg/dL POC Glucose (mg/dL) (70-110) mg/dL Calcium (8.4-10.2) mg/dL Assessment and Plan (1) Adenocarcinoma Narrative/Plan: Patient doing well today. May utilize port when needed. Continue diet. Current Visit: Yes Status: Acute Code(s): C80.1 - MALIGNANT (PRIMARY) NEOPLASM, UNSPECIFIED SNOMED Code(s): 777223202
[2022-04-27] MEDS: FUROSEMIDE 10 MG/ML 4 ML VIAL IV SCH ×2 (09:07→21:34)
[2022-04-27] MEDS: QUEtiapine 25 MG TAB PO SCH (09:07)
[2022-04-27] MEDS: PRASUGREL 10 MG TAB PO SCH (09:07)
[2022-04-27] MEDS: ENOXAPARIN 60 MG/0.6 ML SYRINGE SQ SCH ×2 (09:07→21:34)
[2022-04-27] MEDS: SPIRONOLACTONE 25 MG TAB PO SCH (09:07)
[2022-04-27] MEDS: ASPIRIN 81 MG PO SCH (09:07)
[2022-04-27] MEDS: METOPROLOL TARTRATE 25 MG TAB PO SCH ×2 (09:07→21:33)
--- NOTE | 2022-04-27 11:01 | P.PN ---
Subjective Progress Note Date: 04/27/22 Asked to evaluate patient regarding carotid Doppler and findings. Patient without certain complaints at this point. Still relatively confused, telling elaborate stories Objective - Vital Signs Vital signs: Vital Signs Temp 98.8 F 04/27/22 08:00 Pulse 116 H 04/27/22 08:00 Resp 18 04/27/22 08:00 BP 130/89 04/27/22 08:00 Pulse Ox 96 04/27/22 08:00 FiO2 Intake & Output 04/26/22 04/27/22 04/27/22 18:59 06:59 18:59 Intake Total 720 240 Output Total 400 Balance 720 -400 240 Intake: Oral 720 240 Output: Urine 400 Other: Voiding Method Urinal # Bowel Movements 0 - Exam Gen. is a pleasant none cooperative male. No acute distress. He changes no cephalic, atraumatic, excellent motion intact. Heart is regular at this time. Lungs are clear. Abdomen soft. Extremity show no clubbing or cyanosis. The right lower extremity has a wrap in place - Labs CBC & Chem 7: 04/27/22 07:49 04/27/22 07:49 Labs: Abnormal Lab Results - Last 24 Hours (Table) 04/26/22 04/26/22 04/26/22 Range/Units 11:47 11:47 12:01 WBC (3.8-10.6) k/uL RBC 2.38 L (4.30-5.90) m/uL Hgb 7.3 L (13.0-17.5) gm/dL Hct 23.3 L (39.0-53.0) % RDW 19.4 H (11.5-15.5) % Plt Count (150-450) k/uL Neutrophils # 8.0 H (1.3-7.7) k/uL Lymphocytes # 0.8 L (1.0-4.8) k/uL Sodium 135 L (137-145) mmol/L Chloride 108 H (98-107) mmol/L Carbon Dioxide 21 L (22-30) mmol/L Glucose 136 H (74-99) mg/dL POC Glucose (mg/dL) 150 H (70-110) mg/dL Calcium 8.0 L (8.4-10.2) mg/dL 04/26/22 04/26/22 04/27/22 Range/Units 16:46 19:53 06:10 WBC (3.8-10.6) k/uL RBC (4.30-5.90) m/uL Hgb (13.0-17.5) gm/dL Hct (39.0-53.0) % RDW (11.5-15.5) % Plt Count (150-450) k/uL Neutrophils # (1.3-7.7) k/uL Lymphocytes # (1.0-4.8) k/uL Sodium (137-145) mmol/L Chloride (98-107) mmol/L Carbon Dioxide (22-30) mmol/L Glucose (74-99) mg/dL POC Glucose (mg/dL) 148 H 167 H 158 H (70-110) mg/dL Calcium (8.4-10.2) mg/dL 04/27/22 04/27/22 Range/Units 07:49 07:49 WBC 13.6 H (3.8-10.6) k/uL RBC 2.59 L (4.30-5.90) m/uL Hgb 7.9 L (13.0-17.5) gm/dL Hct 25.6 L (39.0-53.0) % RDW 19.4 H (11.5-15.5) % Plt Count 466 H (150-450) k/uL Neutrophils # 11.4 H (1.3-7.7) k/uL Lymphocytes # (1.0-4.8) k/uL Sodium 134 L (137-145) mmol/L Chloride 108 H (98-107) mmol/L Carbon Dioxide 19 L (22-30) mmol/L Glucose 135 H (74-99) mg/dL POC Glucose (mg/dL) (70-110) mg/dL Calcium (8.4-10.2) mg/dL Assessment and Plan Assessment: Carotid stenosis DVT Gastric cancer Recent NC GI bleed Plan: I personally reviewed images. PERRLA velocity criteria the patient would be a 5 0-79% stenosis however per the new SRU criteria to go by our lab office, the patient would be less than 50% stenosis. I reviewed the CT angiogram. There does not appear to be significant stenosis identified. The vessel does appear tortuous. Regardless, at this time the patient has significant other comorbid factors that would make intervention even higher risk and question overall length of survival benefit. We'll plan to follow-up outpatient. Continue current medications.
--- NOTE | 2022-04-27 11:15 | CT ---
EXAMINATION TYPE: CT angio head neck DATE OF EXAM: 04/27/2022 HISTORY: Carotid stenosis, abnormal ultrasound COMPARISON: Carotid ultrasound one day earlier CT DLP: 1700.8 mGycm. Automated Exposure Control for Dose Reduction was Utilized. TECHNIQUE: CTA scan of the head and neck is performed without and with IV Contrast, patient injected with 65 ml mL of Isovue 370, axial images are obtained, coronal and sagittal reformatted images are reviewed. 3D reconstructed images are created on an independent workstation and reviewed. FINDINGS: Carotid/Vascular Structures: Prominent but patent central pulmonary arteries. Correlate for underlyin g pulmonary artery hypertension. Normal 3 vessel origins from the aortic arch without significant marcela nosis. Normal origin right common carotid artery from the right brachiocephalic artery with tortuous course of both proximal common carotid arteries. No significant focal plaque or stenosis in the commo n carotid arteries bilaterally. Moderate to severe plaquing right carotid bulb extends into the proxi mal internal carotid artery without significant stenosis. Moderate calcified plaque left carotid bulb extends into the proximal internal carotid artery without significant stenosis. Patent external croft tid arteries bilaterally without significant stenosis. Slightly larger or dominant left vertebral artery. Vertebral arteries are patent to the basilar junct ion. Hypoplastic bilateral posterior communicating arteries. No significant focal stenosis or aneurys m in the posterior circulation. Patent anterior communicating artery. No significant focal stenosis o r aneurysm in the anterior circulation. Other: Noncontrast CT shows no acute intracranial hemorrhage or midline shift. Age indeterminate infa rct centered right parietal lobe posterior watershed region. Correlate clinically. Background mild di ffuse cerebral atrophy and mild to moderate chronic small vessel ischemic change. Underlying levoconvex scoliosis centered in the upper thoracic spine. Grade 1 retrolisthesis C3 on C4 . Multilevel spurring in the cervicothoracic spine. IMPRESSION: Moderate to severe atherosclerotic changes bilateral carotid bulb level is confirmed but no hemodynamically significant stenosis evident on this study. NASCET criteria was used in interpretation of this exam?
[2022-04-27 11:45] LABS: Glucose,Whole Blood 175 mg/dL (70-110)
--- NOTE | 2022-04-27 13:01 | P.PN ---
Subjective Progress Note Date: 04/27/22 The patient is seen at bedside and feels he is doing better compared to yesterday. Patient had the carotid duplex which is reported as bilateral plaque formation and elevated velocities and estimated 50-70% stenosis in both internal carotid arteries. Objective - Vital Signs Vital signs: Vital Signs Temp 98.5 F 04/27/22 12:42 Pulse 111 H 04/27/22 12:42 Resp 18 04/27/22 12:42 BP 109/74 04/27/22 12:42 Pulse Ox 98 04/27/22 12:42 FiO2 Intake & Output 04/26/22 04/27/22 04/27/22 18:59 06:59 18:59 Intake Total 720 240 Output Total 400 Balance 720 -400 240 Intake: Oral 720 240 Output: Urine 400 Other: Voiding Method Urinal # Bowel Movements 0 - Exam GENERAL: The patient is lying in bed and is not acute distress. NEUROLOGICAL: Higher mental function: The patient is awake, alert, oriented to self, place and time. Patient is following commands. No aphasia and no neglect. Cranial nerves: The pupils are round, equal and reactive to light and accommodation. Visual pastrana: Pegram left hemonomymous hemianposia but at times difficult to assess because of cooperation. Extraocular movement is intact no nystagmus is noted. Facial sensation is normal to touch throughout. The facial strength is normal throughout. Hearing is normal bilaterally to hand rub. Tongue is midline and moved [id number] without any difficulty. No dysarthria is noted. Shoulder shrug is normal bilaterally. Motor: The strength is right forearm extension is 4+. Otherwise uppers are 5/5. Right lower is limited because of DVT. Is lifting left lower above gravity without difficulty. Normal tone and bulk. Cerebellum: Normal finger to nose bilaterally. Sensation: Sensation is normal to touch throughout. Reflexes (right/left):1+ throughout. Plantars are mute bilaterally. Lipid panel is triglyceride 106, cholesterol 154, LDLs 46 and HDL of 86. Vitamin B12 is Stewart 2000 Serum folate is 8.60 Stool occult blood is positive. I personally reviewed the MRI and I felt the patient has right temporal parietal and close to the borderline up occipital blood predominantly is a acute to subacute right temporal parietal ischemic stroke as well as small foci over the bilateral frontal parietal region left more than right. There is some enhancement over the posterior region. I do suspect this is a acute to subacute ischemic stroke. carotid duplex which is reported as bilateral plaque formation and elevated velocities and estimated 50-70% stenosis in both internal carotid arteries. 2-D echo on 04/23/2022 was reported as severe left ventricle systolic dysfunction with ejection fraction of 2025% dilated left ventricle, anterior, anterior apical, apical, inferior apical hypokinesis. No evidence of left ventricle thrombus identified. - Labs CBC & Chem 7: 04/27/22 07:49 04/27/22 07:49 Labs: Abnormal Lab Results - Last 24 Hours (Table) 04/26/22 04/26/22 04/27/22 Range/Units 16:46 19:53 06:10 WBC (3.8-10.6) k/uL RBC (4.30-5.90) m/uL Hgb (13.0-17.5) gm/dL Hct (39.0-53.0) % RDW (11.5-15.5) % Plt Count (150-450) k/uL Neutrophils # (1.3-7.7) k/uL Sodium (137-145) mmol/L Chloride (98-107) mmol/L Carbon Dioxide (22-30) mmol/L Glucose (74-99) mg/dL POC Glucose (mg/dL) 148 H 167 H 158 H (70-110) mg/dL 04/27/22 04/27/22 04/27/22 Range/Units 07:49 07:49 11:44 WBC 13.6 H (3.8-10.6) k/uL RBC 2.59 L (4.30-5.90) m/uL Hgb 7.9 L (13.0-17.5) gm/dL Hct 25.6 L (39.0-53.0) % RDW 19.4 H (11.5-15.5) % Plt Count 466 H (150-450) k/uL Neutrophils # 11.4 H (1.3-7.7) k/uL Sodium 134 L (137-145) mmol/L Chloride 108 H (98-107) mmol/L Carbon Dioxide 19 L (22-30) mmol/L Glucose 135 H (74-99) mg/dL POC Glucose (mg/dL) 175 H (70-110) mg/dL Assessment and Plan Assessment: Acute to subacute ischemic stroke (on MRI felt more right parietal and temporal/occipital region. Also had small foci over bilateral fronto/parietal): Seems embolic in nature. Acute ST and elevation myocardial infarction status post stenting Carotid stenosis and reported as 50-70% on ultrasound but Vascular felt it was more like 50% stenois. 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 Continue Lipitor 80 mg daily at bedtime for secondary stroke prophylaxis Re: Transesophageal echocardiogram, the primary had a discussion with gas station operator (Christ), and it was felt to hold off for now since the patient cannot use anticoagulation even if the thrombus is found on the CANDELARIA because of his recent bleed and hx of cancer which can increase risk of bleed. Consider CANDELARIA as outpatient. Carotid stenosis and reported as 50-70% on ultrasound but Vascular felt it was more like 50% stenois. CT angiography is reported as moderate to severe atherosclerotic changes bilateral carotid bulb level discomfort but no hemodynamic significant stenosis evident on this study. And that Dr. Carnes reviewed the images as well for the CTA and did not feel there is significant stenosis but have patient follow-up as outpatient. Every 4 hours neuro checks Continue cardiac monitoring PT OT are consulted Cardiology is on board Psychiatry is on board Oncology team is on board We'll defer the rest of the medical management to the primary team For DVT prophylaxis currently the patient is on Enoxaparin 60 mg every 12 hours Patient needs to follow-up with neurologist as outpatient within 1-2 weeks. There is no additional work-up and if patient continues to be doing well he is clear from neurological perspective. The plan is discussed with the patient and his nurse. Alphonso Boggs M.D. Neuro-hospitalist Time with Patient: Less than 30
--- NOTE | 2022-04-27 16:45 | P.PN ---
Progress Note - Text Progress Note Date: 04/27/22 Chief Complaint: Dizzy This is a 72-year-old patient who follows with Dr. Ming Naylor. Patient on April 03 was admitted to [facility] and were diagnosed with that clot in the right lower extremity. Patient also had some bloody stools. Patient underwent endoscopy was found to have gastric cancer biopsy showing adenocarcinoma. Following a biopsy. Subsequently patient was discharged on eliquis. Patient with then became hypotensive and was admitted to [facility]. Seen by an oncologist there. It was felt that patient's bleeding from his biopsy site of the gastric cancer. Patient left from the [facility] 2 days ago. Came home. Patient now presented to our facility feeling dizzy lightheaded diet. Ultrasound in the ER did confirm blood clots in both lower extremity. Also patient's Axel ST elevation [place]. During the cardiac dairy lab technician and got 2 stents to the LAD. Patient is due to get a IVC filter. Postprocedure patient ICU. On about 6 g of Levothroid. No chest pain. Tired. Up in a chair. Daughter the bedside. 04/23/2022: ICU: IVC filter placed this morning by Dr. Carnes. Patient on PPI antiplatelet agents. Sinus tachycardia. Seen by pain management team. Use Ultram when necessary. Eating lunch 04/24/2022: ICU: Tolerating diet. Sinus tachycardia. Reported by nurse to be suspicious of people. Psychiatry consulted. Seroquel was added yesterday. Did sleep some. Will DC Dilaudid. 04/25/2022: ICU: RN LPN CNA today for a MediPort placement. Daughter the bedside. Seen by psychiatry. Put on Seroquel. Was rather combative confused last night. Answering questions better today. 04/26/2022: Wound to the medical floor. Patient doing better. Answering questions more appropriately. No focal weakness. MRA of the brain revealed fair size involving right parietal temporal infarct with other areas of infarct. [place] to be embolic. Care was discussed with Dr. Boggs from neurology and Dr. Polo from cardiology. Given that patient is a very high risk of bleeding and is already on dual antiplatelet because of coronary stents, doing a CANDELARIA, but has not had any further benefit. Patient will be followed clinically over the weekend. This was discussed with that is patient's daughter at length with the presence of nurse Farley. Oral prognosis guarded. Also discussed that we'll wait 6 weeks from the time of coronary stent for the localize GI tumor surgery to be done. 05/07/2022: Patient's other daughter is visiting. Patient still having some psychotic symptoms. Talking about people being killed. Being followed by psychiatry. Sitting at the edge of the bed. No BMs. Active Medications Al Hydroxide/Mg Hydroxide (Mag Hydrox/Al Hydrox/Simeth 30 Ml Cup) 30 ml PO Q4HR PRN PRN Reason: Heartburn Aspirin (Aspirin 81 Mg) 81 mg PO DAILY [facility] Last Admin: 04/27/22 09:07 Dose: 81 mg Atorvastatin Calcium (Atorvastatin 80 Mg Tab) 80 mg PO HS [facility] Last Admin: 04/26/22 20:43 Dose: 80 mg Enoxaparin Sodium (Enoxaparin 60 Mg/0.6 Ml Syringe) 60 mg SQ Q12HR [facility] Last Admin: 04/27/22 09:07 Dose: 60 mg Furosemide (Furosemide 10 Mg/Ml 4 Ml Vial) 40 mg IV Q12HR [facility] Last Admin: 04/27/22 09:07 Dose: 40 mg Glipizide (Glipizide 5 Mg Tab) 5 mg PO AC-BID [facility] Last Admin: 04/27/22 06:24 Dose: 5 mg Insulin Aspart (Insulin Aspart (Novolog) 100 Unit/Ml Vial) 0 unit SQ [facility]; Protocol Last Admin: 04/27/22 12:05 Dose: 2 unit Melatonin (Melatonin 1 Mg Tab) 2 mg PO [facility] Last Admin: 04/26/22 20:44 Dose: 2 mg Metoprolol Tartrate (Metoprolol Tartrate 25 Mg Tab) 25 mg PO BID [facility] Last Admin: 04/27/22 09:07 Dose: 25 mg Nitroglycerin (Nitroglycerin Sl Tabs 0.4 Mg Tab) 0.4 mg SUBLINGUAL Q5M PRN PRN Reason: Chest Pain Last Admin: 04/22/22 14:34 Dose: 0.4 mg Olanzapine (Olanzapine 10 Mg Vial) 5 mg IM TID PRN PRN Reason: Severe Agitation Last Admin: 04/26/22 09:10 Dose: 5 mg Pantoprazole Sodium (Pantoprazole 40 Mg Tablet) 40 mg PO AC-BID [facility] Last Admin: 04/27/22 06:24 Dose: 40 mg Prasugrel (Prasugrel 10 Mg Tab) 10 mg PO DAILY [facility]; Protocol Last Admin: 04/27/22 09:07 Dose: 10 mg Quetiapine Fumarate (Quetiapine 25 Mg Tab) 25 mg PO DAILY [facility] Last Admin: 04/27/22 09:07 Dose: 25 mg Quetiapine Fumarate (Quetiapine 25 Mg Tab) 25 mg PO TID PRN PRN Reason: Agitation Last Admin: 04/25/22 23:37 Dose: 25 mg Quetiapine Fumarate (Quetiapine 50 Mg Tab) 100 mg PO HS [facility] Last Admin: 04/26/22 20:43 Dose: 100 mg Spironolactone (Spironolactone 25 Mg Tab) 25 mg PO DAILY [facility] Last Admin: 04/27/22 09:07 Dose: 25 mg Tramadol HCl (Tramadol 50 Mg Tab) 50 mg PO Q6H PRN PRN Reason: Pain Last Admin: 04/26/22 13:28 Dose: 50 mg Past medical history to include: Diabetes mellitus type 2, acute DVT both lower extremity diagnosed 2 weeks ago, gastric tumor showing adenocarcinoma recently diagnosed. Depression Social history: Does not smoke. Does marijuana occasionally. 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 Lives alone. Family history: Diabetes, [place], lung cancer Physical examination: VITAL SIGNS: 98.5, 111, 18, 109 with 74, 98% room air GENERAL: Sitting of the edge bed, awake EYES: Pupils equal. Conjunctiva normal. HEENT: External appearance of nose and ears normal, oral cavity grossly normal. NECK: JVD not raised; masses not palpable. HEART: First and second heart sounds are normal; no edema. LUNGS: Respiratory rate normal; decreased breath sounds. ABDOMEN: Soft, nontender, liver spleen not palpable, no masses palpable. PSYCH: Answering simple questions. Psychotic symptoms MUSCULOSKELETAL:No Clubbing/cyanosis;muscles-grossly intact Neurological: No focal weakness INVESTIGATIONS, reviewed in the clinical context: April 27: WBC 13.6; 7.9 platelets. 26 potassium 5 creatinine 0.71 MRI brain: Moderate to large size acute/subacute infarct posterior watershed region. Additional bilateral involving acute infarcts the corner felt to be present. April 26: WBC 9.7 hemoglobin 7.3 potassium 4.6 creatinine 0.73 April 25: WBC 7.9 hemoglobin 7.5 platelets 368 potassium 4.3 creatinine 0.7 to April 24: White count 8.9 hemoglobin 8.2 potassium 4.1 creatinine 0.69 April 23: White count 12.5 hemoglobin 9.6 platelets 333 echocardiogram: EF 20-25%. Moderate pulmonary hypertension. White count 12.5 hemoglobin 8.7 platelets 232 sodium 133 potassium 3.9 BUN 19 creatinine 0.81 Troponin I 24.9, 27.5, 23.2 LDL 46 EKG tracing personally reviewed by me-ST elevation V2 to V6, but ST segment depression in inferior leads Chest x-ray film personally reviewed by il-jennie/Fanny. Venous polyposis Doppler ultrasound lower extremity: Positive for DVT and tired right leg with hypoechoic clot, DVT in the left leg is still popliteal vein and proximal calf veins. Bilateral Olivas's cyst. Assessment and plan: -Acute ST elevation myocardial infarction of the anterior wall. 2 stents to the LAD. -Acute/subacute infarct posterior watershed region, with other areas of infarct felt to be embolic. Patient is already high risk of bleeding because of his GI tumor with recent bleeding. Hence CANDELARIA will not be done at this point. -CAD with stent to LAD Aspirin 81 mg, Lipitor 80 mg, Lopressor 12.5 mg by mouth twice a day, prasugrel 10 mg daily -Adenocarcinoma of gastric cancer. Diagnosed recently with biopsy following EGD for GI bleed. Being followed by oncology -Diabetes mellitus type 2, oral hypoglycemic Resume Glucotrol. Follow Accu-Cheks with sliding scale -Psychosis unspecified, with delirium: Slow to respond Seroquel 25 at the morning and 75 mg at night. Zyprexa when necessary -Hypotension from low EF: Uncontrolled Follow blood pressure closely -Hyperlipidemia Lipitor 80 mg daily at bedtime -Depression Continue Seroquel - chronic low back pain. Patient seen by pain services. Continue home dose of Ultram. K pad. -Acute congestive heart failure from acute [place]. From systolic dysfunction. EF 20-25%. Lasix 20 mg. Aldactone 25 mg. Beta cora. -Cardiogenic shock: Better Received levo fed -Recreational marijuana use. uses as needed -Acute bilateral DVT on lower extremity diagnosed on April 03. Patient's eliquis was held because of GI bleed. Last dose taken was on April 17. Bilateral MARLENE stockings. IVC filter placement by Dr. Carnes on April 23 Continue current treatment plan. Care was discussed with the patient's daughter the bedside. Told the nurse to keep the eye on patient's stool color
[2022-04-27 16:48] LABS: Glucose,Whole Blood 187 mg/dL (70-110)
[2022-04-27] MEDS: MAG HYDROX/AL HYDROX/SIMETH 30 ML CUP PO PRN (21:32)
[2022-04-27] MEDS: MELATONIN 1 MG TAB PO SCH (21:33)
[2022-04-27] MEDS: ATORVASTATIN 80 MG TAB PO SCH (21:34)
[2022-04-27] MEDS: QUEtiapine 50 MG TAB PO SCH (21:34)
[2022-04-27 21:39] LABS: Glucose,Whole Blood 162 mg/dL (70-110)
--- NOTE | 2022-04-27 21:40 | P.PN ---
Subjective Progress Note Date: 04/27/22 Principal diagnosis: New adeno of colon MRI brain revealed CVA, neurology following. Discussed with Dr. Wen, situation is unfortunate and patient will need rehabilitation and then tertiary care system for possibilities of surgical intervention Objective - Vital Signs Vital signs: Vital Signs Temp 98.2 F 04/27/22 21:29 Pulse 102 H 04/27/22 21:29 Resp 16 04/27/22 21:29 BP 102/65 04/27/22 21:29 Pulse Ox 98 04/27/22 21:29 FiO2 Intake & Output 04/27/22 04/27/22 04/28/22 06:59 18:59 06:59 Intake Total 480 Output Total 400 250 Balance -400 230 Weight 89 kg Intake: Oral 480 Output: Urine 400 250 Other: # Bowel Movements 0 - Exam Poor Historian NAD Irr Lungs; Diminished BLE Edema No rash Psych: inapprpropriate - Labs CBC & Chem 7: 04/27/22 07:49 04/27/22 07:49 Labs: Abnormal Lab Results - Last 24 Hours (Table) 04/27/22 04/27/22 04/27/22 Range/Units 06:10 07:49 07:49 WBC 13.6 H (3.8-10.6) k/uL RBC 2.59 L (4.30-5.90) m/uL Hgb 7.9 L (13.0-17.5) gm/dL Hct 25.6 L (39.0-53.0) % RDW 19.4 H (11.5-15.5) % Plt Count 466 H (150-450) k/uL Neutrophils # 11.4 H (1.3-7.7) k/uL Sodium 134 L (137-145) mmol/L Chloride 108 H (98-107) mmol/L Carbon Dioxide 19 L (22-30) mmol/L Glucose 135 H (74-99) mg/dL POC Glucose (mg/dL) 158 H (70-110) mg/dL 04/27/22 04/27/22 Range/Units 11:44 16:47 WBC (3.8-10.6) k/uL RBC (4.30-5.90) m/uL Hgb (13.0-17.5) gm/dL Hct (39.0-53.0) % RDW (11.5-15.5) % Plt Count (150-450) k/uL Neutrophils # (1.3-7.7) k/uL Sodium (137-145) mmol/L Chloride (98-107) mmol/L Carbon Dioxide (22-30) mmol/L Glucose (74-99) mg/dL POC Glucose (mg/dL) 175 H 187 H (70-110) mg/dL Assessment and Plan (1) 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 In the interim it does not appear he has had staging performed. He is not fully engaged in conversation and his responses do not make sense so an MRI of the brain was also ordered (possible psychiatric history but with a picture of malignancy, likely metastatic should rule out involvement in brain) Will review outside records further in am and staging exams int he interim anemia work-up. Discussed with patient;s advocate, and RN CTs and MRI have been attempted and patient has not been compliant, despite premedication with lorazepam. will attempt again. Current Visit: Yes Status: Acute Code(s): C80.1 - MALIGNANT (PRIMARY) NEOPLASM, UNSPECIFIED SNOMED Code(s): 394556147 (3) CVA (cerebral vascular accident) Current Visit: Yes Status: Acute Code(s): I63.9 - CEREBRAL INFARCTION, UNSPECIFIED SNOMED Code(s): 567407183 (4) ST elevation myocardial infarction (STEMI) Current Visit: Yes Status: Acute Code(s): I21.3 - ST ELEVATION (STEMI) MYOCARDIAL INFARCTION OF UNSP SITE SNOMED Code(s): 28813417
[2022-04-27 23:17] LABS: Glucose,Whole Blood 168 mg/dL (70-110)
--- NOTE | 2022-04-28 03:29 | CT ---
EXAM: CT Head Without Intravenous Contrast CLINICAL HISTORY: ITS.REASON CT Reason: post fall TECHNIQUE: Axial computed tomography images of the head/brain without intravenous contrast. CTDI is 45 mGy and DLP is 1041 mGy-cm. This CT exam was performed using one or more of the following dose reduction techniques: automated exposure control, adjustment of the mA and/or kV according to patient size, and/or use of iterative reconstruction technique. COMPARISON: No relevant prior studies available. FINDINGS: Brain: No hemorrhage or mass effect. Hypodensity involving the right parietal/occipital lobe. Ventricles: No hydrocephalus. Bones/joints: Unremarkable. Soft tissues: Unremarkable. Sinuses: No air fluid level. Mastoid air cells: Clear. IMPRESSION: Hypodensity involving the right parietal/occipital lobe. Suggestive of subacute infarct. No acute hemorrhage, hydrocephalus, or mass effect. EXAM: CT Cervical Spine Without Intravenous Contrast CLINICAL HISTORY: ITS.REASON CT Reason: post fall TECHNIQUE: Axial computed tomography images of the cervical spine without intravenous contrast. CTDI is 13 mGy and DLP is 380 mGy-cm. This CT exam was performed using one or more of the following dose reduction techniques: automated exposure control, adjustment of the mA and/or kV according to patient size, and/or use of iterative reconstruction technique. COMPARISON: No relevant prior studies available. FINDINGS: Vertebrae: No acute fracture. Discs/spinal canal/neural foramina: degenerative changes. Soft tissues: No prevertebral swelling. Mild left pleural effusion. IMPRESSION: No acute fracture or subluxation. Mild left pleural effusion.
[2022-04-28 03:30] LABS: Glucose,Whole Blood 162 mg/dL (70-110)
[2022-04-28] MEDS ORDERED: MORPHINE SULFATE 2 MG/ML SYRINGE IVP PRN (03:49)
[2022-04-28] MEDS ORDERED: DEXTROSE 5% IN WATER 100 ML with AMIODARONE 150 MG IV ONE ×2 (04:00→12:28)
[2022-04-28 04:02] LABS: African American GFR (CKD) >90 (>60 ml/min/1.73 sqM); Anion Gap 6 mmol/L; Blood Urea Nitrogen 17 mg/dL (9-20); Calcium 8.2 mg/dL (8.4-10.2); Carbon Dioxide 20 mmol/L (22-30); Chloride 105 mmol/L (98-107); Glucose 138 mg/dL (74-99); Magnesium 1.7 mg/dL (1.6-2.3); Non-African American GFR(CKD) >90 (>60 ml/min/1.73 sqM); Potassium 4.3 mmol/L (3.5-5.1); Sodium 131 mmol/L (137-145)
[2022-04-28 04:05] LABS: Glucose,Whole Blood 153 mg/dL (70-110)
--- NOTE | 2022-04-28 07:08 | XR ---
EXAMINATION TYPE: XR lumbar spine 2 or 3V DATE OF EXAM: 04/28/2022 CLINICAL HISTORY: Fall with pain TECHNIQUE: Frontal and lateral images of the lumbar spine are obtained. COMPARISON: CT 3 days earlier FINDINGS: Evaluation is markedly suboptimal due to large body habitus and portable technique particu larly lateral view with overlying artifact from blanket and/or clothing material. There are 5 lumbar type vertebral bodies redemonstrated. The lumbar spine shows persistent slight scoliotic curvature w ithout evidence of acute displaced fracture. Vertebral body heights remain within normal limits. Pers istent moderate to severe multilevel spurring and disc space narrowing with endplate sclerosis. Persi stent IVC filter roughly right L2 level. IMPRESSION: As above.
--- NOTE | 2022-04-28 09:13 | P.PN ---
Subjective Progress Note Date: 04/28/22 Principal diagnosis: Duodenal cancer Patient was transferred to the ICU yesterday evening because of a fall and suspected cardiac arrhythmia. Patient then was found to have runs of V. tach requiring cardioversion. Doing well today. No pain. Objective - Vital Signs Vital signs: Vital Signs Temp 98.2 F 04/28/22 04:00 Pulse 89 04/28/22 07:45 Resp 13 04/28/22 07:45 BP 81/57 04/28/22 07:45 Pulse Ox 98 04/28/22 07:45 FiO2 100 04/28/22 04:00 Intake & Output 04/27/22 04/28/22 04/28/22 18:59 06:59 18:59 Intake Total 480 446.6 83.3 Output Total 250 760 Balance 230 -313.4 83.3 Weight 89 kg 88.5 kg Intake: IV 186.6 83.3 Amiodarone 360 mg In 66.6 33.3 Dextrose 5% in Water 200 ml @ 1 MG/MIN 33.333 mls/ hr IV .Q6H ONE Rx#: [id number] Invasive Line 3 10 Invasive Line 4 10 Normal Saline 0.9% @ 50ml 100 50 /hr Oral 480 260 Output: Urine 250 760 Other: Voiding Method Urinal # Bowel Movements 0 - Exam Chest: Port-A-Cath incision clean and dry, nontender, no erythema - Labs CBC & Chem 7: 04/27/22 07:49 04/28/22 03:45 Labs: Abnormal Lab Results - Last 24 Hours (Table) 04/27/22 04/27/22 04/27/22 Range/Units 11:44 16:47 21:36 Sodium (137-145) mmol/L Carbon Dioxide (22-30) mmol/L Glucose (74-99) mg/dL POC Glucose (mg/dL) 175 H 187 H 162 H (70-110) mg/dL Calcium (8.4-10.2) mg/dL Troponin I (0.000-0.034) ng/mL 04/27/22 04/28/22 04/28/22 Range/Units 23:04 03:28 03:45 Sodium 131 L (137-145) mmol/L Carbon Dioxide 20 L (22-30) mmol/L Glucose 138 H (74-99) mg/dL POC Glucose (mg/dL) 168 H 162 H (70-110) mg/dL Calcium 8.2 L (8.4-10.2) mg/dL Troponin I (0.000-0.034) ng/mL 04/28/22 04/28/22 Range/Units 03:45 04:02 Sodium (137-145) mmol/L Carbon Dioxide (22-30) mmol/L Glucose (74-99) mg/dL POC Glucose (mg/dL) 153 H (70-110) mg/dL Calcium (8.4-10.2) mg/dL Troponin I 10.800 H* (0.000-0.034) ng/mL Assessment and Plan (1) Adenocarcinoma Narrative/Plan: From surgical point of view patient is doing well. Continue workup per cardiology. May use Port-A-Cath when needed. Current Visit: Yes Status: Acute Code(s): C80.1 - MALIGNANT (PRIMARY) NEOPLASM, UNSPECIFIED SNOMED Code(s): 443197392
[2022-04-28 09:27] LABS: Glucose,Whole Blood 181 mg/dL (70-110)
[2022-04-28] MEDS ORDERED: AMIODARONE 360 MG in DEXTROSE 5% IN WATER 200 ML IV ONE ×2 (10:00)
--- NOTE | 2022-04-28 10:10 | P.PN ---
Subjective The patient is a 72-year-old male with a history of Coronary artery disease status post myocardial infarction in 1995 with angioplasty according to him, history of smoking who presented with symptoms of chest discomfort, had ST segment elevation anteriorly was evaluated by the emergency room and seen in the cardiac catheterization laboratory. According to the patient the symptoms started around midnight and he presented to the emergency room. He denies any dyspnea he denies any dizziness or palpitations. The patient had a history of DVT recently and has been on anticoagulation. He had an episode of GI bleeding, details unclear he had workup at [facility]. Patient denies any syncope. One of his main complaint shoulder discomfort related to a new injury. His troponin was elevated on presentation. He had no nausea or vomiting. He did not mention that he had any recent GI bleeding. After the procedure and after talking to the family wanted arrived apparently the patient 2 days ago was seen [facility] and was told that he had a STEMI but he signed AMA. He had episode of GI bleeding and upper endoscopy prior to that at [facility] and was told that he has gastric cancer. Full detail of his pr ior workup is not available, the patient and his son are not sure. 04/23 Patient appears confused and talking himself continuously. He is answering some questions appropriately however and states he came in because of projectile diarrhea as well as chest pain. Unable to elaborate more on his prior hospitalization at [facility]. Patient was seen previously at [facility] for DVT and prior recommendations for IVC filter and therefore IVC filter was placed this morning. Remains on a heparin drip as well as aspirin and Effient. Blood pressure somewhat borderline. He does admit to lower extremity edema over the last few days. Lying flat on his back however without any significant dyspnea. Remains tachycardic with sinus tachycardia heart rates 120s up to 140s. Troponins have been fairly flat in the 20s. 04/24 Echocardiogram reviewed with ejection fraction 20-25%. Remains mildly tachycardic heart rates 110s to 120s, sinus rhythm. Borderline low blood pressures however able to tolerate low-dose metoprolol. Has been receiving IV Lasix however incontinent in bed and and affect. Ins and outs. He did undergo IVC filter placement on 04/23/2022. No hematochezia or melena per nursing. Hemoglobin appears stable. Apparently patient refusing to eat medications and more psychiatric issues requiring Haldol. Recommendations by oncology for CT to further assess and stage possible gastric cancer. 04/25 Patient states he has not been eating because we have been taking advantage of him and sedating him without his consent. Patient remains very confused and not able to answer questions appropriately. States he is having chest pain however unable to elaborate. Denies any shortness breath. Asking for his daughter. Continues to have 1+ right greater than left lower extremity edema however able lay flat on his back. He is not on any pressors, blood pressures in the 90s over 60s. Remains sinus tachycardia likely exacerbated by his anxiety. He was seen by psychiatry and currently in wrist restraints. 04/26 Patient seen and examined at bedside, mentation has improved. He denies any complaints. His heart rates have slightly improved continues to be sinus tachycardia. Blood pressure 96/63. Denies any chest pain or shortness of breath. 04/27 Patient seen and examined. MRI performed yesterday shows concern of Moderate to large acute/subacute infarct of the right parietal lobe as well as bilateral acute lacunar infarcts. Previous discussion with internal medicine regarding possible PE however at this point patient has not been felt to be a good anticoagulation candidate and at high risk of bleed with addition of gastric cancer with need for surgery in the near future. He is having some gas and asking for a suppository. Continues to have right lower extremity swelling which discussed is worsened with keeping legs dependent. Carotid ultrasound shows 50-70% stenosis bilaterally of the carotid arteries. 04/28 Seen and examined. Patient developed episodes of nonsustained VT last night which then was somewhat more sustained and therefore defibrillated 2. He was placed on amiodarone and had done fairly well up until this morning where he has been having some increased nonsustained VT episodes. He was somewhat symptomatic previously with some diaphoresis. Patient appears somewhat more confused this morning. Admits to some abdominal pain however no chest pain or pressure. Per nursing patient has not been eating or drinking much. Lying flat on his back without any dyspnea. Did have some lower extremity edema mainly on the right side however this predominantly has improved with creatinine the right lower extremity. Troponins repeated in 10.8 and on 8.9 trending down from previously 23. Vascular surgery saw patient and did not feel good candidate for carotid intervention for stroke. PHYSICAL EXAMINATION Vital reviewed Head: Normocephalic. Eyes: Sclerae nonicteric. Neck: Good carotid upstroke, no bruit, no jugular venous distention. Lungs: Clear to auscultation anteriorly. Heart: Regular rate and rhythm, S1-S2, no S3, no rub. No murmur. Abdomen: Soft nontender, positive bowel sounds no organomegaly. Extremities: 3+ edema, R>L, intact distal pulses. ASSESSMENT 1. Anterior wall myocardial infarction, likely late presenting with fairly flat troponins and prior hospitalization with STEMI and left AMA 2. Anemia and recent questionable gastric cancer diagnosis, history GIB 3. History of DVT s/p DVT filter 4. Acute on chronic systolic heart failure 5. Prior history of myocardial infarction/ CAD 6. History of anticoagulation 7. Back discomfort 8. Sinus tachycardia 9. Ischemic cardiomyopathy EF 20-25% 10. Bilateral carotid artery stenosis 11. Acute/subacute stroke by MRI 12. Altered mental status appears improving possibly related to stroke 13. Sustained monomorphic ventricular tachycardia 04/27 status post defibrillation 2 placed on amiodarone PLAN: Continue dual antiplatelets with aspirin and Effient. Appears somewhat more use again today. Patient had runs of ventricular tachycardia with defibrillation. Appears somewhat improved after placing him on amiodarone. Troponins downtrending and do not suspect new acute coronary syndrome but rather VT from cardiomyopathy/scar. Patient with some hypotensive episodes blood pressure in the 70s to 90s. Currently blood pressure appears somewhat improved and we will attempt beta cora as able. Hold IV Lasix as patient lying flat without any significant crackles and no JVD. Hypotension may be related to some actual dehydration with patient not eating or drinking much however monitor currently. Continue supportive care. Prognosis very guarded. Objective - Vital Signs Vital signs: Vital Signs Temp 98.2 F 04/28/22 04:00 Pulse 89 04/28/22 07:45 Resp 13 04/28/22 07:45 BP 81/57 04/28/22 07:45 Pulse Ox 98 04/28/22 07:45 FiO2 100 04/28/22 04:00 Intake & Output 04/27/22 04/28/22 04/28/22 18:59 06:59 18:59 Intake Total 480 446.6 83.3 Output Total 250 760 Balance 230 -313.4 83.3 Weight 89 kg 88.5 kg Intake: IV 186.6 83.3 Amiodarone 360 mg In 66.6 33.3 Dextrose 5% in Water 200 ml @ 1 MG/MIN 33.333 mls/ hr IV .Q6H ONE Rx#: [id number] Invasive Line 3 10 Invasive Line 4 10 Normal Saline 0.9% @ 50ml 100 50 /hr Oral 480 260 Output: Urine 250 760 Other: Voiding Method Urinal # Bowel Movements 0 - Labs CBC & Chem 7: 04/27/22 07:49 04/28/22 03:45 Labs: Abnormal Lab Results - Last 24 Hours (Table) 04/27/22 04/27/22 04/27/22 Range/Units 11:44 16:47 21:36 Sodium (137-145) mmol/L Carbon Dioxide (22-30) mmol/L Glucose (74-99) mg/dL POC Glucose (mg/dL) 175 H 187 H 162 H (70-110) mg/dL Calcium (8.4-10.2) mg/dL Troponin I (0.000-0.034) ng/mL 04/27/22 04/28/22 04/28/22 Range/Units 23:04 03:28 03:45 Sodium 131 L (137-145) mmol/L Carbon Dioxide 20 L (22-30) mmol/L Glucose 138 H (74-99) mg/dL POC Glucose (mg/dL) 168 H 162 H (70-110) mg/dL Calcium 8.2 L (8.4-10.2) mg/dL Troponin I (0.000-0.034) ng/mL 04/28/22 04/28/22 04/28/22 Range/Units 03:45 04:02 08:15 Sodium (137-145) mmol/L Carbon Dioxide (22-30) mmol/L Glucose (74-99) mg/dL POC Glucose (mg/dL) 153 H (70-110) mg/dL Calcium (8.4-10.2) mg/dL Troponin I 10.800 H* 8.920 H* (0.000-0.034) ng/mL 04/28/22 Range/Units 09:25 Sodium (137-145) mmol/L Carbon Dioxide (22-30) mmol/L Glucose (74-99) mg/dL POC Glucose (mg/dL) 181 H (70-110) mg/dL Calcium (8.4-10.2) mg/dL Troponin I (0.000-0.034) ng/mL
[2022-04-28] MEDS ORDERED: Magnesium Replacement Protocol 1 EACH MISC MISCELLANE PRN (10:17)
[2022-04-28] MEDS: INSULIN ASPART (NovoLOG) 100 UNIT/ML VIAL SQ SCH ×4 (10:27→21:00)
[2022-04-28] MEDS: METOPROLOL TARTRATE 25 MG TAB PO SCH ×2 (10:27→20:52)
[2022-04-28] MEDS: SPIRONOLACTONE 25 MG TAB PO SCH (10:29)
[2022-04-28] MEDS: PANTOPRAZOLE 40 MG TABLET PO SCH ×2 (10:29→18:47)
[2022-04-28] MEDS: ENOXAPARIN 60 MG/0.6 ML SYRINGE SQ SCH ×2 (10:29→20:52)
[2022-04-28] MEDS: PRASUGREL 10 MG TAB PO SCH (10:29)
[2022-04-28] MEDS: ASPIRIN 81 MG PO SCH (10:30)
[2022-04-28] MEDS: MAGNESIUM SULFATE-D5W PMX 1 GM in DEXTROSE/WATER 1 100ML.BAG IVPB SCH ×2 (10:31→11:51)
[2022-04-28] MEDS: glipiZIDE 5 MG TAB PO SCH ×2 (10:57→19:01)
[2022-04-28] MEDS: AMIODARONE 450 MG in DEXTROSE 5% IN WATER 250 ML IV SCH ×4 (10:57→19:01)
[2022-04-28] MEDS: QUEtiapine 25 MG TAB PO SCH (10:57)
[2022-04-28 11:28] LABS: Glucose,Whole Blood 185 mg/dL (70-110)
[2022-04-28] MEDS: SODIUM CHLORIDE 0.9% 1,000 ML IV SCH (13:00)
[2022-04-28 13:24] LABS: Anisocytosis Slight; Basophils # (A) 0.1 k/uL (0-0.2); Basophils % (A) 0 %; Eosinophils % (A) 0 %; HCT 25.7 % (39.0-53.0); Hypochromasia Marked; Lymphocytes # (A) 0.8 k/uL (1.0-4.8); Lymphocytes % (A) 6 %; MCH 30.3 pg (25.0-35.0); MCHC 31.2 g/dL (31.0-37.0); MCV 97.3 fL (80.0-100.0); Macrocytosis Slight; Mean Platelet Volume 8.4; Monocytes # (A) 0.7 k/uL (0-1.0); Monocytes % (A) 6 %; Neutrophils # (A) 11.3 k/uL (1.3-7.7); Neutrophils % (A) 87 %; Platelet Count 459 k/uL (150-450); RBC 2.64 m/uL (4.30-5.90)
[2022-04-28 13:33] LABS: ALT 14 U/L (4-49); AST 19 U/L (17-59); African American GFR (CKD) >90 (>60 ml/min/1.73 sqM); Albumin 2.5 g/dL (3.5-5.0); Alkaline Phosphatase 122 U/L (38-126); Anion Gap 5 mmol/L; Blood Urea Nitrogen 17 mg/dL (9-20); Calcium 8.2 mg/dL (8.4-10.2); Carbon Dioxide 23 mmol/L (22-30); Chloride 104 mmol/L (98-107); Glucose 147 mg/dL (74-99); Non-African American GFR(CKD) 88 (>60 ml/min/1.73 sqM); Potassium 4.1 mmol/L (3.5-5.1); Sodium 132 mmol/L (137-145); Total Bilirubin <0.1 mg/dL (0.2-1.3); Total Protein 4.9 g/dL (6.3-8.2)
--- NOTE | 2022-04-28 14:05 | P.PN ---
Progress Note - Text Progress Note Date: 04/28/22 Chief Complaint: Dizzy This is a 72-year-old patient who follows with Dr. Ming Naylor. Patient on April 03 was admitted to [facility] and were diagnosed with that clot in the right lower extremity. Patient also had some bloody stools. Patient underwent endoscopy was found to have gastric cancer biopsy showing adenocarcinoma. Following a biopsy. Subsequently patient was discharged on eliquis. Patient with then became hypotensive and was admitted to [facility]. Seen by an oncologist there. It was felt that patient's bleeding from his biopsy site of the gastric cancer. Patient left from the AMA 2 days ago. Came home. Patient now presented to our facility feeling dizzy lightheaded diet. Ultrasound in the ER did confirm blood clots in both lower extremity. Also patient's Axel ST elevation [place]. During the cardiac catheterization laboratory technician and got 2 stents to the LAD. Patient is due to get a IVC filter. Postprocedure patient ICU. On about 6 g of Levothroid. No chest pain. Tired. Up in a chair. Daughter the bedside. 04/23/2022: ICU: IVC filter placed this morning by Dr. Carnes. Patient on PPI antiplatelet agents. Sinus tachycardia. Seen by pain management team. Use Ultram when necessary. Eating lunch 04/24/2022: ICU: Tolerating diet. Sinus tachycardia. Reported by nurse to be suspicious of people. Psychiatry consulted. Seroquel was added yesterday. Did sleep some. Will DC Dilaudid. 04/25/2022: ICU: POLE CLIMBER today for a MediPort placement. Daughter the bedside. Seen by psychiatry. Put on Seroquel. Was rather combative confused last night. Answering questions better today. 04/26/2022: Wound to the medical floor. Patient doing better. Answering questions more appropriately. No focal weakness. MRA of the brain revealed fair size involving right parietal temporal infarct with other areas of infarct. [place] to be embolic. Care was discussed with Dr. Boggs from neurology and Dr. Polo from cardiology. Given that patient is a very high risk of bleeding and is already on dual antiplatelet because of coronary stents, doing a CANDELARIA, but has not had any further benefit. Patient will be followed clinically over the weekend. This was discussed with that is patient's daughter at length with the presence of nurse Farley. Oral prognosis guarded. Also discussed that we'll wait 6 weeks from the time of coronary stent for the localize GI tumor surgery to be done. 04/27/2022: Patient's other daughter is visiting. Patient still having some psychotic symptoms. Talking about people being killed. Being followed by psychiatry. Sitting at the edge of the bed. No BMs. 04/28/2020: ICU patient overnight. Bouts of V. tach. Was given shock. IV amiodarone. No chest pain. Feels tired. Still having variable amounts of V. tach. Being followed by cardiology. Active Medications Al Hydroxide/Mg Hydroxide (Mag Hydrox/Al Hydrox/Simeth 30 Ml Cup) 30 ml PO Q4HR PRN PRN Reason: Heartburn Last Admin: 04/27/22 21:32 Dose: 30 ml Amiodarone HCl (Amiodarone 200 Mg Tab) 400 mg PO BID CEDRIC Aspirin (Aspirin 81 Mg) 81 mg PO DAILY [facility] Last Admin: 04/28/22 10:30 Dose: 81 mg Atorvastatin Calcium (Atorvastatin 80 Mg Tab) 80 mg PO HS [facility] Last Admin: 04/27/22 21:34 Dose: 80 mg Enoxaparin Sodium (Enoxaparin 60 Mg/0.6 Ml Syringe) 60 mg SQ Q12HR [facility] Last Admin: 04/28/22 10:29 Dose: 60 mg Glipizide (Glipizide 5 Mg Tab) 5 mg PO AC-BID [facility] Last Admin: 04/28/22 10:57 Dose: 5 mg Amiodarone HCl 360 mg/ (Dextrose/Water) 200 mls @ 33.333 mls/hr IV .Q6H ONE; Protocol Stop: 04/28/22 15:59 Last Admin: 04/28/22 10:59 Dose: Not Given Amiodarone HCl 450 mg/ (Dextrose/Water) 250 mls @ 16.667 mls/hr IV .Q15H [facility]; Protocol Stop: 04/29/22 03:59 Last Titration: 04/28/22 12:09 Dose: 1 mg/min, 33.333 mls/hr Insulin Aspart (Insulin Aspart (Novolog) 100 Unit/Ml Vial) 0 unit SQ ACHS [facility]; Protocol Last Admin: 04/28/22 11:50 Dose: 2 unit Melatonin (Melatonin 1 Mg Tab) 2 mg PO HS [facility] Last Admin: 04/27/22 21:33 Dose: 2 mg Metoprolol Tartrate (Metoprolol Tartrate 25 Mg Tab) 25 mg PO BID [facility] Last Admin: 04/28/22 10:27 Dose: 25 mg Miscellaneous Information (Magnesium Replacement Protocol 1 Each Misc) 1 each MISCELLANE DAILY PRN; Protocol PRN Reason: Per Protocol Morphine Sulfate (Morphine Sulfate 2 Mg/Ml Syringe) 0 - 2 mg IVP Q6HR PRN PRN Reason: Pain/Discomfort Nitroglycerin (Nitroglycerin Sl Tabs 0.4 Mg Tab) 0.4 mg SUBLINGUAL Q5M PRN PRN Reason: Chest Pain Last Admin: 04/22/22 14:34 Dose: 0.4 mg Olanzapine (Olanzapine 10 Mg Vial) 5 mg IM TID PRN PRN Reason: Severe Agitation Last Admin: 04/26/22 09:10 Dose: 5 mg Pantoprazole Sodium (Pantoprazole 40 Mg Tablet) 40 mg PO AC-BID [facility] Last Admin: 04/28/22 10:29 Dose: 40 mg Prasugrel (Prasugrel 10 Mg Tab) 10 mg PO DAILY [facility]; Protocol Last Admin: 04/28/22 10:29 Dose: 10 mg Quetiapine Fumarate (Quetiapine 25 Mg Tab) 25 mg PO DAILY [facility] Last Admin: 04/28/22 10:57 Dose: 25 mg Quetiapine Fumarate (Quetiapine 25 Mg Tab) 25 mg PO TID PRN PRN Reason: Agitation Last Admin: 04/25/22 23:37 Dose: 25 mg Quetiapine Fumarate (Quetiapine 50 Mg Tab) 100 mg PO HS [facility] Last Admin: 04/27/22 21:34 Dose: 100 mg Spironolactone (Spironolactone 25 Mg Tab) 25 mg PO DAILY [facility] Last Admin: 04/28/22 10:29 Dose: 25 mg Tramadol HCl (Tramadol 50 Mg Tab) 50 mg PO Q6H PRN PRN Reason: Pain Last Admin: 04/26/22 13:28 Dose: 50 mg Past medical history to include: Diabetes mellitus type 2, acute DVT both lower extremity diagnosed 2 weeks ago, gastric tumor showing adenocarcinoma recently diagnosed. Depression Social history: Does not smoke. Does marijuana occasionally. 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 Lives alone. Family history: Diabetes, [place], lung cancer Physical examination: VITAL SIGNS: 98.2, 120, 96/63, 93% room air GENERAL: Laying in bed, awake EYES: Pupils equal. Conjunctiva normal. HEENT: External appearance of nose and ears normal, oral cavity grossly normal. NECK: JVD not raised; masses not palpable. HEART: First and second heart sounds are normal; no edema. LUNGS: Respiratory rate normal; decreased breath sounds. ABDOMEN: Soft, nontender, liver spleen not palpable, no masses palpable. PSYCH: Answering simple questions. Psychotic symptoms MUSCULOSKELETAL:No Clubbing/cyanosis;muscles-grossly intact Neurological: No focal weakness INVESTIGATIONS, reviewed in the clinical context: April 28: WBC 13 hemoglobin 8 platelets 459 potassium 4.1 creatinine 0.84. Troponin I 10.8, white 0.9 April 27: WBC 13.6; 7.9 platelets. 26 potassium 5 creatinine 0.71 MRI brain: Moderate to large size acute/subacute infarct posterior watershed reg ion. Additional bilateral involving acute infarcts the corner felt to be present. April 26: WBC 9.7 hemoglobin 7.3 potassium 4.6 creatinine 0.73 April 25: WBC 7.9 hemoglobin 7.5 platelets 368 potassium 4.3 creatinine 0.7 to April 24: White count 8.9 hemoglobin 8.2 potassium 4.1 creatinine 0.69 April 23: White count 12.5 hemoglobin 9.6 platelets 333 echocardiogram: EF 20-25%. Moderate pulmonary hypertension. White count 12.5 hemoglobin 8.7 platelets 232 sodium 133 potassium 3.9 BUN 19 creatinine 0.81 Troponin I 24.9, 27.5, 23.2 LDL 46 EKG tracing personally reviewed by sd-ST elevation V2 to V6, but ST segment depression in inferior leads Chest x-ray film personally reviewed by sd-portable/Fanny. Venous polyposis Doppler ultrasound lower extremity: Positive for DVT and tired right leg with hypoechoic clot, DVT in the left leg is still popliteal vein and proximal calf veins. Bilateral Olivas's cyst. Assessment and plan: -Acute ST elevation myocardial infarction of the anterior wall. 2 stents to the LAD. -Recurrent intermittent sustained V. tach. Uncontrolled Patient did receive a shock. IV amiodarone -Acute/subacute infarct posterior watershed region, with other areas of infarct felt to be embolic. Patient is already high risk of bleeding because of his GI tumor with recent bleeding. Hence CANDELARIA will not be done at this point. -CAD with stent to LAD Aspirin 81 mg, Lipitor 80 mg, Lopressor 12.5 mg by mouth twice a day, prasugrel 10 mg daily -Adenocarcinoma of gastric cancer. Diagnosed recently with biopsy following EGD for GI bleed. Being followed by oncology -Diabetes mellitus type 2, oral hypoglycemic Resume Glucotrol. Follow Accu-Cheks with sliding scale -Psychosis unspecified, with delirium: Slow to respond Seroquel 25 at the morning and 75 mg at night. Zyprexa when necessary -Hypotension from low EF: Uncontrolled Follow blood pressure closely -Hyperlipidemia Lipitor 80 mg daily at bedtime -Depression Continue Seroquel - chronic low back pain. Patient seen by pain services. Continue home dose of Ultram. K pad. -Acute congestive heart failure from acute [place]. From systolic dysfunction. EF 20-25%. Lasix 20 mg. Aldactone 25 mg. Beta cora. -Cardiogenic shock: Better Received levo fed -Recreational marijuana use. uses as needed -Acute bilateral DVT on lower extremity diagnosed on April 03. Patient's eliquis was held because of GI bleed. Last dose taken was on April 17. Bilateral MARLENE stockings. IVC filter placement by Dr. Carnes on April 23 The ICU. IV amiodarone. Other medications to continue. Prognosis guarded. Follow-up with cardiology. On Lopressor.
--- NOTE | 2022-04-28 14:27 | P.PN ---
Subjective Progress Note Date: 04/28/22 It seems overnight the patient was getting up and fell. As result he had CT of the head which is reported as hypodensity involving the right parietal occipital lobe. Suggestive of subacute infarct. No acute hemorrhage, hydrocephalus or mass effect. CT cervical spine is reported as no acute fracture or subluxation. Mild left pleural effusion. Patient was transferred to ICU. Per his nurse he's having fluctuation of confusion. Objective - Vital Signs Vital signs: Vital Signs Temp 98.2 F 04/28/22 12:00 Pulse 111 H 04/28/22 12:30 Resp 20 04/28/22 12:30 BP 93/68 04/28/22 12:30 Pulse Ox 100 04/28/22 12:30 FiO2 100 04/28/22 04:00 Intake & Output 04/27/22 04/28/22 04/28/22 18:59 06:59 18:59 Intake Total 480 446.6 339.8 Output Total 250 760 0 Balance 230 -313.4 339.8 Weight 89 kg 88.5 kg Intake: IV 186.6 319.8 0.9 KVO 100 100 Amiodarone 360 mg In 66.6 199.8 Dextrose 5% in Water 200 ml @ 1 MG/MIN 33.333 mls/ hr IV .Q6H [facility] Rx#: [id number] Invasive Line 3 10 Invasive Line 4 10 20 Intake, IV Titration 20 Amount Amiodarone 450 mg In 20 Dextrose 5% in Water 250 ml @ 0.5 MG/MIN 16.667 mls/hr IV .Q15H [facility] Rx#: [id number] Oral 480 260 Output: Urine 250 760 0 Other: Voiding Method Urinal Urinal # Bowel Movements 0 - Exam GENERAL: The patient is lying in bed and is not acute distress. NEUROLOGICAL: Higher mental function: The patient is awake, alert, oriented to self, place and time. Patient is following commands. No aphasia and no neglect. Cranial nerves: The pupils are round, equal and reactive to light. Visual pastrana: appears left lower homononymous quandratopia. Extraocular movement is intact no nystagmus is noted. Facial sensation is normal to touch throughout. The facial strength is normal throughout. H Tongue is midline and moved [id number] without any difficulty. No dysarthria is noted. Shoulder shrug is normal bilaterally. Motor: The strength is right forearm extension is 4+. Otherwise uppers are 5/5. Right lower is limited because of DVT. Is lifting left lower above gravity without difficulty. Normal tone and bulk. Cerebellum: Normal finger to nose bilaterally. Sensation: Sensation is normal to touch throughout. Lipid panel is triglyceride 106, cholesterol 154, LDLs 46 and HDL of 86. Vitamin B12 is Stewart 2000 Serum folate is 8.60 Stool occult blood is positive. I personally reviewed the MRI and I felt the patient has right temporal parietal and close to the borderline up occipital blood predominantly is a acute to s ubacute right temporal parietal ischemic stroke as well as small foci over the bilateral frontal parietal region left more than right. There is some enhancement over the posterior region. I do suspect this is a acute to subacute ischemic stroke. carotid duplex which is reported as bilateral plaque formation and elevated velocities and estimated 50-70% stenosis in both internal carotid arteries. 2-D echo on 04/23/2022 was reported as severe left ventricle systolic dysfunction with ejection fraction of 5% dilated left ventricle, anterior, anterior apical, apical, inferior apical hypokinesis. No evidence of left ventricle thrombus identified. - Labs CBC & Chem 7: 04/28/22 13:06 04/28/22 13:06 Labs: Abnormal Lab Results - Last 24 Hours (Table) 04/27/22 04/27/22 04/27/22 Range/Units 16:47 21:36 23:04 WBC (3.8-10.6) k/uL RBC (4.30-5.90) m/uL Hgb (13.0-17.5) gm/dL Hct (39.0-53.0) % RDW (11.5-15.5) % Plt Count (150-450) k/uL Neutrophils # (1.3-7.7) k/uL Lymphocytes # (1.0-4.8) k/uL Sodium (137-145) mmol/L Carbon Dioxide (22-30) mmol/L Glucose (74-99) mg/dL POC Glucose (mg/dL) 187 H 162 H 168 H (70-110) mg/dL Calcium (8.4-10.2) mg/dL Total Bilirubin (0.2-1.3) mg/dL Troponin I (0.000-0.034) ng/mL Total Protein (6.3-8.2) g/dL Albumin (3.5-5.0) g/dL 04/28/22 04/28/22 04/28/22 Range/Units 03:28 03:45 03:45 WBC (3.8-10.6) k/uL RBC (4.30-5.90) m/uL Hgb (13.0-17.5) gm/dL Hct (39.0-53.0) % RDW (11.5-15.5) % Plt Count (150-450) k/uL Neutrophils # (1.3-7.7) k/uL Lymphocytes # (1.0-4.8) k/uL Sodium 131 L (137-145) mmol/L Carbon Dioxide 20 L (22-30) mmol/L Glucose 138 H (74-99) mg/dL POC Glucose (mg/dL) 162 H (70-110) mg/dL Calcium 8.2 L (8.4-10.2) mg/dL Total Bilirubin (0.2-1.3) mg/dL Troponin I 10.800 H* (0.000-0.034) ng/mL Total Protein (6.3-8.2) g/dL Albumin (3.5-5.0) g/dL 04/28/22 04/28/22 04/28/22 Range/Units 04:02 08:15 09:25 WBC (3.8-10.6) k/uL RBC (4.30-5.90) m/uL Hgb (13.0-17.5) gm/dL Hct (39.0-53.0) % RDW (11.5-15.5) % Plt Count (150-450) k/uL Neutrophils # (1.3-7.7) k/uL Lymphocytes # (1.0-4.8) k/uL Sodium (137-145) mmol/L Carbon Dioxide (22-30) mmol/L Glucose (74-99) mg/dL POC Glucose (mg/dL) 153 H 181 H (70-110) mg/dL Calcium (8.4-10.2) mg/dL Total Bilirubin (0.2-1.3) mg/dL Troponin I 8.920 H* (0.000-0.034) ng/mL Total Protein (6.3-8.2) g/dL Albumin (3.5-5.0) g/dL 04/28/22 04/28/22 04/28/22 Range/Units 11:27 11:48 13:06 WBC 13.0 H (3.8-10.6) k/uL RBC 2.64 L (4.30-5.90) m/uL Hgb 8.0 L (13.0-17.5) gm/dL Hct 25.7 L (39.0-53.0) % RDW 19.0 H (11.5-15.5) % Plt Count 459 H (150-450) k/uL Neutrophils # 11.3 H (1.3-7.7) k/uL Lymphocytes # 0.8 L (1.0-4.8) k/uL Sodium (137-145) mmol/L Carbon Dioxide (22-30) mmol/L Glucose (74-99) mg/dL POC Glucose (mg/dL) 185 H (70-110) mg/dL Calcium (8.4-10.2) mg/dL Total Bilirubin (0.2-1.3) mg/dL Troponin I 8.700 H* (0.000-0.034) ng/mL Total Protein (6.3-8.2) g/dL Albumin (3.5-5.0) g/dL 04/28/22 Range/Units 13:06 WBC (3.8-10.6) k/uL RBC (4.30-5.90) m/uL Hgb (13.0-17.5) gm/dL Hct (39.0-53.0) % RDW (11.5-15.5) % Plt Count (150-450) k/uL Neutrophils # (1.3-7.7) k/uL Lymphocytes # (1.0-4.8) k/uL Sodium 132 L (137-145) mmol/L Carbon Dioxide (22-30) mmol/L Glucose 147 H (74-99) mg/dL POC Glucose (mg/dL) (70-110) mg/dL Calcium 8.2 L (8.4-10.2) mg/dL Total Bilirubin <0.1 L (0.2-1.3) mg/dL Troponin I (0.000-0.034) ng/mL Total Protein 4.9 L (6.3-8.2) g/dL Albumin 2.5 L (3.5-5.0) g/dL Assessment and Plan Assessment: Acute to subacute ischemic stroke (on MRI felt more right parietal and temporal/occipital region. Also had small foci over bilateral fronto/parietal): Seems embolic in nature. Delerium Acute ST and elevation myocardial infarction status post stenting Carotid stenosis and reported as 50-70% on ultrasound but Vascular felt it was more like 50% stenois. 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 Currently on aspirin 81mg daily, Effient 10mg daily started by cardiology and I will no recommend modification of medication. Continue Lipitor 80 mg daily at bedtime for secondary stroke prophylaxis Re: Transesophageal echocardiogram, the primary had a discussion with champagne maker (Christ), and it was felt to hold off for now since the patient cannot use anticoagulation even if the thrombus is found on the CANDELARIA because of his recent bleed and hx of cancer which can increase risk of bleed. Consider CANDELARIA as outpatient. Carotid stenosis and reported as 50-70% on ultrasound but Vascular felt it was more like 50% stenois. CT angiography is reported as moderate to severe atherosclerotic changes bilateral carotid bulb level discomfort but no hemodynamic significant stenosis evident on this study. And that Dr. Carnes reviewed the images as well for the CTA and did not feel there is significant stenosis but have patient follow-up as outpatient. Every 4 hours neuro checks Continue cardiac monitoring PT OT are consulted Cardiology is on board Psychiatry is on board Oncology team is on board We'll defer the rest of the medical management to the primary team For DVT prophylaxis currently the patient is on Enoxaparin 60 mg every 12 hours Patient needs to follow-up with neurologist as outpatient within 1-2 weeks. The plan is discussed with the patient and his nurse. Dr. Porras will start neurology service tomorrow AM. Alphonso Boggs M.D. Neuro-hospitalist Time with Patient: Less than 30
[2022-04-28] MEDS: MAG HYDROX/AL HYDROX/SIMETH 30 ML CUP PO PRN (15:32)
[2022-04-28 17:33] LABS: Glucose,Whole Blood 152 mg/dL (70-110)
[2022-04-28 20:36] LABS: Glucose,Whole Blood 151 mg/dL (70-110)
[2022-04-28] MEDS: MELATONIN 1 MG TAB PO SCH (20:52)
[2022-04-28] MEDS: ATORVASTATIN 80 MG TAB PO SCH (20:52)
[2022-04-28] MEDS ORDERED: AMIODARONE 200 MG TAB PO SCH (21:00)
[2022-04-28 21:01] LABS: Glucose,Whole Blood 134 mg/dL (70-110)
[2022-04-28] MEDS: QUEtiapine 50 MG TAB PO SCH (21:15)
[2022-04-29 03:11] LABS: Anion Gap 7 mmol/L; Carbon Dioxide 19 mmol/L (22-30); Chloride 104 mmol/L (98-107); Phosphorus 3.5 mg/dL (2.5-4.5); Potassium 4.5 mmol/L (3.5-5.1); Sodium 130 mmol/L (137-145)
[2022-04-29] MEDS: NOREPINEPHRINE 4 MG in SODIUM CHLORIDE 0.9% 250 ML IV SCH ×3 (03:26→23:21)
[2022-04-29] MEDS: AMIODARONE 450 MG in DEXTROSE 5% IN WATER 250 ML IV SCH ×8 (03:30→16:31)
[2022-04-29] MEDS: SODIUM CHLORIDE 0.9% 1,000 ML IV SCH ×3 (03:32→20:09)
[2022-04-29 06:59] LABS: Glucose,Whole Blood 174 mg/dL (70-110)
[2022-04-29] MEDS: glipiZIDE 5 MG TAB PO SCH ×2 (07:00→16:22)
[2022-04-29] MEDS: PANTOPRAZOLE 40 MG TABLET PO SCH ×2 (07:03→16:23)
[2022-04-29] MEDS: INSULIN ASPART (NovoLOG) 100 UNIT/ML VIAL SQ SCH ×4 (07:05→20:10)
[2022-04-29] MEDS: SPIRONOLACTONE 25 MG TAB PO SCH (08:10)
[2022-04-29] MEDS: ASPIRIN 81 MG PO SCH (08:10)
[2022-04-29] MEDS: METOPROLOL TARTRATE 25 MG TAB PO SCH ×2 (08:10→20:09)
[2022-04-29] MEDS: ENOXAPARIN 60 MG/0.6 ML SYRINGE SQ SCH ×2 (08:11→20:10)
[2022-04-29] MEDS: QUEtiapine 25 MG TAB PO SCH (08:12)
[2022-04-29] MEDS: MAG HYDROX/AL HYDROX/SIMETH 30 ML CUP PO PRN ×3 (09:38→22:24)
[2022-04-29] MEDS: MEXILETINE 150 MG CAP PO SCH ×2 (09:48→16:22)
--- NOTE | 2022-04-29 10:15 | P.PN ---
Progress Note - Text HPI: This patient has what seems to be recurrent been diverted tachycardia requiring electrical cardioversion that happened early this morning also. He has a scar base to situation with significant multivessel disease. On April 22. Total occlusion of LAD and diagonal with the significant amount of thrombus burden and he had stenting of LAD with improvement in angiographic appearance but slow flow. He has chronic occlusion of OM 2 and mild disease in the RCA elevated filling pressures ejection fraction of 25% range. With regards to patient's ventricular tachycardia I am suggesting that we will add mexiletine 150 mg 3 times a day after 2 doses reduce the amiodarone from 1/2 mg drip and then tomorrow discontinue it. We'll also seek EP evaluation as well. Patient's magnesium and potassium levels are good he is hemodynamically stable blood pressure is about 96 with fair urine output. PHYSICIAL EXAM: There is JVD of 1 cm no carotid bruit S1 and S2 heard normally short systolic murmur at the bases audible second heart sound is preserved lungs reveal diminished air entry over both bases abdomen is soft lower x-rays reveal diminished pulses central nervous system grossly within normal limits.. IMPRESSION: 1. Ischemic cardiomyopathy. 2. Recent ST elevation [place]. 3. Recurrent ventricular tachycardia. 4. . 5. . RECOMMENDATIONS: Initiate him on mexiletine 150 mg 3 times a day continue amiodarone IV and decrease at 2.5 later today and discontinue it and switch to oral tomorrow. Seek EP evaluation check BMP in the admission levels prognosis remains poor patient is unaware of.
--- NOTE | 2022-04-29 11:14 | P.PN ---
Subjective Progress Note Date: 04/29/22 CHIEF COMPLAINT: Cancer of the duodenum HISTORY OF PRESENT ILLNESS: Patient is status post Mediport placement. Patient required transfer to the ICU for ventricle tachycardia. Followed by cardiology. Underwent cardioversion. He is receiving IV amiodarone. Patient reports minimal pain at the Mediport site. Was requesting Maalox for his heartburn. Currently on a regular diet. Afebrile. Patient seen and examined with Dr. mcclelland PHYSICAL EXAM: VITAL SIGNS: Reviewed. Chest: MediPort placed on the right side chest wall. Incision site clean dry and intact ABDOMEN: Soft. Nondistended. Nontender. ASSESSMENT: 1. Cancer of the duodenum status post Mediport placement PLAN: -Continue supportive care -Continue oncology workup Physician [place] Worker note has been reviewed by physician. Signing provider agrees with the documented findings, assessment, and plan of care. Objective - Vital Signs Vital signs: Vital Signs Temp 98.3 F 04/29/22 04:00 Pulse 90 04/29/22 09:00 Resp 13 04/29/22 09:00 BP 94/67 04/29/22 09:00 Pulse Ox 96 04/29/22 09:00 FiO2 100 04/28/22 04:00 Intake & Output 04/28/22 04/29/22 04/29/22 18:59 06:59 18:59 Intake Total 949.8 1560.554 Output Total 0 300 Balance 949.8 1260.554 Intake: IV 929.8 1330 0.9 KVO 100 Amiodarone 360 mg In 199.8 Dextrose 5% in Water 200 ml @ 1 MG/MIN 33.333 mls/ hr IV .Q6H [facility] Rx#: [id number] Invasive Line 4 30 30 Sodium Chloride 0.9% 1, 600 1300 000 ml @ 100 mls/hr IV . Q10H [facility] Rx#:[id number] Intake, IV Titration 20 230.554 Amount Amiodarone 450 mg In 20 228.887 Dextrose 5% in Water 250 ml @ 0.5 MG/MIN 16.667 mls/hr IV .Q15H [facility] Rx#: [id number] Amiodarone 450 mg In 1.667 Dextrose 5% in Water 250 ml @ 1 MG/MIN 33.333 mls/ hr IV .Q7H30M [facility] Rx#: [id number] Output: Urine 0 300 Other: Voiding Method Urinal Urinal - Labs CBC & Chem 7: 04/28/22 13:06 04/29/22 02:16 Labs: Abnormal Lab Results - Last 24 Hours (Table) 04/28/22 04/28/22 04/28/22 Range/Units 11:27 11:48 13:06 WBC 13.0 H (3.8-10.6) k/uL RBC 2.64 L (4.30-5.90) m/uL Hgb 8.0 L (13.0-17.5) gm/dL Hct 25.7 L (39.0-53.0) % RDW 19.0 H (11.5-15.5) % Plt Count 459 H (150-450) k/uL Neutrophils # 11.3 H (1.3-7.7) k/uL Lymphocytes # 0.8 L (1.0-4.8) k/uL Sodium (137-145) mmol/L Carbon Dioxide (22-30) mmol/L Glucose (74-99) mg/dL POC Glucose (mg/dL) 185 H (70-110) mg/dL Calcium (8.4-10.2) mg/dL Total Bilirubin (0.2-1.3) mg/dL Troponin I 8.700 H* (0.000-0.034) ng/mL Total Protein (6.3-8.2) g/dL Albumin (3.5-5.0) g/dL 04/28/22 04/28/22 04/28/22 Range/Units 13:06 16:48 17:32 WBC (3.8-10.6) k/uL RBC (4.30-5.90) m/uL Hgb (13.0-17.5) gm/dL Hct (39.0-53.0) % RDW (11.5-15.5) % Plt Count (150-450) k/uL Neutrophils # (1.3-7.7) k/uL Lymphocytes # (1.0-4.8) k/uL Sodium 132 L (137-145) mmol/L Carbon Dioxide (22-30) mmol/L Glucose 147 H (74-99) mg/dL POC Glucose (mg/dL) 152 H (70-110) mg/dL Calcium 8.2 L (8.4-10.2) mg/dL Total Bilirubin <0.1 L (0.2-1.3) mg/dL Troponin I 8.360 H* (0.000-0.034) ng/mL Total Protein 4.9 L (6.3-8.2) g/dL Albumin 2.5 L (3.5-5.0) g/dL 04/28/22 04/28/22 04/29/22 Range/Units 20:34 20:59 02:16 WBC (3.8-10.6) k/uL RBC (4.30-5.90) m/uL Hgb (13.0-17.5) gm/dL Hct (39.0-53.0) % RDW (11.5-15.5) % Plt Count (150-450) k/uL Neutrophils # (1.3-7.7) k/uL Lymphocytes # (1.0-4.8) k/uL Sodium 130 L (137-145) mmol/L Carbon Dioxide 19 L (22-30) mmol/L Glucose (74-99) mg/dL POC Glucose (mg/dL) 151 H 134 H (70-110) mg/dL Calcium (8.4-10.2) mg/dL Total Bilirubin (0.2-1.3) mg/dL Troponin I (0.000-0.034) ng/mL Total Protein (6.3-8.2) g/dL Albumin (3.5-5.0) g/dL 04/29/22 Range/Units 06:58 WBC (3.8-10.6) k/uL RBC (4.30-5.90) m/uL Hgb (13.0-17.5) gm/dL Hct (39.0-53.0) % RDW (11.5-15.5) % Plt Count (150-450) k/uL Neutrophils # (1.3-7.7) k/uL Lymphocytes # (1.0-4.8) k/uL Sodium (137-145) mmol/L Carbon Dioxide (22-30) mmol/L Glucose (74-99) mg/dL POC Glucose (mg/dL) 174 H (70-110) mg/dL Calcium (8.4-10.2) mg/dL Total Bilirubin (0.2-1.3) mg/dL Troponin I (0.000-0.034) ng/mL Total Protein (6.3-8.2) g/dL Albumin (3.5-5.0) g/dL
[2022-04-29 11:22] LABS: Glucose,Whole Blood 168 mg/dL (70-110)
[2022-04-29 12:29] LABS: African American GFR (CKD) >90 (>60 ml/min/1.73 sqM); Blood Urea Nitrogen 18 mg/dL (9-20); Calcium 8.2 mg/dL (8.4-10.2); Glucose 151 mg/dL (74-99); Non-African American GFR(CKD) 84 (>60 ml/min/1.73 sqM)
--- NOTE | 2022-04-29 14:20 | P.PN ---
Progress Note - Text Progress Note Date: 04/29/22 Chief Complaint: Dizzy This is a 72-year-old patient who follows with Dr. Ming Naylor. Patient on April 03 was admitted to [facility] and were diagnosed with that clot in the right lower extremity. Patient also had some bloody stools. Patient underwent endoscopy was found to have gastric cancer biopsy showing adenocarcinoma. Following a biopsy. Subsequently patient was discharged on eliquis. Patient with then became hypotensive and was admitted to [facility]. Seen by an oncologist there. It was felt that patient's bleeding from his biopsy site of the gastric cancer. Patient left from the [facility] 2 days ago. Came home. Patient now presented to our facility feeling dizzy lightheaded diet. Ultrasound in the ER did confirm blood clots in both lower extremity. Also patient's Axel ST elevation [place]. During the cardiac laborer steel handling and got 2 stents to the LAD. Patient is due to get a IVC filter. Postprocedure patient ICU. On about 6 g of Levothroid. No chest pain. Tired. Up in a chair. Daughter the bedside. 04/23/2022: ICU: IVC filter placed this morning by Dr. Carnes. Patient on PPI antiplatelet agents. Sinus tachycardia. Seen by pain management team. Use Ultram when necessary. Eating lunch 04/24/2022: ICU: Tolerating diet. Sinus tachycardia. Reported by nurse to be suspicious of people. Psychiatry consulted. Seroquel was added yesterday. Did sleep some. Will DC Dilaudid. 04/25/2022: ICU: RN CARDIOVASCULAR ICU today for a MediPort placement. Daughter the bedside. Seen by psychiatry. Put on Seroquel. Was rather combative confused last night. Answering questions better today. 04/26/2022: Wound to the medical floor. Patient doing better. Answering questions more appropriately. No focal weakness. MRA of the brain revealed fair size involving right parietal temporal infarct with other areas of infarct. [place] to be embolic. Care was discussed with Dr. Boggs from neurology and Dr. Polo from cardiology. Given that patient is a very high risk of bleeding and is already on dual antiplatelet because of coronary stents, doing a CANDELARIA, but has not had any further benefit. Patient will be followed clinically over the weekend. This was discussed with that is patient's daughter at length with the presence of nurse Farley. Oral prognosis guarded. Also discussed that we'll wait 6 weeks from the time of coronary stent for the localize GI tumor surgery to be done. 04/27/2022: Patient's other daughter is visiting. Patient still having some psychotic symptoms. Talking about people being killed. Being followed by psychiatry. Sitting at the edge of the bed. No BMs. 04/28/2022: ICU patient overnight. Bouts of V. tach. Was given shock. IV amiodarone. No chest pain. Feels tired. Still having variable amounts of V. tach. Being followed by cardiology. 04/29/2022: ICU. On this morning patient again had symptomatic V. tach with hypotension. Patient was shocked. Since then rhythm controlled. Started on mexiletine by mouth by cardiology today. Dose of amiodarone being cutback. Last psychotic symptoms. Though still present. Spoke at length to patient is Dr. Cordova over the phone. About CODE STATUS. She will talk to her siblings and the patient's this evening. Given his multiple comorbidities and prognosis DO NOT RESUSCITATE would be appropriate Active Medications Al Hydroxide/Mg Hydroxide (Mag Hydrox/Al Hydrox/Simeth 30 Ml Cup) 30 ml PO Q4HR PRN PRN Reason: Heartburn Last Admin: 04/29/22 09:38 Dose: 30 ml Aspirin (Aspirin 81 Mg) 81 mg PO DAILY [facility] Last Admin: 04/29/22 08:10 Dose: 81 mg Atorvastatin Calcium (Atorvastatin 80 Mg Tab) 80 mg PO HS [facility] Last Admin: 04/28/22 20:52 Dose: 80 mg Enoxaparin Sodium (Enoxaparin 60 Mg/0.6 Ml Syringe) 60 mg SQ Q12HR [facility] Last Admin: 04/29/22 08:11 Dose: 60 mg Glipizide (Glipizide 5 Mg Tab) 5 mg PO AC-BID [facility] Last Admin: 04/29/22 07:00 Dose: 5 mg Sodium Chloride (Saline 0.9%) 1,000 mls @ 100 mls/hr IV .Q10H [facility] Last Admin: 04/29/22 08:12 Dose: 100 mls/hr Norepinephrine Bitartrate 4 mg (/ Sodium Chloride) 254 mls @ 16.859 mls/hr IV .Q15H4M [facility]; Protocol Last Admin: 04/29/22 14:03 Dose: Not Given Amiodarone HCl 450 mg/ (Dextrose/Water) 250 mls @ 33.333 mls/hr IV .Q7H30M [facility]; Protocol Last Admin: 04/29/22 12:01 Dose: 1 mg/min, 33.333 mls/hr Insulin Aspart (Insulin Aspart (Novolog) 100 Unit/Ml Vial) 0 unit SQ ACHS [facility]; Protocol Last Admin: 04/29/22 11:47 Dose: 2 unit Melatonin (Melatonin 1 Mg Tab) 2 mg PO HS [facility] Last Admin: 04/28/22 20:52 Dose: 2 mg Metoprolol Tartrate (Metoprolol Tartrate 25 Mg Tab) 25 mg PO BID [facility] Last Admin: 04/29/22 08:10 Dose: 25 mg Mexiletine HCl (Mexiletine 150 Mg Cap) 150 mg PO Q8HR [facility] Last Admin: 04/29/22 09:48 Dose: 150 mg Miscellaneous Information (Magnesium Replacement Protocol 1 Each Misc) 1 each MISCELLANE DAILY PRN; Protocol PRN Reason: Per Protocol Morphine Sulfate (Morphine Sulfate 2 Mg/Ml Syringe) 0 - 2 mg IVP Q6HR PRN PRN Reason: Pain/Discomfort Nitroglycerin (Nitroglycerin Sl Tabs 0.4 Mg Tab) 0.4 mg SUBLINGUAL Q5M PRN PRN Reason: Chest Pain Last Admin: 04/22/22 14:34 Dose: 0.4 mg Olanzapine (Olanzapine 10 Mg Vial) 5 mg IM TID PRN PRN Reason: Severe Agitation Last Admin: 04/26/22 09:10 Dose: 5 mg Pantoprazole Sodium (Pantoprazole 40 Mg Tablet) 40 mg PO AC-BID [facility] Last Admin: 04/29/22 07:03 Dose: 40 mg Prasugrel (Prasugrel 10 Mg Tab) 10 mg PO DAILY [facility]; Protocol Last Admin: 04/28/22 10:29 Dose: 10 mg Quetiapine Fumarate (Quetiapine 25 Mg Tab) 25 mg PO DAILY [facility] Last Admin: 04/29/22 08:12 Dose: 25 mg Quetiapine Fumarate (Quetiapine 25 Mg Tab) 25 mg PO TID PRN PRN Reason: Agitation Last Admin: 04/25/22 23:37 Dose: 25 mg Quetiapine Fumarate (Quetiapine 50 Mg Tab) 100 mg PO HS [facility] Last Admin: 04/28/22 21:15 Dose: 100 mg Spironolactone (Spironolactone 25 Mg Tab) 25 mg PO DAILY [facility] Last Admin: 04/29/22 08:10 Dose: 25 mg Tramadol HCl (Tramadol 50 Mg Tab) 50 mg PO Q6H PRN PRN Reason: Pain Last Admin: 04/26/22 13:28 Dose: 50 mg Past medical history to include: Diabetes mellitus type 2, acute DVT both lower extremity diagnosed 2 weeks ago, gastric tumor showing adenocarcinoma recently diagnosed. Depression Social history: Does not smoke. Does marijuana occasionally. 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 Lives alone. Family history: Diabetes, [place], lung cancer Physical examination: VITAL SIGNS: 98.2, 82, 20, 95/67, 97% room air GENERAL: Laying in bed, awake EYES: Pupils equal. Conjunctiva normal. HEENT: External appearance of nose and ears normal, oral cavity grossly normal. NECK: JVD not raised; masses not palpable. HEART: First and second heart sounds are normal; no edema. LUNGS: Respiratory rate normal; decreased breath sounds. ABDOMEN: Soft, nontender, liver spleen not palpable, no masses palpable. PSYCH: Answering simple questions. Psychotic symptoms some present MUSCULOSKELETAL:No Clubbing/cyanosis;muscles-grossly intact Neurological: No focal weakness INVESTIGATIONS, reviewed in the clinical context: April 29: Sodium 1:30 potassium 4.5 creatinine 0.9 to magnesium 2 April 28: WBC 13 hemoglobin 8 platelets 459 potassium 4.1 creatinine 0.84. Troponin I 10.8, white 0.9 April 27: WBC 13.6; 7.9 platelets. 26 potassium 5 creatinine 0.71 MRI brain: Moderate to large size acute/subacute infarct posterior watershed region. Additional bilateral involving acute infarcts the corner felt to be present. April 26: WBC 9.7 hemoglobin 7.3 potassium 4.6 creatinine 0.73 April 25: WBC 7.9 hemoglobin 7.5 platelets 368 potassium 4.3 creatinine 0.7 to April 24: White count 8.9 hemoglobin 8.2 potassium 4.1 creatinine 0.69 April 23: White count 12.5 hemoglobin 9.6 platelets 333 echocardiogram: EF 20-25%. Moderate pulmonary hypertension. White count 12.5 hemoglobin 8.7 platelets 232 sodium 133 potassium 3.9 BUN 19 c reatinine 0.81 Troponin I 24.9, 27.5, 23.2 LDL 46 EKG tracing personally reviewed by me-ST elevation V2 to V6, but ST segment depression in inferior leads Chest x-ray film personally reviewed by me-jennie/Fanny. Venous polyposis Doppler ultrasound lower extremity: Positive for DVT and tired right leg with hypoechoic clot, DVT in the left leg is still popliteal vein and proximal calf veins. Bilateral Olivas's cyst. Assessment and plan: -Acute ST elevation myocardial infarction of the anterior wall. 2 stents to the LAD. -Recurrent intermittent sustained V. tach. Uncontrolled Cardioverted are new today.. IV amiodarone. Mexiletine started today. -Acute/subacute infarct posterior watershed region, with other areas of infarct felt to be embolic. Patient is already high risk of bleeding because of his GI tumor with recent bleeding. Hence CANDELARIA will not be done at this point. Being followed by neurology -CAD with stent to LAD Aspirin 81 mg, Lipitor 80 mg, Lopressor 12.5 mg by mouth twice a day, prasugrel 10 mg daily -Adenocarcinoma of gastric cancer. Diagnosed recently with biopsy following EGD for GI bleed. Weight at least 6 months since stent for any intervention -Diabetes mellitus type 2, oral hypoglycemic Resume Glucotrol. Follow Accu-Cheks with sliding scale -Psychosis unspecified, with delirium: Slow to respond Seroquel 25 at the morning and 75 mg at night. Zyprexa when necessary -Secondary pulmonary hypertension, from CHF Follow clinically -Hypotension from low EF: Uncontrolled Follow blood pressure closely -Hyperlipidemia Lipitor 80 mg daily at bedtime -Depression Continue Seroquel - chronic low back pain. Patient seen by pain services. Continue home dose of Ultram. K pad. -Acute congestive heart failure from acute [place]. From systolic dysfunction. EF 20-25%. Lasix 20 mg. Aldactone 25 mg. Beta cora. -Cardiogenic shock: Better Received levo fed -Recreational marijuana use. uses as needed -Acute bilateral DVT on lower extremity diagnosed on April 03. Patient's eliquis was held because of GI bleed. Last dose taken was on April 17. Bilateral MARLENE stockings. IVC filter placement by Dr. Carnes on April 23 On IV amiodarone. Mexiletine started today. Other medications to continue. Oral intake fair. Advanced care planning: Code status was discussed at length with the patient's daughter Tasha. She'll further address it with the patient. She also discusses with her siblings. This is also talked with the patient. Dr. Cordova will further discuss it with the patient tonight. Overall patient's conditions was discussed in length. DO NOT RESUSCITATE may be appropriate. She'll get back to me about the same after discussing further with the patient. 25 minutes spent for this.
--- NOTE | 2022-04-29 15:33 | P.PN ---
Subjective Progress Note Date: 04/29/22 Principal diagnosis: New adeno of colon CBC today pending Objective - Vital Signs Vital signs: Vital Signs Temp 98.2 F 04/29/22 12:00 Pulse 82 04/29/22 14:00 Resp 20 04/29/22 14:00 BP 95/67 04/29/22 14:00 Pulse Ox 97 04/29/22 14:00 FiO2 96 04/29/22 12:00 Intake & Output 04/28/22 04/29/22 04/29/22 18:59 06:59 18:59 Intake Total 949.8 9662.737 6604 Output Total 0 300 178 Balance 949.8 1260.554 882 Intake: IV 929.8 1330 810 0.9 KVO 100 Amiodarone 360 mg In 199.8 Dextrose 5% in Water 200 ml @ 1 MG/MIN 33.333 mls/ hr IV .Q6H [facility] Rx#: [id number] Invasive Line 4 30 30 10 Sodium Chloride 0.9% 1, 600 1300 800 000 ml @ 100 mls/hr IV . Q10H [facility] Rx#:[id number] Intake, IV Titration 20 230.554 250 Amount Amiodarone 450 mg In 20 228.887 Dextrose 5% in Water 250 ml @ 0.5 MG/MIN 16.667 mls/hr IV .Q15H [facility] Rx#: [id number] Amiodarone 450 mg In 1.667 250 Dextrose 5% in Water 250 ml @ 1 MG/MIN 33.333 mls/ hr IV .Q7H30M [facility] Rx#: [id number] Output: Urine 0 300 150 Post Void Residual 28 Other: Voiding Method Urinal Urinal Urinal # Bowel Movements 1 - Exam Poor Historian NAD Irr Lungs; Diminished BLE Edema No rash Psych: inapprpropriate - Labs CBC & Chem 7: 04/28/22 13:06 04/29/22 02:16 Labs: Abnormal Lab Results - Last 24 Hours (Table) 04/28/22 04/28/22 04/28/22 Range/Units 16:48 17:32 20:34 Sodium (137-145) mmol/L Carbon Dioxide (22-30) mmol/L Glucose (74-99) mg/dL POC Glucose (mg/dL) 152 H 151 H (70-110) mg/dL Calcium (8.4-10.2) mg/dL Troponin I 8.360 H* (0.000-0.034) ng/mL 04/28/22 04/29/22 04/29/22 Range/Units 20:59 02:16 06:58 Sodium 130 L (137-145) mmol/L Carbon Dioxide 19 L (22-30) mmol/L Glucose 151 H (74-99) mg/dL POC Glucose (mg/dL) 134 H 174 H (70-110) mg/dL Calcium 8.2 L (8.4-10.2) mg/dL Troponin I (0.000-0.034) ng/mL 04/29/22 Range/Units 11:20 Sodium (137-145) mmol/L Carbon Dioxide (22-30) mmol/L Glucose (74-99) mg/dL POC Glucose (mg/dL) 168 H (70-110) mg/dL Calcium (8.4-10.2) mg/dL Troponin I (0.000-0.034) ng/mL Assessment and Plan (1) 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 CVA, thrombolic events, and GA recent. Currently in care of ICU Daughter Tasha aware that at this time these acute episodes are to take presidence and then after patient improves and performance is improved then will follow up with surgical team at [facility] for resection. Current Visit: Yes Status: Acute Code(s): C18.9 - MALIGNANT NEOPLASM OF COLON, UNSPECIFIED; C77.2 - SECONDARY AND UNSP MALIGNANT NEOPLASM OF INTRA-ABD NODES SNOMED Code(s): 757431877 (2) Adenocarcinoma Current Visit: Yes Status: Acute Code(s): C80.1 - MALIGNANT (PRIMARY) NEOPLASM, UNSPECIFIED SNOMED Code(s): 978029856 (3) CVA (cerebral vascular accident) Current Visit: Yes Status: Acute Code(s): I63.9 - CEREBRAL INFARCTION, UNSPECIFIED SNOMED Code(s): 783440067 (4) ST elevation myocardial infarction (STEMI) Current Visit: Yes Status: Acute Code(s): I21.3 - ST ELEVATION (STEMI) MYOCARDIAL INFARCTION OF [facility] SITE SNOMED Code(s): 67487331
[2022-04-29 15:39] LABS: African American GFR (CKD) >90 (>60 ml/min/1.73 sqM); Anion Gap 6 mmol/L; Blood Urea Nitrogen 19 mg/dL (9-20); Calcium 8.1 mg/dL (8.4-10.2); Carbon Dioxide 22 mmol/L (22-30); Chloride 103 mmol/L (98-107); Glucose 136 mg/dL (74-99); Non-African American GFR(CKD) 86 (>60 ml/min/1.73 sqM); Potassium 4.8 mmol/L (3.5-5.1); Sodium 131 mmol/L (137-145)
[2022-04-29 16:12] LABS: Anisocytosis Slight; Basophils % (A) 0 %; Eosinophils % (A) 0 %; HCT 26.7 % (39.0-53.0); HGB 8.2 gm/dL (13.0-17.5); Hypochromasia Marked; Lymphocytes # (A) 0.9 k/uL (1.0-4.8); Lymphocytes % (A) 7 %; MCH 30.2 pg (25.0-35.0); MCHC 30.7 g/dL (31.0-37.0); MCV 98.4 fL (80.0-100.0); Macrocytosis Moderate; Monocytes # (A) 0.7 k/uL (0-1.0); Monocytes % (A) 5 %; Neutrophils # (A) 10.6 k/uL (1.3-7.7); Neutrophils % (A) 86 %; Platelet Count 461 k/uL (150-450); Poikilocytosis Slight; RBC 2.71 m/uL (4.30-5.90); RDW 19.3 % (11.5-15.5); WBC 12.3 k/uL (3.8-10.6)
[2022-04-29 16:31] LABS: Glucose,Whole Blood 153 mg/dL (70-110)
--- NOTE | 2022-04-29 18:34 | P.CRDCN ---
History of Present Illness History of present illness: This is Dr. Kaiser dictating an EP consult on this patient The patient was interviewed and examined IMPRESSION / ASSESSMENT: Sustained ventricular tachycardia, recurrent Requiring defibrillation and cardioversions Severe ischemic cardiomyopathy Ejection fraction 20-25%, dilated left ventricle with anterior and apical hypokinesis Cardiac shock requiring pressors initially ST elevation [place] Q waves in the precordial leads Total occlusion of the LAD with tidal branch, large amount of clot in the artery Status post stenting Chronic occlusion of OM 2 Elevated LVEDP History of DVT, status post IVC filter placement History of GI bleeding History of marijuana smoking PLAN: IV amiodarone tilt tomorrow Switched to by mouth amiodarone 400 mg 3 times a day for one week then 4 mg twice a day for 2 weeks then 400 mg daily thereafter Continue mexiletine 150 mg 3 times a day for the first month and hopefully then we can discontinue I would advise a LifeVest at this time for the next 3 months Prognosis critical Maximize medical treatment for CAD/ atherosclerosis and heart failure HPI Patient presented to the hospital chest discomfort ST elevations in the precordial leads with a QRS pattern Underwent coronary angiography which revealed occlusion of the LAD and diagonal vessels Status post successful stenting Height not applicable DVT status post IVC filter Currently resting comfortably in bed ROS: No fever chills or rigors, no cough, phlegm or expectoration, no nausea, vomiting or diarrhea, no hematuria, dysuria, no musculoskeletal complaints, no strokes or seizures, no skin lesions. EXAMINATION: Blood pressure 106/68 mmHg ulcerative 80s respirations 14-16 Breath sounds are reduced bilaterally Heart sounds S1 and S2 are normal REVIEW OF LABS, ECG & MEDICAL DATA White count 12.3 thousand, hemoglobin 8.2, platelet count 461,000 Normal renal function Normal potassium, low-sodium Past Medical History Past Medical History: Cancer, Diabetes Mellitus, Deep Vein Thrombosis (DVT), Hypertension, Myocardial Infarction ([place]) Additional Past Medical History / Comment(s): daily marijuana smoker, CAD, COPD, DVT of the RLE April 03, 2022, gastric cancer (adenocarcinoma) , DM2, PUD, UGI bleed and the patinet taken off the Eliquis on 04/17/2022 anad the patient was supposed to have an IVC filter Last Myocardial Infarction Date:: 04/22/22 History of Any Multi-Drug Resistant Organisms: None Reported, MRSA Past Surgical History: No Surgical Hx Reported Additional Past Surgical History / Comment(s): surgery for PUD Past Anesthesia/Blood Transfusion Reactions: No Reported Reaction Past Psychological History: Depression Smoking Status: Never smoker Past Drug Use History: Marijuana - Past Family History Father Family Medical History: Cancer, Diabetes Mellitus, Myocardial Infarction ([place]) Additional Family Medical History / Comment(s): lung cancer, from [place] Medications and Allergies Home Medications Medication Instructions Recorded Confirmed Type Metoprolol Tartrate [Lopressor] 25 mg PO BID 04/22/22 04/22/22 History Pantoprazole [Protonix] 40 mg PO BID 04/22/22 04/22/22 History QUEtiapine [SEROquel] 150 mg PO HS 04/22/22 04/22/22 History amLODIPine BESYLATE/BENAZEPRIL 1 cap PO DAILY 04/22/22 04/22/22 History [Lotrel 10-40 mg Capsule] gemfibroziL [Lopid] 600 mg PO BID 04/22/22 04/22/22 History glipiZIDE [Glucotrol] 5 mg PO AC-BID 04/22/22 04/22/22 History hydrALAZINE HCL [Apresoline] 100 mg PO TID 04/22/22 04/22/22 History metFORMIN HCL 1,000 mg PO BID 04/22/22 04/22/22 History Allergies Allergy/AdvReac Type Severity Reaction Status Date / Time No Known Allergies Allergy Verified 04/22/22 10:17 Physical Exam Vitals: Vital Signs Temp Pulse Resp BP Pulse Ox FiO2 04/29/22 17:00 84 17 106/68 92 L 04/29/22 16:00 80 21 84/55 04/29/22 15:00 80 19 99/70 97 04/29/22 14:00 82 20 95/67 97 04/29/22 13:00 84 16 94/67 95 04/29/22 12:00 98.2 F 81 20 97/65 96 04/29/22 11:00 82 18 90/62 04/29/22 10:00 85 17 100/63 98 04/29/22 09:00 90 13 94/67 96 04/29/22 08:00 84 20 100/66 95 04/29/22 07:00 92 14 107/75 96 04/29/22 06:00 89 10 L 96/62 96 07/11/22 05:00 87 17 100/68 96 04/29/22 04:00 98.3 F 87 14 86/62 93 L 04/29/22 03:00 92 8 L 87/60 95 04/29/22 02:00 96 12 79/58 98 04/29/22 01:00 92 21 102/58 93 L 04/29/22 00:00 97.9 F 93 23 99/67 97 04/28/22 23:00 88 12 88/54 99 04/28/22 22:00 112 H 22 82/65 99 04/28/22 21:00 96 23 93/69 99 04/28/22 20:00 98.8 F 97 31 H 102/71 98 04/28/22 19:15 152 H 18 88/68 98 04/28/22 19:00 95 17 87/67 04/28/22 18:45 92 20 99/64 Intake and Output 04/29/22 04/29/22 04/29/22 06:59 14:59 22:59 Intake Total 921.667 970 310 Output Total 300 178 Balance 621.667 970 132 Intake: IV 920 720 310 Invasive Line 4 20 20 10 Sodium Chloride 0.9% 1, 900 700 300 000 ml @ 100 mls/hr IV . Q10H [facility] Rx#:[id number] Intake, IV Titration 1.667 250 Amount Amiodarone 450 mg In 1.667 250 Dextrose 5% in Water 250 ml @ 1 MG/MIN 33.333 mls/ hr IV .Q7H30M [facility] Rx#: [id number] Output: Urine 300 150 Post Void Residual 28 Other: Voiding Method Urinal Urinal Urinal # Bowel Movements 1 Results 04/29/22 14:51 04/29/22 14:51 Cardiac Enzymes 04/28/22 Range/Units 16:48 Troponin I 8.360 H* (0.000-0.034) ng/mL CBC 04/29/22 Range/Units 14:51 WBC 12.3 H (3.8-10.6) k/uL RBC 2.71 L (4.30-5.90) m/uL Hgb 8.2 L (13.0-17.5) gm/dL Hct 26.7 L (39.0-53.0) % Plt Count 461 H (150-450) k/uL Comprehensive Metabolic Panel 04/29/22 04/29/22 Range/Units 02:16 14:51 Sodium 130 L 131 L (137-145) mmol/L Potassium 4.5 4.8 (3.5-5.1) mmol/L Chloride 104 103 (98-107) mmol/L Carbon Dioxide 19 L 22 (22-30) mmol/L BUN 18 19 (9-20) mg/dL Creatinine 0.92 0.89 (0.66-1.25) mg/dL Glucose 151 H 136 H (74-99) mg/dL Calcium 8.2 L 8.1 L (8.4-10.2) mg/dL Current Medications Generic Name Dose Route Start Last Admin Trade Name Freq PRN Reason Stop Dose Admin Al Hydroxide/Mg Hydroxide 30 ml 04/22/22 07:00 04/29/22 16:23 Mag Hydrox/Al Hydrox/Simeth 30 Ml Cup PO 30 ml Q4HR PRN Administration Heartburn Aspirin 81 mg 04/23/22 09:00 04/29/22 08:10 Aspirin 81 Mg PO 81 mg DAILY [facility] Administration Atorvastatin Calcium 80 mg 04/22/22 21:00 04/28/22 20:52 Atorvastatin 80 Mg Tab PO 80 mg HS [facility] Administration Enoxaparin Sodium 60 mg 04/23/22 09:45 04/29/22 08:11 Enoxaparin 60 Mg/0.6 Ml Syringe SQ 60 mg Q12HR [facility] Administration Glipizide 5 mg 04/24/22 12:38 04/29/22 16:22 Glipizide 5 Mg Tab PO 5 mg AC-BID [facility] Administration Sodium Chloride 1,000 mls @ 100 mls/hr 04/28/22 13:00 04/29/22 08:12 Saline 0.9% IV 100 mls/hr .Q10H [facility] Administration Norepinephrine Bitartrate 4 mg 254 mls @ 16.859 mls/hr 04/28/22 16:45 04/29/22 14:03 / Sodium Chloride IV Not Given .Q15H4M [facility] Protocol 0.05 MCG/KG/MIN Amiodarone HCl 450 mg/ 250 mls @ 16.667 mls/hr 04/29/22 16:15 04/29/22 16:31 Dextrose/Water IV 04/30/22 10:14 0.5 mg/min .Q15H [facility] 16.667 mls/hr Administration Protocol 0.5 MG/MIN Insulin Aspart 0 unit 04/22/22 12:30 04/29/22 17:28 Insulin Aspart (Novolog) 100 Unit/Ml Vial SQ 1 unit ACHS [facility] Administration Protocol Melatonin 2 mg 04/26/22 21:00 04/28/22 20:52 Melatonin 1 Mg Tab PO 2 mg HS [facility] Administration Metoprolol Tartrate 25 mg 04/24/22 09:00 04/29/22 08:10 Metoprolol Tartrate 25 Mg Tab PO 25 mg BID [facility] Administration Mexiletine HCl 150 mg 04/29/22 09:00 04/29/22 16:22 Mexiletine 150 Mg Cap PO 150 mg Q8HR [facility] Administration Miscellaneous Information 1 each 04/28/22 10:17 Magnesium Replacement Protocol 1 Each Misc MISCELLANE DAILY PRN Per Protocol Protocol Morphine Sulfate 0 - 2 mg 04/28/22 03:49 Morphine Sulfate 2 Mg/Ml Syringe IVP Q6HR PRN Pain/Discomfort Nitroglycerin 0.4 mg 04/22/22 07:00 04/22/22 14:34 Nitroglycerin Sl Tabs 0.4 Mg Tab SUBLINGUAL 0.4 mg Q5M PRN Administration Chest Pain Olanzapine 5 mg 04/24/22 14:06 04/26/22 09:10 Olanzapine 10 Mg Vial IM 5 mg TID PRN Administration Severe Agitation Pantoprazole Sodium 40 mg 04/23/22 17:30 04/29/22 16:23 Pantoprazole 40 Mg Tablet PO 40 mg AC-BID [facility] Administration Prasugrel 10 mg 04/23/22 09:00 04/28/22 10:29 Prasugrel 10 Mg Tab PO 10 mg DAILY [facility] Administration Protocol Quetiapine Fumarate 25 mg 04/24/22 14:15 04/29/22 08:12 Quetiapine 25 Mg Tab PO 25 mg DAILY [facility] Administration Quetiapine Fumarate 25 mg 04/24/22 14:06 04/25/22 23:37 Quetiapine 25 Mg Tab PO 25 mg TID PRN Administration Agitation Quetiapine Fumarate 100 mg 04/26/22 21:00 04/28/22 21:15 Quetiapine 50 Mg Tab PO 100 mg HS [facility] Administration Spironolactone 25 mg 04/22/22 09:00 04/29/22 08:10 Spironolactone 25 Mg Tab PO 25 mg DAILY [facility] Administration Tramadol HCl 50 mg 04/23/22 09:50 04/26/22 13:28 Tramadol 50 Mg Tab PO 50 mg Q6H PRN Administration Pain Intake and Output 04/29/22 04/29/22 04/29/22 06:59 14:59 22:59 Intake Total 921.667 970 310 Output Total 300 178 Balance 621.667 970 132 Intake: IV 920 720 310 Invasive Line 4 20 20 10 Sodium Chloride 0.9% 1, 900 700 300 000 ml @ 100 mls/hr IV . Q10H [facility] Rx#:[id number] Intake, IV Titration 1.667 250 Amount Amiodarone 450 mg In 1.667 250 Dextrose 5% in Water 250 ml @ 1 MG/MIN 33.333 mls/ hr IV .Q7H30M [facility] Rx#: [id number] Output: Urine 300 150 Post Void Residual 28 Other: Voiding Method Urinal Urinal Urinal # Bowel Movements 1 04/29/22 14:51 04/29/22 14:51
[2022-04-29 20:07] LABS: Glucose,Whole Blood 180 mg/dL (70-110)
[2022-04-29] MEDS: ATORVASTATIN 80 MG TAB PO SCH (20:09)
[2022-04-29] MEDS: MELATONIN 1 MG TAB PO SCH (20:10)
[2022-04-29] MEDS: QUEtiapine 50 MG TAB PO SCH (20:10)
[2022-04-29] MEDS: Acetaminophen-Codeine 300-30mg TAB PO PRN (20:16)
[2022-04-29] MEDS: NITROGLYCERIN SL TABS 0.4 MG TAB SUBLINGUAL PRN (22:22)
--- NOTE | 2022-04-29 22:24 | EEG ---
ELECTROENCEPHALOGRAM REPORT DATE OF SERVICE: 04/29/2022 PREAMBLE: This is a 72-year-old male with recent strokes, has some confusion. Therefore EEG was ordered to rule out any epileptiform activity. EEG FINDINGS: This is a 21 channel digital EEG recorded with video component, utilizing 10/20 international system with referential and bipolar montages. Background consists of predominantly low-voltage fast frequency beta activity seen in bihemispheric region. Background seems to be minimally reactive to eye opening and closing. Photic driving response was not clearly seen. Different stages of sleep were not clearly seen. No focal or generalized epileptiform activity was seen. IMPRESSION: This is an abnormal EEG due to presence of excessive amount of low-voltage fast frequency beta activity seen in bihemispheric region, which can be seen with medication effect. No epileptiform activity was seen. MMODL / IJN: [id number] /
[2022-04-29] MEDS: traMADol 50 MG TAB PO PRN (22:41)
[2022-04-29] MEDS ORDERED: HYDROmorphone 0.5 MG/0.5 ML SYRINGE IVP STA (23:28)
[2022-04-30] MEDS: MEXILETINE 150 MG CAP PO SCH ×4 (01:01→23:28)
[2022-04-30] MEDS: SODIUM CHLORIDE 0.9% 1,000 ML IV SCH ×2 (05:22→17:56)
[2022-04-30 05:56] LABS: Anisocytosis Slight; Basophils % (A) 0 %; Eosinophils % (A) 0 %; HCT 25.3 % (39.0-53.0); HGB 7.9 gm/dL (13.0-17.5); Hypochromasia Marked; Lymphocytes # (A) 0.8 k/uL (1.0-4.8); Lymphocytes % (A) 7 %; MCH 30.5 pg (25.0-35.0); MCHC 31.3 g/dL (31.0-37.0); MCV 97.7 fL (80.0-100.0); Macrocytosis Slight; Mean Platelet Volume 8.3; Monocytes # (A) 0.6 k/uL (0-1.0); Monocytes % (A) 6 %; Neutrophils # (A) 9.8 k/uL (1.3-7.7); Neutrophils % (A) 86 %; Platelet Count 425 k/uL (150-450); Poikilocytosis Slight; RBC 2.59 m/uL (4.30-5.90); RDW 18.8 % (11.5-15.5); WBC 11.5 k/uL (3.8-10.6)
[2022-04-30 06:58] LABS: Glucose,Whole Blood 144 mg/dL (70-110)
[2022-04-30] MEDS: glipiZIDE 5 MG TAB PO SCH ×2 (07:00→17:57)
[2022-04-30] MEDS: PANTOPRAZOLE 40 MG TABLET PO SCH ×2 (07:00→17:56)
[2022-04-30] MEDS: INSULIN ASPART (NovoLOG) 100 UNIT/ML VIAL SQ SCH ×4 (07:00→20:26)
[2022-04-30 07:18] LABS: Potassium 4.8 mmol/L (3.5-5.1)
[2022-04-30] MEDS: SPIRONOLACTONE 25 MG TAB PO SCH (08:29)
[2022-04-30] MEDS: QUEtiapine 25 MG TAB PO SCH (08:29)
[2022-04-30] MEDS: ASPIRIN 81 MG PO SCH (08:29)
[2022-04-30] MEDS: PRASUGREL 10 MG TAB PO SCH (08:29)
[2022-04-30] MEDS: METOPROLOL TARTRATE 25 MG TAB PO SCH ×2 (08:29→20:26)
[2022-04-30] MEDS: ENOXAPARIN 60 MG/0.6 ML SYRINGE SQ SCH ×2 (08:29→20:28)
--- NOTE | 2022-04-30 10:07 | P.PN ---
Subjective Progress Note Date: 04/29/22 Patient initially seen by Dr. Alphonso Boggs. Please refer to his note for details. Patient is a 72-year-old male with multiple issues. Patient has large right MCA stroke and bilateral small frontal parietal seems embolic. He has a recent cardiac catheterization. Cardiology does not want to pursue CANDELARIA since it will not change the management since in past while being on anticoagulation had GI bleed for DVT. Patient has bilateral carotid disease but not seems to be significant for vascular intervention. Patient was having episodes of confusion for which Dr. Boggs initiated EEG. Patient appears slightly short of breath with difficulty breathing. Per nursing report, he has 1 episode of V. tach last night, and 2 episodes of V. tach the night prior for which she underwent cardioversion. His rhythm is back to baseline. Patient is also on Seroquel, amiodarone. He is not on any sedation. He is on Lovenox subcu. Also on aspirin 81 mg every day. Objective - Vital Signs Vital signs: Vital Signs Temp 97.7 F 04/29/22 20:00 Pulse 81 04/29/22 20:00 Resp 13 04/29/22 20:00 BP 100/71 04/29/22 20:00 Pulse Ox 96 04/29/22 20:00 FiO2 96 04/29/22 12:00 Intake & Output 04/29/22 04/29/22 04/30/22 06:59 18:59 06:59 Intake Total 9597.527 2614 200 Output Total 300 178 Balance 1901.701 9335 200 Intake: IV 1330 1130 200 Invasive Line 4 30 30 Sodium Chloride 0.9% 1, 1300 1100 200 000 ml @ 100 mls/hr IV . Q10H [facility] Rx#:[id number] Intake, IV Titration 230.554 250 Amount Amiodarone 450 mg In 228.887 Dextrose 5% in Water 250 ml @ 0.5 MG/MIN 16.667 mls/hr IV .Q15H [facility] Rx#: [id number] Amiodarone 450 mg In 1.667 250 Dextrose 5% in Water 250 ml @ 1 MG/MIN 33.333 mls/ hr IV .Q7H30M [facility] Rx#: [id number] Output: Urine 300 150 Post Void Residual 28 Other: Voiding Method Urinal Urinal # Bowel Movements 1 - Exam Patient is alert and awake. He is slightly short of breath. Otherwise no distress. Speech and language functions are normal. Patient knows it is April 2022 and he states that he is in [facility], also knows name of the current president Mr. Reyes. Cranial nerves are only significant for left homonymous hemianopia. Muscle strength revealed (right/left) deltoid 5-/5, biceps 5/5, triceps 5/5, assemblyman or woman 5/5. Ankle dorsiflexion 5/5. No obvious ataxia. Sensations equal. - Labs CBC & Chem 7: 04/30/22 05:40 04/30/22 05:40 Labs: Abnormal Lab Results - Last 24 Hours (Table) 04/28/22 04/29/22 04/29/22 Range/Units 20:59 02:16 06:58 WBC (3.8-10.6) k/uL RBC (4.30-5.90) m/uL Hgb (13.0-17.5) gm/dL Hct (39.0-53.0) % MCHC (31.0-37.0) g/dL RDW (11.5-15.5) % Plt Count (150-450) k/uL Neutrophils # (1.3-7.7) k/uL Lymphocytes # (1.0-4.8) k/uL Sodium 130 L (137-145) mmol/L Carbon Dioxide 19 L (22-30) mmol/L Glucose 151 H (74-99) mg/dL POC Glucose (mg/dL) 134 H 174 H (70-110) mg/dL Calcium 8.2 L (8.4-10.2) mg/dL 04/29/22 04/29/22 04/29/22 Range/Units 11:20 14:51 14:51 WBC 12.3 H (3.8-10.6) k/uL RBC 2.71 L (4.30-5.90) m/uL Hgb 8.2 L (13.0-17.5) gm/dL Hct 26.7 L (39.0-53.0) % MCHC 30.7 L (31.0-37.0) g/dL RDW 19.3 H (11.5-15.5) % Plt Count 461 H (150-450) k/uL Neutrophils # 10.6 H (1.3-7.7) k/uL Lymphocytes # 0.9 L (1.0-4.8) k/uL Sodium 131 L (137-145) mmol/L Carbon Dioxide (22-30) mmol/L Glucose 136 H (74-99) mg/dL POC Glucose (mg/dL) 168 H (70-110) mg/dL Calcium 8.1 L (8.4-10.2) mg/dL 04/29/22 04/29/22 Range/Units 16:30 20:06 WBC (3.8-10.6) k/uL RBC (4.30-5.90) m/uL Hgb (13.0-17.5) gm/dL Hct (39.0-53.0) % MCHC (31.0-37.0) g/dL RDW (11.5-15.5) % Plt Count (150-450) k/uL Neutrophils # (1.3-7.7) k/uL Lymphocytes # (1.0-4.8) k/uL Sodium (137-145) mmol/L Carbon Dioxide (22-30) mmol/L Glucose (74-99) mg/dL POC Glucose (mg/dL) 153 H 180 H (70-110) mg/dL Calcium (8.4-10.2) mg/dL Assessment and Plan Assessment: Acute to subacute ischemic stroke (on MRI felt more right parietal and temporal/occipital region. Also had small foci over bilateral fronto/parietal): Seems embolic in nature. Delerium Acute ST elevation myocardial infarction status post stenting Carotid stenosis and reported as 50-70% on ultrasound but Vascular felt it was more like 50% stenois. 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 No epileptiform activity was seen. Currently on aspirin 81mg daily, Effient 10mg daily started by cardiology. Continue Lipitor 80 mg daily at bedtime for secondary stroke prophylaxis Re: Transesophageal echocardiogram, the primary had a discussion with smoked meat preparer (Dr. Wang), and it was felt to hold off for now since the patient cannot use anticoagulation even if the thrombus is found on the CANDELARIA because of his recent bleed and hx of cancer which can increase risk of bleed. Consider CANDELARIA as outpatient. Carotid stenosis and reported as 50-70% on ultrasound but Vascular felt it was more like 50% stenois. CT angiography is reported as moderate to severe atherosclerotic changes bilateral carotid bulb level discomfort but no hemodynamic significant stenosis evident on this study. And that Dr. Carnes reviewed the images as well for the CTA and did not feel there is significant stenosis but have patient follow-up as outpatient. 2-D echo on 04/23/2022 was reported as severe left ventricle systolic dysfunct ion with ejection fraction of 5% dilated left ventricle, anterior, anterior apical, apical, inferior apical hypokinesis. No evidence of left ventricle thrombus identified. Cardiology on board. Continue cardiac monitoring PT OT are consulted Cardiology is on board Psychiatry and oncology also following. B12 > 2000, folate 8.6, stool occult blood positive. We'll defer the rest of the medical management to the primary team For DVT prophylaxis currently the patient is on Enoxaparin 60 mg every 12 hours Patient needs to follow-up with neurologist as outpatient within 1-2 weeks.
[2022-04-30] MEDS: AMIODARONE 450 MG in DEXTROSE 5% IN WATER 250 ML IV SCH ×2 (10:13)
[2022-04-30] MEDS: AMIODARONE 200 MG TAB PO SCH ×2 (10:14→20:27)
[2022-04-30 11:30] LABS: Glucose,Whole Blood 156 mg/dL (70-110)
--- NOTE | 2022-04-30 13:19 | P.PN ---
Subjective Progress Note Date: 04/30/22 CHIEF COMPLAINT: Cancer of the duodenum HISTORY OF PRESENT ILLNESS: Patient is status post Mediport placement. Patient remains in the ICU. He's had episodes of ventricle tachycardia requiring cardioversion. He has a low EF and cardiology recommending LifeVest. Patient denies any pain at the Mediport site. He has a bedside sitter today. Patient seen and examined with Dr. mcclelland PHYSICAL EXAM: VITAL SIGNS: Reviewed. Chest: MediPort placed on the right side chest wall. Incision site clean dry and intact ABDOMEN: Soft. Nondistended. Nontender. ASSESSMENT: 1. Adenocarcinoma 2. Cancer of the duodenum status post Mediport placement PLAN: -Continue supportive care -Continue oncology workup -Continue ICU management Physician Digital Content Coordinator note has been reviewed by physician. Signing provider agrees with the documented findings, assessment, and plan of care. Objective - Vital Signs Vital signs: Vital Signs Temp 98.1 F 04/30/22 04:00 Pulse 80 04/30/22 12:00 Resp 13 04/30/22 12:00 BP 92/62 04/30/22 12:00 Pulse Ox 95 04/30/22 12:00 FiO2 96 04/29/22 12:00 Intake & Output 04/29/22 04/30/22 04/30/22 18:59 06:59 18:59 Intake Total 1380 1300 840 Output Total 178 100 0 Balance 1202 1200 840 Intake: IV 1130 1300 600 Invasive Line 4 30 Sodium Chloride 0.9% 1, 1100 1300 600 000 ml @ 100 mls/hr IV . Q10H [facility] Rx#:[id number] Intake, IV Titration 250 Amount Amiodarone 450 mg In 250 Dextrose 5% in Water 250 ml @ 1 MG/MIN 33.333 mls/ hr IV .Q7H30M [facility] Rx#: [id number] Oral 240 Output: Urine 150 100 0 Post Void Residual 28 Other: Voiding Method Urinal Urinal Urinal # Bowel Movements 1 - Labs CBC & Chem 7: 04/30/22 05:40 04/30/22 05:40 Labs: Abnormal Lab Results - Last 24 Hours (Table) 04/29/22 04/29/22 04/29/22 Range/Units 14:51 14:51 16:30 WBC 12.3 H (3.8-10.6) k/uL RBC 2.71 L (4.30-5.90) m/uL Hgb 8.2 L (13.0-17.5) gm/dL Hct 26.7 L (39.0-53.0) % MCHC 30.7 L (31.0-37.0) g/dL RDW 19.3 H (11.5-15.5) % Plt Count 461 H (150-450) k/uL Neutrophils # 10.6 H (1.3-7.7) k/uL Lymphocytes # 0.9 L (1.0-4.8) k/uL Sodium 131 L (137-145) mmol/L BUN (9-20) mg/dL Glucose 136 H (74-99) mg/dL POC Glucose (mg/dL) 153 H (70-110) mg/dL Calcium 8.1 L (8.4-10.2) mg/dL 04/29/22 04/30/22 04/30/22 Range/Units 20:06 05:40 05:40 WBC 11.5 H (3.8-10.6) k/uL RBC 2.59 L (4.30-5.90) m/uL Hgb 7.9 L (13.0-17.5) gm/dL Hct 25.3 L (39.0-53.0) % MCHC (31.0-37.0) g/dL RDW 18.8 H (11.5-15.5) % Plt Count (150-450) k/uL Neutrophils # 9.8 H (1.3-7.7) k/uL Lymphocytes # 0.8 L (1.0-4.8) k/uL Sodium 130 L (137-145) mmol/L BUN 21 H (9-20) mg/dL Glucose 131 H (74-99) mg/dL POC Glucose (mg/dL) 180 H (70-110) mg/dL Calcium 8.0 L (8.4-10.2) mg/dL 04/30/22 04/30/22 Range/Units 06:56 11:29 WBC (3.8-10.6) k/uL RBC (4.30-5.90) m/uL Hgb (13.0-17.5) gm/dL Hct (39.0-53.0) % MCHC (31.0-37.0) g/dL RDW (11.5-15.5) % Plt Count (150-450) k/uL Neutrophils # (1.3-7.7) k/uL Lymphocytes # (1.0-4.8) k/uL Sodium (137-145) mmol/L BUN (9-20) mg/dL Glucose (74-99) mg/dL POC Glucose (mg/dL) 144 H 156 H (70-110) mg/dL Calcium (8.4-10.2) mg/dL
--- NOTE | 2022-04-30 14:02 | PN ---
PROGRESS NOTE Mr. Pa is doing well today. He is in sinus rhythm. No significant episodes of ventricular ectopy. I will switch him from IV to oral amiodarone, continue mexiletine. Electrolytes are good and we will continue current medical regimen. Prognosis remains poor for this patient, but he has not had ventricular arrhythmias. We will continue to follow him closely. His laboratory data suggests that his potassium level is 4.8 today and patient seems to be doing well. No intervention from a cardiac standpoint. S1-S2 heard normally. Lungs reveal bilateral air entry. Abdomen and lower extremity exam unchanged. Overall prognosis for this patient is quite poor given his multiple comorbid conditions. MMODL / IJN: [id number] /
[2022-04-30 14:18] VITALS: BMI 30.5
--- NOTE | 2022-04-30 15:01 | P.PN ---
Progress Note - Text Progress Note Date: 04/30/22 Chief Complaint: Dizzy This is a 72-year-old patient who follows with Dr. Ming Naylro. Patient on April 03 was admitted to [facility] and were diagnosed with that clot in the right lower extremity. Patient also had some bloody stools. Patient underwent endoscopy was found to have gastric cancer biopsy showing adenocarcinoma. Following a biopsy. Subsequently patient was discharged on eliquis. Patient with then became hypotensive and was admitted to [facility]. Seen by an oncologist there. It was felt that patient's bleeding from his biopsy site of the gastric cancer. Patient left from the [facility] 2 days ago. Came home. Patient now presented to our facility feeling dizzy lightheaded diet. Ultrasound in the ER did confirm blood clots in both lower extremity. Also patient's Axel ST elevation [place]. During the cardiac laboratory inspector and got 2 stents to the LAD. Patient is due to get a IVC filter. Postprocedure patient ICU. On about 6 g of Levothroid. No chest pain. Tired. Up in a chair. Daughter the bedside. 04/23/2022: ICU: IVC filter placed this morning by Dr. Carnes. Patient on PPI antiplatelet agents. Sinus tachycardia. Seen by pain management team. Use Ultram when necessary. Eating lunch 04/24/2022: ICU: Tolerating diet. Sinus tachycardia. Reported by nurse to be suspicious of people. Psychiatry consulted. Seroquel was added yesterday. Did sleep some. Will DC Dilaudid. 04/25/2022: ICU: QUALITY ANALYST/TECHNICAL WRITER today for a MediPort placement. Daughter the bedside. Seen by psychiatry. Put on Seroquel. Was rather combative confused last night. Answering questions better today. 04/26/2022: Wound to the medical floor. Patient doing better. Answering questions more appropriately. No focal weakness. MRA of the brain revealed fair size involving right parietal temporal infarct with other areas of infarct. [place] to be embolic. Care was discussed with Dr. Boggs from neurology and Dr. Polo from cardiology. Given that patient is a very high risk of bleeding and is already on dual antiplatelet because of coronary stents, doing a CANDELARIA, but has not had any further benefit. Patient will be followed clinically over the weekend. This was discussed with that is patient's daughter at length with the presence of nurse Farley. Oral prognosis guarded. Also discussed that we'll wait 6 weeks from the time of coronary stent for the localize GI tumor surgery to be done. 04/27/2022: Patient's other daughter is visiting. Patient still having some psychotic symptoms. Talking about people being killed. Being followed by psychiatry. Sitting at the edge of the bed. No BMs. 04/28/2022: ICU patient overnight. Bouts of V. tach. Was given shock. IV amiodarone. No chest pain. Feels tired. Still having variable amounts of V. tach. Being followed by cardiology. 04/29/2022: ICU. On this morning patient again had symptomatic V. tach with hypotension. Patient was shocked. Since then rhythm controlled. Started on mexiletine by mouth by cardiology today. Dose of amiodarone being cutback. Last psychotic symptoms. Though still present. Spoke at length to patient is Dr. Cordova over the phone. About CODE STATUS. She will talk to her siblings and the patient's this evening. Given his multiple comorbidities and prognosis DO NOT RESUSCITATE would be appropriate 04/30/2022: ICU: IV amiodarone changed over to by mouth amiodarone. Also on Mexitil. No further episodes of V. tach. Rather tired today. Decreased oral intake. Systolic blood pression the 90s. Active Medications Acetaminophen/Codeine Phosphate (Acetaminophen-Codeine 300-30mg Tab) 1 each PO Q6HR PRN PRN Reason: Pain Last Admin: 04/29/22 20:16 Dose: 1 each Al Hydroxide/Mg Hydroxide (Mag Hydrox/Al Hydrox/Simeth 30 Ml Cup) 30 ml PO Q4HR PRN PRN Reason: Heartburn Last Admin: 04/29/22 22:24 Dose: 30 ml Amiodarone HCl (Amiodarone 200 Mg Tab) 400 mg PO BID [facility] Last Admin: 04/30/22 10:14 Dose: 400 mg Aspirin (Aspirin 81 Mg) 81 mg PO DAILY [facility] Last Admin: 04/30/22 08:29 Dose: 81 mg Atorvastatin Calcium (Atorvastatin 80 Mg Tab) 80 mg PO HS [facility] Last Admin: 04/29/22 20:09 Dose: 80 mg Enoxaparin Sodium (Enoxaparin 60 Mg/0.6 Ml Syringe) 60 mg SQ Q12HR [facility] Last Admin: 04/30/22 08:29 Dose: 60 mg Glipizide (Glipizide 5 Mg Tab) 5 mg PO AC-BID [facility] Last Admin: 04/30/22 07:00 Dose: 5 mg Sodium Chloride (Saline 0.9%) 1,000 mls @ 100 mls/hr IV .Q10H [facility] Last Admin: 04/30/22 05:22 Dose: 100 mls/hr Norepinephrine Bitartrate 4 mg (/ Sodium Chloride) 254 mls @ 16.859 mls/hr IV .Q15H4M [facility]; Protocol Last Admin: 04/29/22 23:21 Dose: Not Given Insulin Aspart (Insulin Aspart (Novolog) 100 Unit/Ml Vial) 0 unit SQ ACHS [facility]; Protocol Last Admin: 04/30/22 11:57 Dose: 1 unit Melatonin (Melatonin 1 Mg Tab) 2 mg PO HS [facility] Last Admin: 04/29/22 20:10 Dose: 2 mg Metoprolol Tartrate (Metoprolol Tartrate 25 Mg Tab) 25 mg PO BID [facility] Last Admin: 04/30/22 08:29 Dose: 25 mg Mexiletine HCl (Mexiletine 150 Mg Cap) 150 mg PO Q8HR [facility] Last Admin: 04/30/22 08:28 Dose: 150 mg Miscellaneous Information (Magnesium Replacement Protocol 1 Each Misc) 1 each MISCELLANE DAILY PRN; Protocol PRN Reason: Per Protocol Nitroglycerin (Nitroglycerin Sl Tabs 0.4 Mg Tab) 0.4 mg SUBLINGUAL Q5M PRN PRN Reason: Chest Pain Last Admin: 04/29/22 22:22 Dose: 0.4 mg Olanzapine (Olanzapine 10 Mg Vial) 5 mg IM TID PRN PRN Reason: Severe Agitation Last Admin: 04/26/22 09:10 Dose: 5 mg Pantoprazole Sodium (Pantoprazole 40 Mg Tablet) 40 mg PO AC-BID [facility] Last Admin: 04/30/22 07:00 Dose: 40 mg Prasugrel (Prasugrel 10 Mg Tab) 10 mg PO DAILY [facility]; Protocol Last Admin: 04/30/22 08:29 Dose: 10 mg Quetiapine Fumarate (Quetiapine 25 Mg Tab) 25 mg PO DAILY [facility] Last Admin: 04/30/22 08:29 Dose: 25 mg Quetiapine Fumarate (Quetiapine 25 Mg Tab) 25 mg PO TID PRN PRN Reason: Agitation Last Admin: 04/25/22 23:37 Dose: 25 mg Quetiapine Fumarate (Quetiapine 50 Mg Tab) 100 mg PO HS [facility] Last Admin: 04/29/22 20:10 Dose: 100 mg Spironolactone (Spironolactone 25 Mg Tab) 25 mg PO DAILY [facility] Last Admin: 04/30/22 08:29 Dose: 25 mg Past medical history to include: Diabetes mellitus type 2, acute DVT both lower extremity diagnosed 2 weeks ago, gastric tumor showing adenocarcinoma recently diagnosed. Depression Social history: Does not smoke. Does marijuana occasionally. 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 Lives alone. Family history: Diabetes, [place], lung cancer Physical examination: VITAL SIGNS: Febrile, 80, 13, 92 was 62, 95% GENERAL: Sitting up in a chair, tired sleepy EYES: Pupils equal. Conjunctiva normal. HEENT: External appearance of nose and ears normal, oral cavity grossly normal. NECK: JVD not raised; masses not palpable. HEART: First and second heart sounds are normal; no edema. LUNGS: Respiratory rate normal; decreased breath sounds. ABDOMEN: Soft, nontender, liver spleen not palpable, no masses palpable. PSYCH: Answering simple questions. Psychotic symptoms some present MUSCULOSKELETAL:No Clubbing/cyanosis;muscles-grossly intact Neurological: No focal weakness INVESTIGATIONS, reviewed in the clinical context: April 30: WBC 11.5 hemoglobin 7.9 potassium 4.8 creatinine 1.01 April 29: Sodium 1:30 potassium 4.5 creatinine 0.9 to magnesium 2 April 28: WBC 13 hemoglobin 8 platelets 459 potassium 4.1 creatinine 0.84. Troponin I 10.8, white 0.9 April 27: WBC 13.6; 7.9 platelets. 26 potassium 5 creatinine 0.71 MRI brain: Moderate to large size acute/subacute infarct posterior watershed region. Additional bilateral involving acute infarcts the corner felt to be present. April 26: WBC 9.7 hemoglobin 7.3 potassium 4.6 creatinine 0.73 April 25: WBC 7.9 hemoglobin 7.5 platelets 368 potassium 4.3 creatinine 0.7 to April 24: White count 8.9 hemoglobin 8.2 potassium 4.1 creatinine 0.69 April 23: White count 12.5 hemoglobin 9.6 platelets 333 echocardiogram: EF 20-25%. Moderate pulmonary hypertension. White count 12.5 hemoglobin 8.7 platelets 232 sodium 133 potassium 3.9 BUN 19 creatinine 0.81 Troponin I 24.9, 27.5, 23.2 LDL 46 EKG tracing personally reviewed by me-ST elevation V2 to V6, but ST segment depression in inferior leads Chest x-ray film personally reviewed by me-jennie/Fanny. Venous polyposis Doppler ultrasound lower extremity: Positive for DVT and tired right leg with hypoechoic clot, DVT in the left leg is still popliteal vein and proximal calf veins. Bilateral Olivas's cyst. Assessment and plan: -Acute ST elevation myocardial infarction of the anterior wall. 2 stents to the LAD. -Recurrent intermittent sustained V. tach. Uncontrolled Cardioverted are new today.. IV amiodarone. Mexiletine started today. -Acute/subacute infarct posterior watershed region, with other areas of infarct felt to be embolic. high risk of bleeding because of his GI tumor with recent bleeding. Hence CANDELARIA will not be done at this point. Being followed by neurology -CAD with stent to LAD Aspirin 81 mg, Lipitor 80 mg, Lopressor 12.5 mg by mouth twice a day, prasugrel 10 mg daily -Adenocarcinoma of the duodenum. No evidence of distant metastatic disease Diagnosed recently with biopsy following EGD for GI bleed. Wait at least 6 weeks since stent for any intervention -Diabetes mellitus type 2, oral hypoglycemic Glucotrol. Follow Accu-Cheks with sliding scale -Psychosis unspecified, with some delirium: Slow to respond Seroquel 25 at the morning and 100 mg at night. Zyprexa when necessary -Secondary pulmonary hypertension, from CHF Follow clinically -Hypotension from low EF: Follow blood pressure closely -Hyperlipidemia Lipitor 80 mg daily at bedtime -Depression Continue Seroquel - chronic low back pain. Patient seen by pain services. Continue home dose of Ultram. K pad. -Acute congestive heart failure from acute [place]. From systolic dysfunction. EF 20-25%. Lasix 20 mg. Aldactone 25 mg. Beta cora. -Cardiogenic shock: Better Received levo fed -Recreational marijuana use. uses as needed -Acute bilateral DVT on lower extremity diagnosed on April 03. Patient's eliquis was held because of GI bleed. Last dose taken was on April 17. Bilateral MARLENE stockings. IVC filter placement by Dr. Carnes on April 23 -Recurrent V. tach: Better On by mouth amiodarone. Mexiletine . -full code Patient changed over to oral amiodarone today. Mexiletine. Other medications to continue. Prognosis guarded. Follow-up with different consultants. 2 places have declined rehab. loft worker on the case.
[2022-04-30] MEDS: NOREPINEPHRINE 4 MG in SODIUM CHLORIDE 0.9% 250 ML IV SCH (15:48)
[2022-04-30 16:22] LABS: Glucose,Whole Blood 156 mg/dL (70-110)
[2022-04-30 20:21] LABS: Glucose,Whole Blood 173 mg/dL (70-110)
[2022-04-30] MEDS: MELATONIN 1 MG TAB PO SCH (20:27)
[2022-04-30] MEDS: ATORVASTATIN 80 MG TAB PO SCH (20:28)
[2022-04-30] MEDS: QUEtiapine 50 MG TAB PO SCH (20:28)
[2022-04-30] MEDS: MAG HYDROX/AL HYDROX/SIMETH 30 ML CUP PO PRN (22:29)
[2022-04-30] MEDS: Acetaminophen-Codeine 300-30mg TAB PO PRN (22:29)
[2022-05-01] MEDS: SODIUM CHLORIDE 0.9% 1,000 ML IV SCH ×2 (01:23→12:37)
[2022-05-01] MEDS: NOREPINEPHRINE 4 MG in SODIUM CHLORIDE 0.9% 250 ML IV SCH (05:56)
[2022-05-01 06:19] LABS: Glucose,Whole Blood 147 mg/dL (70-110)
[2022-05-01] MEDS: INSULIN ASPART (NovoLOG) 100 UNIT/ML VIAL SQ SCH ×4 (06:27→21:07)
[2022-05-01] MEDS: glipiZIDE 5 MG TAB PO SCH ×2 (06:27→16:48)
[2022-05-01] MEDS: PANTOPRAZOLE 40 MG TABLET PO SCH ×2 (06:27→16:47)
[2022-05-01 06:58] LABS: Anisocytosis Slight; Basophils % (A) 0 %; Eosinophils % (A) 0 %; HCT 26.2 % (39.0-53.0); HGB 8.1 gm/dL (13.0-17.5); Hypochromasia Marked; Lymphocytes # (A) 0.6 k/uL (1.0-4.8); Lymphocytes % (A) 5 %; MCH 30.2 pg (25.0-35.0); MCHC 30.8 g/dL (31.0-37.0); MCV 97.8 fL (80.0-100.0); Macrocytosis Slight; Mean Platelet Volume 8.3; Monocytes # (A) 0.4 k/uL (0-1.0); Monocytes % (A) 4 %; Neutrophils # (A) 10.4 k/uL (1.3-7.7); Neutrophils % (A) 89 %; Platelet Count 429 k/uL (150-450); Poikilocytosis Slight; RBC 2.68 m/uL (4.30-5.90); RDW 19.2 % (11.5-15.5); WBC 11.6 k/uL (3.8-10.6)
[2022-05-01] MEDS: METOPROLOL TARTRATE 25 MG TAB PO SCH ×2 (08:23→21:08)
[2022-05-01] MEDS: QUEtiapine 25 MG TAB PO SCH (08:23)
[2022-05-01] MEDS: SPIRONOLACTONE 25 MG TAB PO SCH (08:23)
[2022-05-01] MEDS: ENOXAPARIN 60 MG/0.6 ML SYRINGE SQ SCH ×2 (08:23→21:07)
[2022-05-01] MEDS: ASPIRIN 81 MG PO SCH (08:24)
[2022-05-01] MEDS: AMIODARONE 200 MG TAB PO SCH ×2 (08:24→21:06)
[2022-05-01] MEDS: PRASUGREL 10 MG TAB PO SCH (08:24)
[2022-05-01] MEDS: MEXILETINE 150 MG CAP PO SCH ×2 (08:24→16:48)
--- NOTE | 2022-05-01 09:44 | P.PN ---
Subjective Progress Note Date: 04/30/22 04/30/2022: Patient was seen for a follow-up. Patient is sitting comfortably in the recliner. Patient offers no new complaints. 04/29/2022: Patient initially seen by Dr. Alphonso Boggs. Please refer to his note for details. Patient is a 72-year-old male with multiple issues. Patient has large right MCA stroke and bilateral small frontal parietal seems embolic. He has a recent cardiac catheterization. Cardiology does not want to pursue CANDELARIA since it will not change the management since in past while being on anticoagulation had GI bleed for DVT. Patient has bilateral carotid disease but not seems to be significant for vascular intervention. Patient was having episodes of confusion for which Dr. Boggs initiated EEG. Patient appears slightly short of breath with difficulty breathing. Per nursing report, he has 1 episode of V. tach last night, and 2 episodes of V. tach the night prior for which she underwent cardioversion. His rhythm is back to baseline. Patient is also on Seroquel, amiodarone. He is not on any sedation. He is on Lovenox subcu. Also on aspirin 81 mg every day. Objective - Vital Signs Vital signs: Vital Signs Temp 98.1 F 04/30/22 04:00 Pulse 80 04/30/22 12:00 Resp 13 04/30/22 12:00 BP 92/62 04/30/22 12:00 Pulse Ox 95 04/30/22 12:00 FiO2 96 04/29/22 12:00 Intake & Output 04/29/22 04/30/22 04/30/22 18:59 06:59 18:59 Intake Total 1380 1300 840 Output Total 178 100 0 Balance 1202 1200 840 Weight 88.5 kg Intake: IV 1130 1300 600 Invasive Line 4 30 Sodium Chloride 0.9% 1, 1100 1300 600 000 ml @ 100 mls/hr IV . Q10H [facility] Rx#:[id number] Intake, IV Titration 250 Amount Amiodarone 450 mg In 250 Dextrose 5% in Water 250 ml @ 1 MG/MIN 33.333 mls/ hr IV .Q7H30M [facility] Rx#: [id number] Oral 240 Output: Urine 150 100 0 Post Void Residual 28 Other: Voiding Method Urinal Urinal Urinal # Bowel Movements 1 - Exam Patient is alert and awake. Patient is in no distress. Speech and language functions are normal. Patient knows it is April 2022. Cranial nerves are only significant for left homonymous hemianopia. 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 Hip flexion 3+/4+, Ankle dorsiflexion 5/5. No obvious ataxia. Sensations equal. - Labs CBC & Chem 7: 05/01/22 06:28 04/30/22 05:40 Labs: Abnormal Lab Results - Last 24 Hours (Table) 04/29/22 04/29/22 04/29/22 Range/Units 14:51 14:51 16:30 WBC 12.3 H (3.8-10.6) k/uL RBC 2.71 L (4.30-5.90) m/uL Hgb 8.2 L (13.0-17.5) gm/dL Hct 26.7 L (39.0-53.0) % MCHC 30.7 L (31.0-37.0) g/dL RDW 19.3 H (11.5-15.5) % Plt Count 461 H (150-450) k/uL Neutrophils # 10.6 H (1.3-7.7) k/uL Lymphocytes # 0.9 L (1.0-4.8) k/uL Sodium 131 L (137-145) mmol/L BUN (9-20) mg/dL Glucose 136 H (74-99) mg/dL POC Glucose (mg/dL) 153 H (70-110) mg/dL Calcium 8.1 L (8.4-10.2) mg/dL 04/29/22 04/30/22 04/30/22 Range/Units 20:06 05:40 05:40 WBC 11.5 H (3.8-10.6) k/uL RBC 2.59 L (4.30-5.90) m/uL Hgb 7.9 L (13.0-17.5) gm/dL Hct 25.3 L (39.0-53.0) % MCHC (31.0-37.0) g/dL RDW 18.8 H (11.5-15.5) % Plt Count (150-450) k/uL Neutrophils # 9.8 H (1.3-7.7) k/uL Lymphocytes # 0.8 L (1.0-4.8) k/uL Sodium 130 L (137-145) mmol/L BUN 21 H (9-20) mg/dL Glucose 131 H (74-99) mg/dL POC Glucose (mg/dL) 180 H (70-110) mg/dL Calcium 8.0 L (8.4-10.2) mg/dL 04/30/22 04/30/22 Range/Units 06:56 11:29 WBC (3.8-10.6) k/uL RBC (4.30-5.90) m/uL Hgb (13.0-17.5) gm/dL Hct (39.0-53.0) % MCHC (31.0-37.0) g/dL RDW (11.5-15.5) % Plt Count (150-450) k/uL Neutrophils # (1.3-7.7) k/uL Lymphocytes # (1.0-4.8) k/uL Sodium (137-145) mmol/L BUN (9-20) mg/dL Glucose (74-99) mg/dL POC Glucose (mg/dL) 144 H 156 H (70-110) mg/dL Calcium (8.4-10.2) mg/dL Assessment and Plan Assessment: Acute to subacute ischemic stroke (on MRI felt more right parietal and temporal region. Also had small foci over left occipital, and bilateral fronto/parietal): Definitely embolic in nature. Delerium Acute ST elevation myocardial infarction status post stenting Carotid stenosis and reported as 50-70% on ultrasound but Vascular felt it was more like 50% stenois. 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 Plan: Patient's neurological examination is stable. Continues to have left homonymous hemianopia. EEG 04/29/2022 was abnormal EEG due to presence of excessive amount of low voltage fast frequency beta activity seen in bihemispheric region, which is suggestive of medication effect. No epileptiform activity was seen. Currently on aspirin 81mg daily, Effient 10mg daily started by cardiology, and also on full dose Lovenox 60 mg subcu every 12 hours. Continue Lipitor 80 mg daily at bedtime for secondary stroke prophylaxis Patient definitely needs CANDELARIA, but as per cardiology (Dr. Polo), was felt to hold off for now since the patient cannot use anticoagulation even if the thrombus is found on the CANDELARIA because of his recent bleed and hx of cancer which can increase risk of bleed. Consider CANDELARIA as outpatient. Definitely need to rule out embolic source. Continue telemetry monitoring, rule out paroxysmal atrial fibrillation. MRI of brain revealed evolving moderate to large size acute/subacute infarct posterior watershed region centered right parietal lobe. Additional bilateral evolving acute lacunar infarcts are felt present. Correlate clinically. On my review, involves the right parietal temporal region. Carotid stenosis and reported as 50-70% on ultrasound but Vascular felt it was more like 50% stenois. CT angiography is reported as moderate to severe a therosclerotic changes bilateral carotid bulb level discomfort but no hemodynamic significant stenosis evident on this study. And that Dr. Carnes reviewed the images as well for the CTA and did not feel there is significant stenosis but have patient follow-up as outpatient. 2-D echo on 04/23/2022 was reported as severe left ventricle systolic dysfunction with ejection fraction of 20-25% dilated left ventricle, anterior, anterior apical, apical, inferior apical hypokinesis. No evidence of left ventricle thrombus identified. Cardiology on board. Continue cardiac monitoring PT OT are consulted Cardiology is on board Psychiatry and oncology also following. B12 > 2000, folate 8.6, stool occult blood positive. Start folic acid 1 mg daily. We'll defer the rest of the medical management to the primary team For DVT prophylaxis currently the patient is on Enoxaparin 60 mg every 12 hours Patient needs to follow-up with neurologist as outpatient within 1-2 weeks.
[2022-05-01 09:55] LABS: African American GFR (CKD) >90 (>60 ml/min/1.73 sqM); Anion Gap 6 mmol/L; Blood Urea Nitrogen 22 mg/dL (9-20); Carbon Dioxide 21 mmol/L (22-30); Chloride 105 mmol/L (98-107); Glucose 127 mg/dL (74-99); Non-African American GFR(CKD) 78 (>60 ml/min/1.73 sqM); Potassium 5.1 mmol/L (3.5-5.1); Sodium 132 mmol/L (137-145)
[2022-05-01] MEDS ORDERED: FUROSEMIDE 10 MG/ML 2 ML VIAL IV STA (10:02)
[2022-05-01 11:42] LABS: Glucose,Whole Blood 122 mg/dL (70-110)
--- NOTE | 2022-05-01 11:46 | XR ---
EXAMINATION TYPE: XR chest 1V DATE OF EXAM: 05/01/2022 CLINICAL HISTORY: Difficulty breathing and CHF progress study. TECHNIQUE: Single AP portable upright view of the chest is obtained. COMPARISON: Chest x-ray from 6 days earlier FINDINGS: Stable right subclavian Mediport catheter. Persistent low lung volumes and cardiomegaly wi th bibasilar opacities more prominent from prior and greater in the left lung base. Osseous structure s are intact. IMPRESSION: Low lung volumes and cardiomegaly with suspected small to tiny left greater than right pl eural effusions and left greater than right bibasilar acute infiltrate and/or atelectasis more promin ent from most recent x-ray. Progress study advised.
[2022-05-01] MEDS: FOLIC ACID 1 MG TAB PO SCH (12:37)
--- NOTE | 2022-05-01 13:34 | P.PN ---
Subjective Progress Note Date: 05/01/22 CHIEF COMPLAINT: Cancer of the duodenum HISTORY OF PRESENT ILLNESS: Patient is status post Mediport placement. Patient remains in the ICU. Patient denies any pain at the Mediport site. Patient seen and examined with Dr. mcclelland PHYSICAL EXAM: VITAL SIGNS: Reviewed. Chest: MediPort placed on the right side chest wall. Incision site clean dry and intact ABDOMEN: Soft. Nondistended. Nontender. ASSESSMENT: 1. Adenocarcinoma 2. Cancer of the duodenum status post Mediport placement PLAN: -Okay to access MediPort -Surgical service will sign off. Please call with any questions or concerns Physician Legal Service Specialist note has been reviewed by physician. Signing provider agrees with the documented findings, assessment, and plan of care. Objective - Vital Signs Vital signs: Vital Signs Temp 98.1 F 05/01/22 12:00 Pulse 93 05/01/22 13:00 Resp 14 05/01/22 13:00 BP 97/67 05/01/22 13:00 Pulse Ox 100 05/01/22 13:00 FiO2 96 04/30/22 16:00 Intake & Output 04/30/22 05/01/22 05/01/22 18:59 06:59 18:59 Intake Total 1680 1100 450 Output Total 225 0 600 Balance 1455 1100 -150 Weight 88.5 kg Intake: IV 1200 1100 450 Sodium Chloride 0.9% 1, 1200 1100 450 000 ml @ 50 mls/hr IV . Q20H [facility] Rx#:[id number] Oral 480 Output: Urine 225 0 600 Other: Voiding Method Urinal Urinal Indwelling Catheter # Bowel Movements 1 - Labs CBC & Chem 7: 05/01/22 06:28 05/01/22 06:28 Labs: Abnormal Lab Results - Last 24 Hours (Table) 04/30/22 04/30/22 05/01/22 Range/Units 16:20 20:19 06:18 WBC (3.8-10.6) k/uL RBC (4.30-5.90) m/uL Hgb (13.0-17.5) gm/dL Hct (39.0-53.0) % MCHC (31.0-37.0) g/dL RDW (11.5-15.5) % Neutrophils # (1.3-7.7) k/uL Lymphocytes # (1.0-4.8) k/uL Sodium (137-145) mmol/L Carbon Dioxide (22-30) mmol/L BUN (9-20) mg/dL Glucose (74-99) mg/dL POC Glucose (mg/dL) 156 H 173 H 147 H (70-110) mg/dL Calcium (8.4-10.2) mg/dL 05/01/22 05/01/22 05/01/22 Range/Units 06:28 06:28 11:40 WBC 11.6 H (3.8-10.6) k/uL RBC 2.68 L (4.30-5.90) m/uL Hgb 8.1 L (13.0-17.5) gm/dL Hct 26.2 L (39.0-53.0) % MCHC 30.8 L (31.0-37.0) g/dL RDW 19.2 H (11.5-15.5) % Neutrophils # 10.4 H (1.3-7.7) k/uL Lymphocytes # 0.6 L (1.0-4.8) k/uL Sodium 132 L (137-145) mmol/L Carbon Dioxide 21 L (22-30) mmol/L BUN 22 H (9-20) mg/dL Glucose 127 H (74-99) mg/dL POC Glucose (mg/dL) 122 H (70-110) mg/dL Calcium 8.0 L (8.4-10.2) mg/dL
--- NOTE | 2022-05-01 13:52 | P.NPCON ---
History of Present Illness - Reason for Consult acute renal failure - History of Present Illness Patient is a 72-year-old male who was admitted to the hospital with acute ST elevation CA. Patient was taken to cardiac phlebotomist medical lab assistant and subsequently had 2 stents to the LAD. His ejection fraction is low at 20%. Patient was hypotensive initially. Patient also has a recent diagnosis of gastric adenocarcinoma and right lower extremity DVT. Urine output had been low about 2 days ago. A Carnes catheter was placed and output remained borderline. Patient has received IV fluid boluses. Blood pressure currently staying about 99-97 mmHg systolic. Received 20 mg of Lasix IV push today. Serum creatinine has been 0.8-0.7 mg/dL with an increase in creatinine at 1.0 yesterday and today it is down to 0.9. Past Medical History Past Medical History: Cancer, Diabetes Mellitus, Deep Vein Thrombosis (DVT), Hypertension, Myocardial Infarction (CA) Additional Past Medical History / Comment(s): daily marijuana smoker, CAD, COPD, DVT of the RLE April 03, 2022, gastric cancer (adenocarcinoma) , DM2, PUD, UGI bleed and the patinet taken off the Eliquis on 04/17/2022 anad the patient was supposed to have an IVC filter Last Myocardial Infarction Date:: 04/22/22 History of Any Multi-Drug Resistant Organisms: None Reported, MRSA Past Surgical History: No Surgical Hx Reported Additional Past Surgical History / Comment(s): surgery for PUD Past Anesthesia/Blood Transfusion Reactions: No Reported Reaction Past Psychological History: Depression Smoking Status: Never smoker Past Drug Use History: Marijuana - Past Family History Father Family Medical History: Cancer, Diabetes Mellitus, Myocardial Infarction ([place]) Additional Family Medical History / Comment(s): lung cancer, from [place] Medications and Allergies Home Medications Medication Instructions Recorded Confirmed Type Metoprolol Tartrate [Lopressor] 25 mg PO BID 04/22/22 04/22/22 History Pantoprazole [Protonix] 40 mg PO BID 04/22/22 04/22/22 History QUEtiapine [SEROquel] 150 mg PO HS 04/22/22 04/22/22 History amLODIPine BESYLATE/BENAZEPRIL 1 cap PO DAILY 04/22/22 04/22/22 History [Lotrel 10-40 mg Capsule] gemfibroziL [Lopid] 600 mg PO BID 04/22/22 04/22/22 History glipiZIDE [Glucotrol] 5 mg PO AC-BID 04/22/22 04/22/22 History hydrALAZINE HCL [Apresoline] 100 mg PO TID 04/22/22 04/22/22 History metFORMIN HCL 1,000 mg PO BID 04/22/22 04/22/22 History Allergies Allergy/AdvReac Type Severity Reaction Status Date / Time No Known Allergies Allergy Verified 04/22/22 10:17 Physical Exam Vitals: Vital Signs Temp Pulse Resp BP Pulse Ox FiO2 05/01/22 13:00 93 14 97/67 100 05/01/22 12:00 98.1 F 88 14 97/67 98 05/01/22 11:00 85 15 99/64 98 05/01/22 10:00 84 14 101/64 95 05/01/22 09:00 85 17 100/68 98 05/01/22 08:00 97.8 F 85 13 101/69 88 L 05/01/22 07:00 82 14 96/70 96 05/01/22 06:00 81 16 101/69 93 L 05/01/22 05:00 84 25 H 99/71 95 05/01/22 04:00 81 20 99/71 95 05/01/22 03:00 78 16 96/58 93 L 05/01/22 02:00 81 23 97/66 97 05/01/22 01:00 79 23 99/72 98 05/01/22 00:00 83 18 97/66 100 04/30/22 23:00 81 14 98/64 98 04/30/22 22:00 81 13 91/61 98 04/30/22 21:00 77 12 90/66 98 04/30/22 20:00 97.7 F 79 14 04/30/22 19:00 82 19 93/64 97 04/30/22 18:00 82 7 L 90/74 100 04/30/22 17:00 98.4 F 86 12 80/55 94 L 04/30/22 16:00 81 14 94/67 94 L 96 04/30/22 15:00 81 26 H 87/62 97 04/30/22 14:00 77 13 84/61 96 Intake and Output 04/30/22 05/01/22 05/01/22 22:59 06:59 14:59 Intake Total 1040 800 450 Output Total 225 0 600 Balance 815 800 -150 Intake: IV 800 800 450 Sodium Chloride 0.9% 1, 800 800 450 000 ml @ 50 mls/hr IV . Q20H [facility] Rx#:[id number] Oral 240 Output: Urine 225 0 600 Other: Voiding Method Urinal Urinal Indwelling Catheter # Bowel Movements 1 Patient is awake. Does not communicate much. 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 Acute kidney injury with oliguria, currently slightly improved. Etiology hypotension and element of contrast nephropathy. Agree with IV Lasix 1 this patient is hypervolemic. 2. Acute ST elevation CA status post stenting of LAD this admission 3. Right lower extremity DVT status post Kanu filter placement 4. Recent diagnosis of gastric adenocarcinoma 5. History of depression 6. Recent upper GI bleed related to recent gastric biopsy and initiation of eliquis Plan: Injury with IV Lasix Decrease IV fluids Continue with Carnes catheter Avoid nephrotoxic agents Repeat labs in a.m. Check UA next Thank you for the consultation. We'll continue to follow the patient with you during his hospitalization
[2022-05-01 16:08] LABS: Appearance,Urine Cloudy (Clear); Bilirubin,Urine 1+ (Negative); Blood,Urine Large (Negative); Color,Urine Yellow; Glucose,Urine (UA) Negative (Negative); Hyaline Casts,Urine 3 /lpf (0-2); Ketones,Urine 1+ (Negative); Leukocyte Esterase,Urine Small (Negative); Mucus,Urine Occasional /hpf; Nitrite,Urine Negative (Negative); PH, Urine 5.5 (5.0-8.0); Protein,Urine 2+ (Negative); RBC,Urine 87 /hpf (0-5); Squamous Epithelial Cell,Urine <1 /hpf (0-4); Urobilinogen,Urine <2.0 mg/dL (<2.0); WBC,Urine 17 /hpf (0-5)
--- NOTE | 2022-05-01 16:29 | P.PN ---
Progress Note - Text Progress Note Date: 05/01/22 Chief Complaint: Dizzy This is a 72-year-old patient who follows with Dr. Ming Naylor. Patient on April 03 was admitted to [facility] and were diagnosed with that clot in the right lower extremity. Patient also had some bloody stools. Patient underwent endoscopy was found to have gastric cancer biopsy showing adenocarcinoma. Following a biopsy. Subsequently patient was discharged on eliquis. Patient with then became hypotensive and was admitted to [facility]. Seen by an oncologist there. It was felt that patient's bleeding from his biopsy site of the gastric cancer. Patient left from the [facility] 2 days ago. Came home. Patient now presented to our facility feeling dizzy lightheaded diet. Ultrasound in the ER did confirm blood clots in both lower extremity. Also patient's Axel ST elevation RI. During the cardiac asset availability leader and got 2 stents to the LAD. Patient is due to get a IVC filter. Postprocedure patient ICU. On about 6 g of Levothroid. No chest pain. Tired. Up in a chair. Daughter the bedside. 04/23/2022: ICU: IVC filter placed this morning by Dr. Carnes. Patient on PPI antiplatelet agents. Sinus tachycardia. Seen by pain management team. Use Ultram when necessary. Eating lunch 04/24/2022: ICU: Tolerating diet. Sinus tachycardia. Reported by nurse to be suspicious of people. Psychiatry consulted. Seroquel was added yesterday. Did sleep some. Will DC Dilaudid. 04/25/2022: ICU: MANAGER OF INTERNAL today for a MediPort placement. Daughter the bedside. Seen by psychiatry. Put on Seroquel. Was rather combative confused last night. Answering questions better today. 04/26/2022: Wound to the medical floor. Patient doing better. Answering questions more appropriately. No focal weakness. MRA of the brain revealed fair size involving right parietal temporal infarct with other areas of infarct. [place] to be embolic. Care was discussed with Dr. Boggs from neurology and Dr. Polo from cardiology. Given that patient is a very high risk of bleeding and is already on dual antiplatelet because of coronary stents, doing a CANDELARIA, but has not had any further benefit. Patient will be followed clinically over the weekend. This was discussed with that is patient's daughter at length with the presence of nurse Farley. Oral prognosis guarded. Also discussed that we'll wait 6 weeks from the time of coronary stent for the localize GI tumor surgery to be done. 04/27/2022: Patient's other daughter is visiting. Patient still having some psychotic symptoms. Talking about people being killed. Being followed by psychiatry. Sitting at the edge of the bed. No BMs. 04/28/2022: ICU patient overnight. Bouts of V. tach. Was given shock. IV amiodarone. No chest pain. Feels tired. Still having variable amounts of V. tach. Being followed by cardiology. 04/29/2022: ICU. On this morning patient again had symptomatic V. tach with hypotension. Patient was shocked. Since then rhythm controlled. Started on mexiletine by mouth by cardiology today. Dose of amiodarone being cutback. Last psychotic symptoms. Though still present. Spoke at length to patient is Dr. Cordova over the phone. About CODE STATUS. She will talk to her siblings and the patient's this evening. Given his multiple comorbidities and prognosis DO NOT RESUSCITATE would be appropriate 04/30/2022: ICU: IV amiodarone changed over to by mouth amiodarone. Also on Mexitil. No further episodes of V. tach. Rather tired today. Decreased oral intake. Systolic blood pression the 90s. 05/01/2022: ICU. Oral intake fair. No further V. tach. Carnes catheter ordered by nephrology to measure urine output. Patient still believing and constantly regarding his management. He does trust me... After discussing patient did take his morning medications medications that she had earlier refused. He wanted his catheter to be taken out and I discussed the importance of the same with the patient. Discussed with rehabilitation case coordinator. Pending authorization. Active Medications Acetaminophen/Codeine Phosphate (Acetaminophen-Codeine 300-30mg Tab) 1 each PO Q6HR PRN PRN Reason: Pain Last Admin: 04/30/22 22:29 Dose: 1 each Al Hydroxide/Mg Hydroxide (Mag Hydrox/Al Hydrox/Simeth 30 Ml Cup) 30 ml PO Q4HR PRN PRN Reason: Heartburn Last Admin: 04/30/22 22:29 Dose: 30 ml Amiodarone HCl (Amiodarone 200 Mg Tab) 400 mg PO BID CEDRIC Last Admin: 05/01/22 08:24 Dose: 400 mg Aspirin (Aspirin 81 Mg) 81 mg PO DAILY [facility] Last Admin: 05/01/22 08:24 Dose: 81 mg Atorvastatin Calcium (Atorvastatin 80 Mg Tab) 80 mg PO HS [facility] Last Admin: 04/30/22 20:28 Dose: 80 mg Enoxaparin Sodium (Enoxaparin 60 Mg/0.6 Ml Syringe) 60 mg SQ Q12HR [facility] Last Admin: 05/01/22 08:23 Dose: 60 mg Folic Acid (Folic Acid 1 Mg Tab) 1 mg PO DAILY [facility] Last Admin: 05/01/22 12:37 Dose: 1 mg Glipizide (Glipizide 5 Mg Tab) 5 mg PO AC-BID [facility] Last Admin: 05/01/22 06:27 Dose: 5 mg Sodium Chloride (Saline 0.9%) 1,000 mls @ 50 mls/hr IV .Q20H [facility] Last Admin: 05/01/22 12:37 Dose: 50 mls/hr Norepinephrine Bitartrate 4 mg (/ Sodium Chloride) 254 mls @ 16.859 mls/hr IV .Q15H4M [facility]; Protocol Last Admin: 05/01/22 05:56 Dose: Not Given Insulin Aspart (Insulin Aspart (Novolog) 100 Unit/Ml Vial) 0 unit SQ ACHS [facility]; Protocol Last Admin: 05/01/22 12:17 Dose: Not Given Melatonin (Melatonin 1 Mg Tab) 2 mg PO [facility] Last Admin: 04/30/22 20:27 Dose: 2 mg Metoprolol Tartrate (Metoprolol Tartrate 25 Mg Tab) 25 mg PO BID [facility] Last Admin: 05/01/22 08:23 Dose: 25 mg Mexiletine HCl (Mexiletine 150 Mg Cap) 150 mg PO Q8HR [facility] Last Admin: 05/01/22 08:24 Dose: 150 mg Miscellaneous Information (Magnesium Replacement Protocol 1 Each Misc) 1 each MISCELLANE DAILY PRN; Protocol PRN Reason: Per Protocol Nitroglycerin (Nitroglycerin Sl Tabs 0.4 Mg Tab) 0.4 mg SUBLINGUAL Q5M PRN PRN Reason: Chest Pain Last Admin: 04/29/22 22:22 Dose: 0.4 mg Olanzapine (Olanzapine 10 Mg Vial) 5 mg IM TID PRN PRN Reason: Severe Agitation Last Admin: 04/26/22 09:10 Dose: 5 mg Pantoprazole Sodium (Pantoprazole 40 Mg Tablet) 40 mg PO AC-BID [facility] Last Admin: 05/01/22 06:27 Dose: 40 mg Prasugrel (Prasugrel 10 Mg Tab) 10 mg PO DAILY [facility]; Protocol Last Admin: 05/01/22 08:24 Dose: 10 mg Quetiapine Fumarate (Quetiapine 25 Mg Tab) 25 mg PO DAILY [facility] Last Admin: 05/01/22 08:23 Dose: 25 mg Quetiapine Fumarate (Quetiapine 25 Mg Tab) 25 mg PO TID PRN PRN Reason: Agitation Last Admin: 04/25/22 23:37 Dose: 25 mg Quetiapine Fumarate (Quetiapine 50 Mg Tab) 100 mg PO HS [facility] Last Admin: 04/30/22 20:28 Dose: 100 mg Spironolactone (Spironolactone 25 Mg Tab) 25 mg PO DAILY [facility] Last Admin: 05/01/22 08:23 Dose: 25 mg Past medical history to include: Diabetes mellitus type 2, acute DVT both lower extremity diagnosed 2 weeks ago, gastric tumor showing adenocarcinoma recently diagnosed. Depression Social history: Does not smoke. Does marijuana occasionally. 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 Lives alone. Family history: Diabetes, RI, lung cancer Physical examination: VITAL SIGNS: 98.1, 88, 14, 97 x 67, 98% room air GENERAL: Sitting at edge of the bed, awake, tired EYES: Pupils equal. Conjunctiva normal. HEENT: External appearance of nose and ears normal, oral cavity grossly normal. NECK: JVD not raised; masses not palpable. HEART: First and second heart sounds are normal; no edema. LUNGS: Respiratory rate normal; decreased breath sounds. ABDOMEN: Soft, nontender, liver spleen not palpable, no masses palpable. Carnes catheter PSYCH: Answering questions. Very suspicious. MUSCULOSKELETAL:No Clubbing/cyanosis;muscles-grossly intact Neurological: No focal weakness INVESTIGATIONS, reviewed in the clinical context: May 01: WBC 11.6 hemoglobin 8.1 potassium 5.1 creatinine 0.98 April 30: WBC 11.5 hemoglobin 7.9 potassium 4.8 creatinine 1.01 April 29: Sodium 1:30 potassium 4.5 creatinine 0.9 to magnesium 2 April 28: WBC 13 hemoglobin 8 platelets 459 potassium 4.1 creatinine 0.84. Troponin I 10.8, white 0.9 April 27: WBC 13.6; 7.9 platelets. 26 potassium 5 creatinine 0.71 MRI brain: Moderate to large size acute/subacute infarct posterior watershed region. Additional bilateral involving acute infarcts the corner felt to be present. April 26: WBC 9.7 hemoglobin 7.3 potassium 4.6 creatinine 0.73 April 25: WBC 7.9 hemoglobin 7.5 platelets 368 potassium 4.3 creatinine 0.7 to April 24: White count 8.9 hemoglobin 8.2 potassium 4.1 creatinine 0.69 April 23: White count 12.5 hemoglobin 9.6 platelets 333 echocardiogram: EF 20-25%. Moderate pulmonary hypertension. White count 12.5 hemoglobin 8.7 platelets 232 sodium 133 potassium 3.9 BUN 19 creatinine 0.81 Troponin I 24.9, 27.5, 23.2 LDL 46 EKG tracing personally reviewed by mt-ST elevation V2 to V6, but ST segment depression in inferior leads Chest x-ray film personally reviewed by mt-jennie/Fanny. Venous polyposis Doppler ultrasound lower extremity: Positive for DVT and tired right leg with hypoechoic clot, DVT in the left leg is still popliteal vein and proximal calf veins. Bilateral Olivas's cyst. Assessment and plan: -Acute ST elevation myocardial infarction of the anterior wall. 2 stents to the LAD. -Recurrent intermittent sustained V. tach. Uncontrolled Cardioverted are new today.. IV amiodarone. Mexiletine started today. -Acute/subacute infarct posterior watershed region, with other areas of infarct felt to be embolic. high risk of bleeding because of his GI tumor with recent bleeding. Hence CANDELARIA will not be done at this point. Being followed by neurology -CAD with stent to LAD Aspirin 81 mg, Lipitor 80 mg, Lopressor 12.5 mg by mouth twice a day, prasugrel 10 mg daily -Adenocarcinoma of the duodenum. No evidence of distant metastatic disease Diagnosed recently with biopsy following EGD for GI bleed. Wait at least 6 weeks since stent for any intervention -Diabetes mellitus type 2, oral hypoglycemic Glucotrol. Follow Accu-Cheks with sliding scale -Psychosis unspecified, with some delirium: Slow to respond Seroquel 25 at the morning and 100 mg at night. Zyprexa when necessary -Secondary pulmonary hypertension, from CHF Follow clinically -Hypotension from low EF: Follow blood pressure closely -Hyperlipidemia Lipitor 80 mg daily at bedtime -Depression Continue Seroquel - chronic low back pain. Patient seen by pain services. Continue home dose of Ultram. K pad. -Acute congestive heart failure from acute RI. From systolic dysfunction. EF 20-25%. Lasix 20 mg. Aldactone 25 mg. Beta coar. -Cardiogenic shock: Better Received levo fed -Recreational marijuana use. uses as needed -Acute bilateral DVT on lower extremity diagnosed on April 03. Patient's eliquis was held because of GI bleed. Last dose taken was on April 17. Bilateral MARLENE stockings. IVC filter placement by Dr. Carnes on April 23 -Recurrent V. tach: Better amiodarone. Mexiletine . -full code Oral intake variable. Patient reassured. Spoke to rehabilitation case coordinator. Pending authorization. Urine output being measured by nephrology. Add Flomax. Discussed at length with the patient. Also rehabilitation case coordinator. Time spent about 45 minutes with over 25 minutes of discussion.
[2022-05-01 16:42] LABS: Glucose,Whole Blood 158 mg/dL (70-110)
[2022-05-01] MEDS: CEPHALEXIN 500 MG CAP PO SCH ×2 (16:48→21:08)
--- NOTE | 2022-05-01 18:09 | P.PN ---
Subjective Progress Note Date: 05/01/22 Principal diagnosis: Newly diagnosed small bowel carcinoma. In follow-up today patient initially unable to be aroused then, he was awake and was talking about random subjects and that he wanted to speak with his daughter. I was not able to obtain any useful information about his health history or subjective data about how he was feeling today. Objective - Vital Signs Vital signs: Vital Signs Temp 98.1 F 05/01/22 12:00 Pulse 88 05/01/22 12:00 Resp 14 05/01/22 12:00 BP 97/67 05/01/22 12:00 Pulse Ox 98 05/01/22 12:00 FiO2 96 04/30/22 16:00 Intake & Output 04/30/22 05/01/22 05/01/22 18:59 06:59 18:59 Intake Total 1680 1100 400 Output Total 225 0 525 Balance 1455 1100 -125 Weight 88.5 kg Intake: IV 1200 1100 400 Sodium Chloride 0.9% 1, 1200 1100 400 000 ml @ 50 mls/hr IV . Q20H [facility] Rx#:[id number] Oral 480 Output: Urine 225 0 525 Other: Voiding Method Urinal Urinal Urinal - Constitutional General appearance: Present: average body habitus, no acute distress - EENT Eyes: Present: anicteric sclerae, EOMI ENT: Present: hearing grossly normal - Respiratory Details: respirations mildly labored at rest - Psychiatric Psychiatric Comment(s): A&O 1 - Labs CBC & Chem 7: 05/01/22 06:28 05/01/22 06:28 Labs: Abnormal Lab Results - Last 24 Hours (Table) 04/30/22 04/30/22 05/01/22 Range/Units 16:20 20:19 06:18 WBC (3.8-10.6) k/uL RBC (4.30-5.90) m/uL Hgb (13.0-17.5) gm/dL Hct (39.0-53.0) % MCHC (31.0-37.0) g/dL RDW (11.5-15.5) % Neutrophils # (1.3-7.7) k/uL Lymphocytes # (1.0-4.8) k/uL Sodium (137-145) mmol/L Carbon Dioxide (22-30) mmol/L BUN (9-20) mg/dL Glucose (74-99) mg/dL POC Glucose (mg/dL) 156 H 173 H 147 H (70-110) mg/dL Calcium (8.4-10.2) mg/dL 05/01/22 05/01/22 05/01/22 Range/Units 06:28 06:28 11:40 WBC 11.6 H (3.8-10.6) k/uL RBC 2.68 L (4.30-5.90) m/uL Hgb 8.1 L (13.0-17.5) gm/dL Hct 26.2 L (39.0-53.0) % MCHC 30.8 L (31.0-37.0) g/dL RDW 19.2 H (11.5-15.5) % Neutrophils # 10.4 H (1.3-7.7) k/uL Lymphocytes # 0.6 L (1.0-4.8) k/uL Sodium 132 L (137-145) mmol/L Carbon Dioxide 21 L (22-30) mmol/L BUN 22 H (9-20) mg/dL Glucose 127 H (74-99) mg/dL POC Glucose (mg/dL) 122 H (70-110) mg/dL Calcium 8.0 L (8.4-10.2) mg/dL Assessment and Plan (1) Adenocarcinoma Current Visit: Yes Status: Acute Priority: High Code(s): C80.1 - MALIGNANT (PRIMARY) NEOPLASM, UNSPECIFIED SNOMED Code(s): 378999795 Plan: patient is going to need rehabilitation for recent CVA/DE. Assessment of patient's social situation is necessary so that Oncology can have a discussion with pt and family to see if patient has desire and resources to pursue treatment of cancer. We can plan for a meeting, if and when the family is wanting to do so. Or, we can plan for a meeting after the patient has completed rehabilitation. Contact information placed in the discharge plan.
[2022-05-01] MEDS ORDERED: TAMSULOSIN 0.4 MG CAP.ER.24H PO SCH (18:30)
--- NOTE | 2022-05-01 18:42 | PN ---
PROGRESS NOTE The patient is in sinus rhythm. He has no further ventricular ectopy. His urine output has decreased. I will give one dose of Lasix 20 mg, see how he does. He has ischemic cardiomyopathy, recent PCI, ventricular tachycardia which has improved with a combination of mexiletine and amiodarone which we will continue. I will check a magnesium and BMP level today. Physical exam revealed JVD 1 cm. No carotid bruit. S1-S2 heard normally. Short systolic murmur noted. Lungs reveal improved air entry. Abdomen and lower extremity exam is unchanged. MMODL / IJN: [id number] /
[2022-05-01 20:44] LABS: Glucose,Whole Blood 151 mg/dL (70-110)
[2022-05-01] MEDS: ATORVASTATIN 80 MG TAB PO SCH (21:07)
[2022-05-01] MEDS: MELATONIN 1 MG TAB PO SCH (21:07)
[2022-05-01] MEDS: QUEtiapine 50 MG TAB PO SCH (21:08)
[2022-05-02] MEDS: NOREPINEPHRINE 4 MG in SODIUM CHLORIDE 0.9% 250 ML IV SCH (00:49)
[2022-05-02] MEDS: MEXILETINE 150 MG CAP PO SCH ×2 (01:31→09:27)
[2022-05-02 06:33] LABS: Glucose,Whole Blood 144 mg/dL (70-110)
[2022-05-02] MEDS: glipiZIDE 5 MG TAB PO SCH (07:00)
[2022-05-02] MEDS: INSULIN ASPART (NovoLOG) 100 UNIT/ML VIAL SQ SCH ×2 (07:00→11:29)
[2022-05-02] MEDS: PANTOPRAZOLE 40 MG TABLET PO SCH (07:00)
[2022-05-02 07:05] LABS: African American GFR (CKD) >90 (>60 ml/min/1.73 sqM); Anion Gap 7 mmol/L; Blood Urea Nitrogen 23 mg/dL (9-20); Calcium 8.3 mg/dL (8.4-10.2); Carbon Dioxide 19 mmol/L (22-30); Chloride 106 mmol/L (98-107); Glucose 125 mg/dL (74-99); Non-African American GFR(CKD) 83 (>60 ml/min/1.73 sqM); Sodium 132 mmol/L (137-145)
[2022-05-02 07:38] LABS: Anisocytosis Slight; Basophils % (A) 0 %; Eosinophils % (A) 0 %; HCT 29.1 % (39.0-53.0); HGB 8.7 gm/dL (13.0-17.5); Hypochromasia Marked; Lymphocytes # (A) 0.5 k/uL (1.0-4.8); Lymphocytes % (A) 3 %; MCH 29.7 pg (25.0-35.0); MCHC 29.9 g/dL (31.0-37.0); MCV 99.1 fL (80.0-100.0); Macrocytosis Moderate; Mean Platelet Volume 8.6; Monocytes # (A) 0.5 k/uL (0-1.0); Monocytes % (A) 4 %; Neutrophils # (A) 12.8 k/uL (1.3-7.7); Neutrophils % (A) 92 %; Platelet Count 421 k/uL (150-450); Poikilocytosis Slight; RBC 2.94 m/uL (4.30-5.90); RDW 19.3 % (11.5-15.5)
[2022-05-02] MEDS ORDERED: SPIRONOLACTONE 25 MG TAB PO SCH (09:15)
[2022-05-02] MEDS: CEPHALEXIN 500 MG CAP PO SCH ×2 (09:28→12:47)
[2022-05-02] MEDS: FOLIC ACID 1 MG TAB PO SCH (09:28)
[2022-05-02] MEDS: QUEtiapine 25 MG TAB PO SCH (09:28)
[2022-05-02] MEDS: PRASUGREL 10 MG TAB PO SCH (09:28)
[2022-05-02] MEDS: AMIODARONE 200 MG TAB PO SCH (09:28)
[2022-05-02] MEDS: ENOXAPARIN 60 MG/0.6 ML SYRINGE SQ SCH (09:29)
[2022-05-02] MEDS: ASPIRIN 81 MG PO SCH (09:29)
[2022-05-02] MEDS: METOPROLOL TARTRATE 25 MG TAB PO SCH (09:29)
[2022-05-02] MEDS ORDERED: FUROSEMIDE 10 MG/ML 4 ML VIAL IV STA (09:31)
[2022-05-02 10:27] VITALS: TEMP 98.6
--- NOTE | 2022-05-02 10:34 | P.PN ---
Subjective Progress Note Date: 05/01/22 05/01/2022: Patient was seen for a follow-up. Patient is sitting comfortably in the recliner. Patient's son was also present today. Patient complains of some intermittent stabbing pain in the right lower lateral thigh, suggestive of meralgia paresthetica. Lower extremities are severely swollen with edema. Patient's son states that in the morning he was slightly confused but afternoon is better. No syncopal spell, no dizziness. 04/30/2022: Patient was seen for a follow-up. Patient is sitting comfortably in the recliner. Patient offers no new complaints. 04/29/2022: Patient initially seen by Dr. Alphonso Boggs. Please refer to his note for details. Patient is a 72-year-old male with multiple issues. Patient has large right MCA stroke and bilateral small frontal parietal seems embolic. He has a recent cardiac catheterization. Cardiology does not want to pursue CANDELARIA since it will not change the management since in past while being on anticoagulation had GI bleed for DVT. Patient has bilateral carotid disease but not seems to be significant for vascular intervention. Patient was having episodes of confusion for which Dr. Boggs initiated EEG. Patient appears slightly short of breath with difficulty breathing. Per nursing report, he has 1 episode of V. tach last night, and 2 episodes of V. tach the night prior for which she underwent cardioversion. His rhythm is back to basel ine. Patient is also on Seroquel, amiodarone. He is not on any sedation. He is on Lovenox subcu. Also on aspirin 81 mg every day. Objective - Vital Signs Vital signs: Vital Signs Temp 97.6 F 05/01/22 16:00 Pulse 87 05/01/22 17:00 Resp 21 05/01/22 17:00 BP 97/61 05/01/22 17:00 Pulse Ox 96 05/01/22 17:00 FiO2 96 04/30/22 16:00 Intake & Output 04/30/22 05/01/22 05/01/22 18:59 06:59 18:59 Intake Total 1680 1100 600 Output Total 225 0 705 Balance 1455 1100 -105 Weight 88.5 kg Intake: IV 1200 1100 600 Sodium Chloride 0.9% 1, 1200 1100 600 000 ml @ 50 mls/hr IV . Q20H [facility] Rx#:[id number] Oral 480 Output: Urine 225 0 705 Other: Voiding Method Urinal Urinal Indwelling Catheter # Bowel Movements 1 - Exam Patient is alert and awake. Patient is in no distress. Speech and language functions are normal. Cranial nerves are only significant for left homonymous hemianopia. No facial droop. Muscle strength revealed mild left pronator drift. However the strength is normal in the upper extremities 5/5. Hip flexion 3+/4+, Ankle dorsiflexion 5/5. No obvious ataxia. Sensations equal. - Labs CBC & Chem 7: 05/02/22 06:31 05/02/22 06:31 Labs: Abnormal Lab Results - Last 24 Hours (Table) 04/30/22 05/01/22 05/01/22 Range/Units 20:19 06:18 06:28 WBC 11.6 H (3.8-10.6) k/uL RBC 2.68 L (4.30-5.90) m/uL Hgb 8.1 L (13.0-17.5) gm/dL Hct 26.2 L (39.0-53.0) % MCHC 30.8 L (31.0-37.0) g/dL RDW 19.2 H (11.5-15.5) % Neutrophils # 10.4 H (1.3-7.7) k/uL Lymphocytes # 0.6 L (1.0-4.8) k/uL Sodium (137-145) mmol/L Carbon Dioxide (22-30) mmol/L BUN (9-20) mg/dL Glucose (74-99) mg/dL POC Glucose (mg/dL) 173 H 147 H (70-110) mg/dL Calcium (8.4-10.2) mg/dL Urine Protein (Negative) Urine Ketones (Negative) Urine Blood (Negative) Urine Bilirubin (Negative) Ur Leukocyte Esterase (Negative) Urine RBC (0-5) /hpf Urine WBC (0-5) /hpf Hyaline Casts (0-2) /lpf Urine Mucus (None) /hpf 05/01/22 05/01/22 05/01/22 Range/Units 06:28 11:40 15:15 WBC (3.8-10.6) k/uL RBC (4.30-5.90) m/uL Hgb (13.0-17.5) gm/dL Hct (39.0-53.0) % MCHC (31.0-37.0) g/dL RDW (11.5-15.5) % Neutrophils # (1.3-7.7) k/uL Lymphocytes # (1.0-4.8) k/uL Sodium 132 L (137-145) mmol/L Carbon Dioxide 21 L (22-30) mmol/L BUN 22 H (9-20) mg/dL Glucose 127 H (74-99) mg/dL POC Glucose (mg/dL) 122 H (70-110) mg/dL Calcium 8.0 L (8.4-10.2) mg/dL Urine Protein 2+ H (Negative) Urine Ketones 1+ H (Negative) Urine Blood Large H (Negative) Urine Bilirubin 1+ H (Negative) Ur Leukocyte Esterase Small H (Negative) Urine RBC 87 H (0-5) /hpf Urine WBC 17 H (0-5) /hpf Hyaline Casts 3 H (0-2) /lpf Urine Mucus Occasional H (None) /hpf 05/01/22 Range/Units 16:41 WBC (3.8-10.6) k/uL RBC (4.30-5.90) m/uL Hgb (13.0-17.5) gm/dL Hct (39.0-53.0) % MCHC (31.0-37.0) g/dL RDW (11.5-15.5) % Neutrophils # (1.3-7.7) k/uL Lymphocytes # (1.0-4.8) k/uL Sodium (137-145) mmol/L Carbon Dioxide (22-30) mmol/L BUN (9-20) mg/dL Glucose (74-99) mg/dL POC Glucose (mg/dL) 158 H (70-110) mg/dL Calcium (8.4-10.2) mg/dL Urine Protein (Negative) Urine Ketones (Negative) Urine Blood (Negative) Urine Bilirubin (Negative) Ur Leukocyte Esterase (Negative) Urine RBC (0-5) /hpf Urine WBC (0-5) /hpf Hyaline Casts (0-2) /lpf Urine Mucus (None) /hpf Assessment and Plan Assessment: Acute to subacute ischemic stroke (on MRI felt more right parietal and temporal region. Also had small foci over left occipital, and bilateral fronto/parietal): Definitely embolic in nature. Delerium Acute ST elevation myocardial infarction status post stenting 2 to the LAD. Carotid stenosis and reported as 50-70% on ultrasound but Vascular felt it was more like 50% stenois. 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 Plan: Patient's neurological examination is stable. Continues to have left homonymous hemianopia. EEG 04/29/2022 was abnormal EEG due to presence of excessive amount of low voltage fast frequency beta activity seen in bihemispheric region, which is suggestive of medication effect. No epileptiform activity was seen. Currently on aspirin 81mg daily, Effient 10mg daily started by cardiology, and also on full dose Lovenox 60 mg subcu every 12 hours. Continue Lipitor 80 mg daily at bedtime for secondary stroke prophylaxis Patient definitely needs CANDELARIA, but as per cardiology (Dr. Polo), was felt to hold off for now since the patient cannot use anticoagulation even if the thrombus is found on the CANDELARIA because of his recent bleed and hx of cancer which can increase risk of bleed. Consider CANDELARIA as outpatient. Definitely need to rule out embolic source. Continue telemetry monitoring, rule out paroxysmal atrial fibrillation. MRI of brain revealed evolving moderate to large size acute/subacute infarct posterior watershed region centered right parietal lobe. Additional bilateral evolving acute lacunar infarcts are felt present. Correlate clinically. On my review, involves the right parietal temporal region. Carotid stenosis and reported as 50-70% on ultrasound but Vascular felt it was more like 50% stenois. CT angiography is reported as moderate to severe atherosclerotic changes bilateral carotid bulb level discomfort but no he modynamic significant stenosis evident on this study. And that Dr. Carnes reviewed the images as well for the CTA and did not feel there is significant stenosis but have patient follow-up as outpatient. 2-D echo on 04/23/2022 was reported as severe left ventricle systolic dysfunction with ejection fraction of 20-25% dilated left ventricle, anterior, anterior apical, apical, inferior apical hypokinesis. No evidence of left ventricle thrombus identified. Cardiology on board. Continue cardiac monitoring PT OT are consulted Cardiology is on board Psychiatry and oncology also following. B12 > 2000, folate 8.6, stool occult blood positive. Start folic acid 1 mg daily. We'll defer the rest of the medical management to the primary team For DVT prophylaxis currently the patient is on Enoxaparin 60 mg every 12 hours Patient needs to follow-up with neurologist as outpatient within 1-2 weeks.
[2022-05-02 11:14] LABS: Glucose,Whole Blood 136 mg/dL (70-110)
[2022-05-02] MEDS ORDERED: SODIUM BICARB 8.4% 50 ML SYR (1 MEQ/ML) ONE (11:58)
[2022-05-02] MEDS ORDERED: EPINEPHrine 10 ML SYRINGE (0.1 MG/ML) ONE (11:58)
[2022-05-02] MEDS ORDERED: DEXTROSE 5% IN WATER 100 ML with AMIODARONE 150 MG IV ONE (12:08)
[2022-05-02] MEDS ORDERED: AMIODARONE 360 MG in DEXTROSE 5% IN WATER 200 ML IV ONE ×2 (12:08)
[2022-05-02 12:11] LABS: Glucose,Whole Blood 168 mg/dL (70-110)
--- NOTE | 2022-05-02 12:19 | P.PN ---
Subjective Patient is seen for follow-up for acute kidney injury and oliguria. He is status post cardiac catheterization and coronary stent placement for ST el evation MO during this admission. Patient also has right lower extremity DVT status post Kanu filter placement. Ejection fraction 20-25% This morning patient is sitting out of bed. He is comfortable denies any significant complaints. Urine output at around 20-40 mL an hour with last few hours at 10-15. Patient received a dose of Lasix 20 mg IV push yesterday. He did have some improvement in his urine output. Maintained on amiodarone drip. Systolic blood pressure around 102-10 5 mmHg. Patient denies any significant chest pains or shortness of breath. Objective - Vital Signs Vital signs: Vital Signs Temp 98.6 F 05/02/22 08:00 Pulse 91 05/02/22 10:00 Resp 15 05/02/22 10:00 BP 105/74 05/02/22 09:00 Pulse Ox 94 L 05/02/22 08:00 FiO2 96 04/30/22 16:00 Intake & Output 05/01/22 05/02/22 05/02/22 18:59 06:59 18:59 Intake Total 660 120 10 Output Total 735 225 155 Balance -75 -105 -145 Intake: IV 660 120 10 0.9 NaCl 110 10 Sodium Chloride 0.9% 1, 660 10 000 ml @ 50 mls/hr IV . [facility]H [facility] Rx#:[id number] Output: Urine 735 225 155 Other: Voiding Method Indwelling Catheter Indwelling Catheter Indwelling Catheter # Bowel Movements 1 1 - Exam Patient is awake, comfortable, not in any acute distress Examination of the heart S1 and S2 Examination of the lungs bilateral breath sounds are heard and decreased at the bases Abdomen is soft obese nontender Examination of lower extremity shows edema 2+ bilaterally NURSE EMERGENCY exam shows patient is moving all 4 extremities - Labs CBC & Chem 7: 05/02/22 06:31 05/02/22 06:31 Labs: Abnormal Lab Results - Last 24 Hours (Table) 05/01/22 05/01/22 05/01/22 Range/Units 15:15 16:41 20:43 WBC (3.8-10.6) k/uL RBC (4.30-5.90) m/uL Hgb (13.0-17.5) gm/dL Hct (39.0-53.0) % MCHC (31.0-37.0) g/dL RDW (11.5-15.5) % Neutrophils # (1.3-7.7) k/uL Lymphocytes # (1.0-4.8) k/uL Sodium (137-145) mmol/L Carbon Dioxide (22-30) mmol/L BUN (9-20) mg/dL Glucose (74-99) mg/dL POC Glucose (mg/dL) 158 H 151 H (70-110) mg/dL Calcium (8.4-10.2) mg/dL Urine Protein 2+ H (Negative) Urine Ketones 1+ H (Negative) Urine Blood Large H (Negative) Urine Bilirubin 1+ H (Negative) Ur Leukocyte Esterase Small H (Negative) Urine RBC 87 H (0-5) /hpf Urine WBC 17 H (0-5) /hpf Hyaline Casts 3 H (0-2) /lpf Urine Mucus Occasional H (None) /hpf 05/02/22 05/02/22 05/02/22 Range/Units 06:30 06:31 06:31 WBC 14.0 H (3.8-10.6) k/uL RBC 2.94 L (4.30-5.90) m/uL Hgb 8.7 L (13.0-17.5) gm/dL Hct 29.1 L (39.0-53.0) % MCHC 29.9 L (31.0-37.0) g/dL RDW 19.3 H (11.5-15.5) % Neutrophils # 12.8 H (1.3-7.7) k/uL Lymphocytes # 0.5 L (1.0-4.8) k/uL Sodium 132 L (137-145) mmol/L Carbon Dioxide 19 L (22-30) mmol/L BUN 23 H (9-20) mg/dL Glucose 125 H (74-99) mg/dL POC Glucose (mg/dL) 144 H (70-110) mg/dL Calcium 8.3 L (8.4-10.2) mg/dL Urine Protein (Negative) Urine Ketones (Negative) Urine Blood (Negative) Urine Bilirubin (Negative) Ur Leukocyte Esterase (Negative) Urine RBC (0-5) /hpf Urine WBC (0-5) /hpf Hyaline Casts (0-2) /lpf Urine Mucus (None) /hpf 05/02/22 05/02/22 Range/Units 11:12 12:06 WBC (3.8-10.6) k/uL RBC (4.30-5.90) m/uL Hgb (13.0-17.5) gm/dL Hct (39.0-53.0) % MCHC (31.0-37.0) g/dL RDW (11.5-15.5) % Neutrophils # (1.3-7.7) k/uL Lymphocytes # (1.0-4.8) k/uL Sodium (137-145) mmol/L Carbon Dioxide (22-30) mmol/L BUN (9-20) mg/dL Glucose (74-99) mg/dL POC Glucose (mg/dL) 136 H 168 H (70-110) mg/dL Calcium (8.4-10.2) mg/dL Urine Protein (Negative) Urine Ketones (Negative) Urine Blood (Negative) Urine Bilirubin (Negative) Ur Leukocyte Esterase (Negative) Urine RBC (0-5) /hpf Urine WBC (0-5) /hpf Hyaline Casts (0-2) /lpf Urine Mucus (None) /hpf Assessment and Plan Assessment: 1. Acute kidney injury with oliguria, currently slightly improved. Etiology hypotension and element of contrast nephropathy. Patient is being diuresed. 2. Acute ST elevation MO status post stenting of LAD this admission 3. Right lower extremity DVT status post Kanu filter placement 4. Recent diagnosis of gastric adenocarcinoma 5. History of depression 6. Recent upper GI bleed related to recent gastric biopsy and initiation of eliquis Plan: Continue to diurese patient increased dose of Lasix Repeat labs in a.m. Avoid nephrotoxic agents. May continue with the KARYNA inhibitor's
--- NOTE | 2022-05-02 12:49 | P.PN ---
Subjective Progress Note Date: 05/02/22 Principal diagnosis: Cardiac arrest. Reevaluated today on 04/23/2022, patient remains in the ICU, on 2 L nasal cannula, does not seem to be in any distress. Patient had IVC filter placement today. Patient has been on heparin, and the biggest concern about this patient is the fact that he may develop GI bleeding with heparin and that is the reason he had IVC filter placement today. Today I switched his heparin to Lovenox at 60 mg subcu twice a day patient had stent done to diagonal and the LAD. At present he seems to be comfortable, he is known to have recent history of adenocarcinoma of the stomach which was recently diagnosed according to the patient, and diagnoses was done in [place], I think the patient is at very high risk of clotting and developing DVT and pulmonary embolism, hence in spite of having a filter placement, I believe the patient needs more anticoagulation treatment, but I'm reluctant to give him a high dose of Lovenox at this point. Hemoglobin today is 9.6 WBC count is 12.5 PTT is 45.2 and he had positive Hemoccult stool. Echocardiogram on 04/23 showed severe LV dysfunction and ejection fraction of 20- 25%. Reevaluated today on 04/24/2022, patient is doing well this morning, however last night he was extremely agitated and physically abusive to the staff, patient received Ativan and received Haldol that seemed to calm him down. Echocardio gram did show evidence of severe LV dysfunction with ejection fraction of 20- 25%. Patient is tachycardic, and his blood pressure is marginal nonetheless, his metoprolol was increased by cardiology. Remains on diuretics/Lasix. Tolerating Lovenox while for his deep vein thrombosis patient had uneventful placement of IVC filter. This was done yesterday. Patient was seen by oncology on consultation, awaiting outside records regarding his adenocarcinoma/stomach adenocarcinoma. Labs today showed WBC of 8.9 hemoglobin 8.2 electrolytes are normal renal profile is normal Patient was reevaluated today on 04/25/2022, he is basically about the same, continues to have intermittent episodes of vegetations requiring sedation and sometimes restraints. He does improve with Ativan and with Haldol. And during my evaluation the patient was extremely calm, and not in any distress. Patient is being considered for Mediport placement because of his recent diagnosis of duodenal adenocarcinoma. Name patient will require chemotherapy. Labs today showed hemoglobin of 7.5 WBC 7.9. Electrodes are normal renal profile is normal. Bicarb is 22 Progress note dated 05/02/2022. This is a 72-year-old male who is being seen by her team, until April 25. Please see the note above. Today, the patient sustained a episode of ventricular tachycardia, and required resuscitation. The patient had cardiopulmonary resuscitation, and had cardioversion 2. The resuscitation lasted about 15 minutes. The patient was intubated, and is now on the ventilator. Ventilator settings include the volume assist control, rate 12, tidal volume 450, FiO2 100%, and PEEP of 5. The patient is getting saline bolus as we speak, and is currently on amiodarone at 1 mg/m. The patient also received 2 doses of amiodarone, 150 mg each. Laboratory data today includes a white count of 14, hemoglobin 8.7, hematocrit 29.1, and a platelet count of 421,000. Sodium 132, potassium 5, chlorides 106, CO2 19, BUN 23, creatinine 0.93. Calcium is 8.3. Chest x-ray shows an endotracheal tube, above the tracheal dinah. Objective - Vital Signs Vital signs: Vital Signs Temp 98.6 F 05/02/22 08:00 Pulse 91 05/02/22 10:00 Resp 15 05/02/22 10:00 BP 105/74 05/02/22 09:00 Pulse Ox 94 L 05/02/22 08:00 FiO2 100 05/02/22 12:27 Intake & Output 05/01/22 05/02/22 05/02/22 18:59 06:59 18:59 Intake Total 660 120 10 Output Total 735 225 155 Balance -75 -105 -145 Intake: IV 660 120 10 0.9 NaCl 110 10 Sodium Chloride 0.9% 1, 660 10 000 ml @ 50 mls/hr IV . Q20H [facility] Rx#:[id number] Output: Urine 735 225 155 Other: Voiding Method Indwelling Catheter Indwelling Catheter Indwelling Catheter # Bowel Movements 1 1 - Exam No acute distress, sedated, and currently intubated. HEENT examination is grossly unremarkable. Neck supple. Full range of motion. No adenopathy thyromegaly or neck vein distention. Cardiovascular examination reveals regular rhythm rate. S1-S2 normal. No S3 or S4. No discernible murmur noted. Heart sounds are distant. Heart rate 91 bpm. Lungs reveal scattered bilateral rhonchi. No wheezes. No crackles. Breath sounds equal bilaterally. Saturations are 100%. Abdomen soft, without bowel sounds. Extremities are intact. No cyanosis or clubbing. There is edema. Skin is without rash or lesion. Neurologic examination cannot be adequately assessed as the patient is currently sedated and intubated. - Labs CBC & Chem 7: 05/02/22 06:31 05/02/22 06:31 Labs: Abnormal Lab Results - Last 24 Hours (Table) 05/01/22 05/01/22 05/01/22 Range/Units 15:15 16:41 20:43 WBC (3.8-10.6) k/uL RBC (4.30-5.90) m/uL Hgb (13.0-17.5) gm/dL Hct (39.0-53.0) % MCHC (31.0-37.0) g/dL RDW (11.5-15.5) % Neutrophils # (1.3-7.7) k/uL Lymphocytes # (1.0-4.8) k/uL Sodium (137-145) mmol/L Carbon Dioxide (22-30) mmol/L BUN (9-20) mg/dL Glucose (74-99) mg/dL POC Glucose (mg/dL) 158 H 151 H (70-110) mg/dL Calcium (8.4-10.2) mg/dL Urine Protein 2+ H (Negative) Urine Ketones 1+ H (Negative) Urine Blood Large H (Negative) Urine Bilirubin 1+ H (Negative) Ur Leukocyte Esterase Small H (Negative) Urine RBC 87 H (0-5) /hpf Urine WBC 17 H (0-5) /hpf Hyaline Casts 3 H (0-2) /lpf Urine Mucus Occasional H (None) /hpf 05/02/22 05/02/22 05/02/22 Range/Units 06:30 06:31 06:31 WBC 14.0 H (3.8-10.6) k/uL RBC 2.94 L (4.30-5.90) m/uL Hgb 8.7 L (13.0-17.5) gm/dL Hct 29.1 L (39.0-53.0) % MCHC 29.9 L (31.0-37.0) g/dL RDW 19.3 H (11.5-15.5) % Neutrophils # 12.8 H (1.3-7.7) k/uL Lymphocytes # 0.5 L (1.0-4.8) k/uL Sodium 132 L (137-145) mmol/L Carbon Dioxide 19 L (22-30) mmol/L BUN 23 H (9-20) mg/dL Glucose 125 H (74-99) mg/dL POC Glucose (mg/dL) 144 H (70-110) mg/dL Calcium 8.3 L (8.4-10.2) mg/dL Urine Protein (Negative) Urine Ketones (Negative) Urine Blood (Negative) Urine Bilirubin (Negative) Ur Leukocyte Esterase (Negative) Urine RBC (0-5) /hpf Urine WBC (0-5) /hpf Hyaline Casts (0-2) /lpf Urine Mucus (None) /hpf 05/02/22 05/02/22 Range/Units 11:12 12:06 WBC (3.8-10.6) k/uL RBC (4.30-5.90) m/uL Hgb (13.0-17.5) gm/dL Hct (39.0-53.0) % MCHC (31.0-37.0) g/dL RDW (11.5-15.5) % Neutrophils # (1.3-7.7) k/uL Lymphocytes # (1.0-4.8) k/uL Sodium (137-145) mmol/L Carbon Dioxide (22-30) mmol/L BUN (9-20) mg/dL Glucose (74-99) mg/dL POC Glucose (mg/dL) 136 H 168 H (70-110) mg/dL Calcium (8.4-10.2) mg/dL Urine Protein (Negative) Urine Ketones (Negative) Urine Blood (Negative) Urine Bilirubin (Negative) Ur Leukocyte Esterase (Negative) Urine RBC (0-5) /hpf Urine WBC (0-5) /hpf Hyaline Casts (0-2) /lpf Urine Mucus (None) /hpf Assessment and Plan Assessment: Status post cardiac arrest/ventricular tachycardia, about 15-17 minutes of cardiopulmonary resuscitation. Status post intubation and mechanical ventilation, secondary to ventricular tachycardia arrest. Acute ST elevation myocardial infarction, status post stenting. Duodenal adenocarcinoma. Acute DVT. Upper gastrointestinal bleeding. Type 2 diabetes. Hyperlipidemia. History of depression. Chronic low back pain. Ischemic cardiomyopathy, and LV dysfunction. Acute systolic CHF. Plan: Plan dated 05/02/2022. I just had a word with the patient's daughter. She is waiting for her b rother's, and, to make a decision about continuing with life support, versus comfort measures. He apparently did not wanted be maintained on mechanical ventilator. Additional recommendations and suggestions are forthcoming. The patient may need an art line and a central line, should they continue with life support. Prognosis is certainly very guarded given his age, his multitude of medical problems. We'll continue to follow make recommendations were appropriate. Prognosis is certainly guarded. Time with Patient: Greater than 30
[2022-05-02 12:50] LABS: Anisocytosis Slight; Basophils % (A) 0 %; Eosinophils % (A) 0 %; HCT 26.4 % (39.0-53.0); HGB 7.5 gm/dL (13.0-17.5); Hypochromasia Marked; Lymphocytes % (A) 12 %; MCH 29.2 pg (25.0-35.0); MCHC 28.6 g/dL (31.0-37.0); MCV 102.3 fL (80.0-100.0); Macrocytosis Moderate; Mean Platelet Volume 9.3; Monocytes # (A) 0.6 k/uL (0-1.0); Monocytes % (A) 4 %; Neutrophils # (A) 13.5 k/uL (1.3-7.7); Neutrophils % (A) 82 %; Platelet Count 411 k/uL (150-450); Poikilocytosis Slight; RBC 2.58 m/uL (4.30-5.90); RDW 19.2 % (11.5-15.5); WBC 16.5 k/uL (3.8-10.6)
--- NOTE | 2022-05-02 12:54 | XR ---
EXAMINATION TYPE: XR chest 1V portable DATE OF EXAM: 05/02/2022 HISTORY: Shortness of breath. COMPARISON: 05/01/2022 TECHNIQUE: Single view of the chest is submitted. FINDINGS: Endotracheal tube is located approximately 2.7 cm from the dinah. Right subclavian central venous li ne with its distal tip overlying the SVC. No evidence for pneumothorax. There is left basilar atelectasis or small infiltrate. Small effusion noted as well. Continued cardio megaly without pulmonary venous engorgement. No evidence for overt failure. The heart is stable. Hilar and mediastinal structures are within normal limits. Degenerative changes are seen of the dorsal spine. IMPRESSION: 1. Endotracheal tube is located approximately 2.7 cm from the dinah. Right subclavian central venou s line with its distal tip overlying the SVC. No evidence for pneumothorax.
[2022-05-02 13:04] LABS: Albumin 2.1 g/dL (3.5-5.0); Calcium 7.6 mg/dL (8.4-10.2); Magnesium 2.2 mg/dL (1.6-2.3); Phosphorus 3.9 mg/dL (2.5-4.5); Potassium 4.3 mmol/L (3.5-5.1); Total Bilirubin 0.2 mg/dL (0.2-1.3); Total Protein 4.4 g/dL (6.3-8.2)
[2022-05-02] MEDS ORDERED: MORPHINE SULFATE 2 MG/ML SYRINGE IV PRN (13:17)
[2022-05-02] MEDS ORDERED: ATROPINE OPHTH SOLN 1% 5ML BTL SUBLINGUAL PRN (13:17)
[2022-05-02] MEDS ORDERED: LORazepam 1 MG/0.5 ML VIAL IV PRN ×2 (13:17→15:56)
[2022-05-02] MEDS ORDERED: MORPHINE SULFATE 4 MG/ML SYRINGE IV PRN (13:17)
[2022-05-02 13:21] VITALS: BP 52/34; PULSE 79; RESP 22
[2022-05-02] MEDS ORDERED: SCOPOLAMINE 1 MG/72 HR PATCH TRANSDERM SCH (13:30)
[2022-05-02] MEDS ORDERED: MORPHINE SULFATE (100 MG/2 ML) 100 MG in SODIUM CHLORIDE 0.9% 100 ML IV SCH (13:30)
--- NOTE | 2022-05-02 14:31 | P.PN ---
Progress Note - Text Progress Note Date: 05/02/22 Chief Complaint: Dizzy This is a 72-year-old patient who follows with Dr. Ming Naylor. Patient on April 03 was admitted to [facility] and were diagnosed with that clot in the right lower extremity. Patient also had some bloody stools. Patient underwent endoscopy was found to have gastric cancer biopsy showing adenocarcinoma. Following a biopsy. Subsequently patient was discharged on eliquis. Patient with then became hypotensive and was admitted to [facility]. Seen by an oncologist there. It was felt that patient's bleeding from his biopsy site of the gastric cancer. Patient left from the [facility] 2 days ago. Came home. Patient now presented to our facility feeling dizzy lightheaded diet. Ultrasound in the ER did confirm blood clots in both lower extremity. Also patient's Axel ST elevation FL. During the cardiac cathode builder and got 2 stents to the LAD. Patient is due to get a IVC filter. Postprocedure patient ICU. On about 6 g of Levothroid. No chest pain. Tired. Up in a chair. Daughter the bedside. 04/23/2022: ICU: IVC filter placed this morning by Dr. Carnes. Patient on PPI antiplatelet agents. Sinus tachycardia. Seen by pain management team. Use Ultram when necessary. Eating lunch 04/24/2022: ICU: Tolerating diet. Sinus tachycardia. Reported by nurse to be suspicious of people. Psychiatry consulted. Seroquel was added yesterday. Did sleep some. Will DC Dilaudid. 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 Daughter the bedside. Seen by psychiatry. Put on Seroquel. Was rather combative confused last night. Answering questions better today. 04/26/2022: Wound to the medical floor. Patient doing better. Answering questions more appropriately. No focal weakness. MRA of the brain revealed fair size involving right parietal temporal infarct with other areas of infarct. [place] to be embolic. Care was discussed with Dr. Boggs from neurology and Dr. Polo from cardiology. Given that patient is a very high risk of bleeding and is already on dual antiplatelet because of coronary stents, doing a CANDELARIA, but has not had any further benefit. Patient will be followed clinically over the weekend. This was discussed with that is patient's daughter at length with the presence of nurse Farley. Oral prognosis guarded. Also discussed that we'll wait 6 weeks from the time of coronary stent for the localize GI tumor surgery to be done. 04/27/2022: Patient's other daughter is visiting. Patient still having some psychotic symptoms. Talking about people being killed. Being followed by psychiatry. Sitting at the edge of the bed. No BMs. 04/28/2022: ICU patient overnight. Bouts of V. tach. Was given shock. IV amiodarone. No chest pain. Feels tired. Still having variable amounts of V. tach. Being followed by cardiology. 04/29/2022: ICU. On this morning patient again had symptomatic V. tach with hypotension. Patient was shocked. Since then rhythm controlled. Started on mexiletine by mouth by cardiology today. Dose of amiodarone being cutback. Last psychotic symptoms. Though still present. Spoke at length to patient is Dr. Cordova over the phone. About CODE STATUS. She will talk to her siblings and the patient's this evening. Given his multiple comorbidities and prognosis DO NOT RESUSCITATE would be appropriate 04/30/2022: ICU: IV amiodarone changed over to by mouth amiodarone. Also on Mexitil. No further episodes of V. tach. Rather tired today. Decreased oral intake. Systolic blood pression the 90s. 05/01/2022: ICU. Oral intake fair. No further V. tach. Carnes catheter ordered by nephrology to measure urine output. Patient still believing and constantly regarding his management. He does trust me... After discussing patient did take his morning medications medications that she had earlier refused. He wanted his catheter to be taken out and I discussed the importance of the same with the patient. Discussed with piano case and bench assembler. Pending authorization. 05/02/2022: ICU: Patient oral intake variable. Having a lot of PVCs. This afternoon I was called and patient had V. tach. Had to be shocked. LifeVest was earlier ordered by cardiology Active Medications Atropine Sulfate (Atropine Ophth Soln 1% 5ml Btl) 2 drops SUBLINGUAL Q4HR PRN PRN Reason: Excess Secretions Folic Acid (Folic Acid 1 Mg Tab) 1 mg PO DAILY [facility] Last Admin: 05/02/22 09:28 Dose: 1 mg Morphine Sulfate 100 mg/ (Sodium Chloride) 102 mls @ 1.02 mls/hr IV .Q24H [facility]; Protocol Last Titration: 05/02/22 13:57 Dose: 2 mg/hr, 2.04 mls/hr Lisinopril (Lisinopril 2.5 Mg Tab) 2.5 mg PO DAILY ON LICENSE OF [facility] Last Admin: 05/02/22 09:38 Dose: 2.5 mg Miscellaneous Information (Magnesium Replacement Protocol 1 Each Misc) 1 each MISCELLANE DAILY PRN; Protocol PRN Reason: Per Protocol Morphine Sulfate (Morphine Sulfate 2 Mg/Ml Syringe) 2 mg IV Q15M PRN PRN Reason: Breakthrough Pain Morphine Sulfate (Morphine Sulfate 4 Mg/Ml Syringe) 4 mg IV Q15M PRN PRN Reason: Breakthrough Pain Scopolamine (Scopolamine 1 Mg/72 Hr Patch) 1 patch TRANSDERM Q72H [facility] Past medical history to include: Diabetes mellitus type 2, acute DVT both lower extremity diagnosed 2 weeks ago, gastric tumor showing adenocarcinoma recently diagnosed. Depression Social history: Does not smoke. Does marijuana occasionally. 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 Lives alone. Family history: Diabetes, [place], lung cancer Physical examination: VITAL SIGNS: 96, 12, 105/74, 100% on 2 L GENERAL: He planning in chair, awake EYES: Pupils equal. Conjunctiva normal. HEENT: External appearance of nose and ears normal, oral cavity grossly normal. NECK: JVD not raised; masses not palpable. HEART: First and second heart sounds are normal; edema present. LUNGS: Respiratory rate normal; decreased breath sounds. ABDOMEN: Soft, nontender, liver spleen not palpable, no masses palpable. Carnes catheter PSYCH: Answering questions. Very suspicious. MUSCULOSKELETAL:No Clubbing/cyanosis;muscles-grossly intact Neurological: No focal weakness INVESTIGATIONS, reviewed in the clinical context: May 02: WBC 16.5 hemoglobin 7.5 potassium 4.3 creatinine 1.02 May 01: WBC 11.6 hemoglobin 8.1 potassium 5.1 creatinine 0.98 April 30: WBC 11.5 hemoglobin 7.9 potassium 4.8 creatinine 1.01 April 29: Sodium 1:30 potassium 4.5 creatinine 0.9 to magnesium 2 April 28: WBC 13 hemoglobin 8 platelets 459 potassium 4.1 creatinine 0.84. Troponin I 10.8, white 0.9 April 27: WBC 13.6; 7.9 platelets. 26 potassium 5 creatinine 0.71 MRI brain: Moderate to large size acute/subacute infarct posterior watershed region. Additional bilateral involving acute infarcts the corner felt to be present. April 26: WBC 9.7 hemoglobin 7.3 potassium 4.6 creatinine 0.73 April 25: WBC 7.9 hemoglobin 7.5 platelets 368 potassium 4.3 creatinine 0.7 to April 24: White count 8.9 hemoglobin 8.2 potassium 4.1 creatinine 0.69 April 23: White count 12.5 hemoglobin 9.6 platelets 333 echocardiogram: EF 20-25%. Moderate pulmonary hypertension. White count 12.5 hemoglobin 8.7 platelets 232 sodium 133 potassium 3.9 BUN 19 creatinine 0.81 Troponin I 24.9, 27.5, 23.2 LDL 46 EKG tracing personally reviewed by mn-ST elevation V2 to V6, but ST segment depression in inferior leads Chest x-ray film personally reviewed by mn-jennie/Fanny. Venous polyposis Doppler ultrasound lower extremity: Positive for DVT and tired right leg with hypoechoic clot, DVT in the left leg is still popliteal vein and proximal calf veins. Bilateral Olivas's cyst. Assessment and plan: -Acute ST elevation myocardial infarction of the anterior wall. 2 stents to the LAD. -Recurrent intermittent sustained V. tach. Uncontrolled Patient has received amiodarone. Mexiletine. Has been shock. Other episode today. LifeVest ordered. -Acute/subacute infarct posterior watershed region, with other areas of infarct felt to be embolic. high risk of bleeding because of his GI tumor with recent bleeding. Hence CANDELARIA will not be done at this point. Being followed by neurology -CAD with stent to LAD Aspirin 81 mg, Lipitor 80 mg, Lopressor 12.5 mg by mouth twice a day, prasugrel 10 mg daily -Adenocarcinoma of the duodenum. No evidence of distant metastatic disease Diagnosed recently with biopsy following EGD for GI bleed. Wait at least 6 weeks since stent for any intervention -Diabetes mellitus type 2, oral hypoglycemic Glucotrol. Follow Accu-Cheks with sliding scale -Psychosis unspecified, with some delirium: Slow to respond Seroquel 25 at the morning and 100 mg at night. Zyprexa when necessary -Secondary pulmonary hypertension, from CHF Follow clinically -Hypotension from low EF: Follow blood pressure closely -Hyperlipidemia Lipitor 80 mg daily at bedtime -Depression Continue Seroquel - chronic low back pain. Patient seen by pain services. Continue home dose of Ultram. K pad. -Acute congestive heart failure from acute [place]. From systolic dysfunction. EF 20-25%. Lasix 20 mg. Aldactone 25 mg. Beta cora. -Cardiogenic shock: Better Received levo fed -Recreational marijuana use. uses as needed -Acute bilateral DVT on lower extremity diagnosed on April 03. Patient's eliquis was held because of GI bleed. Last dose taken was on April 17. Bilateral MARLENE stockings. IVC filter placement by Dr. Carnes on April 23 -full code LifeVest ordered. Had to be shocked for V. tach today. Other medications to continue. Prognosis guarded. Add sodium bicarbonate tablets. Received doses of IV Lasix today
--- NOTE | 2022-05-02 14:49 | PN ---
PROGRESS NOTE The patient has no further ventricular ectopy. He is doing well. I am recommending that he should be on a life vest. Potassium is 5.0. Will reduce Aldactone to 12.5 mg b.i.d., add lisinopril 2.5 mg daily, increase activity and hopefully move him to telemetry unit. Patient has overall poor prognosis. He is aware of this, but I am not sure how much he comprehends the whole picture. Prognosis remains guarded. MMODL / IJN: [id number] /
[2022-05-02] MEDS ORDERED: SODIUM BICARBONATE TAB 650 MG TAB PO SCH (16:00)
[2022-05-02] MEDS ORDERED: AMIODARONE 450 MG in DEXTROSE 5% IN WATER 250 ML IV SCH ×2 (18:00)
--- NOTE | 2022-05-03 16:05 | P.DS ---
Providers Date of admission: 04/22/22 06:17 Expected date of discharge: 05/03/22 Attending physician: Jony Wen Primary care physician: Ming Naylor [facility] Course: Chief Complaint: Dizzy This is a 72-year-old patient who follows with Dr. Ming Naylor. Patient on April 03 was admitted to [facility] and were diagnosed with that clot in the right lower extremity. Patient also had some bloody stools. Patient underwent endoscopy was found to have gastric cancer biopsy showing adenocarcinoma. Following a biopsy. Subsequently patient was discharged on eliquis. Patient with then became hypotensive and was admitted to [facility]. Seen by an oncologist there. It was felt that patient's bleeding from his biopsy site of the gastric cancer. Patient left from the [facility] 2 days ago. Came home. Patient now presented to our facility feeling dizzy lightheaded diet. Ultrasound in the ER did confirm blood clots in both lower extremity. Also patient's Axel ST elevation [place]. During the cardiac medical lab director and got 2 stents to the LAD. Patient is due to get a IVC filter. Postprocedure patient ICU. On about 6 g of Levothroid. No chest pain. Tired. Up in a chair. Daughter the bedside. 04/23/2022: ICU: IVC filter placed this morning by Dr. Carnes. Patient on PPI antiplatelet agents. Sinus tachycardia. Seen by pain management team. Use Ultram when necessary. Eating lunch 04/24/2022: ICU: Tolerating diet. Sinus tachycardia. Reported by nurse to be suspicious of people. Psychiatry consulted. Seroquel was added yesterday. Did sleep some. Will DC Dilaudid. 04/25/2022: ICU: REFRIGERATION TECHNICIAN today for a MediPort placement. Daughter the bedside. Seen by psychiatry. Put on Seroquel. Was rather combative confused last night. Answering questions better today. 04/26/2022: Wound to the medical floor. Patient doing better. Answering questions more appropriately. No focal weakness. MRA of the brain revealed fair size involving right parietal temporal infarct with other areas of infarct. Hannah to be embolic. Care was discussed with Dr. Boggs from neurology and Dr. Polo from cardiology. Given that patient is a very high risk of bleeding and is already on dual antiplatelet because of coronary stents, doing a CANDELARIA, but has not had any further benefit. Patient will be followed clinically over the weekend. This was discussed with that is patient's daughter at length with the presence of nurse Farley. Oral prognosis guarded. Also discussed that we'll wait 6 weeks from the time of coronary stent for the localize GI tumor surgery to be done. 04/27/2022: Patient's other daughter is visiting. Patient still having some psychotic symptoms. Talking about people being killed. Being followed by psychiatry. Sitting at the edge of the bed. No BMs. 04/28/2022: ICU patient overnight. Bouts of V. tach. Was given shock. IV amiodarone. No chest pain. Feels tired. Still having variable amounts of V. tach. Being followed by cardiology. 04/29/2022: ICU. On this morning patient again had symptomatic V. tach with hypotension. Patient was shocked. Since then rhythm controlled. Started on mexiletine by mouth by cardiology today. Dose of amiodarone being cutback. Last psychotic symptoms. Though still present. Spoke at length to patient is Dr. Cordova over the phone. About CODE STATUS. She will talk to her siblings and the patient's this evening. Given his multiple comorbidities and prognosis DO NOT RESUSCITATE would be appropriate 04/30/2022: ICU: IV amiodarone changed over to by mouth amiodarone. Also on Mexitil. No further episodes of V. tach. Rather tired today. Decreased oral intake. Systolic blood pression the 90s. 05/01/2022: ICU. Oral intake fair. No further V. tach. Carnes catheter ordered by nephrology to measure urine output. Patient still believing and constantly regarding his management. He does trust me... After discussing patient did take his morning medications medications that she had earlier refused. He wante d his catheter to be taken out and I discussed the importance of the same with the patient. Discussed with watch case polisher. Pending authorization. 05/02/2022: ICU: Patient oral intake variable. Having a lot of PVCs. This afternoon I was called and patient had V. tach. Had to be shocked. LifeVest was earlier ordered by cardiology 05/03/2022. Patient became unstable overnight. Cardiac arrested again. Family was called and:. made comfort care. this morning. Past medical history to include: Diabetes mellitus type 2, acute DVT both lower extremity diagnosed 2 weeks ago, gastric tumor showing adenocarcinoma recently diagnosed. Depression Social history: Does not smoke. Does marijuana occasionally. 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 Lives alone. Family history: Diabetes, [place], lung cancer INVESTIGATIONS, reviewed in the clinical context: May 02: WBC 16.5 hemoglobin 7.5 potassium 4.3 creatinine 1.02 May 01: WBC 11.6 hemoglobin 8.1 potassium 5.1 creatinine 0.98 April 30: WBC 11.5 hemoglobin 7.9 potassium 4.8 creatinine 1.01 April 29: Sodium 1:30 potassium 4.5 creatinine 0.9 to magnesium 2 April 28: WBC 13 hemoglobin 8 platelets 459 potassium 4.1 creatinine 0.84. T roponin I 10.8, white 0.9 April 27: WBC 13.6; 7.9 platelets. 26 potassium 5 creatinine 0.71 MRI brain: Moderate to large size acute/subacute infarct posterior watershed region. Additional bilateral involving acute infarcts the corner felt to be present. April 26: WBC 9.7 hemoglobin 7.3 potassium 4.6 creatinine 0.73 April 25: WBC 7.9 hemoglobin 7.5 platelets 368 potassium 4.3 creatinine 0.7 to April 24: White count 8.9 hemoglobin 8.2 potassium 4.1 creatinine 0.69 April 23: White count 12.5 hemoglobin 9.6 platelets 333 echocardiogram: EF 20-25%. Moderate pulmonary hypertension. White count 12.5 hemoglobin 8.7 platelets 232 sodium 133 potassium 3.9 BUN 19 creatinine 0.81 Troponin I 24.9, 27.5, 23.2 LDL 46 EKG tracing personally reviewed by ms-ST elevation V2 to V6, but ST segment depression in inferior leads Chest x-ray film personally reviewed by ms-portable/Fanny. Venous polyposis Doppler ultrasound lower extremity: Positive for DVT and tired right leg with hypoechoic clot, DVT in the left leg is still popliteal vein and proximal calf veins. Bilateral Olivas's cyst. Cause of : Acute stroke Assessment and plan: -Acute ST elevation myocardial infarction of the anterior wall. 2 stents to the LAD. -Recurrent intermittent sustained V. tach. Uncontrolled Patient has received amiodarone. Mexiletine. Has been shock. Other episode today. LifeVest ordered. -Acute/subacute infarct posterior watershed region, with other areas of infarct felt to be embolic. high risk of bleeding because of his GI tumor with recent bleeding. Hence CANDELARIA will not be done at this point. Being followed by neurology -CAD with stent to LAD Aspirin 81 mg, Lipitor 80 mg, Lopressor 12.5 mg by mouth twice a day, prasugrel 10 mg daily -Adenocarcinoma of the duodenum. No evidence of distant metastatic disease Diagnosed recently with biopsy following EGD for GI bleed. Wait at least 6 weeks since stent for any intervention -Diabetes mellitus type 2, oral hypoglycemic Glucotrol. Follow Accu-Cheks with sliding scale -Psychosis unspecified, with some delirium: Slow to respond Seroquel 25 at the morning and 100 mg at night. Zyprexa when necessary -Secondary pulmonary hypertension, from CHF Follow clinically -Hypotension from low EF: Follow blood pressure closely -Hyperlipidemia Lipitor 80 mg daily at bedtime -Depression Continue Seroquel - chronic low back pain. Patient seen by pain services. Continue home dose of Ultram. K pad. -Acute congestive heart failure from acute [place]. From systolic dysfunction. EF 20-25%. Lasix 20 mg. Aldactone 25 mg. Beta cora. -Cardiogenic shock: Better Received levo fed -Recreational marijuana use. uses as needed -Acute bilateral DVT on lower extremity diagnosed on April 03. Patient's eliquis was held because of GI bleed. Last dose taken was on April 17. Bilateral MARLENE stockings. IVC filter placement by Dr. Carnes on April 23 Disposition: Patient Plan - Discharge Summary Discharge Rx Participant: No New Discharge Prescriptions: No Action Pantoprazole [Protonix] 40 mg PO BID metFORMIN HCL 1,000 mg PO BID hydrALAZINE HCL [Apresoline] 100 mg PO TID glipiZIDE [Glucotrol] 5 mg PO AC-BID amLODIPine BESYLATE/BENAZEPRIL [Lotrel 10-40 mg Capsule] 1 cap PO DAILY QUEtiapine [SEROquel] 150 mg PO HS Metoprolol Tartrate [Lopressor] 25 mg PO BID gemfibroziL [Lopid] 600 mg PO BID Discharge Medication List Metoprolol Tartrate [Lopressor] 25 mg PO BID 04/22/22 [History] Pantoprazole [Protonix] 40 mg PO BID 04/22/22 [History] QUEtiapine [SEROquel] 150 mg PO HS 04/22/22 [History] amLODIPine BESYLATE/BENAZEPRIL [Lotrel 10-40 mg Capsule] 1 cap PO DAILY 04/22/22 [History] gemfibroziL [Lopid] 600 mg PO BID 04/22/22 [History] glipiZIDE [Glucotrol] 5 mg PO AC-BID 04/22/22 [History] hydrALAZINE HCL [Apresoline] 100 mg PO TID 04/22/22 [History] metFORMIN HCL 1,000 mg PO BID 04/22/22 [History] Follow up Appointment(s)/Referral(s): Ming Naylor MD [Primary Care Provider] - 1-2 days Gosia Kauffman MD [STAFF PHYSICIAN] - 3 Weeks Ramu Acosta MD [STAFF PHYSICIAN] - 1 Week Discharge Disposition: - Preliminary Cause of Preliminary Cause of : Acute stroke
--- NOTE | 2022-05-03 17:47 | P.PN ---
Progress Note - Text Progress Note Date: 05/03/22 This is a late note entry. CODE BLUE NOTE: I responded to a CODE BLUE on 05/02/2022 around 11:58AM. Patient was found to be in PEA. Patient was started on high quality chest compression. He was given multiple doses of Epinephrine. He was intubated. He was given 2 doses of Amiodarone for Vtach seen on telemetry. He was defibrillated twice for Vtach. He was able to regain a pulse at 12:22PM. His poor prognosis was discussed with family. I spent 45 minutes of critical care time with this patient.
== END 2022-05-03 05:00 | disposition expired | DRG 246 ==
LOC: EC 04:46 → 2SICU 06:17 → 3SCARD 04-26 02:29 → 2SICU 04-28 04:12
PROVIDERS: ADMIT Hospitalist; ATTEND Hospitalist
PROC: 3E033XZ Introduction of Vasopressor into Peripheral Vein, Percutaneous Approach (ICD-10-PCS; 2022-04-22)
PROC: B2111ZZ Fluoroscopy of Multiple Coronary Arteries using Low Osmolar Contrast (ICD-10-PCS; principal; 2022-04-22 05:15)
PROC: 4A023N7 Measurement of Cardiac Sampling and Pressure, Left Heart, Percutaneous Approach (ICD-10-PCS; principal; 2022-04-22 05:15)
PROC: 027035Z Dilation of Coronary Artery, One Artery with Two Drug-eluting Intraluminal Devices, Percutaneous Approach (ICD-10-PCS; principal; 2022-04-22 05:15)
PROC: 06H03DZ Insertion of Intraluminal Device into Inferior Vena Cava, Percutaneous Approach (ICD-10-PCS; 2022-04-23)
PROC: 0JH63WZ Insertion of Totally Implantable Vascular Access Device into Chest Subcutaneous Tissue and Fascia, Percutaneous Approach (ICD-10-PCS; 2022-04-25)
PROC: 05H533Z Insertion of Infusion Device into Right Subclavian Vein, Percutaneous Approach (ICD-10-PCS; 2022-04-25)
PROC: 5A2204Z Restoration of Cardiac Rhythm, Single (ICD-10-PCS; 2022-05-02)
PROC: 5A1935Z Respiratory Ventilation, Less than 24 Consecutive Hours (ICD-10-PCS; 2022-05-02)
PROC: 5A12012 Performance of Cardiac Output, Single, Manual (ICD-10-PCS; 2022-05-02)
PROC: 0BH18EZ Insertion of Endotracheal Airway into Trachea, Via Natural or Artificial Opening Endoscopic (ICD-10-PCS; 2022-05-02)
DX: I21.09 ST elevation (STEMI) myocardial infarction involving other coronary artery of anterior wall (principal); I46.2 Cardiac arrest due to underlying cardiac condition; I50.23 Acute on chronic systolic (congestive) heart failure; I63.81 Other cerebral infarction due to occlusion or stenosis of small artery; I47.2 Ventricular tachycardia; F23 Brief psychotic disorder; I82.432 Acute embolism and thrombosis of left popliteal vein; I82.4Z2 Acute embolism and thrombosis of unspecified deep veins of left distal lower extremity; I82.411 Acute embolism and thrombosis of right femoral vein; I82.441 Acute embolism and thrombosis of right tibial vein; K92.1 Melena; C17.0 Malignant neoplasm of duodenum; F05 Delirium due to known physiological condition; C77.2 Secondary and unspecified malignant neoplasm of intra-abdominal lymph nodes; N17.9 Acute kidney failure, unspecified; R57.0 Cardiogenic shock; I27.29 Other secondary pulmonary hypertension; J44.9 Chronic obstructive pulmonary disease, unspecified; I11.0 Hypertensive heart disease with heart failure; Z51.5 Encounter for palliative care; Z66 Do not resuscitate; E11.9 Type 2 diabetes mellitus without complications; F32.A Depression, unspecified; I65.23 Occlusion and stenosis of bilateral carotid arteries; D63.0 Anemia in neoplastic disease; M71.21 Synovial cyst of popliteal space [Baker], right knee; M71.22 Synovial cyst of popliteal space [Baker], left knee; E78.5 Hyperlipidemia, unspecified; R01.1 Cardiac murmur, unspecified; T50.8X5A Adverse effect of diagnostic agents, initial encounter; N14.1 Nephropathy induced by other drugs, medicaments and biological substances; I49.3 Ventricular premature depolarization; F41.9 Anxiety disorder, unspecified; K27.9 Peptic ulcer, site unspecified, unspecified as acute or chronic, without hemorrhage or perforation; G89.29 Other chronic pain; M54.50 Low back pain, unspecified; E83.42 Hypomagnesemia; I25.119 Atherosclerotic heart disease of native coronary artery with unspecified angina pectoris; Z62.819 Personal history of unspecified abuse in childhood; I25.5 Ischemic cardiomyopathy; Z91.14 Patient's other noncompliance with medication regimen; Z90.89 Acquired absence of other organs; Z98.890 Other specified postprocedural states; Z87.11 Personal history of peptic ulcer disease; Z78.1 Physical restraint status; Z91.19 Patient's noncompliance with other medical treatment and regimen; Z87.891 Personal history of nicotine dependence; Z85.028 Personal history of other malignant neoplasm of stomach; Z86.718 Personal history of other venous thrombosis and embolism; Z79.01 Long term (current) use of anticoagulants; Z79.84 Long term (current) use of oral hypoglycemic drugs; Z79.899 Other long term (current) drug therapy; Z86.73 Personal history of transient ischemic attack (TIA), and cerebral infarction without residual deficits; I25.2 Old myocardial infarction; Z83.3 Family history of diabetes mellitus; Z82.49 Family history of ischemic heart disease and other diseases of the circulatory system; Z80.1 Family history of malignant neoplasm of trachea, bronchus and lung
CPT/HCPCS: 36415; 37191; 70450; 70496; 70498; 70553; 71045; 71260; 72100; 72125; 74177; 77001; 80048; 80053; 80061; 81001; 82248; 82272; 82378; 82607; 82728; 82746; 83010; 83540; 83550; 83605; 83615; 83735; 84100; 84484; 85025; 85027; 85045; 85610; 85730; 93005; 93306; 93458; 93880; 93970; 94002; 94760; 95816; 99291